=== PATIENT | female | born 1965 | race African-American/Black ===

== ENCOUNTER 2017-01-18 10:21 | Emergency (ER) | payer SELFPAY ==
[~2017-01-18] VITALS: Ht 170.2 cm; Wt 73.5 kg
[~2017-01-18 10:21] MED LIST: ALBU0.086 INH; MAGICADU2 SWISH-SWAL; PENI500T PO
[2017-01-18 10:28] VITALS: BP 150/98; PULSE 79; RESP 16; TEMP 98.8; O2SAT 97
[2017-01-18] MEDS ORDERED: CLON0.1T PO (10:39)
[2017-01-18] MEDS ORDERED: ALBU.5I NEB (10:39)
--- NOTE | 2017-01-18 11:19 | PD ---
HPI Chief Complaint: Musculoskeletal Complaint Time Seen by Provider: 11:09 Travel History International Travel<30 days: No Contact w/Intl Traveler<30days: No Traveled to known affect area: No History of Present Illness HPI 51-year-old Afro-[place] female presents the emergency Department with left- sided lower back pain with sciatica symptoms to the great toe left foot. Patient denies any specific inciting injury. Patient has had a history of this in the past with positive MRI previously. Patient states the pain is been worse over the past 2 days keeping her up at night. She denies weakness or bowel or bladder involvement. Patient is allergic to bee stings and peanuts. PFSH Past Medical History Hx Anticoagulant Therapy: No Asthma: Yes Cardiovascular Problems: Yes (htn out of meds for 2 months) Diabetes: No Diminished Hearing: No Hypertension: Yes Musculoskeletal: Yes (HERNIATED DISC) Respiratory: Yes (ASTHMA) Immunizations Current: Yes ?: Not LMP: no more menses, menapause Menopausal: Yes Tubal Ligation: Yes Past Surgical History Section: Yes Social History Alcohol Use: Yes (BEER DAILY; 4PK/DAILY) Tobacco Use: Yes (5 CIG DAILY) Substance Use: Yes (HX COCAINE (DENIES OF 05/20/16)) Allergies-Medications (Allergen,Severity, Reaction): Coded Allergies: Bee Sting (Verified Allergy, Severe, ANAPHYLAXIS, 01/18/17) Peanut (Verified Allergy, Severe, ANAPHYLAXIS, 01/18/17) Reported Meds & Prescriptions Reported Meds & Active Scripts Active Reported Clonidine (Clonidine HCl) 0.1 Mg Tab 0.1 Mg PO BID Albuterol Neb (Albuterol Sulfate) 2.5 Mg/0.5 Ml Neb 2.5 Mg NEB Q4HR NEB PRN Note: The Albuterol Sulfate Inhalation Solution is concentrated and must be diluted. Read complete instructions carefully before using. Review of Systems Except as stated in HPI: all other systems reviewed are Neg General / Constitutional: No: Fever Eyes: No: Visual changes HENT: No: Headaches Cardiovascular: No: Chest Pain or Discomfort Respiratory: No: Shortness of Breath Gastrointestinal: No: Abdominal Pain Genitourinary: No: Dysuria Musculoskeletal: No: Pain Skin: No Rash Neurologic: No: Weakness Psychiatric: No: Depression Endocrine: No: Polydipsia Hematologic/Lymphatic: No: Easy Bruising Physical Exam Narrative GENERAL: Patient appears in no acute distress. SKIN: Warm and dry. Normal color. Normal turgor. No rash. HEAD: Atraumatic. Normocephalic. EYES: Pupils equal and round. No scleral icterus. No injection or drainage. ENT: No nasal bleeding or discharge. Mucous membranes pink and moist. Pharynx is clear. Airway is patent. NECK: Trachea midline. Neck is supple nontender. CARDIOVASCULAR: Regular rate and rhythm. RESPIRATORY: No accessory muscle use. Clear to auscultation. Breath sounds equal bilaterally. MUSCULOSKELETAL: Extremities without clubbing, cyanosis, or edema. No obvious deformities. Patient has tenderness with palpation along the left lower lumbar paraspinous region into the sciatic notch. Patient is positive straight leg raise pain on the left at 45, without contralateral pain on the right. Patient is able to dorsiflex and plantar flex normally, as well as stand on both feet individually without difficulty. NEUROLOGICAL: Awake and alert. No obvious cranial nerve deficits. Motor grossly within normal limits. Five out of 5 muscle strength in the arms and legs. Normal speech. PSYCHIATRIC: Appropriate mood and affect; insight and judgment normal. Data Data Last Documented VS Vital Signs Date Time Temp Pulse Resp B/P Pulse Ox O2 Delivery O2 Flow Rate FiO2 01/18/17 10:28 98.8 79 16 150/98 97 MDM Medical Decision Making Medical Screen Exam Complete: Yes Emergency Medical Condition: Yes Medical Record Reviewed: Yes Differential Diagnosis Low back pain. Lumbar strain. Sciatica. Narrative Course Patient is medically stable at time of exam. Radiographic imaging at this time is not felt warranted based on the patient's history and physical. Patient be treated with prednisone 20 mg twice a day 7 days. Patient also given Norflex 100 mg twice a day when necessary #10. Patient also given tramadol 50 mg one every 6 hours when necessary pain #20. Patient is to use heat and ice and encourage frequent walking and exercise as instructed. Patient follow with her primary care physician or return to emergency Department with worsening symptoms as needed. Diagnosis Primary Impression: Lumbago with sciatica, left side Referrals: Primary Care Physician Patient Instructions: General Instructions, Lower Back Exercises (GEN), Sciatica (ED) Additional Instructions: Radiographic imaging at this time is not felt warranted based on the patient's history and physical. Patient be treated with prednisone 20 mg twice a day 7 days. Patient also given Norflex 100 mg twice a day when necessary #10. Patient also given tramadol 50 mg one every 6 hours when necessary pain #20. Patient is to use heat and ice and encourage frequent walking and exercise as instructed. Patient follow with her primary care physician or return to emergency Department with worsening symptoms as needed. Med/Other Pt SpecificInfo: Prescription(s) given Disposition: 01 DISCHARGE HOME Condition: Stable Panda Ferraro Jan 18, 2017 11:19
[2017-01-18] MEDS ORDERED: ORPH100T99 PO (11:20)
[2017-01-18] MEDS ORDERED: TRAM50TA PO (11:20)
[2017-01-18] MEDS ORDERED: PRED20 PO (11:20)
== END 2017-01-18 11:26 | disposition home or self-care (01) ==
LOC: PHEFT 10:21
DX: I10 Essential (primary) hypertension (principal); M54.40 Lumbago with sciatica, unspecified side
CPT/HCPCS: 99283

== ENCOUNTER 2017-05-03 13:24 | Emergency (ER) | payer SELFPAY ==
[~2017-05-03] VITALS: Ht 170.2 cm; Wt 75.4 kg
[~2017-05-03 13:24] MED LIST changes: +ALBU.5I NEB; -ALBU0.086 INH; +CLON0.1T PO; -MAGICADU2 SWISH-SWAL; +ORPH100T99 PO; -PENI500T PO; +PRED20 PO; +TRAM50TA PO
[2017-05-03 13:39] VITALS: BP 142/94; PULSE 78; RESP 18; TEMP 98.5; O2SAT 97
--- NOTE | 2017-05-03 15:08 | PD ---
HPI Chief Complaint: Laceration/Skin Injury Time Seen by Provider: 12:31 Travel History International Travel<30 days: No Contact w/Intl Traveler<30days: No Traveled to known affect area: No History of Present Illness HPI 51-year-old female presents to the emergency room for evaluation of a laceration to her left lateral leg that occurred just prior to arrival. Patient was taking out the trash when she was cut by what she believes was broken ceramic or glass. She denies significant pain. States it is tender around the area. She applied hydrogen peroxide and then came to the emergency room. Unknown last tetanus. PFSH Past Medical History Hx Anticoagulant Therapy: No Asthma: Yes Cardiovascular Problems: Yes (htn out of meds for 2 months) COPD: Yes Diabetes: No Diminished Hearing: No Hypertension: Yes Musculoskeletal: Yes (HERNIATED DISC) Respiratory: Yes (asthma, COPD) Immunizations Current: Yes Tetanus Vaccination: > 5 Years Influenza Vaccination: No ?: Unknown LMP: 28 yrs old Menopausal: No Tubal Ligation: Yes (1990) Past Surgical History Abdominal Surgery: Yes (C section in 1982) Section: Yes (1982) Oral Surgery: Yes (wisdom teeth removed at 17) Social History Alcohol Use: Yes (4 pack every other day) Tobacco Use: Yes (10/12 ppd) Substance Use: No Allergies-Medications (Allergen,Severity, Reaction): Coded Allergies: Bee Sting (Verified Allergy, Severe, ANAPHYLAXIS, 01/18/17) Peanut (Verified Allergy, Severe, ANAPHYLAXIS, 01/18/17) Reported Meds & Prescriptions Reported Meds & Active Scripts Active Reported Albuterol Neb (Albuterol Sulfate) 2.5 Mg/0.5 Ml Neb 2.5 Mg NEB Q4HR NEB PRN Note: The Albuterol Sulfate Inhalation Solution is concentrated and must be diluted. Read complete instructions carefully before using. Review of Systems Except as stated in HPI: all other systems reviewed are Neg Physical Exam Narrative GENERAL: Well-nourished, well-developed female in no acute distress. Afebrile. Ambulatory. SKIN: Focused skin assessment warm/dry. There is a 3 cm superficial laceration to the left lateral calf. Nonbleeding. Laceration does not reach fatty layer. HEAD: Normocephalic. EYES: No scleral icterus. No injection or drainage. NECK: Supple, trachea midline. No JVD or lymphadenopathy. CARDIOVASCULAR: Regular rate and rhythm without murmurs, gallops, or rubs. RESPIRATORY: Breath sounds equal bilaterally. No accessory muscle use. PSYCHIATRIC: No delusional thought processes. No hallucinations. Data Data Last Documented VS Vital Signs Date Time Temp Pulse Resp B/P Pulse Ox O2 Delivery O2 Flow Rate FiO2 05/03/17 13:39 98.5 78 18 142/94 97 MDM Medical Decision Making Medical Screen Exam Complete: Yes Emergency Medical Condition: Yes Medical Record Reviewed: Yes Differential Diagnosis Laceration, abrasion, skin tear Narrative Course 51-year-old female presents to the emergency room for evaluation of a laceration to her left lower lateral leg that occurred just prior to arrival. Patient cut herself on glass. Physical exam reveals a 3 cm very superficial laceration to the left lower lateral leg. It is nonbleeding. No significant tenderness to palpation. Tetanus was updated. Laceration is repaired with sutures, see procedure note for details. Patient discharged with wound care instructions and told to follow up with her primary care physician or return for worsening symptoms. She understands and agrees to plan. Procedures Procedure Narrative LACERATION LOCATION: Left lower lateral leg LENGTH: 3 cm NUMBER OF STITCHES/KATHY: 5 Simple interrupted REPAIR: The area of the laceration was prepped with Betadine and sterilely draped. The laceration was infiltrated with 1% lidocaine. The wound was copiously irrigated and explored without evidence of foreign body, tendon injury or neurovascular injury. The wound was closed using 4-0 Prolene. This was a single layer repair. A sterile dressing was applied. The patient was advised to keep the dressing clean and dry. Patient tolerated the procedure well. Diagnosis Primary Impression: Laceration of leg Qualified Code: S81.812A - Laceration of leg, left, initial encounter Referrals: Primary Care Physician Patient Instructions: General Instructions, Laceration (ED) Additional Instructions: Rest and drink plenty of fluids. Keep wound clean and dry. Apply triple antibiotic ointment daily. Sutures out in 10 days. Follow-up with a primary care physician. Return to the emergency room for worsening symptoms. Disposition: 01 DISCHARGE HOME Condition: Stable Nitza Salomon May 03, 2017 15:08
[2017-05-03] MEDS ORDERED: TETANUS/DIPHTHERIA TOXOID ADULT 0.5 ML VIAL IM ONE (15:15)
== END 2017-05-03 15:34 | disposition home or self-care (01) ==
LOC: PHEFT 13:24
DX: S81.812A Laceration without foreign body, left lower leg, initial encounter (principal); I10 Essential (primary) hypertension; J44.9 Chronic obstructive pulmonary disease, unspecified; F17.200 Nicotine dependence, unspecified, uncomplicated; W25.XXXA Contact with sharp glass, initial encounter; Y93.89 Activity, other specified; Z23 Encounter for immunization
CPT/HCPCS: 12002; 90471; 90714

== ENCOUNTER 2017-05-06 23:07 | Emergency (ER) | payer SELFPAY ==
[~2017-05-06] VITALS: Ht 170.2 cm; Wt 77.3 kg
[~2017-05-06 23:07] MED LIST changes: -CLON0.1T PO; -ORPH100T99 PO; -PRED20 PO; -TRAM50TA PO
[2017-05-06] MEDS ORDERED: ONDANSETRON ODT 4 MG TAB PO ONE (23:15)
[2017-05-06] MEDS ORDERED: DEXAMETHASONE SOD PHOS 20 MG/5 ML VIAL IM ONE (23:15)
[2017-05-06] MEDS ORDERED: HYDROmorphone HCL PF 1 MG/ML VIAL IM ONE (23:15)
[2017-05-06] MEDS ORDERED: MEDR4PAK PO (23:18)
[2017-05-06] MEDS ORDERED: ULTR50TA5 PO (23:18)
[2017-05-06] MEDS ORDERED: BACL20TA PO (23:18)
--- NOTE | 2017-05-06 23:18 | PD ---
HPI Chief Complaint: back pain Time Seen by Provider: 23:11 Travel History International Travel<30 days: No Contact w/Intl Traveler<30days: No Traveled to known affect area: No History of Present Illness HPI LOW BACK PAIN SHARP AND RADIATING DOWN RIGHT LEG, 07/20, OCCURRED SHE WAS AMBULATING FROM ROOM TO ROOM AT HER HOUSE, PATIENT HAS BEEN DIAGNOSED PRIOR WITH SCIATICA. CURRENTLY PATIENT DENIES ANY FECAL/URINARY INCONTINENCE PFSH Past Medical History Hx Anticoagulant Therapy: No Asthma: Yes Cardiovascular Problems: Yes (htn out of meds for 2 months) COPD: Yes Diabetes: No Diminished Hearing: No Hypertension: Yes Musculoskeletal: Yes (HERNIATED DISC) Respiratory: Yes (asthma, COPD) Immunizations Current: Yes Menopausal: No Tubal Ligation: Yes (1990) Past Surgical History Abdominal Surgery: Yes (C section in 1982) Section: Yes (1982) Oral Surgery: Yes (wisdom teeth removed at 17) Social History Alcohol Use: Yes (4 pack every other day) Tobacco Use: Yes (10/12) Substance Use: No Allergies-Medications (Allergen,Severity, Reaction): Coded Allergies: Bee Sting (Verified Allergy, Severe, ANAPHYLAXIS, 05/07/17) Peanut (Verified Allergy, Severe, ANAPHYLAXIS, 05/07/17) Reported Meds & Prescriptions Reported Meds & Active Scripts Active Baclofen 20 Mg Tab 20 Mg PO TID Ultram (Tramadol HCl) 50 Mg Tab 50 Mg PO Q4H PRN Medrol Dosepak (Methylprednisolone) 4 Mg Dspk 4 Mg PO DIRECTED Per Pharmacist direction Reported Albuterol Neb (Albuterol Sulfate) 2.5 Mg/0.5 Ml Neb 2.5 Mg NEB Q4HR NEB PRN Note: The Albuterol Sulfate Inhalation Solution is concentrated and must be diluted. Read complete instructions carefully before using. Review of Systems Except as stated in HPI: all other systems reviewed are Neg Musculoskeletal: Positive: Pain (LOW BACK PAIN RADIATING DOWN RT LEG) Physical Exam Narrative GENERAL: SKIN: Warm and dry. HEAD: Atraumatic. Normocephalic. EYES: Pupils equal and round. No scleral icterus. No injection or drainage. ENT: No nasal bleeding or discharge. Mucous membranes pink and moist. NECK: Trachea midline. No JVD. CARDIOVASCULAR: Regular rate and rhythm. RESPIRATORY: No accessory muscle use. Clear to auscultation. Breath sounds equal bilaterally. GASTROINTESTINAL: Abdomen soft, non-tender, nondistended. Hepatic and splenic margins not palpable. MUSCULOSKELETAL: Extremities without clubbing, cyanosis, or edema. No obvious deformities. POSITIVE CONTRALATERAL STRAIGHT LEG RAISE NEUROLOGICAL: Awake and alert. No obvious cranial nerve deficits. Motor grossly within normal limits. Five out of 5 muscle strength in the arms and legs. Normal speech...NO SADDLE ANESTHESIA PSYCHIATRIC: Appropriate mood and affect; insight and judgment normal. Data Data Last Documented VS Vital Signs Date Time Temp Pulse Resp B/P Pulse Ox O2 Delivery O2 Flow Rate FiO2 05/07/17 00:48 82 18 172/88 99 05/07/17 00:05 Room Air 05/06/17 23:25 98.4 Orders Ondansetron Odt (Zofran Odt) (05/06/17 23:15) Hydromorphone Pf Inj (Dilaudid Pf Inj) (05/06/17 23:15) Dexamethasone Inj (Decadron Inj) (05/06/17 23:15) Clonidine (Catapres) (05/06/17 23:30) Orphenadrine Inj (Norflex Inj) (05/07/17 00:00) MDM Medical Decision Making Medical Screen Exam Complete: Yes Emergency Medical Condition: Yes Medical Record Reviewed: Yes Differential Diagnosis SCIATICA Narrative Course NO EVIDENCE OF SADDLE ANESTHESIA NOR TRUE PARALYSIS/PARESTHESIA PRESENTLY....ONLY SHARP PAIN C/W SCIATICA WHICH PATIENT STATED WAS SIMILAR TO HER PREVIOUS ATTACKS. PATIENT TREATED WITH IM MEDICATIONS AND AFTER 30-45MIN PAIN LEVEL ALREADY DOWN TO 5/10 AND ABLE TO MOVE RLE THROUGH ROM. Diagnosis Primary Impression: Lumbago with sciatica, right side Patient Instructions: General Instructions, Sciatica (ED) Scripts Baclofen 20 Mg Tab20 Mg PO TID #21 TAB Ref 0 Prov:Zachary Fam MD 05/06/17 Tramadol (Ultram)50 Mg Tab50 Mg PO Q4H PRN (PAIN) #28 TAB Prov:Zachary Fam MD 05/06/17 Methylprednisolone Dosepak (Medrol Dosepak)4 Mg Dspk4 Mg PO DIRECTED #1 DSPK Per Pharmacist direction Prov:Zachary Fam MD 05/06/17 Disposition: 01 DISCHARGE HOME Condition: Stable Zachary Fam MD May 06, 2017 23:18
[2017-05-06 23:25] VITALS: BP 181/100; PULSE 77; RESP 18; TEMP 98.4; O2SAT 97
[2017-05-06] MEDS ORDERED: cloNIDine HCL 0.1 MG TAB PO ONE (23:30)
[2017-05-07] MEDS ORDERED: ORPHENADRINE INJ 60 MG/2 ML AMP IM ONE
[2017-05-07 00:05] VITALS: BP 171/90; PULSE 68; RESP 18; O2SAT 97
[2017-05-07 00:48] VITALS: BP 172/88
== END 2017-05-07 00:51 | disposition home or self-care (01) ==
LOC: PHED 23:07
DX: M54.41 Lumbago with sciatica, right side (principal)
CPT/HCPCS: 96372; 96374; 99284; J1100; J1170; J2360

== ENCOUNTER 2017-05-08 20:22 | Inpatient (IN) | payer SELFPAY ==
[~2017-05-08] VITALS: Ht 170.2 cm; Wt 83.0 kg
[2017-05-08 20:22] VITALS: BP 169/88; PULSE 103; RESP 20; TEMP 101.6; O2SAT 96
[~2017-05-08 20:22] MED LIST changes: +BACL20TA PO; +MEDR4PAK PO; +ULTR50TA5 PO
[2017-05-08 20:25] VITALS: BP 169/88; PULSE 103; RESP 20; TEMP 101.6; O2SAT 96
[2017-05-08] MEDS ORDERED: SODIUM CHLOR 0.9% 1000 ML INJ 1,000 ML IV SCH ×2 (20:30→23:00)
[2017-05-08] MEDS ORDERED: SODIUM CHLORIDE 0.9% FLUSH 5 ML FLUSH IV FLUSH PRN (20:30)
--- NOTE | 2017-05-08 20:51 | PD ---
HPI Chief Complaint: Altered Mental Status Time Seen by Provider: 20:35 Travel History International Travel<30 days: No Contact w/Intl Traveler<30days: No Traveled to known affect area: No History of Present Illness HPI The patient is a 51-year-old female that comes in today because of right shoulder and right abdominal pain and altered mental status. She was seen yesterday for back pain and was given Dilaudid. She does have a history of cocaine and alcohol abuse. She has fever and cannot tell me how long the fevers been present. She cannot tell me when her right shoulder pain began, this is one of her main complaints. She denies any nausea, vomiting, diarrhea, cough, chest pain or shortness of breath. Her called the ambulance because she was acting strange since yesterday and not getting out of bed or eating. PFSH Past Medical History Hx Anticoagulant Therapy: No Asthma: Yes Cardiovascular Problems: Yes (htn out of meds for 2 months) COPD: Yes Diabetes: No Diminished Hearing: No Hypertension: Yes Musculoskeletal: Yes (HERNIATED DISC) Respiratory: Yes (asthma, COPD) Immunizations Current: Yes Menopausal: No Tubal Ligation: Yes (1990) Past Surgical History Abdominal Surgery: Yes (C section in 1982) Section: Yes (1982) Oral Surgery: Yes (wisdom teeth removed at 17) Social History Alcohol Use: Yes (4 pack every other day) Tobacco Use: Yes (10/12 ppd) Substance Use: No Allergies-Medications (Allergen,Severity, Reaction): Coded Allergies: Bee Sting (Verified Allergy, Severe, ANAPHYLAXIS, 05/08/17) Peanut (Verified Allergy, Severe, ANAPHYLAXIS, 05/08/17) *MDRO Multi-Drug Resistant Organism (Verified Adverse Reaction, Unknown, ) MRSA (blood) 05/08/17, 05/10/17, (back) 05/12/17 Reported Meds & Prescriptions Reported Meds & Active Scripts Active Baclofen 20 Mg Tab 20 Mg PO TID Ultram (Tramadol HCl) 50 Mg Tab 50 Mg PO Q4H PRN Medrol Dosepak (Methylprednisolone) 4 Mg Dspk 4 Mg PO DIRECTED Per Pharmacist direction Reported Albuterol Neb (Albuterol Sulfate) 2.5 Mg/0.5 Ml Neb 2.5 Mg NEB Q4HR NEB PRN Note: The Albuterol Sulfate Inhalation Solution is concentrated and must be diluted. Read complete instructions carefully before using. Review of Systems ROS Limitations: Altered Mental Status, Uncooperative Except as stated in HPI: all other systems reviewed are Neg Physical Exam Exam Limitations: Altered Mental Status, Uncooperative Narrative GENERAL: The patient is alert but has problems answering questions. She is continually moving about and complains of right shoulder pain. Her vital signs show temperature 101.6, pulse 103, blood pressure 169/88 but otherwise normal. SKIN: Focused skin assessment warm/dry. HEAD: Atraumatic. Normocephalic. Neither raccoon eyes nor solares sign is present. EYES: Pupils equal and round. No scleral icterus. No injection or drainage. ENT: No nasal bleeding or discharge. Mucous membranes pink and moist. The throat is clear and tympanic membranes are clear. NECK: Trachea midline. No JVD. There is no meningismus. CARDIOVASCULAR: Sinus tachycardia rhythm. No murmur appreciated. RESPIRATORY: No accessory muscle use. Clear to auscultation. Breath sounds equal bilaterally. GASTROINTESTINAL: Abdomen soft, with tenderness in the right upper quadrant to direct palpation, nondistended. Hepatic and splenic margins not palpable. No guarding or rebound is present. MUSCULOSKELETAL: No obvious deformities. No clubbing. No cyanosis. No edema. NEUROLOGICAL: Awake and alert. No obvious cranial nerve deficits. Motor grossly within normal limits. Normal speech. PSYCHIATRIC: The patient appears anxious and will not answer questions except on occasion; insight and judgment fair Data Data Last Documented VS Orders Electrocardiogram (05/08/17 20:30) Ammonia (05/08/17 20:30) Complete Blood Count With Diff (05/08/17 20:30) Comprehensive Metabolic Panel (05/08/17 20:30) Creatine Kinase (Cpk) (05/08/17 20:30) Troponin I (05/08/17 20:30) Thyroid Stimulating Hormone (05/08/17 20:30) Urinalysis - C+S If Indicated (05/08/17 20:30) Blood Glucose (05/08/17 20:30) Ecg Monitoring (05/08/17 20:30) Iv Access Insert/Monitor (05/08/17 20:30) Oximetry (05/08/17 20:30) Sodium Chloride 0.9% Flush (Ns Flush) (05/08/17 20:30) Sodium Chlor 0.9% 1000 Ml Inj (Ns 1000 M (05/08/17 20:30) Drug Screen, Random Urine (05/08/17 20:30) Alcohol (Ethanol) (05/08/17 20:30) Tylenol (Acetaminophen) (05/08/17 20:30) Salicylates (Aspirin) (05/08/17 20:30) Lactic Acid Sepsis Protocol (05/08/17 20:35) Blood Culture (05/08/17 20:35) Ct Abd/Pel W Iv Contrast(Rout) (05/08/17 20:47) Ed Urine Pregnancytest Poc (05/08/17 20:47) Shoulder, Limited(2vws) (05/08/17 20:47) Urine Culture (05/08/17 21:00) Cath For Specimen (05/08/17 21:40) CKMB (05/08/17 20:40) CKMB% (05/08/17 20:40) Iohexol 350 Inj (Omnipaque 350 Inj) (05/08/17 22:06) Sodium Chlor 0.9% 1000 Ml Inj (Ns 1000 M (05/08/17 23:00) Ketorolac Inj (Toradol Inj) (05/08/17 23:00) Ceftriaxone Inj (Rocephin Inj) (05/08/17 23:00) Vancomycin Consult Pharmacy (Vancomycin (05/08/17 23:15) Cefepime Inj (Maxipime Inj) (05/09/17 09:00) Admit To Inpatient (05/08/17 ) Vital Signs (Adult) Q4H (05/08/17 23:14) Activity Oob With Assistance (05/08/17 23:14) Rescue Instructor / Telemetry .CONTINUOUS (05/08/17 23:14) Intake + Output MIMI.QSHIFT (05/08/17 23:14) Diet Heart Healthy (05/09/17 Breakfast) Sodium Chlor 0.9% 1000 Ml Inj (Ns 1000 M (05/08/17 23:14) Sodium Chloride 0.9% Flush (Ns Flush) (05/08/17 23:15) Sodium Chloride 0.9% Flush (Ns Flush) (05/09/17 09:00) Ondansetron Inj (Zofran Inj) (05/08/17 23:15) Comprehensive Metabolic Panel (05/09/17 09:00) Complete Blood Count With Diff (05/09/17 09:00) Troponin I (05/09/17 03:00) Troponin I (05/09/17 09:00) Acetaminophen (Tylenol) (05/08/17 23:15) Docusate Sodium-Senna (Janice-Colace) (05/09/17 09:00) Magnesium Hydroxide Liq (Milk Of Magnesi (05/08/17 23:15) Sennosides (Senokot) (05/08/17 23:15) Bisacodyl Supp (Dulcolax Supp) (05/08/17 23:15) Lactulose Liq (Lactulose Liq) (05/08/17 23:15) Inpatient Certification (05/08/17 ) Creatine Kinase (Cpk) (05/09/17 03:00) Creatine Kinase (Cpk) (05/09/17 09:00) Admit Order (Ed Use Only) (05/08/17 23:26) Heparin Inj (Heparin Inj) (05/09/17 09:00) CKMB (05/09/17 03:00) CKMB% (05/09/17 03:00) CKMB (05/09/17 09:12) CKMB% (05/09/17 09:12) Labs MDM Medical Decision Making Medical Screen Exam Complete: Yes Emergency Medical Condition: Yes Medical Record Reviewed: Yes Interpretation(s) The complete metabolic profile shows a creatinine of 1.1, GFR of 64, albumin 2.9 with GOT of 49 and potassium 3.4. The CK shows 1168 with an MB percentage of only 0.9. The troponin I is minimally elevated at 0.15. The TSH is normal and the alcohol level is essentially 0. The CT abdomen/pelvis with IV contrast shows no acute findings and the abdomen and pelvis. Differential Diagnosis Small bowel obstruction, cholecystitis, acute myocardial infarction, electrolyte disorder, hypo-/hyperglycemia, renal insufficiency, abdominal pain etiology undetermined Narrative Course The patient has abdominal pain etiology undetermined. She also has likely sepsis with her fever, leukocytosis and tachycardia. She has a urinary infection as well as elevation of her cardiac enzymes. She may have some rhabdomyolysis. She also may have some toxic encephalopathy. Sepsis Criteria SIRS Criteria (2 or more): Temp > 100.9 or < 96.8, Heart rate over 90 Diagnosis Primary Impression: Sepsis Additional Impressions: Urinary tract infection Cardiac enzymes elevated Encephalopathy, toxic Admitting Information Admitting Physician Requests: Admit Reed Sinha MD May 08, 2017 20:51 Metamyelocytes 1 % Differential Comment FINAL DIFF MANUAL Platelet Estimate NORMAL Platelet Morphology Comment NORMAL Red Cell Morphology Comment NORMAL Sodium Level 140 MEQ/L Potassium Level 3.4 MEQ/L Chloride Level 107 MEQ/L Carbon Dioxide Level 23.4 MEQ/L Anion Gap 10 MEQ/L Blood Urea Nitrogen 16 MG/DL Creatinine 1.10 MG/DL Estimat Glomerular Filtration 64 ML/MIN Rate Random Glucose 123 MG/DL Lactic Acid Level 1.4 mmol/L Calcium Level 9.1 MG/DL Total Bilirubin 0.7 MG/DL Aspartate Amino Transf 49 U/L (AST/SGOT) Alanine Aminotransferase 23 U/L (ALT/SGPT) Alkaline Phosphatase 111 U/L Ammonia 24 MCMOL/L Total Creatine Kinase 1168 U/L Creatine Kinase MB 10.3 NG/ML Creatine Kinase MB % 0.9 % Troponin I 0.15 NG/ML Total Protein 7.5 GM/DL Albumin 2.9 GM/DL Thyroid Stimulating Hormone 0.830 uIU/ML 3rd Gen Salicylates Level 4.7 MG/DL Acetaminophen Level LESS THAN 2.0 MCG/ML Ethyl Alcohol Level LESS THAN 3 MG/DL Urine Collection Type CATH Urine Color SADIE Urine Turbidity SLIGHT Urine pH 6.0 Urine Specific [place] 1.024 Urine Protein 100 mg/dL Urine Glucose (UA) NEG mg/dL Urine Ketones NEG mg/dL Urine Occult Blood LARGE Urine Nitrite NEG Urine Bilirubin NEG Urine Leukocyte Esterase NEG Urine RBC 10-14 /hpf Urine WBC 0-2 /hpf Urine WBC Clumps OCC Urine Squamous Epithelial 0-5 /hpf Cells Urine Amorphous Sediment LARGE Urine Hyaline Casts 0-2 /lpf Urine Coarse Granular Casts 0-2 /lpf Urine Red Blood Cell Casts 0-2 /lpf Urine Mucus MANY /lpf Microscopic Urinalysis Comment CATH-CULTURE IND Urine Opiates Screen NEG Urine Barbiturates Screen NEG Urine Amphetamines Screen NEG Urine Benzodiazepines Screen NEG Urine Cocaine Screen NEG Urine Cannabinoids Screen NEG MDM Medical Decision Making Medical Screen Exam Complete: Yes Emergency Medical Condition: Yes Medical Record Reviewed: Yes Interpretation(s) The complete metabolic profile shows a creatinine of 1.1, GFR of 64, albumin 2.9 with GOT of 49 and potassium 3.4. The CK shows 1168 with an MB percentage of only 0.9. The troponin I is minimally elevated at 0.15. The TSH is normal and the alcohol level is essentially 0. The CT abdomen/pelvis with IV contrast shows no acute findings and the abdomen and pelvis. Sepsis Criteria SIRS Criteria (2 or more): Temp > 100.9 or < 96.8, Heart rate over 90 Reed Sinha MD May 08, 2017 20:51
[2017-05-08 21:02] LABS: AUTOMATED NEUTROPHIL # 19.2 TH/MM3 (1.8-7.7); BASOPHIL # 0.5 TH/MM3 (0-0.2); BASOPHIL % 2.5 % (0.0-2.0); HEMATOCRIT 40.7 % (35.0-46.0); LYMPH % 3.3 % (9.0-44.0); LYMPHOCYTE # 0.7 TH/MM3 (1.0-4.8); MEAN CELL VOLUME 96.7 FL (80.0-100.0); MEAN CORPUSCULAR HEMOGLOBIN 31.8 PG (27.0-34.0); MEAN CORPUSCULAR HGB CONC 32.9 % (32.0-36.0); MONO % 4.1 % (0.0-8.0); NEUT % 90.1 % (16.0-70.0); PLATELET COUNT 173 TH/MM3 (150-450); RED BLOOD COUNT 4.21 MIL/MM3 (4.00-5.30); RED CELL DISTRIBUTION WIDTH 13.7 % (11.6-17.2); WHITE BLOOD COUNT 21.3 TH/MM3 (4.0-11.0)
[2017-05-08 21:07] LABS: HEMO FLAGS AUTO DIFF
[2017-05-08 21:12] LABS: CHLORIDE 107 MEQ/L (98-107); POTASSIUM 3.4 MEQ/L (3.5-5.1); SODIUM (NA) 140 MEQ/L (136-145)
[2017-05-08 21:16] LABS: ANION GAP 10 MEQ/L (5-15); BICARBONATE 23.4 MEQ/L (21.0-32.0); BLOOD UREA NITROGEN 16 MG/DL (7-18)
[2017-05-08 21:18] LABS: BLOOD, URINE LARGE (NEG); GLUCOSE,URINE NEG (NEG); KETONE, URINE NEG (NEG); NITRITE,URINE NEG (NEG)
[2017-05-08 21:19] LABS: ALT (GPT) 23 U/L (10-53); AST (GOT) 49 U/L (15-37); GLOMERULAR FILTRATION RATE 64 ML/MIN (>89)
[2017-05-08 21:21] LABS: TOTAL BILIRUBIN ADULT 0.7 MG/DL (0.2-1.0)
[2017-05-08 21:22] LABS: ALKALINE PHOSPHATASE 111 U/L (45-117)
[2017-05-08 21:25] LABS: METHOD OF COLLECTION CATH; URINE COLOR AMBER (YELLW/STRAW)
[2017-05-08 21:26] LABS: MUCUS URINE MANY /lpf (OCC); SQUAMOUS EPITHELIAL CELL URINE 0-5 /hpf (0-5)
[2017-05-08 21:27] LABS: WBC, URINE 0-2 /hpf (0-5)
[2017-05-08 21:28] LABS: HYALINE CAST, URINE 0-2 /lpf (RARE); RED BLOOD CELL CAST, URINE 0-2 /lpf
[2017-05-08 21:29] LABS: COMMENT (UR) CATH-CULTURE IND; CULTURE IF INDICATED CATH CULTURE IND
[2017-05-08 21:34] LABS: AMPHETAMINE, URINE NEG (NEG)
[2017-05-08 21:34] LABS: CREATINE KINASE 1168 U/L (26-192)
[2017-05-08 21:36] LABS: BARBITURATES, URINE NEG (NEG)
--- NOTE | 2017-05-08 21:36 | RADRPT ---
EXAM DATE/TIME: 05/08/2017 21:05 [facility] COMPARISON: No previous studies available for comparison. INDICATIONS : Shoulder pain. MEDICAL HISTORY : Chronic obstructive pulmonary disease. Hypertension SURGICAL HISTORY : section. ENCOUNTER: Initial ACUITY: 1 day PAIN SCORE: LOCATION: Right Shoulder FINDINGS: Two view examination of the right shoulder demonstrates no evidence of fracture or dislocation. The glenohumeral and acromioclavicular joints are maintained. The visualized right upper ribs are intact . Bony mineralization is normal. CONCLUSION: Negative two-view examination of the shoulder. Trevin Deleon MD on May 08, 2017 at 21:32 Board Certified Radiologist. This report was verified electronically.
[2017-05-08 21:38] LABS: COCAINE, URINE NEG (NEG)
[2017-05-08 21:49] VITALS: BP 130/74; PULSE 99; RESP 18; O2SAT 96
[2017-05-08 21:51] LABS: BANDS 15 % (0-6); METAMYELOCYTES 1 % (0-1); NEUTROPHIL # MANUAL DIFF 19.4 TH/MM3 (1.8-7.7); PLATELET ESTIMATE SMEAR NORMAL (NORMAL); PLATELET MORPHOLOGY NORMAL (NORMAL); POLYS (SEG NEUTROPHILS) 75 % (16-70); SCAN/DIFF FINAL DIFF MANUAL; WBC DIFF SAMPLE 100
[2017-05-08 21:54] LABS: CKMB 10.3 NG/ML (0.5-3.6)
[2017-05-08] MEDS ORDERED: IOHEXOL 350 MG/ML 10 ML VIAL (for RAD DIAG) IV ONE (22:06)
[2017-05-08 22:57] VITALS: BP 173/89; PULSE 90; RESP 18; TEMP 102.1; O2SAT 94
--- NOTE | 2017-05-08 22:57 | RADRPT ---
EXAM DATE/TIME: 05/08/2017 22:08 [facility] COMPARISON: No previous studies available for comparison. INDICATIONS : Right flank pain. Altered mental status IV CONTRAST: 96 cc Omnipaque 350 (iohexol) IV ORAL CONTRAST: No oral contrast ingested. RADIATION DOSE: 16.90 CTDIvol (mGy) ; Patient motion MEDICAL HISTORY : Chronic obstructive pulmonary disease. SURGICAL HISTORY : section. ENCOUNTER: Initial ACUITY: 1 day PAIN SCALE: Non-responsive LOCATION: abdomen TECHNIQUE: Volumetric scanning of the abdomen and pelvis was performed. Using automated exposure control and ad justment of the mA and/or kV according to patient size, radiation dose was kept as low as reasonably achievable to obtain optimal diagnostic quality images. DICOM format image data is available electro nically for review and comparison. FINDINGS: LOWER LUNGS: The visualized lower lungs are clear. LIVER: Homogeneous density without lesion. There is no dilation of the biliary tree. No calcified gallston es. SPLEEN: Normal size without lesion. PANCREAS: Within normal limits. KIDNEYS: Normal in size and shape. There is no mass, stone or hydronephrosis. ADRENAL GLANDS: Within normal limits. VASCULAR: There is no aortic aneurysm. Atherosclerotic calcification. BOWEL/MESENTERY: No dilated loops of small or large bowel. The appendix is identified in the right lower quadrant, is normal size and the lumen contains gas.. ABDOMINAL WALL: Within normal limits. RETROPERITONEUM: There is no lymphadenopathy. BLADDER: No wall thickening or mass. REPRODUCTIVE: Within normal limits. INGUINAL: There is no lymphadenopathy or hernia. MUSCULOSKELETAL: Within normal limits for patient age. CONCLUSION: No acute findings in the abdomen and pelvis. Trevin Deleon MD on May 08, 2017 at 22:51 Board Certified Radiologist. This report was verified electronically.
[2017-05-08] MEDS ORDERED: cefTRIAXone INJ 2,000 MG in SODIUM CHLORIDE 0.9% INJ 100 ML IV ONE (23:00)
[2017-05-08] MEDS ORDERED: KETOROLAC TROMETHAMINE 60 MG/2 ML (IM) VIAL IVP ONE (23:00)
[2017-05-08 23:02] LABS: ACETAMINOPHEN LESS THAN 2.0 MCG/ML (10.0-30.0)
[2017-05-08] MEDS ORDERED: SODIUM CHLORIDE 0.9% FLUSH 10 ML FLUSH IV FLUSH PRN (23:15)
[2017-05-08] MEDS ORDERED: ONDANSETRON HCL 4 MG/2 ML VIAL IVP PRN (23:15)
[2017-05-08] MEDS ORDERED: LACTULOSE SYRUP 20 GM/30 ML CUP PO PRN (23:15)
[2017-05-08] MEDS ORDERED: MAGNESIUM HYDROXIDE SUSP 30 ML CUP PO PRN (23:15)
[2017-05-08] MEDS ORDERED: SENNOSIDES 8.6 MG TAB PO PRN (23:15)
[2017-05-08] MEDS ORDERED: Vancomycin Consult Pharmacy 1 EA OTHER SCH (23:15)
[2017-05-08] MEDS ORDERED: BISACODYL 10 MG SUPP RECTAL PRN (23:15)
[2017-05-09] VITALS (13 sets, daily range): BP systolic 125–188; BP diastolic 73–106; PULSE 68–92; RESP 18–24; TEMP 99.2–102.3; O2SAT 92–100
[2017-05-09] MEDS ORDERED: VANCOMYCIN 1,000 MG/NS 250 ML IV ONE ×2
--- NOTE | 2017-05-09 00:02 | RADRPT ---
EXAM DATE/TIME: 05/08/2017 23:29 [facility] COMPARISON: No previous studies available for comparison. INDICATIONS : Sepsi, elevated troponin. Pneumonia RADIATION DOSE: 13.90 CTDIvol (mGy) MEDICAL HISTORY : Non-responsive. Chronic obstructive pulmonary disease. asthma SURGICAL HISTORY : Non-responsive. ENCOUNTER: Initial ACUITY: 1 day PAIN SCALE: Non-responsive LOCATION: chest TECHNIQUE: Volumetric scanning of the chest was performed. Using automated exposure control and adjustment of t he mA and/or kV according to patient size, radiation dose was kept as low as reasonably achievable to obtain optimal diagnostic quality images. DICOM format image data is available electronically for r eview and comparison. Follow-up recommendations for incidentally detected pulmonary nodules are based at a minimum on nodul e size and patient risk factors according to Fleischner Society Guidelines. FINDINGS: LUNGS: There is no consolidation or pneumothorax. No concerning pulmonary nodule is visualized. PLEURAE: There is no pleural thickening or pleural effusion. MEDIASTINUM: The heart and great vessels demonstrate no acute abnormality. There is no mediastinal or hilar lymph adenopathy. AXILLAE: Within normal limits. No lymphadenopathy. MUSCULOSKELETAL: Within normal limits for patient age. MISCELLANEOUS: The visualized upper abdominal organs demonstrate no acute abnormality. CONCLUSION: Normal examination. Edis Fox MD on May 09, 2017 at 0:01 Board Certified Radiologist. This report was verified electronically.
[2017-05-09] MEDS: SODIUM CHLOR 0.9% 1000 ML INJ 1,000 ML IV SCH ×3 (01:25→20:54)
[2017-05-09 03:46] LABS: CKMB 3.9 NG/ML (0.5-3.6)
[2017-05-09] MEDS: ACETAMINOPHEN 325 MG TAB PO PRN ×3 (03:54→23:55)
[2017-05-09] MEDS: SODIUM CHLORIDE 0.9% FLUSH 10 ML FLUSH IV FLUSH SCH ×2 (08:53→20:53)
[2017-05-09] MEDS: CEFEPIME INJ 1,000 MG in SODIUM CHLORIDE 0.9% INJ 100 ML IV SCH ×2 (09:04→20:55)
[2017-05-09 09:30] LABS: AUTOMATED NEUTROPHIL # 17.3 TH/MM3 (1.8-7.7); BASOPHIL # 0.1 TH/MM3 (0-0.2); BASOPHIL % 0.4 % (0.0-2.0); EOSINOPHIL % 0.1 % (0.0-4.0); HEMATOCRIT 36.4 % (35.0-46.0); LYMPH % 3.8 % (9.0-44.0); LYMPHOCYTE # 0.7 TH/MM3 (1.0-4.8); MEAN CELL VOLUME 96.2 FL (80.0-100.0); MEAN CORPUSCULAR HEMOGLOBIN 32.3 PG (27.0-34.0); MEAN CORPUSCULAR HGB CONC 33.6 % (32.0-36.0); MONO % 1.8 % (0.0-8.0); NEUT % 93.9 % (16.0-70.0); PLATELET COUNT 150 TH/MM3 (150-450); RED BLOOD COUNT 3.78 MIL/MM3 (4.00-5.30); RED CELL DISTRIBUTION WIDTH 13.5 % (11.6-17.2); WHITE BLOOD COUNT 18.4 TH/MM3 (4.0-11.0)
[2017-05-09 09:31] LABS: HEMO FLAGS AUTO DIFF
[2017-05-09] MEDS: DOCUSATE SODIUM 50 MG/SENNA 8.6 MG TAB PO SCH ×2 (09:43→20:54)
[2017-05-09] MEDS: HEPARIN SODIUM - SQ 10,000 UNITS/ML VIAL SQ SCH ×2 (09:44→20:55)
--- NOTE | 2017-05-09 09:51 | HHI.HP ---
[facility] Unknown Admission Diagnosis sepsis, elevated troponin I, altered mental status Diagnoses: Chief Complaint: Altered mental status Travel History International Travel<30 Days: No Contact w/Intl Traveler <30 Da: No Traveled to Known Affected Are: No Sepsis Criteria SIRS Criteria (2 or more): Temp > 100.9 or < 96.8, RR > 20 or PaCO2 < 32, WBC > 78586, < 4000 or > 10% bands Sepsis Criteria (SIRS+source): Infect source susp/known History of Present Illness Patient is a 51-year-old female with a history of uncontrolled hypertension due to nonadherence. Patient comes in over the last 4 days to the emergency room several times weekly multiple things. Initially there is a leg laceration and there was some pain which was called sciatica and at that ER evaluation she was given baclofen and Ultram and Medrol Dosepak. Patient subsequently came in within 24 hours with an altered mental status per her fianc. She was confused and unable to provide a good history. She also presented with a fever of 102.1 with elevated cardiac isoenzymes CPK troponin were elevated and the patient was complaining of leg and shoulder cramping. Patient had a white cell count was elevated and evidence of acute renal failure. She has evidence of urinary tract infections been treated for sepsis and admitted to the hospital. Patient is also complaining of right shoulder pain which is 10 out of 10 and worse with movement of the shoulder and improved with keeping it still. Patient has never had this before and was very concerned. She never had sciatica before either and has had difficulty walking due to the pain. She was recommended for further imaging but has refused due to increased pain. She did have x-ray of the shoulder which was unremarkable for any fracture or bony injury. She does admit to cocaine and marijuana as well as excessive tobacco and alcohol use. She is tearful and requested to go home however she realizes she cannot move due to pain. Review of Systems Constitutional: DENIES: Diaphoretic episodes, Fatigue, Fever, Weight gain, Weight loss, Chills, Dizziness, Change in appetite, Night Sweats Endocrine: DENIES: Abnorml menstrual pattern, Heat/cold intolerance, Polydipsia , Polyuria, Polyphagia Eyes: DENIES: Blurred vision, Diplopia, Eye inflammation, Eye pain, Vision loss , Photosensitivity, Double Vision Ears, nose, mouth, throat: DENIES: Tinnitus, Hearing loss, Vertigo, Nasal discharge, Oral lesions, Throat pain, Hoarseness, Ear Pain, Running Nose, Epistaxis, Sinus Pain, Toothache, Odynophagia Respiratory: DENIES: Apneas, Cough, Snoring, Wheezing, Hemoptysis, Sputum production, Shortness of breath Cardiovascular: DENIES: Chest pain, Palpitations, Syncope, Dyspnea on Exertion , PND, Lower Extremity Edema, Orthopnea, Claudication Gastrointestinal: DENIES: Abdominal pain, Black stools, Bloody stools, Constipation, Diarrhea, Nausea, Vomiting, Difficulty Swallowing, Anorexia Genitourinary: DENIES: Abnormal vaginal bleeding, Dysmenorrhea, Dyspareunia, Sexual dysfunction, Urinary frequency, Urinary incontinence, Urgency, Hematuria , Dysuria, Nocturia, Vaginal discharge Musculoskeletal: COMPLAINS OF: Joint pain ( h right shoulder an), Muscle aches , Stiffness, DENIES: Joint Swelling, Back pain, Neck pain Integumentary: DENIES: Abnormal pigmentation, Pruritus, Rash, Nail changes, Breast masses, Breast skin changes, Nipple discharge Hematologic/lymphatic: DENIES: Bruising, Lymphadenopathy Immunologic/allergic: DENIES: Eczema, Urticaria Neurologic: DENIES: Abnormal gait, Headache, Localized weakness, Paresthesias, Seizures, Speech Problems, Tremor, Poor Balance Psychiatric: COMPLAINS OF: Anxiety, DENIES: Confusion, Mood changes, Depression, Hallucinations, Agitation, Suicidal Ideation, Homicidal Ideation, Delusions Past Family Social History Past Medical History Hypertension COPD/asthma Past Surgical History , dental extraction Reported Medications Reviewed in the EMR Allergies: Coded Allergies: Bee Sting (Verified Allergy, Severe, ANAPHYLAXIS, 05/08/17) Peanut (Verified Allergy, Severe, ANAPHYLAXIS, 05/08/17) Active Ordered Medications Reviewed in the EMR Family History Patient does not know her family history Social History Smokes a pack a day, lives with her fianc drinks 4 beers Physical Exam Vital Signs Vital Signs Date Time Temp Pulse Resp B/P Pulse Ox O2 Delivery O2 Flow Rate FiO2 05/09/17 09:09 90 18 188/99 97 Room Air 05/09/17 07:02 99 Room Air 05/09/17 07:02 99 Room Air 05/09/17 06:06 99.2 72 18 96 Room Air 05/09/17 03:50 100.6 88 20 149/86 94 Room Air 05/09/17 01:21 99.2 83 18 125/73 96 Room Air 05/09/17 00:32 81 24 92 Room Air 05/08/17 22:57 102.1 90 18 173/89 94 Room Air 05/08/17 21:49 99 18 130/74 96 Room Air 05/08/17 20:25 101.6 103 20 169/88 96 Room Air 05/08/17 20:25 103 Room Air 05/08/17 20:22 101.6 103 20 169/88 96 Physical Exam GENERAL: This is a well-nourished, well-developed patient, complaining of eye pain and tearful SKIN: No rashes, ecchymoses or lesions. Cool and dry. HEAD: Atraumatic. Normocephalic. No temporal or scalp tenderness. EYES: Pupils equal round and reactive. Extraocular motions intact. No scleral icterus. No injection. There is bilateral drainage ENT: Nose without bleeding, purulent drainage or septal hematoma. Throat without erythema, tonsillar hypertrophy or exudate. Uvula midline. Airway patent. NECK: Trachea midline. No JVD or lymphadenopathy. Supple, nontender, no meningeal signs. CARDIOVASCULAR: Regular rate and rhythm without murmurs, gallops, or rubs. RESPIRATORY: Clear to auscultation. Breath sounds equal bilaterally. No wheezes , rales, or rhonchi. GASTROINTESTINAL: Abdomen soft, non-tender, nondistended. No hepato-splenomegaly , or palpable masses. No guarding. MUSCULOSKELETAL: Extremities without clubbing, cyanosis, or edema. No joint tenderness, effusion, or edema noted. No calf tenderness. Negative Homans sign bilaterally. NEUROLOGICAL: Awake and alert. Cranial nerves II through XII intact. Motor and sensory grossly within normal limits. Five out of 5 muscle strength in all muscle groups. Normal speech. Laboratory Laboratory Tests Test 05/08/17 05/08/17 05/09/17 05/09/17 20:40 21:00 03:00 09:26 White Blood Count 21.3 18.4 Red Blood Count 4.21 3.78 Hemoglobin 13.4 12.2 Hematocrit 40.7 36.4 Mean Corpuscular Volume 96.7 96.2 Mean Corpuscular Hemoglobin 31.8 32.3 Mean Corpuscular Hemoglobin 32.9 33.6 Concent Red Cell Distribution Width 13.7 13.5 Platelet Count 173 150 Mean Platelet Volume 8.9 8.1 Neutrophils (%) (Auto) 90.1 93.9 Lymphocytes (%) (Auto) 3.3 3.8 Monocytes (%) (Auto) 4.1 1.8 Eosinophils (%) (Auto) 0.0 0.1 Basophils (%) (Auto) 2.5 0.4 Neutrophils # (Auto) 19.2 17.3 Lymphocytes # (Auto) 0.7 0.7 Monocytes # (Auto) 0.9 0.3 Eosinophils # (Auto) 0.0 0.0 Basophils # (Auto) 0.5 0.1 CBC Comment AUTO DIFF AUTO DIFF Differential Total Cells 100 Counted Neutrophils % (Manual) 75 Band Neutrophils % 15 Lymphocytes % 3 Monocytes % 6 Neutrophils # (Manual) 19.4 Metamyelocytes 1 Differential Comment FINAL DIFF MANUAL Platelet Estimate NORMAL Platelet Morphology Comment NORMAL Red Cell Morphology Comment NORMAL Sodium Level 140 Potassium Level 3.4 Chloride Level 107 Carbon Dioxide Level 23.4 Anion Gap 10 Blood Urea Nitrogen 16 Creatinine 1.10 Estimat Glomerular Filtration 64 Rate Random Glucose 123 Lactic Acid Level 1.4 Calcium Level 9.1 Total Bilirubin 0.7 Aspartate Amino Transf 49 (AST/SGOT) Alanine Aminotransferase 23 (ALT/SGPT) Alkaline Phosphatase 111 Ammonia 24 Total Creatine Kinase 1168 743 Creatine Kinase MB 10.3 3.9 Creatine Kinase MB % 0.9 0.5 Troponin I 0.15 0.11 Total Protein 7.5 Albumin 2.9 Thyroid Stimulating Hormone 0.830 3rd Gen Salicylates Level 4.7 Acetaminophen Level LESS THAN 2.0 Ethyl Alcohol Level LESS THAN 3 Urine Collection Type CATH Urine Color SADIE Urine Turbidity SLIGHT Urine pH 6.0 Urine Specific [place] 1.024 Urine Protein 100 Urine Glucose (UA) NEG Urine Ketones NEG Urine Occult Blood LARGE Urine Nitrite NEG Urine Bilirubin NEG Urine Leukocyte Esterase NEG Urine RBC 10-14 Urine WBC 0-2 Urine WBC Clumps OCC Urine Squamous Epithelial 0-5 Cells Urine Amorphous Sediment LARGE Urine Hyaline Casts 0-2 Urine Coarse Granular Casts 0-2 Urine Red Blood Cell Casts 0-2 Urine Mucus MANY Microscopic Urinalysis Comment CATH-CULTURE IND Urine Opiates Screen NEG Urine Barbiturates Screen NEG Urine Amphetamines Screen NEG Urine Benzodiazepines Screen NEG Urine Cocaine Screen NEG Urine Cannabinoids Screen NEG Date/Time Procedure Status Source Growth 05/08/17 21:00 Urine Culture Received Urine Catheterized Urine Pending 05/08/17 20:45 Aerobic Blood Culture Received Blood Peripheral Pending 05/08/17 20:45 Anaerobic Blood Culture Received Blood Peripheral Pending Result Diagram: 05/09/17 0926 05/08/[id number] Imaging Last Impressions Chest CT 05/08/172330 Signed Impressions: Service Date/Time: Monday, May 08, 2017 23:29 - CONCLUSION: Normal examination. Edis Fox MD Shoulder X-Ray 05/08/172046 Signed Impressions: Service Date/Time: Monday, May 08, 2017 21:05 - CONCLUSION: Negative two-view examination of the shoulder. Trevin Deleon MD Abdomen/Pelvis CT 05/08/172046 Signed Impressions: Service Date/Time: Monday, May 08, 2017 22:08 - CONCLUSION: No acute findings in the abdomen and pelvis. Trevin Deleon MD Septic Shock Reassessment Heart: Other (sinus tachycardia) Lungs: Clear Skin: Warm Peripheral Pulses: Bounding Right Radial Bounding Left Radial Bounding Right Popliteal Bounding Left Popliteal Bounding Right Dorsalis Pedis Bounding Left Dorsalis Pedis Bounding Right Posterior Tibial Bounding Left Posterior Tibial Capillary Refill: Brisk Assessment and Plan Problem List: (1) Sepsis ICD Code: A41.9 Status: Acute Plan: Likely from UTI Patient with leukocytosis, tachycardia and fever and tachypnea. Continue with vancomycin and cefepime IV Follow-up blood cultures and urine cultures Patient admitted (2) UTI (urinary tract infection) ICD Code: N39.0 Status: Acute Plan: Continue empiric cefepime and follow up cultures patient sepsis (3) Rhabdomyolysis ICD Code: M62.82 Status: Acute Plan: Etiology unclear Patient with acute kidney injury and elevated CPKwhich appear to be treated. Continue IV hydration aggressively and follow renal function (4) Shoulder pain, right ICD Code: M25.511 Status: Acute Plan: Etiology unclear at this time X-ray unremarkable Patient with difficulty abducting and abducting the shoulder joint. It is warm. MRI with patient agreeable rule out septic joint/abscess (5) Encephalopathy, toxic ICD Code: G92 Status: Acute Plan: May be due to recent prescriptions. Patient says this occurred after her baclofen and ultram, baclofen (6) HTN (hypertension) ICD Code: I10 Status: Acute Plan: add coreg Assessment and Plan Plan of care to determine by Hospital course Code Status full code Discussed Condition With Patient, emergency room nurse Physician Certification 2 Midnight Certification Type: Admission for Inpatient Services Order for Inpatient Services The services are ordered in accordance with Medicare regulations or non- Medicare payer requirements, as applicable. In the case of services not specified as inpatient-only, they are appropriately provided as inpatient services in accordance with the 2-midnight benchmark. Estimated LOS (days): 3 3 days is the estimated time the patient will need to remain in the hospital, assuming treatment plan goals are met and no additional complications. Post-Hospital Plan: Home Humera Rogers MD May 09, 2017 09:51
[2017-05-09 10:11] LABS: BANDS 11 % (0-6); NEUTROPHIL # MANUAL DIFF 16.9 TH/MM3 (1.8-7.7); PLATELET ESTIMATE SMEAR NORMAL (NORMAL); PLATELET MORPHOLOGY NORMAL (NORMAL); POLYS (SEG NEUTROPHILS) 81 % (16-70); SCAN/DIFF FINAL DIFF MANUAL; WBC DIFF SAMPLE 100
[2017-05-09 10:35] LABS: ALKALINE PHOSPHATASE 110 U/L (45-117); ALT (GPT) 17 U/L (10-53); ANION GAP 8 MEQ/L (5-15); AST (GOT) 36 U/L (15-37); BICARBONATE 23.1 MEQ/L (21.0-32.0); BLOOD UREA NITROGEN 15 MG/DL (7-18); CHLORIDE 111 MEQ/L (98-107); CREATINE KINASE 617 U/L (26-192); GLOMERULAR FILTRATION RATE 88 ML/MIN (>89); POTASSIUM 3.4 MEQ/L (3.5-5.1); SODIUM (NA) 142 MEQ/L (136-145); TOTAL BILIRUBIN ADULT 0.5 MG/DL (0.2-1.0)
[2017-05-09] MEDS: CARVEDILOL 12.5 MG TAB PO SCH ×2 (10:55→20:54)
[2017-05-09 11:01] LABS: CKMB 2.5 NG/ML (0.5-3.6)
[2017-05-09] MEDS: VANCOMYCIN 1,000 MG/NS 250 ML IV SCH ×2 (12:20)
--- NOTE | 2017-05-09 15:53 | EKG ---
Date Performed: 05/08/2017 Time Performed: 22:38:43 PTAGE: 51 years EKG: WITHIN NORMAL LIMITS Since previous tracing, no significant change noted ABNORMAL ECG PREVIOUS TRACING : 06/09/2012 21.51 DOCTOR: Brooks Maldonado Interpretating Date/Time 05/09/2017 15:52:33
[2017-05-09] MEDS ORDERED: POTASSIUM CHLORIDE 20 MEQ PWD PACKET PO ONE (16:15)
[2017-05-09] MEDS: KETOROLAC TROMETHAMINE 30 MG/ML (IVP) VIAL IV PUSH PRN (17:29)
[2017-05-09] MEDS: traMADol HCL 50 MG TAB PO PRN (21:07)
[2017-05-10] MEDS: VANCOMYCIN 1,000 MG/NS 250 ML IV SCH ×4 (01:06→15:10)
[2017-05-10] MEDS: KETOROLAC TROMETHAMINE 30 MG/ML (IVP) VIAL IV PUSH PRN ×2 (01:06→12:14)
[2017-05-10 04:00] VITALS: BP 129/79; PULSE 60; RESP 20; TEMP 97.9; O2SAT 97
[2017-05-10] MEDS: SODIUM CHLOR 0.9% 1000 ML INJ 1,000 ML IV SCH ×2 (06:31→15:11)
[2017-05-10 08:00] VITALS: BP 173/90; PULSE 68; RESP 19; TEMP 98.8; O2SAT 96
[2017-05-10] MEDS: HEPARIN SODIUM - SQ 10,000 UNITS/ML VIAL SQ SCH ×2 (08:23→21:00)
[2017-05-10] MEDS: DOCUSATE SODIUM 50 MG/SENNA 8.6 MG TAB PO SCH ×2 (08:23→21:11)
[2017-05-10] MEDS: SODIUM CHLORIDE 0.9% FLUSH 10 ML FLUSH IV FLUSH SCH ×2 (08:23→21:00)
[2017-05-10] MEDS: CARVEDILOL 12.5 MG TAB PO SCH ×2 (08:23→21:00)
[2017-05-10] MEDS: CEFEPIME INJ 1,000 MG in SODIUM CHLORIDE 0.9% INJ 100 ML IV SCH ×2 (09:00→21:00)
--- NOTE | 2017-05-10 10:27 | HHI.PR ---
Subjective Remarks Patient is a 51-year-old female seen and evaluated today in follow-up for encephalopathy which appears to be metabolic and toxic. Bacterial cultures are positive for bottles gram-positive cocci. Patient is tolerating vancomycin and cefepime, heart rate and respiratory rate are improved. Patient has a temperature 100.6. Mental status is greatly improved and shoulder discomfort is greatly improved. Patient agreeable for MRI. Patient updated on current plan of treatment Objective Vitals Vital Signs Date Time Temp Pulse Resp B/P Pulse Ox O2 Delivery O2 Flow Rate FiO2 05/10/17 08:00 98.8 68 19 173/90 96 05/10/17 04:00 97.9 60 20 129/79 97 05/09/17 23:08 100.6 72 20 162/96 100 05/09/17 20:00 99.6 79 18 157/89 98 05/09/17 20:00 68 05/09/17 16:00 100.1 76 20 160/95 97 05/09/17 13:01 76 05/09/17 12:10 102.3 90 20 160/105 94 05/09/17 11:11 99.9 91 18 174/92 99 05/09/17 10:57 92 18 185/106 98 Room Air I/O 05/09/17 05/09/17 05/09/17 05/10/17 05/10/17 05/10/17 07:00 15:00 23:00 07:00 15:00 23:00 Intake Total 1350 ml 240 ml 650 ml 1045 ml Output Total 300 ml 1000 ml 400 ml Balance 1050 ml -760 ml 250 ml 1045 ml Intake Oral 240 ml IV Total 1350 ml 650 ml 1045 ml Output Urine Total 300 ml 1000 ml 400 ml # Voids 1 1 0 # Bowel Movements 0 0 Result Diagram: 05/09/17 0926 05/09/17 0912 Objective Remarks Left leg which is well approximated, shoulder is improved and range of motion GENERAL: This is a well-nourished, well-developed patient, in no apparent distress. CARDIOVASCULAR: Regular rate and rhythm without murmurs, gallops, or rubs. RESPIRATORY: Clear to auscultation. Breath sounds equal bilaterally. No wheezes , rales, or rhonchi. GASTROINTESTINAL: Abdomen soft, non-tender, nondistended. Normal active bowel sounds MUSCULOSKELETAL: Extremities without clubbing, cyanosis, or edema. NEURO: Alert & Oriented x4 to person, place, time, situation. Moves all ext x4 A/P Problem List: (1) Sepsis ICD Code: A41.9 Status: Acute Plan: Likely from bacteremia (source unclear as patient denies any IV drug use although she admits smoking cocaine and marijuana, there are no overt track gar, she had a recent laceration of her left leg which appears well approximated with stitches and without erythema, no recent dental procedures or procedures otherwise) Echocardiogram pending Patient with leukocytosis, tachycardia and fever and tachypnea. Continue with vancomycin and cefepime IV Blood cultures positive for gram-positive cocci, urine negative ID consult pending (2) Rhabdomyolysis ICD Code: M62.82 Plan: To be due to cocaine use versus musculoskeletal injury Continue IV hydration and follow CPK No evidence of acute cardiac infarct is all of the isoenzymes are elevated and trending also the patient denies any cardiac complaints (3) Shoulder pain, right ICD Code: M25.511 Status: Acute Plan: Etiology unclear at this time Rule out septic joint, MRI pending (4) Encephalopathy, toxic ICD Code: G92 Status: Acute Plan: Resolved, may toxic and metabolic due to sepsis May be toxic due to recent prescriptions. Patient says this occurred after her baclofen and ultram, prescriptions (5) HTN (hypertension) ICD Code: I10 Status: Acute Plan: Continue Coreg and clonidine as needed Improved Patient with a known history of hypertension with poor adherence Humera Rogers MD May 10, 2017 10:26
[2017-05-10 12:00] VITALS: BP 142/85; PULSE 72; RESP 18; TEMP 97.6; O2SAT 95
[2017-05-10] MEDS: HYDROmorphone HCL PF 2 MG/ML VIAL IV PUSH PRN ×2 (12:20→20:59)
[2017-05-10] MEDS ORDERED: PHARMACY ORDERED LAB ONE (12:45)
[2017-05-10] MEDS ORDERED: LORazepam 2 MG/ML VIAL IV PUSH ONE (13:00)
--- NOTE | 2017-05-10 14:19 | ECHRPT ---
Indication: endocarditis CONCLUSIONS Technically difficult echo The left ventricular systolic function is grossly normal on limited imaging, estimated at 55-60%. There was limited left ventricular wall motion assessment due to poor endocardial visualization. Mild mitral valve regurgitation. Mild aortic valve regurgitation. BP: / HR: Rhythm: MEASUREMENTS (Male / Female) Normal Values Technical Quality:Technically difficult study 2D ECHO LV Diastolic Diameter PLAX 4.6 cm 4.2 - 5.9 / 3.9 - 5.3 cm LV Systolic Diameter PLAX 3.3 cm IVS Diastolic Thickness 1.7 cm 0.6 - 1.0 / 0.6 - 0.9 cm LVPW Diastolic Thickness 1.1 cm 0.6 - 1.0 / 0.6 - 0.9 cm LV Relative Wall Thickness 0.6 RV Internal Dim ED PLAX 2.8 cm LVOT Diameter 2.1 cm M-MODE Aortic Root Diameter MM 3.0 cm LA Systolic Diameter MM 3.0 cm LA Ao Ratio MM 1.0 AV Cusp Separation MM 2.0 cm DOPPLER AV Peak Velocity 197.0 cm/s AV Peak Gradient 15.5 mmHg AV Mean Gradient 7.0 mmHg AV Velocity Time Integral 36.5 cm AI Peak Velocity 370.0 cm/s AI Peak Gradient 54.8 mmHg AI Pressure Half Time 646.0 ms LVOT Peak Velocity 97.0 cm/s LVOT Peak Gradient 3.8 mmHg LVOT Velocity Time Integral 20.7 cm AV Area Cont Eq vti 2.0 cm AV Area Cont Eq pk 1.7 cm Mitral E Point Velocity 72.1 cm/s Mitral A Point Velocity 73.5 cm/s Mitral E to A Ratio 1.0 LV E' Lateral Velocity 8.5 cm/s Mitral E to LV E' Lateral Ratio 8.5 LV E' Septal Velocity 7.2 cm/s Mitral E to LV E' Septal Ratio 10.0 FINDINGS LEFT VENTRICLE Normal left ventricular size. There is assymetric septal hypertrophy. The left ventricular systolic function is grossly normal on limited imaging, estimated at 55-60%. There was limited left ventricular wall motion assessment due to poor endocardial visualization. RIGHT VENTRICLE The right ventricle was not well visualized. LEFT ATRIUM The left atrial size is normal. RIGHT ATRIUM The right atrial size is normal. ATRIAL SEPTUM The interatrial septum not well visualized. AORTA The aortic root and proximal ascending aorta are normal in size on limited imaging. MITRAL VALVE Grossly normal mitral valve. Mild mitral valve regurgitation. No mitral valve stenosis. AORTIC VALVE Probably trileaflet aortic valve Mild aortic valve regurgitation. TRICUSPID VALVE Structurally normal tricuspid valve. No tricuspid valve stenosis or regurgitation. PULMONARY VALVE The pulmonary valve is not well visualized. VESSELS The inferior vena cava is normal in size. PERICARDIUM No pericardial effusion. Andrea Méndez DO (Electronically Signed) Final Date:10 May 2017 14:18
[2017-05-10] MEDS ORDERED: GADODIAMIDE PF 287 MG/ML 5 ML VIAL (for RAD MRI) IV ONE (14:29)
--- NOTE | 2017-05-10 14:50 | PD.ID.CON ---
History of Present Illness Service ID Consult Requested By Reason for Consult Evaluation and M'ment of Sepsis, Bacteremia possible endocarditis. Primary Care Physician Unknown Diagnoses: History of Present Illness Patient is not a reliable historian. Patient additionally is under the influence of ativan given to her for MRI. Most of the history was obtained by review of medical records. is a 51 y/o CF with PMHx of uncontrolled hypertension due to nonadherence, h/o drug abuse denies IVDA, chronic smoking. Patient comes in over the last 4 days to the emergency room several times weekly multiple things. Initially there is a leg laceration and there was some pain which was called sciatica and at that ER evaluation she was given baclofen and Ultram and Medrol Dosepak. Patient subsequently came in within 24 hours with an altered mental status per her fianc. She was confused and unable to provide a good history. She also presented with a fever of 102.1 with elevated cardiac isoenzymes CPK troponin were elevated and the patient was complaining of leg and shoulder cramping. Patient had a white cell count was elevated and evidence of acute renal failure. She has evidence of urinary tract infections been treated for sepsis and admitted to the hospital. Patient is also complaining of right shoulder pain which is 10 out of 10 and worse with movement of the shoulder and improved with keeping it still. Patient has never had this before and was very concerned. She never had sciatica before either and has had difficulty walking due to the pain. She was recommended for further imaging but has refused due to increased pain. She did have x-ray of the shoulder which was unremarkable for any fracture or bony injury. She does admit to cocaine and marijuana as well as excessive tobacco and alcohol use. She is tearful and requested to go home however she realizes she cannot move due to pain. Patient is admitted for sepsis workup. Blood cultures drawn on admission are positive for MRSA susceptibility pending. Patient additionally has had an MRI spine as well as MRI shoulder. MRI shoulder with some edema concerning for Infectious myositis. Review of Systems ROS Limitations: Poor Historian Past Family Social History Allergies: Coded Allergies: Bee Sting (Verified Allergy, Severe, ANAPHYLAXIS, 05/08/17) Peanut (Verified Allergy, Severe, ANAPHYLAXIS, 05/08/17) Past Medical History Hypertension COPD/asthma Past Surgical History , dental extraction Reported Medications Reported Meds & Active Scripts Active Baclofen 20 Mg Tab 20 Mg PO TID Ultram (Tramadol HCl) 50 Mg Tab 50 Mg PO Q4H PRN Medrol Dosepak (Methylprednisolone) 4 Mg Dspk 4 Mg PO DIRECTED Per Pharmacist direction Reported Albuterol Neb (Albuterol Sulfate) 2.5 Mg/0.5 Ml Neb 2.5 Mg NEB Q4HR NEB PRN Note: The Albuterol Sulfate Inhalation Solution is concentrated and must be diluted. Read complete instructions carefully before using. Active Ordered Medications Current Medications Medications (Trade) Dose Ordered Sig/Lisbet Route Start Time Stop Time Status Last Admin Pharmacy Profile Note 0 ml @ 0 mls/hr UNSCH OTHER 05/08/17 23:15 Cefepime HCl 1000 mg/Sodium Chloride 100 ml @ 200 mls/hr Q12H IV 05/09/17 09:00 05/10/17 09:00 (NS 1000 ml Inj) 1,000 ml @ 100 mls/hr Q10H IV 05/08/17 23:14 05/10/17 06:31 (NS Flush) 2 ml UNSCH PRN IV FLUSH 05/08/17 23:15 05/10/17 01:07 (NS Flush) 2 ml BID IV FLUSH 05/09/17 09:00 05/10/17 08:23 (Zofran Inj) 4 mg Q6H PRN IVP 05/08/17 23:15 (Heparin Inj) 5,000 units Q12HR SQ 05/09/17 09:00 05/10/17 08:23 (Tylenol) 650 mg Q6H PRN PO 05/08/17 23:15 05/09/17 23:55 (Janice-Colace) 1 tab BID PO 05/09/17 09:00 05/10/17 08:23 Sennosides 17.2 mg 17.2 mg Q12H PRN PO 05/08/17 23:15 (Vancomycin Inj/ NS 250 ml Inj) 250 ml @ 250 mls/hr Q12H IV 05/09/17 13:00 05/10/17 01:06 (Coreg) 12.5 mg Q12HR PO 05/09/17 10:00 05/10/17 08:23 (Ultram) 50 mg Q4H PRN PO 05/09/17 09:45 05/09/17 21:07 (Dilaudid Pf Inj) 2 mg Q4H PRN IV PUSH 05/09/17 14:45 05/10/17 12:20 (Catapres) 0.1 mg Q6H PRN PO 05/09/17 16:00 Family History Patient does not know her family history Social History Smokes a pack a day, lives with her fianc drinks 4 beers Physical Exam Vital Signs Vital Signs Date Time Temp Pulse Resp B/P Pulse Ox O2 Delivery O2 Flow Rate FiO2 05/10/17 12:54 20 05/10/17 12:54 20 05/10/17 12:00 97.6 72 18 142/85 95 05/10/17 08:00 98.8 68 19 173/90 96 05/10/17 04:00 97.9 60 20 129/79 97 05/09/17 23:08 100.6 72 20 162/96 100 05/09/17 20:00 99.6 79 18 157/89 98 05/09/17 20:00 68 05/09/17 16:00 100.1 76 20 160/95 97 Physical Exam GENERAL: This is a well-nourished, well-developed patient, in no apparent distress. SKIN: No rashes, ecchymoses or lesions. Cool and dry. HEAD: Atraumatic. Normocephalic. No temporal or scalp tenderness. EYES: Pupils equal round and reactive. Extraocular motions intact. No scleral icterus. No injection or drainage. ENT: Nose without bleeding, purulent drainage or septal hematoma. Throat without erythema, tonsillar hypertrophy or exudate. Uvula midline. Airway patent. NECK: Trachea midline. Supple, nontender, no meningeal signs. CARDIOVASCULAR: Regular rate and rhythm without murmurs, gallops, or rubs. RESPIRATORY: Clear to auscultation. Breath sounds equal bilaterally. No wheezes , rales, or rhonchi. GASTROINTESTINAL: Abdomen soft, non-tender, nondistended. MUSCULOSKELETAL: Extremities without clubbing, cyanosis, or edema. Right shoulder some restriction in ROM due to pain but able to raise hand above head. No warmth. NEUROLOGICAL: Awake and alert. moves extremities. Full neuro exam could not be performed. Psych: cooperative IV line sites with no e/o infection. Laboratory Date/Time Procedure Status Source Growth 05/10/17 14:30 Aerobic Blood Culture Received Blood Peripheral Pending 05/10/17 14:30 Anaerobic Blood Culture Received Blood Peripheral Pending 05/08/17 21:00 Urine Culture - Final Complete Urine Catheterized Urine NO GROWTH IN 48 HOURS. 05/08/17 20:45 Aerobic Blood Culture - Preliminary Resulted Blood Peripheral S. Aureus Mrsa 05/08/17 20:45 Anaerobic Blood Culture - Preliminary Resulted S. Aureus Mrsa Result Diagram: 05/09/17 0926 05/09/17 0912 Imaging Last Impressions Chest CT 05/08/17 2331 Signed Impressions: Service Date/Time: Monday, May 08, 2017 23:29 - CONCLUSION: Normal examination. Edis Fox MD Shoulder X-Ray 05/08/172046 Signed Impressions: Service Date/Time: Monday, May 08, 2017 21:05 - CONCLUSION: Negative two-view examination of the shoulder. Trevin Deleon MD Abdomen/Pelvis CT 05/08/172046 Signed Impressions: Service Date/Time: Monday, May 08, 2017 22:08 - CONCLUSION: No acute findings in the abdomen and pelvis. Trevin Deleon MD Assessment and Plan Assessment and Plan Sepsis present on admission MRSA bacteremia Infective Myositis Possible spinal epidural abscess MRI spine pending. Recs Continue Cefepime IV (may be deescalated in next day or so) Continue Vanco IV target trough 15-20/ Follow 2D ECHO HIV antigen Hepatitis profile. Follow repeat bcx ordered today. Follow clinically to assess Right shoulder to see if Ortho consult needed ( could turn into abscess in next few days) Follow MRI spine. Gwen King MD May 10, 2017 14:50 Gwen King MD May 10, 2017 14:50
--- NOTE | 2017-05-10 14:57 | RADRPT ---
EXAM DATE/TIME: 05/10/2017 12:48 [facility] COMPARISON: CT THORAX W/O CONTRAST, May 08, 2017, 23:29. SHOULDER RIGHT LTD (2VWS), May 08, 2017, 21:05. INDICATIONS : Abscess. Right shoulder pain. CONTRAST: 16 cc Omniscan (gadodiamide) IV MEDICAL HISTORY : Hypertension. Chronic obstructive pulmonary disease. SURGICAL HISTORY : section. ENCOUNTER: Initial ACUITY: 3 day PAIN SCORE: 7/10 LOCATION: Right shoulder TECHNIQUE: Multiplanar, multisequence MRI examination was performed with and without contrast. FINDINGS: Moderate hypertrophic changes are seen in the AC joint indenting the subacromial fat plane to a slight degree and there is subcutaous edema adjacent to the A/C joint most likely chronic, however in flammatory process is difficult to exclude. small joint effusion is present. The rotator cuff appears intact. The glenoid labrum is grossly intact and longer the bicipital tendon appears intact. Marrow signal appears intact. CONCLUSION: Moderate hypertrophic changes are seen in the AC joint indenting the subacromial fat plane to a sligh t degree with adjacent subcutaneous edema possibly inflammatory without evidence for abscess sonia Valentin MD on May 10, 2017 at 14:50 Board Certified Radiologist. This report was verified electronically.
[2017-05-10 16:00] VITALS: BP 142/90; PULSE 65; RESP 17; TEMP 97; O2SAT 94
--- NOTE | 2017-05-10 16:19 | RADRPT ---
EXAM DATE/TIME: 05/10/2017 12:48 [facility] COMPARISON: MRI SHOULDER RIGHT W & W/O CONTRAST, May 10, 2017, 12:48. CT THORAX W/O CONTRAST, May 08, 2017, 23 :29. CT ABDOMEN & PELVIS W CONTRAST, May 08, 2017, 22:08. MRI LUMBAR SPINE W/O CONTRAST, April 29, 2016, 15:08. INDICATIONS : Abscess. Low back pain. CONTRAST: 16 cc Omniscan (gadodiamide) IV MEDICAL HISTORY : Hypertension. Chronic obstructive pulmonary disease. Asthma. SURGICAL HISTORY : section. ENCOUNTER: Initial ACUITY: 3 day PAIN SCORE: 9/10 LOCATION: Bilateral lower back region. TECHNIQUE: Multiplanar multisequence MRI of the lumbar spine was performed with and without contrast. FINDINGS: The most caudal appearing lumbar vertebra is numbered as L5. T12-L1: There is no evidence for any significant compromise to the thecal sac, or the exiting nerve roots. N o appreciable thecal sac stenosis is seen. The neural foramina and lateral recess appear patent bila terally. L1-L2: There is no evidence for any significant compromise to the thecal sac, or the exiting nerve roots. N o appreciable thecal sac stenosis is seen. The neural foramina and lateral recess appear patent bila terally. L2-L3: There is no evidence for any significant compromise to the thecal sac, or the exiting nerve roots. N o appreciable thecal sac stenosis is seen. The neural foramina and lateral recess appear patent bila terally. L3-L4: Slight bulging disc is present with minimal extension into bilateral neural foramina. There is epidur al fluid collection dorsally not present on the prior study from 04/29/[address] down to mid body of L5 and measures 8 mm in AP diameter causing moderate thecal sac stenosis. There are a reas of bright signal on T1 sequence within this fluid collection probably displaced epidural fat int ermixed with the pathological fluid probably abscess There is rim like enhancement highly suggestive of epidural abscess. The marrow appears intact without signs of osteomyelitis. L4-L5: There is asymmetrical bulging disc towards the left with extension into the left neural foramen impin ging the exiting nerve root to a slight degree. The above-mentioned epidural abscess extends to this level causing moderate thecal sac stenosis as well. L5-S1: There is no evidence for any significant compromise to the thecal sac, or the exiting nerve roots. N o appreciable thecal sac stenosis is seen. The neural foramina and lateral recess appear patent bila terally. CONCLUSION: Interval development of epidural abscess dorsally extending from L3-[address] to mid body of L5 causing moderate thecal sac stenosis at L3-4 and L4-5 levels. Findings were discussed with Dr. Gonzalez on 05/10/2017 at the time of this dictation at 4:15 hours. Clement Valentin MD on May 10, 2017 at 16:05 Board Certified Radiologist. This report was verified electronically.
[2017-05-10 20:00] VITALS: BP 209/117; PULSE 80; RESP 22; TEMP 101.1; O2SAT 95
[2017-05-11] VITALS (8 sets, daily range): BP systolic 123–186; BP diastolic 70–98; PULSE 68–93; RESP 16–20; TEMP 98.9–103; O2SAT 91–96
[2017-05-11] MEDS ORDERED: VANCOMYCIN INJ 1,200 MG in SODIUM CHLOR 0.9% 250 ML INJ 250 ML IV SCH (01:00)
[2017-05-11] MEDS: SODIUM CHLOR 0.9% 1000 ML INJ 1,000 ML IV SCH ×3 (01:20→21:14)
[2017-05-11] MEDS: HYDROmorphone HCL PF 2 MG/ML VIAL IV PUSH PRN ×2 (01:21→05:25)
[2017-05-11] MEDS: ACETAMINOPHEN 325 MG TAB PO PRN (02:16)
[2017-05-11] MEDS: DOCUSATE SODIUM 50 MG/SENNA 8.6 MG TAB PO SCH ×2 (09:00→22:12)
[2017-05-11] MEDS: CEFEPIME INJ 1,000 MG in SODIUM CHLORIDE 0.9% INJ 100 ML IV SCH ×2 (09:19→22:10)
[2017-05-11] MEDS: HEPARIN SODIUM - SQ 10,000 UNITS/ML VIAL SQ SCH ×2 (09:24→22:12)
[2017-05-11] MEDS: SODIUM CHLORIDE 0.9% FLUSH 10 ML FLUSH IV FLUSH SCH ×2 (09:24→22:11)
[2017-05-11] MEDS: CARVEDILOL 12.5 MG TAB PO SCH ×2 (09:25→22:12)
[2017-05-11] MEDS: traMADol HCL 50 MG TAB PO PRN ×2 (10:23→22:12)
[2017-05-11 10:51] LABS: BICARBONATE 19.6 MEQ/L (21.0-32.0); POTASSIUM 3.1 MEQ/L (3.5-5.1)
--- NOTE | 2017-05-11 11:54 | HHI.PR ---
Subjective Remarks in no acute distress. complaining of back spasm. T max 101.1. d/w the RN. Objective Vitals Vital Signs Date Time Temp Pulse Resp B/P Pulse Ox O2 Delivery O2 Flow Rate FiO2 05/11/17 08:07 99.9 68 16 129/79 95 05/11/17 06:18 19 05/11/17 04:00 99.5 69 18 133/72 93 05/11/17 03:51 98.9 75 19 92 05/11/17 03:51 19 05/11/17 02:12 100.7 73 19 126/70 91 05/11/17 00:00 99.3 80 18 173/98 93 05/10/17 20:00 101.1 80 22 209/117 95 05/10/17 16:00 97.0 65 17 142/90 94 05/10/17 12:54 20 05/10/17 12:00 97.6 72 18 142/85 95 I/O 05/10/17 05/10/17 05/10/17 05/11/17 05/11/17 05/11/17 07:00 15:00 23:00 07:00 15:00 23:00 Intake Total 1045 ml 450 ml Output Total 2 ml Balance 1045 ml 448 ml IV Total 1045 ml 450 ml Output Urine Total 2 ml # Voids 0 3 1 Result Diagram: 05/09/17 0926 05/11/17 0902 Imaging Last Impressions Shoulder MRI 05/10/17 0000 Signed Impressions: Service Date/Time: Wednesday, May 10, 2017 12:48 - CONCLUSION: Moderate hypertrophic changes are seen in the AC joint indenting the subacromial fat plane to a slight degree with adjacent subcutaneous edema possibly inflammatory without evidence for abscess formation. Clement Valentin MD Lumbar Spine MRI 05/10/17 0000 Signed Impressions: Service Date/Time: Wednesday, May 10, 2017 12:48 - CONCLUSION: Interval development of epidural abscess dorsally extending from L3-[address] to mid body of L5 causing moderate thecal sac stenosis at L3-4 and L4-5 levels. Findings were discussed with Dr. Rogers on 05/10/2017 at the time of this dictation at 4:15 hours. Clement Valentin MD Chest CT 05/08/17 3391 Signed Impressions: Service Date/Time: Monday, May 08, 2017 23:29 - CONCLUSION: Normal examination. Edis Fox MD Shoulder X-Ray 05/08/172046 Signed Impressions: Service Date/Time: Monday, May 08, 2017 21:05 - CONCLUSION: Negative two-view examination of the shoulder. Trevin Deleon MD Abdomen/Pelvis CT 05/08/172046 Signed Impressions: Service Date/Time: Monday, May 08, 2017 22:08 - CONCLUSION: No acute findings in the abdomen and pelvis. Trevin Deleon MD Objective Remarks GENERAL: This is a well-nourished, well-developed patient, in no apparent distress. CARDIOVASCULAR: Regular rate and regular rhythm without murmurs, gallops, or rubs. RESPIRATORY: Clear to auscultation. Breath sounds equal bilaterally. No wheezes , rales, or rhonchi. GASTROINTESTINAL: Abdomen soft, non-tender, nondistended. Normal, active bowel sounds MUSCULOSKELETAL: Extremities without clubbing, cyanosis, or edema. NEURO: Alert & Oriented x4 to person, place, time, situation. Moves all ext x4 Medications and IVs Current Medications IV Flush 2 ml 2 ml UNSCH PRN IV FLUSH FLUSH AFTER USING IV ACCESS; Start at 20:30; Stop 05/08/17 at 23:34; Status DC Sodium Chloride (NS 1000 ml Inj) 1,000 ml @ 1,000 mls/hr Q1H IV Last administered on 05/08/17 21:10; Start 05/08/17 at 20:30; Stop 05/08/17 at 21:29 ; Status DC Iohexol 96 ml 96 ml STK-MED ONCE IV Last administered on 05/08/17 22:06; Start 05/08/17 at 22:06; Stop 05/08/17 at 22:07; Status DC Sodium Chloride (NS 1000 ml Inj) 1,000 ml @ 2,000 mls/hr Q30M IV Last administered on 05/08/17 23:12; Start 05/08/17 at 23:00; Stop 05/08/17 at 23:29 ; Status DC Ketorolac Tromethamine 30 mg 30 mg ONCE ONCE IVP Last administered on 23:13; Start 05/08/17 at 23:00; Stop 05/08/17 at 23:01; Status DC Ceftriaxone Sodium 2000 mg/ Sodium Chloride 100 ml @ 200 mls/hr ONCE ONCE IV Last administered on 05/08/17 23:16; Start 05/08/17 at 23:00; Stop 05/08/17 at 23:29; Status DC Pharmacy Profile Note 0 ml @ 0 mls/hr UNSCH OTHER ; Start 05/08/17 at 23:15 Cefepime HCl 1000 mg/Sodium Chloride 100 ml @ 200 mls/hr Q12H IV Last administered on 05/11/17 09:19; Start 05/09/17 at 09:00 Sodium Chloride (NS 1000 ml Inj) 1,000 ml @ 100 mls/hr Q10H IV Last administered on 05/11/17 01:20; Start 05/08/17 at 23:14 Sodium Chloride (NS Flush) 2 ml UNSCH PRN IV FLUSH FLUSH AFTER USING IV ACCESS Last administered on 05/10/17 01:07; Start 05/08/17 at 23:15 Sodium Chloride (NS Flush) 2 ml BID IV FLUSH Last administered on 05/11/17 09: 24; Start 05/09/17 at 09:00 Ondansetron HCl (Zofran Inj) 4 mg Q6H PRN IVP NAUSEA OR VOMITING; Start at 23:15 Heparin Sodium (Porcine) (Heparin Inj) 5,000 units Q12HR SQ Last administered on 05/11/17 09:24; Start 05/09/17 at 09:00 Acetaminophen (Tylenol) 650 mg Q6H PRN PO FEVER Last administered on 05/11/17 02:16; Start 05/08/17 at 23:15 Senna/Docusate Sodium (Janice-Colace) 1 tab BID PO Last administered on 21:11; Start 05/09/17 at 09:00 Magnesium Hydroxide (Milk Of Magnesia Liq) 30 ml Q12H PRN PO MILD - MODERATE CONSTIPATION; Start 05/08/17 at 23:15; Stop 05/09/17 at 09:42; Status DC Sennosides (Senokot) 17.2 mg Q12H PRN PO MODERATE - SEVERE CONSTIPATION; Start 05/08/17 at 23:15 Bisacodyl (Dulcolax Supp) 10 mg DAILY PRN RECTAL SEVERE CONSITIPATION; Start at 23:15; Stop 05/09/17 at 09:42; Status DC Lactulose 30 ml 30 ml DAILY PRN PO SEVERE CONSITIPATION; Start 05/08/17 at 23: 15; Stop 05/09/17 at 09:42; Status DC Vancomycin HCl 1000 mg/Sodium Chloride 250 ml @ 250 mls/hr ONCE ONCE IV Last administered on 05/09/17 00:30; Start 05/09/17 at 00:00; Stop 05/09/17 at 00:59 ; Status DC Vancomycin HCl/ Sodium Chloride (Vancomycin Inj/ NS 250 ml Inj) 250 ml @ 250 mls/hr Q12H IV Last administered on 05/10/17 15:10; Start 05/09/17 at 13:00; Stop 05/10/17 at 19:31; Status DC Miscellaneous Information SPECIFIC LAB TO BE DRAWN:VANCO TROUGH DATE TO... ONCE ONCE .XX Last administered on 05/10/17 12:54; Start 05/10/17 at 12:45; Stop 05/10/17 at 12:46; Status DC Carvedilol (Coreg) 12.5 mg Q12HR PO Last administered on 05/11/17 09:25; Start 05/09/17 at 10:00 Albuterol Sulfate (Albuterol Neb) 2.5 mg Q4HR NEB PRN INH SHORTNESS OF BREATH; Start 05/09/17 at 14:45 Tramadol HCl (Ultram) 50 mg Q4H PRN PO PAIN 1-3 Last administered on 05/11/17 10:23; Start 05/09/17 at 09:45 Ketorolac Tromethamine (Toradol Inj) 30 mg Q6HR PRN IV PUSH PAIN SCALE 4 TO 10 Last administered on 05/10/17 12:14; Start 05/09/17 at 14:45; Stop 05/10/17 at 14:44; Status DC Hydromorphone HCl (Dilaudid Pf Inj) 2 mg Q4H PRN IV PUSH pain not better with toradol Last administered on 05/11/17 05:25; Start 05/09/17 at 14:45 Clonidine (Catapres) 0.1 mg Q6H PRN PO SBP>160, DBP>90; Start 05/09/17 at 16:00 Potassium Chloride (KCl Powder) 20 meq ONCE ONCE PO Last administered on 17:15; Start 05/09/17 at 16:15; Stop 05/09/17 at 16:19; Status DC Lorazepam (Ativan Inj) 2 mg ONCE ONCE IV PUSH Last administered on 05/10/17 13:00; Start 05/10/17 at 13:00; Stop 05/10/17 at 13:01; Status DC Gadodiamide 16 ml 16 ml STK-MED ONCE IV Last administered on 05/10/17 14:29; Start 05/10/17 at 14:29; Stop 05/10/17 at 14:30; Status DC Vancomycin HCl/ Sodium Chloride (Vancomycin Inj/ NS 250 ml Inj) 262 ml @ 250 mls/hr Q12H IV Last administered on 05/11/17 01:20; Start 05/11/17 at 01:00; Stop 05/11/17 at 11:26; Status DC Miscellaneous Information SPECIFIC LAB TO BE DRAWN:VANCOMY... ONCE ONCE .XX ; Start 05/12/17 at 12:45; Stop 05/12/17 at 12:46 Vancomycin HCl/ Sodium Chloride (Vancomycin Inj/ NS 500 ml Inj) 515 ml @ 250 mls/hr Q12H IV ; Start 05/11/17 at 13:00 A/P Assessment and Plan A/P (1) Sepsis due to epidural abscess continue Vanco and Cefepime- neurosurgery and ID consulted. (2) MRSA Bacteremia continue Vancomycin echo with no vegetation repeated blood cultures negative ID following. (3) Rhabdomyolysis due to cocaine use versus musculoskeletal injury Continue IV hydration and follow CPK (4) Shoulder pain, right- improving. MRI with Moderate hypertrophic changes are seen in the AC joint indenting the subacromial fat plane to a slight degree with adjacent subcutaneous edema possibly inflammatory without evidence for abscess formation. continue with pain control- (5) Encephalopathy, toxic-resolved. (6) HTN (hypertension) Continue Coreg and clonidine as needed (7)- hypokalemia; will replace. Toño Waterman MD May 11, 2017 11:54
[2017-05-11] MEDS ORDERED: POTASSIUM CHLORIDE 10 MEQ CONTROLLED RELEASE TAB PO ONE ×2 (12:00→16:00)
[2017-05-11] MEDS: BACLOFEN 10 MG TAB PO PRN ×2 (13:36→18:39)
--- NOTE | 2017-05-11 13:46 | HHI.IDPN ---
Subjective Subjective Remarks is a 51 y/o CF with PMHx of uncontrolled hypertension due to nonadherence, h/o drug abuse denies IVDA, chronic smoking. Patient comes in over the last 4 days to the emergency room several times weekly multiple things. Initially there is a leg laceration and there was some pain which was called sciatica and at that ER evaluation she was given baclofen and Ultram and Medrol Dosepak. Patient subsequently came in within 24 hours with an altered mental status per her fianc. She was confused and unable to provide a good history. She also presented with a fever of 102.1 with elevated cardiac isoenzymes CPK troponin were elevated and the patient was complaining of leg and shoulder cramping. Patient had a white cell count was elevated and evidence of acute renal failure. She has evidence of urinary tract infections been treated for sepsis and admitted to the hospital. Patient is also complaining of right shoulder pain which is 10 out of 10 and worse with movement of the shoulder and improved with keeping it still. Patient has never had this before and was very concerned. She never had sciatica before either and has had difficulty walking due to the pain. She was recommended for further imaging but has refused due to increased pain. She did have x-ray of the shoulder which was unremarkable for any fracture or bony injury. She does admit to cocaine and marijuana as well as excessive tobacco and alcohol use. She is tearful and requested to go home however she realizes she cannot move due to pain. Patient is admitted for sepsis workup. Blood cultures drawn on admission are positive for MRSA susceptibility pending. Patient additionally has had an MRI spine as well as MRI shoulder. MRI shoulder with some edema concerning for Infectious myositis. Overnight events reviewed No fever No rash No diarrhea Complains of back pain. Spasms reduced since meds adjusted. Adamantly denies IVDA. Antibiotics Cefepime IV Vanco IV Lines Line sites with no e.o infection Past Medical History Hypertension COPD/asthma , dental extraction Allergies: Coded Allergies: Bee Sting (Verified Allergy, Severe, ANAPHYLAXIS, 05/08/17) Peanut (Verified Allergy, Severe, ANAPHYLAXIS, 05/08/17) *MDRO Multi-Drug Resistant Organism (Verified Adverse Reaction, Unknown, ) MRSA (blood) 05/08/17 Objective . Vital Signs Date Time Temp Pulse Resp B/P Pulse Ox O2 Delivery O2 Flow Rate FiO2 8/1/17 12:42 100.1 71 18 123/75 95 05/11/17 08:07 99.9 68 16 129/79 95 05/11/17 06:18 19 05/11/17 04:00 99.5 69 18 133/72 93 05/11/17 03:51 98.9 75 19 92 05/11/17 03:51 19 05/11/17 02:12 100.7 73 19 126/70 91 05/11/17 00:00 99.3 80 18 173/98 93 05/10/17 20:00 101.1 80 22 209/117 95 05/10/17 16:00 97.0 65 17 142/90 94 05/10/17 05/10/17 05/11/17 14:59 22:59 06:59 Intake Total 450 ml Output Total 2 ml Balance 448 ml IV Total 450 ml Output Urine Total 2 ml # Voids 3 1 . Laboratory Tests Test 05/11/17 09:02 Sodium Level 136 MEQ/L Potassium Level 3.1 MEQ/L Chloride Level 104 MEQ/L Carbon Dioxide Level 19.6 MEQ/L Anion Gap 12 MEQ/L Blood Urea Nitrogen 15 MG/DL Creatinine 0.72 MG/DL Estimat Glomerular Filtration 104 ML/MIN Rate Random Glucose 89 MG/DL Calcium Level 8.3 MG/DL Total Creatine Kinase 153 U/L Microbiology Date/Time Procedure Status Source Growth 05/08/17 20:40 Aerobic Blood Culture - Final Complete Blood Peripheral S. Aureus Mrsa 05/08/17 20:40 Anaerobic Blood Culture - Final Complete S. Aureus Mrsa 05/08/17 20:45 Aerobic Blood Culture - Final Complete Blood Peripheral S. Aureus Mrsa 05/08/17 20:45 Anaerobic Blood Culture - Final Complete S. Aureus Mrsa 05/08/17 21:00 Urine Culture - Final Complete Urine Catheterized Urine NO GROWTH IN 48 HOURS. 05/10/17 14:20 Aerobic Blood Culture - Preliminary Resulted Blood Peripheral NO GROWTH IN 1 DAY 05/10/17 14:20 Anaerobic Blood Culture - Preliminary Resulted Blood Peripheral NO GROWTH IN 1 DAY 05/10/17 14:30 Aerobic Blood Culture - Preliminary Resulted Blood Peripheral NO GROWTH IN 1 DAY 05/10/17 14:30 Anaerobic Blood Culture - Preliminary Resulted Blood Peripheral NO GROWTH IN 1 DAY Imaging Last Impressions Shoulder MRI 05/10/17 0000 Signed Impressions: Service Date/Time: Wednesday, May 10, 2017 12:48 - CONCLUSION: Moderate hypertrophic changes are seen in the AC joint indenting the subacromial fat plane to a slight degree with adjacent subcutaneous edema possibly inflammatory without evidence for abscess formation. Clement Valentin MD Lumbar Spine MRI 05/10/17 0000 Signed Impressions: Service Date/Time: Wednesday, May 10, 2017 12:48 - CONCLUSION: Interval development of epidural abscess dorsally extending from L3-[address] to mid body of L5 causing moderate thecal sac stenosis at L3-4 and L4-5 levels. Findings were discussed with Dr. Rogers on 05/10/2017 at the time of this dictation at 4:15 hours. Clement Valentin MD Chest CT 05/08/17 233 Signed Impressions: Service Date/Time: Monday, May 08, 2017 23:29 - CONCLUSION: Normal examination. Edis Fox MD Shoulder X-Ray 05/08/172046 Signed Impressions: Service Date/Time: Monday, May 08, 2017 21:05 - CONCLUSION: Negative two-view examination of the shoulder. Trevin Deleon MD Abdomen/Pelvis CT 05/08/172046 Signed Impressions: Service Date/Time: Monday, May 08, 2017 22:08 - CONCLUSION: No acute findings in the abdomen and pelvis. Trevin Deleon MD Physical Exam GENERAL: This is a well-nourished, well-developed patient, in no apparent distress. SKIN: No rashes, ecchymoses or lesions. Cool and dry. HEAD: Atraumatic. Normocephalic. No temporal or scalp tenderness. EYES: Pupils equal round and reactive. Extraocular motions intact. No scleral icterus. No injection or drainage. ENT: Nose without bleeding, purulent drainage or septal hematoma. Throat without erythema, tonsillar hypertrophy or exudate. Uvula midline. Airway patent. NECK: Trachea midline. Supple, nontender, no meningeal signs. CARDIOVASCULAR: Regular rate and rhythm without murmurs, gallops, or rubs. RESPIRATORY: Clear to auscultation. Breath sounds equal bilaterally. No wheezes , rales, or rhonchi. GASTROINTESTINAL: Abdomen soft, non-tender, nondistended. MUSCULOSKELETAL: Extremities without clubbing, cyanosis, or edema. Right shoulder some restriction in ROM due to pain but able to raise hand above head. No warmth. NEUROLOGICAL: Awake and alert. moves extremities. Full neuro exam could not be performed. Psych: cooperative IV line sites with no e/o infection. Assessment & Plan Remarks Sepsis present on admission MRSA bacteremia Infective Myositis Possible spinal epidural abscess MRI spine pending. Recs Continue Cefepime IV (may be deescalated in next day or so) Continue Vanco IV target trough 15-20 Follow 2D ECHO HIV antigen Hepatitis profile. Follow repeat bcx ordered today. Follow clinically to assess Right shoulder to see if Ortho consult needed ( could turn into abscess in next few days) Left message with Dr.Vinas CAMPOS to get back about plan for OR vs IR drainage based on MRI. 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 Gwen King MD May 11, 2017 13:45
[2017-05-11] MEDS: VANCOMYCIN INJ 1,500 MG in SODIUM CHLORID 0.9% 500 ML INJ 500 ML IV SCH (14:16)
[2017-05-11] MEDS ORDERED: FLUMAZENIL 0.5 MG/5 ML VIAL IV PUSH PRN (16:00)
[2017-05-11] MEDS ORDERED: HALOPERIDOL LACTATE 5 MG/ML AMP IM PRN (16:00)
[2017-05-11] MEDS ORDERED: LORazepam 2 MG TAB PO PRN (16:00)
[2017-05-11] MEDS ORDERED: LORazepam 1 MG TAB PO PRN (16:00)
[2017-05-11] MEDS ORDERED: LORazepam 2 MG/ML VIAL IV PUSH PRN ×4 (16:00)
--- NOTE | 2017-05-11 19:30 | PD.CONS ---
(Faizan Coppola MD) HPI Consult Requested By Primary Care Physician Unknown (Faizan Coppola MD) Service NRS Consult Requested By Hospitalist Reason for Consult epidural abscess History of Present Illness Ms. Fang is a 51 y/o female was previously seen in the ED for lower extremity sciatic pain and was treated with muscle relaxants, Tramadol and a Medrol Dosepak and sent home. She returned with AMS and a fever of 102. She was found with a urinary tract infections and was admitted and treated for sepsis. She continues however to complain of lumbar and lower extremity sciatic pain. She also reports progressive weakness in her lower extremities. An MRI of the lumbar spine was obtained which showed epidural abscess from L3-5. A neurosurgical evaluation was requested. (Rea Brunson) Review of Systems Eyes: DENIES: Diplopia Ears, nose, mouth, throat: DENIES: Vertigo Respiratory: DENIES: Cough, Hemoptysis, Shortness of breath Genitourinary: DENIES: Urinary incontinence Musculoskeletal: COMPLAINS OF: Stiffness, Back pain Neurologic: COMPLAINS OF: Localized weakness, Paresthesias, DENIES: Speech Problems (Rea Brunson) Past Family Social History Allergies: Coded Allergies: Bee Sting (Verified Allergy, Severe, ANAPHYLAXIS, 05/08/17) Peanut (Verified Allergy, Severe, ANAPHYLAXIS, 05/08/17) *MDRO Multi-Drug Resistant Organism (Verified Adverse Reaction, Unknown, ) MRSA (blood) 05/08/17 Family History Family History: She does not know her history (Faizan Coppola MD) Past Medical History Hypertension COPD Asthma Past Surgical History Dental surgeries Reported Medications reviewed in EMR Family History Unknown per patient Social History Reports tobacco use 1 ppd, Etoh: 4 beers daily on average (Rea Brunson) Physical Exam Vital Signs Vital Signs Date Time Temp Pulse Resp B/P Pulse Ox O2 Delivery O2 Flow Rate FiO2 05/11/17 16:25 99.6 77 18 176/89 95 05/11/17 12:42 100.1 71 18 123/75 95 05/11/17 08:07 99.9 68 16 129/79 95 05/11/17 06:18 19 05/11/17 04:00 99.5 69 18 133/72 93 05/11/17 03:51 98.9 75 19 92 05/11/17 03:51 19 05/11/17 02:12 100.7 73 19 126/70 91 05/11/17 00:00 99.3 80 18 173/98 93 05/10/17 20:00 101.1 80 22 209/117 95 Physical Exam The patient is alert, awake and oriented to time, place and person. Speech is fluent. Cranial nerve examination: pupils to be equal, round and reactive to light. Extra-ocular movements are intact. Facial motor and sensory function are normal and symmetrical. Gross hearing appears intact. Sternocleidomastoid and trapezius muscles are symmetrical. Other cranial nerves are intact. Neck is soft and supple with a good range of motion without pain. Muscle strength is normal in all muscle groups of both upper and lower extremities. Sensory examination is intact to light touch and pin prick in both the upper and lower extremities. There is give away secondary to pain in both lower extremities Deep tendon reflexes are symmetrical in both upper and lower extremities. There is a bilateral plantar flexion response. Cerebellar examination is unremarkable, without deficits. Laboratory Laboratory Tests Test 05/11/17 09:02 Sodium Level 136 Potassium Level 3.1 Chloride Level 104 Carbon Dioxide Level 19.6 Anion Gap 12 Blood Urea Nitrogen 15 Creatinine 0.72 Estimat Glomerular Filtration 104 Rate Random Glucose 89 Calcium Level 8.3 Total Creatine Kinase 153 Date/Time Procedure Status Source Growth 05/10/17 14:30 Aerobic Blood Culture - Preliminary Resulted Blood Peripheral Gram Positive Cocci 05/10/17 14:30 Anaerobic Blood Culture - Preliminary Resulted Blood Peripheral NO GROWTH IN 1 DAY 05/08/17 21:00 Urine Culture - Final Complete Urine Catheterized Urine NO GROWTH IN 48 HOURS. 05/08/17 20:45 Aerobic Blood Culture - Final Complete Blood Peripheral S. Aureus Mrsa 05/08/17 20:45 Anaerobic Blood Culture - Final Complete S. Aureus Mrsa (Faizan Coppola MD) Result Diagram: 05/09/17 0926 05/11/17 0902 Imaging Last Impressions Shoulder MRI 05/10/17 0000 Signed Impressions: Service Date/Time: Wednesday, May 10, 2017 12:48 - CONCLUSION: Moderate hypertrophic changes are seen in the AC joint indenting the subacromial fat plane to a slight degree with adjacent subcutaneous edema possibly inflammatory without evidence for abscess formation. Clement Valentin MD Lumbar Spine MRI 05/10/17 Signed Impressions: Service Date/Time: Wednesday, May 10, 2017 12:48 - CONCLUSION: Interval development of epidural abscess dorsally extending from L3-[address] to mid body of L5 causing moderate thecal sac stenosis at L3-4 and L4-5 levels. Findings were discussed with Dr. Rogers on 05/10/2017 at the time of this dictation at 4:15 hours. Clement Valentin MD Chest CT 05/08/172330 Signed Impressions: Service Date/Time: Monday, May 08, 2017 23:29 - CONCLUSION: Normal examination. Edis Fox MD Shoulder X-Ray 05/08/172046 Signed Impressions: Service Date/Time: Monday, May 08, 2017 21:05 - CONCLUSION: Negative two-view examination of the shoulder. Trevin Deleon MD Abdomen/Pelvis CT 05/08/172046 Signed Impressions: Service Date/Time: Monday, May 08, 2017 22:08 - CONCLUSION: No acute findings in the abdomen and pelvis. Trevin Deleon MD (Faizan Coppola MD) Imaging Last Impressions Shoulder MRI 05/10/17 Signed Impressions: Service Date/Time: Wednesday, May 10, 2017 12:48 - CONCLUSION: Moderate hypertrophic changes are seen in the AC joint indenting the subacromial fat plane to a slight degree with adjacent subcutaneous edema possibly inflammatory without evidence for abscess formation. Clement Valentin MD Lumbar Spine MRI 05/10/17 0000 Signed Impressions: Service Date/Time: Wednesday, May 10, 2017 12:48 - CONCLUSION: Interval development of epidural abscess dorsally extending from L3-[address] to mid body of L5 causing moderate thecal sac stenosis at L3-4 and L4-5 levels. Findings were discussed with Dr. Rogers on 05/10/2017 at the time of this dictation at 4:15 hours. Clement Valentin MD Chest CT 7/29/17 2331 Signed Impressions: Service Date/Time: Monday, May 08, 2017 23:29 - CONCLUSION: Normal examination. Edis Fox MD Shoulder X-Ray 05/08/172046 Signed Impressions: Service Date/Time: Monday, May 08, 2017 21:05 - CONCLUSION: Negative two-view examination of the shoulder. Trevin Deleon MD Abdomen/Pelvis CT 05/08/172046 Signed Impressions: Service Date/Time: Monday, May 08, 2017 22:08 - CONCLUSION: No acute findings in the abdomen and pelvis. Trevin Deleon MD (Rea Brunson) Attending Statement Neuro. neuro checks in a serial fashion. Discussed with her the alternatives of treatment. I recommend a a surgical decompression. I have discussed the details including the [id number] details of the surgical procedure, its indications, alternatives, risks, and potential complications. Risks and potential complications include, but are not limited to, infection, blood loss, CSF leak, partial or complete loss of sight in one or both eyes, paresis, paralysis, permanent pain or difficulty swallowing, loss of bowel or bladder function, complications from anesthesia, blood clot, stroke, myocardial infarction, or even . Unfortunately she is eating lunch and not NPO. Will plan to decompress her spine. Unless an absolute emergency, it is recommended to be NPO sotero at least 8 hrs before an elective procedure in prone position under general anesthesia. Will schedule the surgery in AM Continue IV antibiotics Pulmonary. aggressive pulmonary toilette, nasotracheal suction, and breathing treatments with nebulizers. PT and OT evaluation Nutrition. Oral diet Renal. monitor closely urine output, BUN and creatinine Endocrine. Monitor serial Acu checks and SSI as needed ID monitor for signs of infection Protonix for stress ulcer prophylaxis Jordan hose and SCD's for DVT prophylaxis (Faizan Coppola MD) Faizan Coppola MD May 11, 2017 19:30 Rea Brunson May 12, 2017 09:45
[2017-05-11] MEDS: cloNIDine HCL 0.1 MG TAB PO PRN (22:11)
[2017-05-12 02:00] VITALS: PULSE 92
[2017-05-12] MEDS: VANCOMYCIN INJ 1,500 MG in SODIUM CHLORID 0.9% 500 ML INJ 500 ML IV SCH ×2 (03:19→14:45)
[2017-05-12] MEDS: traMADol HCL 50 MG TAB PO PRN ×2 (03:25→09:08)
[2017-05-12 04:00] VITALS: BP 164/83; PULSE 86; RESP 18; TEMP 100.7; O2SAT 96
[2017-05-12] MEDS: cloNIDine HCL 0.1 MG TAB PO PRN (05:53)
[2017-05-12] MEDS: ACETAMINOPHEN 325 MG TAB PO PRN (05:54)
[2017-05-12] MEDS ORDERED: THROMBIN (TOPICAL) 5,000 UNIT VIAL ONE (07:22)
[2017-05-12] MEDS ORDERED: GENTAMICIN SULFATE 80 MG/2 ML VIAL ONE (07:22)
[2017-05-12] MEDS ORDERED: GELFOAM SIZE 100 ONE (07:22)
[2017-05-12] MEDS ORDERED: ceFAZolin 2 GM PREMIX 50 ML ONE (07:22)
[2017-05-12 08:08] VITALS: BP 163/81; PULSE 77; RESP 21; TEMP 98.6; O2SAT 94
[2017-05-12] MEDS: SODIUM CHLORIDE 0.9% FLUSH 10 ML FLUSH IV FLUSH SCH (09:00)
[2017-05-12] MEDS: HEPARIN SODIUM - SQ 10,000 UNITS/ML VIAL SQ SCH ×2 (09:00→21:00)
[2017-05-12] MEDS: CARVEDILOL 12.5 MG TAB PO SCH ×2 (09:07→22:48)
[2017-05-12] MEDS: DOCUSATE SODIUM 50 MG/SENNA 8.6 MG TAB PO SCH (09:08)
[2017-05-12] MEDS: BACLOFEN 10 MG TAB PO PRN (09:08)
[2017-05-12] MEDS: CEFEPIME INJ 1,000 MG in SODIUM CHLORIDE 0.9% INJ 100 ML IV SCH ×2 (09:13→22:47)
--- NOTE | 2017-05-12 10:33 | HHI.PR ---
Subjective Remarks f/u; epidural abscess has some back pain and muscle spasm but it's better to some extent. Tmax 103. Objective Vitals Vital Signs Date Time Temp Pulse Resp B/P Pulse Ox O2 Delivery O2 Flow Rate FiO2 05/12/17 08:08 98.6 77 21 163/81 94 05/12/17 04:25 18 05/12/17 04:00 100.7 86 18 164/83 96 05/12/17 02:00 92 05/11/17 19:30 103.0 93 20 186/98 96 05/11/17 16:25 99.6 77 18 176/89 95 05/11/17 12:42 100.1 71 18 123/75 95 I/O 05/11/17 05/11/17 05/11/17 05/12/17 05/12/17 05/12/17 07:00 15:00 23:00 07:00 15:00 23:00 Intake Total 450 ml 240 ml 840 ml Output Total 2 ml Balance 448 ml 240 ml 840 ml Intake Oral 240 ml 240 ml IV Total 450 ml 600 ml Output Urine Total 2 ml # Voids 3 2 2 Result Diagram: 05/09/17 0926 05/11/17 0902 Imaging Last Impressions Shoulder MRI 05/10/17 0000 Signed Impressions: Service Date/Time: Wednesday, May 10, 2017 12:48 - CONCLUSION: Moderate hypertrophic changes are seen in the AC joint indenting the subacromial fat plane to a slight degree with adjacent subcutaneous edema possibly inflammatory without evidence for abscess formation. Clement Valentin MD Lumbar Spine MRI 05/10/17 0000 Signed Impressions: Service Date/Time: Wednesday, May 10, 2017 12:48 - CONCLUSION: Interval development of epidural abscess dorsally extending from L3-[address] to mid body of L5 causing moderate thecal sac stenosis at L3-4 and L4-5 levels. Findings were discussed with Dr. Rogers on 05/10/2017 at the time of this dictation at 4:15 hours. Clement Valentin MD Chest CT 05/08/17 [id number] Signed Impressions: Service Date/Time: Monday, May 08, 2017 23:29 - CONCLUSION: Normal examination. Edis Fox MD Shoulder X-Ray [id number] Signed Impressions: Service Date/Time: Monday, May 08, 2017 21:05 - CONCLUSION: Negative two-view examination of the shoulder. Trevin Deleon MD Abdomen/Pelvis CT [id number] Signed Impressions: Service Date/Time: Monday, May 08, 2017 22:08 - CONCLUSION: No acute findings in the abdomen and pelvis. Trevin Deleon MD Objective Remarks GENERAL: This is a well-nourished, well-developed patient, in no apparent distress. CARDIOVASCULAR: Regular rate and regular rhythm without murmurs, gallops, or rubs. RESPIRATORY: Clear to auscultation. Breath sounds equal bilaterally. No wheezes , rales, or rhonchi. GASTROINTESTINAL: Abdomen soft, non-tender, nondistended. Normal, active bowel sounds MUSCULOSKELETAL: Extremities without clubbing, cyanosis, or edema. NEURO: Alert & Oriented x4 to person, place, time, situation. Moves all ext x4 Medications and IVs Current Medications IV Flush 2 ml 2 ml UNSCH PRN IV FLUSH FLUSH AFTER USING IV ACCESS; Start at 20:30; Stop 05/08/17 at 23:34; Status DC Sodium Chloride (NS 1000 ml Inj) 1,000 ml @ 1,000 mls/hr Q1H IV Last administered on 05/08/17 21:10; Start 05/08/17 at 20:30; Stop 05/08/17 at 21:29 ; Status DC Iohexol 96 ml 96 ml STK-MED ONCE IV Last administered on 05/08/17 22:06; Start 05/08/17 at 22:06; Stop 05/08/17 at 22:07; Status DC Sodium Chloride (NS 1000 ml Inj) 1,000 ml @ 2,000 mls/hr Q30M IV Last administered on 05/08/17 23:12; Start 05/08/17 at 23:00; Stop 05/08/17 at 23:29 ; Status DC Ketorolac Tromethamine 30 mg 30 mg ONCE ONCE IVP Last administered on 23:13; Start 05/08/17 at 23:00; Stop 05/08/17 at 23:01; Status DC Ceftriaxone Sodium 2000 mg/ Sodium Chloride 100 ml @ 200 mls/hr ONCE ONCE IV Last administered on 05/08/17 23:16; Start 05/08/17 at 23:00; Stop 05/08/17 at 23:29; Status DC Pharmacy Profile Note 0 ml @ 0 mls/hr UNSCH OTHER ; Start 05/08/17 at 23:15 Cefepime HCl 1000 mg/Sodium Chloride 100 ml @ 200 mls/hr Q12H IV Last administered on 05/12/17 09:13; Start 05/09/17 at 09:00 Sodium Chloride (NS 1000 ml Inj) 1,000 ml @ 100 mls/hr Q10H IV Last administered on 05/11/17 13:37; Start 05/08/17 at 23:14 Sodium Chloride (NS Flush) 2 ml UNSCH PRN IV FLUSH FLUSH AFTER USING IV ACCESS Last administered on 05/10/17 01:07; Start 05/08/17 at 23:15 Sodium Chloride (NS Flush) 2 ml BID IV FLUSH Last administered on 05/11/17 22: 11; Start 05/09/17 at 09:00 Ondansetron HCl (Zofran Inj) 4 mg Q6H PRN IVP NAUSEA OR VOMITING; Start at 23:15 Heparin Sodium (Porcine) (Heparin Inj) 5,000 units Q12HR SQ Last administered on 05/11/17 22:12; Start 05/09/17 at 09:00 Acetaminophen (Tylenol) 650 mg Q6H PRN PO FEVER Last administered on 05/12/17 05:54; Start 05/08/17 at 23:15 Senna/Docusate Sodium (Janice-Colace) 1 tab BID PO Last administered on 05/12/17 09:08; Start 05/09/17 at 09:00 Magnesium Hydroxide (Milk Of Magnesia Liq) 30 ml Q12H PRN PO MILD - MODERATE CONSTIPATION; Start 05/08/17 at 23:15; Stop 05/09/17 at 09:42; Status DC Sennosides (Senokot) 17.2 mg Q12H PRN PO MODERATE - SEVERE CONSTIPATION; Start 05/08/17 at 23:15 Bisacodyl (Dulcolax Supp) 10 mg DAILY PRN RECTAL SEVERE CONSITIPATION; Start at 23:15; Stop 05/09/17 at 09:42; Status DC Lactulose 30 ml 30 ml DAILY PRN PO SEVERE CONSITIPATION; Start 05/08/17 at 23: 15; Stop 05/09/17 at 09:42; Status DC Vancomycin HCl 1000 mg/Sodium Chloride 250 ml @ 250 mls/hr ONCE ONCE IV Last administered on 05/09/17 00:30; Start 05/09/17 at 00:00; Stop 05/09/17 at 00:59 ; Status DC Vancomycin HCl/ Sodium Chloride (Vancomycin Inj/ NS 250 ml Inj) 250 ml @ 250 mls/hr Q12H IV Last administered on 05/10/17 15:10; Start 05/09/17 at 13:00; Stop 05/10/17 at 19:31; Status DC Miscellaneous Information SPECIFIC LAB TO BE DRAWN:VANCO TROUGH DATE TO... ONCE ONCE .XX Last administered on 05/10/17 12:54; Start 05/10/17 at 12:45; Stop 05/10/17 at 12:46; Status DC Carvedilol (Coreg) 12.5 mg Q12HR PO Last administered on 05/12/17 09:07; Start 05/09/17 at 10:00 Albuterol Sulfate (Albuterol Neb) 2.5 mg Q4HR NEB PRN INH SHORTNESS OF BREATH; Start 05/09/17 at 14:45 Tramadol HCl (Ultram) 50 mg Q4H PRN PO PAIN 1-3 Last administered on 05/12/17 09:08; Start 05/09/17 at 09:45 Ketorolac Tromethamine (Toradol Inj) 30 mg Q6HR PRN IV PUSH PAIN SCALE 4 TO 10 Last administered on 05/10/17 12:14; Start 05/09/17 at 14:45; Stop 05/10/17 at 14:44; Status DC Hydromorphone HCl (Dilaudid Pf Inj) 2 mg Q4H PRN IV PUSH pain not better with toradol Last administered on 05/11/17 05:25; Start 05/09/17 at 14:45 Clonidine (Catapres) 0.1 mg Q6H PRN PO SBP>160, DBP>90 Last administered on 05/12 05:53; Start 05/09/17 at 16:00 Potassium Chloride (KCl Powder) 20 meq ONCE ONCE PO Last administered on 17:15; Start 05/09/17 at 16:15; Stop 05/09/17 at 16:19; Status DC Lorazepam (Ativan Inj) 2 mg ONCE ONCE IV PUSH Last administered on 05/10/17 13:00; Start 05/10/17 at 13:00; Stop 05/10/17 at 13:01; Status DC Gadodiamide 16 ml 16 ml STK-MED ONCE IV Last administered on 05/10/17 14:29; Start 05/10/17 at 14:29; Stop 05/10/17 at 14:30; Status DC Vancomycin HCl/ Sodium Chloride (Vancomycin Inj/ NS 250 ml Inj) 262 ml @ 250 mls/hr Q12H IV Last administered on 05/11/17 01:20; Start 05/11/17 at 01:00; Stop 05/11/17 at 11:26; Status DC Miscellaneous Information SPECIFIC LAB TO BE DRAWN:VANCOMY... ONCE ONCE .XX ; Start 05/12/17 at 12:45; Stop 05/12/17 at 12:46 Vancomycin HCl/ Sodium Chloride (Vancomycin Inj/ NS 500 ml Inj) 515 ml @ 250 mls/hr Q12H IV Last administered on 05/12/17 03:19; Start 05/11/17 at 13:00 Baclofen (Lioresal) 10 mg Q8HR PRN PO MUSCLE SPASM Last administered on 09:08; Start 05/11/17 at 12:00 Potassium Chloride (KCl) 30 meq ONCE ONCE PO Last administered on 05/11/17 13: 36; Start 05/11/17 at 12:00; Stop 05/11/17 at 13:16; Status DC Potassium Chloride (KCl) 30 meq ONCE ONCE PO Last administered on 05/11/17 18: 02; Start 05/11/17 at 16:00; Stop 05/11/17 at 16:01; Status DC Lorazepam (Ativan) 1 mg Q4H PRN PO CIWA 8-10 Last administered on 05/11/17 22: 12; Start 05/11/17 at 16:00 Lorazepam (Ativan Inj) 1 mg Q4H PRN IV PUSH CIWA 8-10; Start 05/11/17 at 16:00 Lorazepam (Ativan) 2 mg Q2H PRN PO CIWA 11-14; Start 05/11/17 at 16:00 Lorazepam (Ativan Inj) 2 mg Q2H PRN IV PUSH CIWA 11-14 Last administered on 05/11t 17:54; Start 05/11/17 at 16:00 Lorazepam (Ativan Inj) 2 mg Q1H PRN IV PUSH CIWA 15-20; Start 05/11/17 at 16:00 Lorazepam (Ativan Inj) 2 mg Q15M PRN IV PUSH CIWA > 20; Start 05/11/17 at 16:00 Haloperidol Lactate (Haldol Inj) 2 mg Q15M PRN IM SEE LABEL COMMENTS; Start 05/11/17 at 16:00 Flumazenil (Romazicon Inj) 0.2 mg Q1M PRN IV PUSH SEE LABEL COMMENTS; Start 05/11/17 at 16:00 Thrombin 34320 units 10,000 units STK-MED ONCE .ROUTE ; Start 05/12/17 at 07:22; Stop 05/12/17 at 07:23; Status DC Cefazolin Sodium/ Dextrose (Ancef 2 Gm Premix) 50 ml @ As Directed STK-MED ONCE .ROUTE ; Start 05/12/17 at 07:22; Stop 05/12/17 at 07:23; Status DC Gelatin (Gelfoam 100 Top) 1 foam STK-MED ONCE .ROUTE ; Start 05/12/17 at 07:22; Stop 05/12/17 at 07:23; Status DC Gentamicin Sulfate (Gentamicin Inj) 240 mg STK-MED ONCE .ROUTE ; Start 05/12/17 at 07:22; Stop 05/12/17 at 07:23; Status DC A/P Assessment and Plan A/P (1) Sepsis due to epidural abscess continue Vanco and Cefepime- HIV/hepatitis panel negative. neurosurgery and ID following. (2) MRSA Bacteremia continue Vancomycin echo with no vegetation repeated blood cultures with MRSA ID following. (3) Rhabdomyolysis-resolved. due to cocaine use versus musculoskeletal injury Continue IV hydration (4) Shoulder pain, right- improving. MRI with Moderate hypertrophic changes are seen in the AC joint indenting the subacromial fat plane to a slight degree with adjacent subcutaneous edema possibly inflammatory without evidence for abscess formation. continue with pain control- (5) Encephalopathy, toxic-resolved. (6) HTN (hypertension) Continue Coreg and clonidine as needed (7)- hypokalemia; replaced. Toño Waterman MD May 12, 2017 10:33
[2017-05-12] MEDS ORDERED: PROPOFOL 200 MG/20 ML AMP IV ONE (12:00)
[2017-05-12] MEDS ORDERED: LACTATED RINGER'S 1000 ML INJ 2,000 ML IV ONE (12:00)
[2017-05-12] MEDS ORDERED: ONDANSETRON HCL 4 MG/2 ML VIAL IV PUSH ONE (12:00)
[2017-05-12] MEDS ORDERED: NEOSTIGMINE 3 MG/3 ML SYR IV ONE (12:00)
[2017-05-12] MEDS ORDERED: ePHEDrine/NS 25 MG/5 ML SYR IV ONE (12:00)
[2017-05-12] MEDS ORDERED: VANCOMYCIN TROUGH ONE (12:45)
[2017-05-12] MEDS ORDERED: ACETAMINOPHEN 1000 MG/100 ML VIAL IV ONE (13:21)
[2017-05-12] MEDS ORDERED: HYDROmorphone HCL PF 2 MG/ML VIAL ONE (13:21)
[2017-05-12] MEDS ORDERED: VANCOMYCIN HCL 1000 MG VIAL ONE (15:07)
[2017-05-12] MEDS: NS + KCL 20 MEQ INJ 1,000 ML IV SCH (15:59)
[2017-05-12] MEDS ORDERED: MORPHINE SULFATE 4 MG/ML INJ IV PUSH PRN (16:00)
[2017-05-12] MEDS ORDERED: SODIUM CHLORIDE 0.9% FLUSH 5 ML FLUSH IVF PRN (16:00)
[2017-05-12] MEDS ORDERED: DO NOT ADM ANY ANTICOAGULANT DRUGS PRN (16:12)
--- NOTE | 2017-05-12 16:19 | PD.OP ---
Operative Report Date of Surgery: May 12, 2017 Preoperative Diagnosis: Lumbar spinal epidural abscess Postoperative Diagnosis: Lumbar spinal epidural abscess Procedure: L3-L5 laminectomy with evacuation of spinal epidural abscess Anesthesia: general Surgeon: Faizan Coppola Fourth Officer(s): Lyly Wakefield Operation and Findings: INDICATIONS FOR THE PROCEDURE The patient is a 51year-old female who presented with intractable neck pain and clinical evidence of lower extremity radiculopathy and urinary retention. MRI of the lumbar spine showed a significant epidural abscess with compression of the neural structures. A surgical decompression was indicated. The [id number] details of the procedure, indications, alternatives, risks and potential complications were fully discussed with the patient. The patient fully understood. All her questions were answered. No guarantees were given. She voiced requesting the procedure and provided informed consents. The patient was offered the alternative of delaying the procedure and continuing with nonsurgical management. DETAILS OF THE PROCEDURE After the induction of general anesthesia, endotracheal intubation was performed. A Agudelo catheter, bilateral ISACC hose and sequential compression devices were placed and kept throughout the procedure. The patient was positioned prone on a Umesh table over a James frame. All pressure points were carefully padded with eggcrate mattress. The eyes were tapped shut after ointment was applied by the anesthesiologist to prevent corneal abrasion. A Lina hugger was placed over the exposed lower body to maintain control of the core body temperature. The lower lumbar region was prepped and draped in the usual sterile fashion. A spinal needle was placed for localization and an x- ray performed with a C-arm. A skin incision was made in the midline over the spinous processes L3-L5 with a #10 blade. Small subcutaneous bleeders were controlled with a bipolar and the dissection was carried out through the lumbar fascia exposing the spinous processes. A subperiosteal dissection was performed with a Lee elevator and a Bovie over the L3-L5 spinous process lamina and facets. A microdiscectomy self- retaining retractor was placed on the incision and an x-ray was obtained with an instrument placed underneath the lamina of L4. There was cloudy fluid and a set of cultures were sent to the lab for aerobic and anaerobic gram stain and cultures. At this point in the procedure, the operating microscope was draped in the usual sterile fashion and brought to the field. The rest of the surgical procedure was performed using microdissection technique with the exception of the closure. Once the level was confirmed, a decompressive laminectomy was performed at L3- L5 using the TPS drill with an AM-8 drill bit. A medial facetectomy was performed and the superior free border of the ligamentum flavum was dissected with a ligament dissector and removed with a thin footplate 2 mm Kerrison. Upon elevation of the ligamentum Flavum, a purulent collection was evacuated. Further cultures were sent to the lab for aerobic and anaerobic cultures, Gram staion AFB, and fungus cultures. A medial facetectomy was done and the L5 right nerve root was identified and followed towards its exit in the foramen. The right facet was very unstable, eroded and surrounded by pus Under the operative microscopic, the dural sac was carefully retracted. These were carefully dissected with microsurgical instruments and microsurgical dissection technique. A pocket of purulent material, consistent with a flegmon, was found and further specimens were sent to the lab for tissue culture and histopathology. The dural sac was carefully retracted and further debridement was carried out. At this point, after all cultures were obtained. the patient received IV antibiotics and the incision was thoroughly and copiously irrigated with double basic ortho antibiotic solution. A 7mm Umesh Almanzar drain was left in the epidural space, tunneled and and externalized through a separate stab incision. The incision was then closed with layers. 0-Vicryl interrupted sutures were used to close the thoracolumbar fascia and superficial fascia. Activated Collagen was placed over the fascia with vancomycin. The subcutaneous tissue was approximated with ) Vicryl sutures. The skin was closed with [place] At the end of the procedure, the sponge, needle and instrument counts were all correct. The estimated blood loss was less than 100 cc. No intraoperative complications occurred. The patient received prophylactic antibiotics. The patient was then extubated and transferred to the recovery room in stable condition. ESTIMATED BLOOD LOSS: Less than 100 cc. No complications. Faizan Coppola MD May 12, 2017 16:19
[2017-05-12] MEDS ORDERED: *morphine SULFATE 8 MG/ML PERIprocedure ONLY ONE ×2 (16:20→16:31)
[2017-05-12] MEDS ORDERED: fentaNYL CITRATE 250 MCG/5 ML AMP ONE (16:20)
[2017-05-12] MEDS ORDERED: MIDAZOLAM HCL 2 MG/2 ML VIAL ONE (16:20)
--- NOTE | 2017-05-12 16:55 | RADRPT ---
EXAM DATE/TIME: 05/12/2017 14:28 [facility] COMPARISON: No previous studies available for comparison. INDICATIONS : Level localization L3-L4, L4-L5 laminectomy. MEDICAL HISTORY : None. SURGICAL HISTORY : None. ENCOUNTER: Initial ACUITY: 1 day PAIN SCORE: Non-responsive. LOCATION: Lumbar spine FINDINGS: A single magnified C-arm spot view is a lateral projection of the lumbar spine. Dorsal skin retractor s are observed. Metallic probes extend towards the facet joints at L3-L4 and L4-L5. CONCLUSION: Limited image as detailed above. Trevin Fuentes Jr., MD on May 12, 2017 at 16:52 Board Certified Radiologist. This report was verified electronically.
[2017-05-12 20:00] VITALS: BP 167/88; PULSE 71; RESP 18; TEMP 99.5; O2SAT 96
[2017-05-12] MEDS: DOCUSATE SODIUM 100 MG CAP PO SCH (21:00)
[2017-05-12] MEDS: ACETAMINOPHEN/HYDROcodone 325 MG/10 MG TAB PO PRN (22:48)
[2017-05-12] MEDS: SODIUM CHLORIDE 0.9% FLUSH 5 ML FLUSH IVF SCH (22:49)
[2017-05-13] VITALS (7 sets, daily range): BP systolic 119–170; BP diastolic 63–81; PULSE 66–82; RESP 16–18; TEMP 98.7–100.8; O2SAT 94–97
[2017-05-13] MEDS ORDERED: PHARMACY ORDERED LAB ONE (00:45)
[2017-05-13] MEDS: NS + KCL 20 MEQ INJ 1,000 ML IV SCH ×3 (00:53→21:59)
[2017-05-13] MEDS: VANCOMYCIN INJ 1,500 MG in SODIUM CHLORID 0.9% 500 ML INJ 500 ML IV SCH ×2 (00:55→12:31)
[2017-05-13] MEDS: ACETAMINOPHEN/HYDROcodone 325 MG/10 MG TAB PO PRN ×2 (05:58→10:10)
--- NOTE | 2017-05-13 07:50 | HHI.PR ---
Subjective Remarks overall looks and feels better. back pain has improved. no fever today. d/w the RN and no acute issues over night. Objective Vitals Vital Signs Date Time Temp Pulse Resp B/P Pulse Ox O2 Delivery O2 Flow Rate FiO2 05/13/17 04:00 99.4 66 18 136/74 95 05/13/17 01:20 21 05/13/17 00:00 98.7 82 18 141/73 97 05/12/17 20:00 99.5 71 18 167/88 96 05/12/17 16:36 15 05/12/17 16:30 67 17 125/71 98 Room Air 05/12/17 16:25 17 05/12/17 16:15 73 17 120/69 98 Nasal Cannula 2 05/12/17 16:10 98.5 76 26 117/62 96 Nasal Cannula 2 05/12/17 08:08 98.6 77 21 163/81 94 I/O 05/12/17 05/12/17 05/12/17 05/13/17 05/13/17 05/13/17 06:59 14:59 22:59 06:59 14:59 22:59 Intake Total 2100 ml Output Total 195 ml 700 ml Balance 1905 ml -700 ml Other 2100 ml Output Urine Total 100 ml 700 ml Drainage Total 20 ml Estimated Blood Loss 75 ml # Voids 2 2 # Bowel Movements 0 Result Diagram: 05/09/17 0926 05/11/17 0902 Imaging Last Impressions Lumbar Spine X-Ray 05/12/17 0000 Signed Impressions: Service Date/Time: Friday, May 12, 2017 14:28 - CONCLUSION: Limited image as detailed above. Trevin Fuentes Jr., MD Shoulder MRI 05/10/17 0000 Signed Impressions: Service Date/Time: Wednesday, May 10, 2017 12:48 - CONCLUSION: Moderate hypertrophic changes are seen in the AC joint indenting the subacromial fat plane to a slight degree with adjacent subcutaneous edema possibly inflammatory without evidence for abscess formation. Clement Valentin MD Lumbar Spine MRI 05/10/17 0000 Signed Impressions: Service Date/Time: Wednesday, May 10, 2017 12:48 - CONCLUSION: Interval development of epidural abscess dorsally extending from L3-[address] to mid body of L5 causing moderate thecal sac stenosis at L3-4 and L4-5 levels. Findings were discussed with Dr. Rogers on 05/10/2017 at the time of this dictation at 4:15 hours. Clement Valentin MD Chest CT 05/08/17 2331 Signed Impressions: Service Date/Time: Monday, May 08, 2017 23:29 - CONCLUSION: Normal examination. Edis Fox MD Shoulder X-Ray [id number] Signed Impressions: Service Date/Time: Monday, May 08, 2017 21:05 - CONCLUSION: Negative two-view examination of the shoulder. Trevin Deleon MD Abdomen/Pelvis CT [id number]/08/[id number] Signed Impressions: Service Date/Time: Monday, May 08, 2017 22:08 - CONCLUSION: No acute findings in the abdomen and pelvis. Trevin Deleon MD Objective Remarks GENERAL: This is a well-nourished, well-developed patient, in no apparent distress. CARDIOVASCULAR: Regular rate and regular rhythm without murmurs, gallops, or rubs. RESPIRATORY: Clear to auscultation. Breath sounds equal bilaterally. No wheezes , rales, or rhonchi. GASTROINTESTINAL: Abdomen soft, non-tender, nondistended. Normal, active bowel sounds MUSCULOSKELETAL: Extremities without clubbing, cyanosis, or edema. NEURO: Alert & Oriented x4 to person, place, time, situation. Moves all ext x4 Procedures L3-L5 laminectomy with evacuation of spinal epidural abscess Medications and IVs Current Medications IV Flush 2 ml 2 ml UNSCH PRN IV FLUSH FLUSH AFTER USING IV ACCESS; Start at 20:30; Stop 05/08/17 at 23:34; Status DC Sodium Chloride (NS 1000 ml Inj) 1,000 ml @ 1,000 mls/hr Q1H IV Last administered on 05/08/17 21:10; Start 05/08/17 at 20:30; Stop 05/08/17 at 21:29 ; Status DC Iohexol 96 ml 96 ml STK-MED ONCE IV Last administered on 05/08/17 22:06; Start 05/08/17 at 22:06; Stop 05/08/17 at 22:07; Status DC Sodium Chloride (NS 1000 ml Inj) 1,000 ml @ 2,000 mls/hr Q30M IV Last administered on 05/08/17 23:12; Start 05/08/17 at 23:00; Stop 05/08/17 at 23:29 ; Status DC Ketorolac Tromethamine 30 mg 30 mg ONCE ONCE IVP Last administered on 23:13; Start 05/08/17 at 23:00; Stop 05/08/17 at 23:01; Status DC Ceftriaxone Sodium 2000 mg/ Sodium Chloride 100 ml @ 200 mls/hr ONCE ONCE IV Last administered on 05/08/17 23:16; Start 05/08/17 at 23:00; Stop 05/08/17 at 23:29; Status DC Pharmacy Profile Note 0 ml @ 0 mls/hr UNSCH OTHER ; Start 05/08/17 at 23:15 Cefepime HCl 1000 mg/Sodium Chloride 100 ml @ 200 mls/hr Q12H IV Last administered on 05/12/17 22:47; Start 05/09/17 at 09:00 Sodium Chloride (NS 1000 ml Inj) 1,000 ml @ 100 mls/hr Q10H IV Last administered on 05/11/17 13:37; Start 05/08/17 at 23:14; Stop 05/12/17 at 16:10; Status DC Sodium Chloride (NS Flush) 2 ml UNSCH PRN IV FLUSH FLUSH AFTER USING IV ACCESS Last administered on 05/10/17 01:07; Start 05/08/17 at 23:15; Stop 05/12/17 at 16:11; Status DC Sodium Chloride (NS Flush) 2 ml BID IV FLUSH Last administered on 05/11/17 22: 11; Start 05/09/17 at 09:00; Stop 05/12/17 at 16:11; Status DC Ondansetron HCl (Zofran Inj) 4 mg Q6H PRN IVP NAUSEA OR VOMITING; Start at 23:15 Heparin Sodium (Porcine) (Heparin Inj) 5,000 units Q12HR SQ Last administered on 05/11/17 22:12; Start 05/09/17 at 09:00 Acetaminophen (Tylenol) 650 mg Q6H PRN PO FEVER Last administered on 05/12/17 05:54; Start 05/08/17 at 23:15; Stop 05/12/17 at 16:10; Status DC Senna/Docusate Sodium (Janice-Colace) 1 tab BID PO Last administered on 05/12/17 09:08; Start 05/09/17 at 09:00; Stop 05/12/17 at 16:11; Status DC Magnesium Hydroxide (Milk Of Magnmaxine Liq) 30 ml Q12H PRN PO MILD - MODERATE CONSTIPATION; Start 05/08/17 at 23:15; Stop 05/09/17 at 09:42; Status DC Sennosides (Senokot) 17.2 mg Q12H PRN PO MODERATE - SEVERE CONSTIPATION; Start 05/08/17 at 23:15 Bisacodyl (Dulcolax Supp) 10 mg DAILY PRN RECTAL SEVERE CONSITIPATION; Start at 23:15; Stop 05/09/17 at 09:42; Status DC Lactulose 30 ml 30 ml DAILY PRN PO SEVERE CONSITIPATION; Start 05/08/17 at 23: 15; Stop 05/09/17 at 09:42; Status DC Vancomycin HCl 1000 mg/Sodium Chloride 250 ml @ 250 mls/hr ONCE ONCE IV Last administered on 05/09/17 00:30; Start 05/09/17 at 00:00; Stop 05/09/17 at 00:59 ; Status DC Vancomycin HCl/ Sodium Chloride (Vancomycin Inj/ NS 250 ml Inj) 250 ml @ 250 mls/hr Q12H IV Last administered on 05/10/17 15:10; Start 05/09/17 at 13:00; Stop 05/10/17 at 19:31; Status DC Miscellaneous Information SPECIFIC LAB TO BE DRAWN:VANCO TROUGH DATE TO... ONCE ONCE .XX Last administered on 05/10/17 12:54; Start 05/10/17 at 12:45; Stop 05/10/17 at 12:46; Status DC Carvedilol (Coreg) 12.5 mg Q12HR PO Last administered on 05/12/17 22:48; Start 05/09/17 at 10:00 Albuterol Sulfate (Albuterol Neb) 2.5 mg Q4HR NEB PRN INH SHORTNESS OF BREATH; Start 05/09/17 at 14:45 Tramadol HCl (Ultram) 50 mg Q4H PRN PO PAIN 1-3 Last administered on 05/12/17 09:08; Start 05/09/17 at 09:45 Ketorolac Tromethamine (Toradol Inj) 30 mg Q6HR PRN IV PUSH PAIN SCALE 4 TO 10 Last administered on 05/10/17 12:14; Start 05/09/17 at 14:45; Stop 05/10/17 at 14:44; Status DC Hydromorphone HCl (Dilaudid Pf Inj) 2 mg Q4H PRN IV PUSH pain not better with toradol Last administered on 05/11/17 05:25; Start 05/09/17 at 14:45 Clonidine (Catapres) 0.1 mg Q6H PRN PO SBP>160, DBP>90 Last administered on 05/12 05:53; Start 05/09/17 at 16:00 Potassium Chloride (KCl Powder) 20 meq ONCE ONCE PO Last administered on 17:15; Start 05/09/17 at 16:15; Stop 05/09/17 at 16:19; Status DC Lorazepam (Ativan Inj) 2 mg ONCE ONCE IV PUSH Last administered on 05/10/17 13:00; Start 05/10/17 at 13:00; Stop 05/10/17 at 13:01; Status DC Gadodiamide 16 ml 16 ml STK-MED ONCE IV Last administered on 05/10/17 14:29; Start 05/10/17 at 14:29; Stop 05/10/17 at 14:30; Status DC Vancomycin HCl/ Sodium Chloride (Vancomycin Inj/ NS 250 ml Inj) 262 ml @ 250 mls/hr Q12H IV Last administered on 05/11/17 01:20; Start 05/11/17 at 01:00; Stop 05/11/17 at 11:26; Status DC Miscellaneous Information SPECIFIC LAB TO BE DRAWN:VANCOMY... ONCE ONCE .XX ; Start 05/12/17 at 12:45; Stop 05/12/17 at 12:46; Status DC Vancomycin HCl/ Sodium Chloride (Vancomycin Inj/ NS 500 ml Inj) 515 ml @ 250 mls/hr Q12H IV Last administered on 05/13/17 00:55; Start 05/11/17 at 13:00 Baclofen (Lioresal) 10 mg Q8HR PRN PO MUSCLE SPASM Last administered on 09:08; Start 05/11/17 at 12:00 Potassium Chloride (KCl) 30 meq ONCE ONCE PO Last administered on 05/11/17 13: 36; Start 05/11/17 at 12:00; Stop 05/11/17 at 13:16; Status DC Potassium Chloride (KCl) 30 meq ONCE ONCE PO Last administered on 05/11/17 18: 02; Start 05/11/17 at 16:00; Stop 05/11/17 at 16:01; Status DC Lorazepam (Ativan) 1 mg Q4H PRN PO CIWA 8-10 Last administered on 05/11/17 22: 12; Start 05/11/17 at 16:00 Lorazepam (Ativan Inj) 1 mg Q4H PRN IV PUSH CIWA 8-10; Start 05/11/17 at 16:00 Lorazepam (Ativan) 2 mg Q2H PRN PO CIWA 11-14; Start 05/11/17 at 16:00 Lorazepam (Ativan Inj) 2 mg Q2H PRN IV PUSH CIWA 11-14 Last administered on 05/11 17:54; Start 05/11/17 at 16:00 Lorazepam (Ativan Inj) 2 mg Q1H PRN IV PUSH CIWA 15-20; Start 05/11/17 at 16:00 Lorazepam (Ativan Inj) 2 mg Q15M PRN IV PUSH CIWA > 20; Start 05/11/17 at 16:00 Haloperidol Lactate (Haldol Inj) 2 mg Q15M PRN IM SEE LABEL COMMENTS; Start 05/11/17 at 16:00 Flumazenil (Romazicon Inj) 0.2 mg Q1M PRN IV PUSH SEE LABEL COMMENTS; Start 05/11/17 at 16:00 Thrombin 01350 units 10,000 units STK-MED ONCE .ROUTE Last administered on 14:56; Start 05/12/17 at 07:22; Stop 05/12/17 at 07:23; Status DC Cefazolin Sodium/ Dextrose (Ancef 2 Gm Premix) 50 ml @ As Directed STK-MED ONCE .ROUTE ; Start 05/12/17 at 07:22; Stop 05/12/17 at 07:23; Status DC Gelatin (Gelfoam 100 Top) 1 foam STK-MED ONCE .ROUTE Last administered on 14:56; Start 05/12/17 at 07:22; Stop 05/12/17 at 07:23; Status DC Gentamicin Sulfate (Gentamicin Inj) 240 mg STK-MED ONCE .ROUTE Last administered on 05/12/17 14:56; Start 05/12/17 at 07:22; Stop 05/12/17 at 07:23; Status DC Hydromorphone HCl (Dilaudid Pf Inj) 2 mg STK-MED ONCE .ROUTE ; Start 05/12/17 at 13:21; Stop 05/12/17 at 13:22; Status DC Acetaminophen (Ofirmev Inj) 1,000 mg STK-MED ONCE IV ; Start 05/12/17 at 13:21; Stop 05/12/17 at 13:22; Status DC Vancomycin HCl 1000 mg 1,000 mg STK-MED ONCE .ROUTE Last administered on 15:08; Start 05/12/17 at 15:07; Stop 05/12/17 at 15:08; Status DC Potassium Chloride/Sodium Chloride (NS + KCl 20 Meq Inj) 1,000 ml @ 100 mls/hr Q10H IV Last administered on 05/13/17 00:53; Start 05/12/17 at 15:59 IV Flush (NS Flush) 2 ml UNSCH PRN IVF FLUSH AFTER USING IV ACCESS; Start at 16:00 IV Flush (NS Flush) 2 ml BID IVF Last administered on 05/12/17 22:49; Start 05/12/17 at 21:00 Docusate Sodium (Colace) 100 mg BID PO ; Start 05/12/17 at 21:00 Pantoprazole Sodium (Protonix) 40 mg DAILY PO ; Start 05/13/17 at 09:00 Acetaminophen/ Hydrocodone Bitart (Milam 10-325 Mg) 1 tab Q4H PRN PO PAIN 1-5 WHEN TOLERATING PO; Start 05/12/17 at 16:00 Acetaminophen/ Hydrocodone Bitart (Milam 10-325 Mg) 2 tab Q4H PRN PO PAIN 6-10 WHEN TOLERATING PO Last administered on 05/13/17 05:58; Start 05/12/17 at 16:00 Morphine Sulfate (Morphine Inj) 2 mg Q2H PRN IV PUSH PAIN 1-6 IF NOT TOLERATING PO; Start 05/12/17 at 16:00 Morphine Sulfate (Morphine Inj) 4 mg Q2H PRN IV PUSH PAIN 7-10 IF NOT TOLERATING PO; Start 05/12/17 at 16:00 Acetaminophen (Tylenol) 650 mg Q4H PRN PO TEMPERATURE > 101.5 F; Start 05/12/17 at 16:00 Miscellaneous Information SPECIFIC LAB TO BE DRAWN:VANCOMYCIN TROUGH DATE TO... ONCE ONCE .XX Last administered on 05/13/17 00:45; Start 05/13/17 at 00:45; Stop 05/13/17 at 00:46; Status DC Midazolam HCl (Versed Inj) 2 mg STK-MED ONCE .ROUTE ; Start 05/12/17 at 16:20; Stop 05/12/17 at 16:21; Status DC Fentanyl Citrate (fentaNYL INJ) 500 mcg STK-MED ONCE .ROUTE ; Start 05/12/17 at 16:20; Stop 05/12/17 at 16:21; Status DC Morphine Sulfate (*morphine INJ PERIprocedure ONLY) 8 mg STK-MED ONCE .ROUTE Last administered on 05/12/17 16:20; Start 05/12/17 at 16:20; Stop 05/12/17 at 16: 21; Status DC Miscellaneous Information ALL NURSING DEPARTME... UNSCH PRN .XX SEE LABEL COMMENTS; Start 05/12/17 at 16:12; Stop 05/13/17 at 16:11 Morphine Sulfate (*morphine INJ PERIprocedure ONLY) 8 mg STK-MED ONCE .ROUTE Last administered on 05/12/17 16:31; Start 05/12/17 at 16:31; Stop 05/12/17 at 16: 32; Status DC A/P Assessment and Plan A/P (1) Sepsis due to epidural abscess s/p L3-L5 laminectomy with evacuation of spinal epidural abscess continue Vanco and Cefepime- HIV/hepatitis panel negative. neurosurgery and ID following. continue with pain control. (2) MRSA Bacteremia continue Vancomycin echo with no vegetation repeated blood cultures with MRSA ID following. (3) Rhabdomyolysis-resolved. due to cocaine use versus musculoskeletal injury Continue IV hydration (4) Shoulder pain, right- improving. MRI with Moderate hypertrophic changes are seen in the AC joint indenting the subacromial fat plane to a slight degree with adjacent subcutaneous edema possibly inflammatory without evidence for abscess formation. continue with pain control- (5) Encephalopathy, toxic-resolved. (6) HTN (hypertension) Continue Coreg and clonidine as needed (7)- hypokalemia; replaced. DVT prophylaxis with SCD's. Toño Waterman MD May 13, 2017 07:50
[2017-05-13 08:55] LABS: BASOPHIL % 0.3 % (0.0-2.0); EOSINOPHIL % 0.3 % (0.0-4.0); HEMATOCRIT 28.6 % (35.0-46.0); LYMPH % 10.4 % (9.0-44.0); LYMPHOCYTE # 1.5 TH/MM3 (1.0-4.8); MEAN CORPUSCULAR HEMOGLOBIN 32.3 PG (27.0-34.0); MEAN CORPUSCULAR HGB CONC 33.6 % (32.0-36.0); MONO % 11.1 % (0.0-8.0); NEUT % 77.9 % (16.0-70.0); PLATELET COUNT 187 TH/MM3 (150-450); RED BLOOD COUNT 2.98 MIL/MM3 (4.00-5.30); RED CELL DISTRIBUTION WIDTH 13.8 % (11.6-17.2); WHITE BLOOD COUNT 14.1 TH/MM3 (4.0-11.0)
[2017-05-13 08:57] LABS: HEMO FLAGS AUTO DIFF
[2017-05-13] MEDS: SODIUM CHLORIDE 0.9% FLUSH 5 ML FLUSH IVF SCH ×2 (09:00→20:34)
[2017-05-13] MEDS: DOCUSATE SODIUM 100 MG CAP PO SCH ×2 (09:00→20:34)
[2017-05-13] MEDS: HEPARIN SODIUM - SQ 10,000 UNITS/ML VIAL SQ SCH ×2 (09:34→20:35)
[2017-05-13] MEDS: PANTOPRAZOLE SOD 40 MG DELAYED RELEASE TAB PO SCH (09:34)
[2017-05-13] MEDS: CEFEPIME INJ 1,000 MG in SODIUM CHLORIDE 0.9% INJ 100 ML IV SCH ×2 (09:34→20:34)
[2017-05-13 09:36] LABS: BICARBONATE 24.1 MEQ/L (21.0-32.0); POTASSIUM 3.5 MEQ/L (3.5-5.1)
[2017-05-13] MEDS: CARVEDILOL 12.5 MG TAB PO SCH ×2 (09:37→20:34)
[2017-05-13 11:43] LABS: BANDS 21 % (0-6); CORRECTED NUCLEATED RBC 1 /100 WBC (0-0); NEUTROPHIL # MANUAL DIFF 11.7 TH/MM3 (1.8-7.7); PLASMA CELLS 1 % (0-0); POLYS (SEG NEUTROPHILS) 62 % (16-70); WBC DIFF SAMPLE 100
[2017-05-13 11:44] LABS: PLATELET ESTIMATE SMEAR NORMAL (NORMAL); PLATELET MORPHOLOGY NORMAL (NORMAL); SCAN/DIFF FINAL DIFF MANUAL
--- NOTE | 2017-05-13 12:06 | HHI.NSPN ---
(Rea Brunson) Note Status Status: Progress Note (Rea Brunson) Interval History Interval History Ms. Fang is a 51 y/o female was previously seen in the ED for lower extremity sciatic pain and was treated with muscle relaxants, Tramadol and a Medrol Dosepak and sent home. She returned with AMS and a fever of 102. She was found with a urinary tract infections and was admitted and treated for sepsis. She continues however to complain of lumbar and lower extremity sciatic pain. She also reports progressive weakness in her lower extremities. An MRI of the lumbar spine was obtained which showed epidural abscess from L3- 5. A neurosurgical evaluation was requested. 05/13: POD 1 s/p L3-5 laminectomy with evacuation of epidural abscess, she reports significant of her sciatic pain following surgery, she has mild to moderate lumbar pain. she denies any new complaint (Rea Brunson) Labs, Micro, & Vital Signs Results Date Time Temp Pulse Resp B/P Pulse Ox O2 Delivery O2 Flow Rate FiO2 05/13/17 09:30 21 05/13/17 08:00 98.8 68 16 124/77 96 05/13/17 04:00 99.4 66 18 136/74 95 05/13/17 01:20 21 05/13/17 00:00 98.7 82 18 141/73 97 05/12/17 20:00 99.5 71 18 167/88 96 05/12/17 16:36 15 05/12/17 16:30 67 17 125/71 98 Room Air 05/12/17 16:25 17 05/12/17 16:15 73 17 120/69 98 Nasal Cannula 2 05/12/17 16:10 98.5 76 26 117/62 96 Nasal Cannula 2 05/13/17 07:00 Intake Total 2100 ml Output Total 895 ml Balance 1205 ml Constitutional Vital Signs Date Time Temp Pulse Resp B/P Pulse Ox O2 Delivery O2 Flow Rate FiO2 05/13/17 09:30 21 05/13/17 08:00 98.8 68 16 124/77 96 05/13/17 04:00 99.4 66 18 136/74 95 05/13/17 01:20 21 05/13/17 00:00 98.7 82 18 141/73 97 05/12/17 20:00 99.5 71 18 167/88 96 05/12/17 16:36 15 05/12/17 16:30 67 17 125/71 98 Room Air 05/12/17 16:25 17 05/12/17 16:15 73 17 120/69 98 Nasal Cannula 2 05/12/17 16:10 98.5 76 26 117/62 96 Nasal Cannula 2 05/13/17 07:00 Intake Total 2100 ml Output Total 895 ml Balance 1205 ml (Rea Brunson) Review of Systems/Exam Exam Ms. Fang is alert, awake. Laying in bed comfortably without acute distress. Wound per report is clean and dry. Motor: moving all four extremities (Rea Brunson) Medications Current Medications Current Medications Medications (Trade) Dose Ordered Sig/Lisbet Route PRN Reason Start Time Stop Time Status Last Admin Dose Admin Pharmacy Profile Note 0 ml @ 0 mls/hr UNSCH OTHER 05/08/17 23:15 Cefepime HCl/ Sodium Chloride (Maxipime Inj/NS Inj) 100 ml @ 200 mls/hr Q12H IV 05/09/17 09:00 05/13/17 09:34 Ondansetron HCl (Zofran Inj) 4 mg Q6H PRN IVP NAUSEA OR VOMITING 05/08/17 23:15 Heparin Sodium (Porcine) (Heparin Inj) 5,000 units Q12HR SQ 05/09/17 09:00 05/13/17 09:34 Sennosides (Senokot) 17.2 mg Q12H PRN PO MODERATE - SEVERE CONSTIPATION 05/08/17 23:15 Carvedilol (Coreg) 12.5 mg Q12HR PO 05/09/17 10:00 05/13/17 09:37 Tramadol HCl (Ultram) 50 mg Q4H PRN PO PAIN 1-3 05/09/17 09:45 05/12/17 09:08 Hydromorphone HCl (Dilaudid Pf Inj) 2 mg Q4H PRN IV PUSH pain not better with toradol 05/09/17 14:45 05/11/17 05:25 Clonidine 0.1 mg 0.1 mg Q6H PRN PO SBP>160, DBP>90 05/09/17 16:00 05/12/17 05:53 Vancomycin HCl/ Sodium Chloride (Vancomycin Inj/ NS 500 ml Inj) 515 ml @ 250 mls/hr Q12H IV 05/11/17 13:00 05/13/17 00:55 Baclofen (Lioresal) 10 mg Q8HR PRN PO MUSCLE SPASM 05/11/17 12:00 05/12/17 09:08 Lorazepam (Ativan) 1 mg Q4H PRN PO CIWA 8-10 05/11/17 16:00 05/11/17 22:12 Lorazepam (Ativan Inj) 1 mg Q4H PRN IV PUSH CIWA 8-10 05/11/17 16:00 Lorazepam (Ativan) 2 mg Q2H PRN PO CIWA 11-14 05/11/17 16:00 Lorazepam (Ativan Inj) 2 mg Q2H PRN IV PUSH CIWA 11-14 05/11/17 16:00 05/11/17 17:54 Lorazepam (Ativan Inj) 2 mg Q1H PRN IV PUSH CIWA 15-20 05/11/17 16:00 Lorazepam (Ativan Inj) 2 mg Q15M PRN IV PUSH CIWA > 20 05/11/17 16:00 Haloperidol Lactate (Haldol Inj) 2 mg Q15M PRN IM SEE LABEL COMMENTS 05/11/17 16:00 Flumazenil 0.2 mg 0.2 mg Q1M PRN IV PUSH SEE LABEL COMMENTS 05/11/17 16:00 Potassium Chloride/Sodium Chloride (NS + KCl 20 Meq Inj) 1,000 ml @ 100 mls/hr Q10H IV 05/12/17 15:59 05/13/17 10:11 IV Flush (NS Flush) 2 ml UNSCH PRN IVF FLUSH AFTER USING IV ACCESS 05/12/17 16:00 IV Flush (NS Flush) 2 ml BID IVF 05/12/17 21:00 05/12/17 22:49 Docusate Sodium (Colace) 100 mg BID PO 05/12/17 21:00 Pantoprazole Sodium (Protonix) 40 mg DAILY PO 05/13/17 09:00 05/13/17 09:34 Acetaminophen/ Hydrocodone Bitart (Marana 10-325 Mg) 1 tab Q4H PRN PO PAIN 1-5 WHEN TOLERATING PO 05/12/17 16:00 Acetaminophen/ Hydrocodone Bitart (Marana 10-325 Mg) 2 tab Q4H PRN PO PAIN 6-10 WHEN TOLERATING PO 05/12/17 16:00 05/13/17 10:10 Morphine Sulfate (Morphine Inj) 2 mg Q2H PRN IV PUSH PAIN 1-6 IF NOT TOLERATING PO 05/12/17 16:00 Morphine Sulfate (Morphine Inj) 4 mg Q2H PRN IV PUSH PAIN 7-10 IF NOT TOLERATING PO 05/12/17 16:00 Acetaminophen (Tylenol) 650 mg Q4H PRN PO TEMPERATURE > 101.5 F 05/12/17 16:00 Miscellaneous Information ALL NURSING DEPARTME... UNSCH PRN .XX SEE LABEL COMMENTS 05/12/17 16:12 05/13/17 16:11 (Rea Brunson) Medical Decision Making MDM Remarks 51 y/o female s/p L3-5 laminectomy with evacuation of epidural abscess 05/12/17, POD 1 with improved radicular pain, (Rea Brunson) Plan Plan Remarks cont IV antibiotics, mgt per ID following f/u intraoperative cultures of epidural abscess cont therapy clear to start mobilizing OOB with corset brace continue supportive care (Rea Brunson) Attending Statement The exam, history, and the medical decision-making described in the above note were completed with the assistance of the mid-level provider. I reviewed and agree with the findings presented. I attest that I had a [id number] encounter with the patient on the same day, and personally performed and documented my assessment and findings in the medical record. (Faizan Coppola MD) Rea Brunson May 13, 2017 12:06 Faizan Coppola MD May 16, 2017 21:52
[2017-05-13] MEDS: HYDROmorphone HCL PF 2 MG/ML VIAL IV PUSH PRN (12:29)
[2017-05-13] MEDS: MORPHINE SULFATE 4 MG/ML INJ IV PUSH PRN ×2 (16:40→20:35)
[2017-05-13] MEDS: cloNIDine HCL 0.1 MG TAB PO PRN (20:35)
[2017-05-13] MEDS: BACLOFEN 10 MG TAB PO PRN (20:35)
[2017-05-14] VITALS (8 sets, daily range): BP systolic 136–165; BP diastolic 65–91; PULSE 69–79; RESP 18–20; TEMP 97.3–102.4; O2SAT 95–97
[2017-05-14] MEDS: VANCOMYCIN INJ 1,500 MG in SODIUM CHLORID 0.9% 500 ML INJ 500 ML IV SCH ×2 (00:48→13:48)
[2017-05-14] MEDS: ACETAMINOPHEN/HYDROcodone 325 MG/10 MG TAB PO PRN ×5 (00:48→22:20)
[2017-05-14] MEDS: NS + KCL 20 MEQ INJ 1,000 ML IV SCH ×2 (06:02→17:17)
[2017-05-14] MEDS: SODIUM CHLORIDE 0.9% FLUSH 5 ML FLUSH IVF SCH ×2 (09:00→21:00)
[2017-05-14] MEDS: DOCUSATE SODIUM 100 MG CAP PO SCH ×2 (09:22→22:20)
[2017-05-14] MEDS: CARVEDILOL 12.5 MG TAB PO SCH ×2 (09:22→22:21)
[2017-05-14] MEDS: HEPARIN SODIUM - SQ 10,000 UNITS/ML VIAL SQ SCH ×2 (09:22→22:21)
[2017-05-14] MEDS: CEFEPIME INJ 1,000 MG in SODIUM CHLORIDE 0.9% INJ 100 ML IV SCH ×2 (09:22→22:21)
[2017-05-14] MEDS: PANTOPRAZOLE SOD 40 MG DELAYED RELEASE TAB PO SCH (09:22)
--- NOTE | 2017-05-14 10:27 | HHI.NSPN ---
(Rea Brunson) Note Status Status: Progress Note (Rea Brunson) Interval History Interval History Ms. Fang is a 51 y/o female was previously seen in the ED for lower extremity sciatic pain and was treated with muscle relaxants, Tramadol and a Medrol Dosepak and sent home. She returned with AMS and a fever of 102. She was found with a urinary tract infections and was admitted and treated for sepsis. She continues however to complain of lumbar and lower extremity sciatic pain. She also reports progressive weakness in her lower extremities. An MRI of the lumbar spine was obtained which showed epidural abscess from L3- 5. A neurosurgical evaluation was requested. 05/13: POD 1 s/p L3-5 laminectomy with evacuation of epidural abscess, she reports significant of her sciatic pain following surgery, she has mild to moderate lumbar pain. she denies any new complaint 05/14: POD 2, surgical pain controlled with pain medications. previous radicular pain improved. final cultures reports MRSA (Rea Brunson) Labs, Micro, & Vital Signs Results Date Time Temp Pulse Resp B/P Pulse Ox O2 Delivery O2 Flow Rate FiO2 05/14/17 08:00 99.3 69 20 149/78 95 05/14/17 04:00 100.2 72 18 146/86 96 05/14/17 00:00 102.4 79 18 141/65 95 05/13/17 22:04 21 05/13/17 20:00 100.8 80 18 170/81 94 05/13/17 19:00 71 05/13/17 16:00 99.7 72 16 148/79 96 05/13/17 12:00 98.8 67 16 119/63 96 05/14/17 07:00 Intake Total 540 ml Output Total 1445 ml Balance -905 ml Constitutional Vital Signs Date Time Temp Pulse Resp B/P Pulse Ox O2 Delivery O2 Flow Rate FiO2 05/14/17 08:00 99.3 69 20 149/78 95 05/14/17 04:00 100.2 72 18 146/86 96 05/14/17 00:00 102.4 79 18 141/65 95 05/13/17 22:04 21 05/13/17 20:00 100.8 80 18 170/81 94 05/13/17 19:00 71 05/13/17 16:00 99.7 72 16 148/79 96 05/13/17 12:00 98.8 67 16 119/63 96 05/14/17 07:00 Intake Total 540 ml Output Total 1445 ml Balance -905 ml (Rea Brunson) Review of Systems/Exam Exam Ms. Fang is alert, awake. Laying in bed comfortably without acute distress. Neck: soft, supple Wound is approximated, closed. There is bloody drainage on the dressing. CHRISTEN drain secured in place with 20 cc output overnight. Motor: moving all four extremities well with good strength (Rea Brunson) Medications Current Medications Current Medications Medications (Trade) Dose Ordered Sig/Lisbet Route PRN Reason Start Time Stop Time Status Last Admin Dose Admin Pharmacy Profile Note 0 ml @ 0 mls/hr UNSCH OTHER 05/08/17 23:15 Cefepime HCl/ Sodium Chloride (Maxipime Inj/NS Inj) 100 ml @ 200 mls/hr Q12H IV 05/09/17 09:00 05/14/17 09:22 Ondansetron HCl (Zofran Inj) 4 mg Q6H PRN IVP NAUSEA OR VOMITING 05/08/17 23:15 Heparin Sodium (Porcine) (Heparin Inj) 5,000 units Q12HR SQ 05/09/17 09:00 05/14/17 09:22 Sennosides (Senokot) 17.2 mg Q12H PRN PO MODERATE - SEVERE CONSTIPATION 05/08/17 23:15 Carvedilol (Coreg) 12.5 mg Q12HR PO 05/09/17 10:00 05/14/17 09:22 Tramadol HCl (Ultram) 50 mg Q4H PRN PO PAIN 1-3 05/09/17 09:45 05/12/17 09:08 Hydromorphone HCl (Dilaudid Pf Inj) 2 mg Q4H PRN IV PUSH pain not better with toradol 05/09/17 14:45 05/13/17 12:29 Clonidine 0.1 mg 0.1 mg Q6H PRN PO SBP>160, DBP>90 05/09/17 16:00 05/13/17 20:35 Vancomycin HCl/ Sodium Chloride (Vancomycin Inj/ NS 500 ml Inj) 515 ml @ 250 mls/hr Q12H IV 05/11/17 13:00 05/14/17 00:48 Baclofen (Lioresal) 10 mg Q8HR PRN PO MUSCLE SPASM 05/11/17 12:00 05/13/17 20:35 Lorazepam (Ativan) 1 mg Q4H PRN PO CIWA 8-10 05/11/17 16:00 05/11/17 22:12 Lorazepam (Ativan Inj) 1 mg Q4H PRN IV PUSH CIWA 8-10 05/11/17 16:00 Lorazepam (Ativan) 2 mg Q2H PRN PO CIWA 11-14 05/11/17 16:00 Lorazepam (Ativan Inj) 2 mg Q2H PRN IV PUSH CIWA 11-14 05/11/17 16:00 05/11/17 17:54 Lorazepam (Ativan Inj) 2 mg Q1H PRN IV PUSH CIWA 15-20 05/11/17 16:00 Lorazepam (Ativan Inj) 2 mg Q15M PRN IV PUSH CIWA > 20 05/11/17 16:00 Haloperidol Lactate (Haldol Inj) 2 mg Q15M PRN IM SEE LABEL COMMENTS 05/11/17 16:00 Flumazenil 0.2 mg 0.2 mg Q1M PRN IV PUSH SEE LABEL COMMENTS 05/11/17 16:00 Potassium Chloride/Sodium Chloride (NS + KCl 20 Meq Inj) 1,000 ml @ 100 mls/hr Q10H IV 05/12/17 15:59 05/14/17 06:02 IV Flush (NS Flush) 2 ml UNSCH PRN IVF FLUSH AFTER USING IV ACCESS 05/12/17 16:00 IV Flush (NS Flush) 2 ml BID IVF 05/12/17 21:00 05/13/17 20:34 Docusate Sodium (Colace) 100 mg BID PO 05/12/17 21:00 05/14/17 09:22 Pantoprazole Sodium (Protonix) 40 mg DAILY PO 05/13/17 09:00 05/14/17 09:22 Acetaminophen/ Hydrocodone Bitart ([place] 10-325 Mg) 1 tab Q4H PRN PO PAIN 1-5 WHEN TOLERATING PO 05/12/17 16:00 Acetaminophen/ Hydrocodone Bitart ([place] 10-325 Mg) 2 tab Q4H PRN PO PAIN 6-10 WHEN TOLERATING PO 05/12/17 16:00 05/14/17 09:34 Morphine Sulfate (Morphine Inj) 2 mg Q2H PRN IV PUSH PAIN 1-6 IF NOT TOLERATING PO 05/12/17 16:00 Morphine Sulfate (Morphine Inj) 4 mg Q2H PRN IV PUSH PAIN 7-10 IF NOT TOLERATING PO 05/12/17 16:00 05/13/17 20:35 Acetaminophen (Tylenol) 650 mg Q4H PRN PO TEMPERATURE > 101.5 F 05/12/17 16:00 (Rea Brunson) Medical Decision Making MDM Remarks 51 y/o female s/p L3-5 laminectomy with evacuation of epidural abscess 05/12/17, POD 2 with improved radicular pain epidural abscess cultures reports MRSA (Rea Brunson) Plan Plan Remarks cont IV antibiotics, defer mgt per ID therapy, encourage mobilization OOB with corset brace change surgical dressings daily cont maintain CHRISTEN today to suction (Rea Brunson) Attending Statement The exam, history, and the medical decision-making described in the above note were completed with the assistance of the mid-level provider. I reviewed and agree with the findings presented. I attest that I had a [id number] encounter with the patient on the same day, and personally performed and documented my assessment and findings in the medical record. (Faizan Coppola MD) Rea Brunson May 14, 2017 10:27 Faizan Coppola MD May 16, 2017 21:58
--- NOTE | 2017-05-14 14:05 | HHI.PR ---
Subjective Remarks resting comfortably with no distress. back pain is fairly controlled. T max 102.4. no new complaints. Objective Vitals Vital Signs Date Time Temp Pulse Resp B/P Pulse Ox O2 Delivery O2 Flow Rate FiO2 05/14/17 12:15 95 05/14/17 12:00 98.7 70 18 154/81 96 05/14/17 08:00 99.3 69 20 149/78 95 05/14/17 04:00 100.2 72 18 146/86 96 05/14/17 00:00 102.4 79 18 141/65 95 05/13/17 22:04 21 05/13/17 20:00 100.8 80 18 170/81 94 05/13/17 19:00 71 05/13/17 16:00 99.7 72 16 148/79 96 I/O 05/13/17 05/13/17 05/13/17 05/14/17 05/14/17 05/14/17 07:00 15:00 23:00 07:00 15:00 23:00 Intake Total 300 ml 240 ml Output Total 700 ml 645 ml 800 ml Balance -700 ml 300 ml -405 ml -800 ml Intake Oral 240 ml IV Total 300 ml Output Urine Total 700 ml 625 ml 800 ml Drainage Total 20 ml # Bowel Movements 0 Result Diagram: 05/13/17 0750 05/13/17 0750 Imaging Last Impressions Lumbar Spine X-Ray 05/12/17 0000 Signed Impressions: Service Date/Time: Friday, May 12, 2017 14:28 - CONCLUSION: Limited image as detailed above. Trevin Funetes Jr., MD Shoulder MRI 05/10/17 0000 Signed Impressions: Service Date/Time: Wednesday, May 10, 2017 12:48 - CONCLUSION: Moderate hypertrophic changes are seen in the AC joint indenting the subacromial fat plane to a slight degree with adjacent subcutaneous edema possibly inflammatory without evidence for abscess formation. Clement Valentin MD Lumbar Spine MRI 05/10/17 0000 Signed Impressions: Service Date/Time: Wednesday, May 10, 2017 12:48 - CONCLUSION: Interval development of epidural abscess dorsally extending from L3-[address] to mid body of L5 causing moderate thecal sac stenosis at L3-4 and L4-5 levels. Findings were discussed with Dr. Rogers on 05/10/2017 at the time of this dictation at 4:15 hours. Clement Valentin MD Chest CT 05/08/17 2331 Signed Impressions: Service Date/Time: Monday, May 08, 2017 23:29 - CONCLUSION: Normal examination. Edis Fox MD Shoulder X-Ray [id number] Signed Impressions: Service Date/Time: Monday, May 08, 2017 21:05 - CONCLUSION: Negative two-view examination of the shoulder. Trevin Deleon MD Abdomen/Pelvis CT [id number]/08/[id number] Signed Impressions: Service Date/Time: Monday, May 08, 2017 22:08 - CONCLUSION: No acute findings in the abdomen and pelvis. Trevin Deleon MD Objective Remarks GENERAL: This is a well-nourished, well-developed patient, in no apparent distress. CARDIOVASCULAR: Regular rate and regular rhythm without murmurs, gallops, or rubs. RESPIRATORY: Clear to auscultation. Breath sounds equal bilaterally. No wheezes , rales, or rhonchi. GASTROINTESTINAL: Abdomen soft, non-tender, nondistended. Normal, active bowel sounds MUSCULOSKELETAL: Extremities without clubbing, cyanosis, or edema. NEURO: Alert & Oriented x4 to person, place, time, situation. Moves all ext x4 Procedures L3-L5 laminectomy with evacuation of spinal epidural abscess Medications and IVs Current Medications IV Flush 2 ml 2 ml UNSCH PRN IV FLUSH FLUSH AFTER USING IV ACCESS; Start at 20:30; Stop 05/08/17 at 23:34; Status DC Sodium Chloride (NS 1000 ml Inj) 1,000 ml @ 1,000 mls/hr Q1H IV Last administered on 05/08/17 21:10; Start 05/08/17 at 20:30; Stop 05/08/17 at 21:29 ; Status DC Iohexol 96 ml 96 ml STK-MED ONCE IV Last administered on 05/08/17 22:06; Start 05/08/17 at 22:06; Stop 05/08/17 at 22:07; Status DC Sodium Chloride (NS 1000 ml Inj) 1,000 ml @ 2,000 mls/hr Q30M IV Last administered on 05/08/17 23:12; Start 05/08/17 at 23:00; Stop 05/08/17 at 23:29 ; Status DC Ketorolac Tromethamine 30 mg 30 mg ONCE ONCE IVP Last administered on 23:13; Start 05/08/17 at 23:00; Stop 05/08/17 at 23:01; Status DC Ceftriaxone Sodium 2000 mg/ Sodium Chloride 100 ml @ 200 mls/hr ONCE ONCE IV Last administered on 05/08/17 23:16; Start 05/08/17 at 23:00; Stop 05/08/17 at 23:29; Status DC Pharmacy Profile Note 0 ml @ 0 mls/hr UNSCH OTHER ; Start 05/08/17 at 23:15 Cefepime HCl 1000 mg/Sodium Chloride 100 ml @ 200 mls/hr Q12H IV Last administered on 05/14/17 09:22; Start 05/09/17 at 09:00 Sodium Chloride (NS 1000 ml Inj) 1,000 ml @ 100 mls/hr Q10H IV Last administered on 05/11/17 13:37; Start 05/08/17 at 23:14; Stop 05/12/17 at 16:10; Status DC Sodium Chloride (NS Flush) 2 ml UNSCH PRN IV FLUSH FLUSH AFTER USING IV ACCESS Last administered on 05/10/17 01:07; Start 05/08/17 at 23:15; Stop 05/12/17 at 16:11; Status DC Sodium Chloride (NS Flush) 2 ml BID IV FLUSH Last administered on 05/11/17 22: 11; Start 05/09/17 at 09:00; Stop 05/12/17 at 16:11; Status DC Ondansetron HCl (Zofran Inj) 4 mg Q6H PRN IVP NAUSEA OR VOMITING; Start at 23:15 Heparin Sodium (Porcine) (Heparin Inj) 5,000 units Q12HR SQ Last administered on 05/14/17 09:22; Start 05/09/17 at 09:00 Acetaminophen (Tylenol) 650 mg Q6H PRN PO FEVER Last administered on 05/12/17 05:54; Start 05/08/17 at 23:15; Stop 05/12/17 at 16:10; Status DC Senna/Docusate Sodium (Janice-Colace) 1 tab BID PO Last administered on 05/12/17 09:08; Start 05/09/17 at 09:00; Stop 05/12/17 at 16:11; Status DC Magnesium Hydroxide (Milk Of Magnmaxine Liq) 30 ml Q12H PRN PO MILD - MODERATE CONSTIPATION; Start 05/08/17 at 23:15; Stop 05/09/17 at 09:42; Status DC Sennosides (Senokot) 17.2 mg Q12H PRN PO MODERATE - SEVERE CONSTIPATION; Start 05/08/17 at 23:15 Bisacodyl (Dulcolax Supp) 10 mg DAILY PRN RECTAL SEVERE CONSITIPATION; Start at 23:15; Stop 05/09/17 at 09:42; Status DC Lactulose 30 ml 30 ml DAILY PRN PO SEVERE CONSITIPATION; Start 05/08/17 at 23: 15; Stop 05/09/17 at 09:42; Status DC Vancomycin HCl 1000 mg/Sodium Chloride 250 ml @ 250 mls/hr ONCE ONCE IV Last administered on 05/09/17 00:30; Start 05/09/17 at 00:00; Stop 05/09/17 at 00:59 ; Status DC Vancomycin HCl/ Sodium Chloride (Vancomycin Inj/ NS 250 ml Inj) 250 ml @ 250 mls/hr Q12H IV Last administered on 05/10/17 15:10; Start 05/09/17 at 13:00; Stop 05/10/17 at 19:31; Status DC Miscellaneous Information SPECIFIC LAB TO BE DRAWN:VANCO TROUGH DATE TO... ONCE ONCE .XX Last administered on 05/10/17 12:54; Start 05/10/17 at 12:45; Stop 05/10/17 at 12:46; Status DC Carvedilol (Coreg) 12.5 mg Q12HR PO Last administered on 05/14/17 09:22; Start 05/09/17 at 10:00 Albuterol Sulfate (Albuterol Neb) 2.5 mg Q4HR NEB PRN INH SHORTNESS OF BREATH; Start 05/09/17 at 14:45 Tramadol HCl (Ultram) 50 mg Q4H PRN PO PAIN 1-3 Last administered on 05/12/17 09:08; Start 05/09/17 at 09:45 Ketorolac Tromethamine (Toradol Inj) 30 mg Q6HR PRN IV PUSH PAIN SCALE 4 TO 10 Last administered on 05/10/17 12:14; Start 05/09/17 at 14:45; Stop 05/10/17 at 14:44; Status DC Hydromorphone HCl (Dilaudid Pf Inj) 2 mg Q4H PRN IV PUSH pain not better with toradol Last administered on 05/13/17 12:29; Start 05/09/17 at 14:45 Clonidine (Catapres) 0.1 mg Q6H PRN PO SBP>160, DBP>90 Last administered on 05/13 20:35; Start 05/09/17 at 16:00 Potassium Chloride (KCl Powder) 20 meq ONCE ONCE PO Last administered on 17:15; Start 05/09/17 at 16:15; Stop 05/09/17 at 16:19; Status DC Lorazepam (Ativan Inj) 2 mg ONCE ONCE IV PUSH Last administered on 05/10/17 13:00; Start 05/10/17 at 13:00; Stop 05/10/17 at 13:01; Status DC Gadodiamide 16 ml 16 ml STK-MED ONCE IV Last administered on 05/10/17 14:29; Start 05/10/17 at 14:29; Stop 05/10/17 at 14:30; Status DC Vancomycin HCl/ Sodium Chloride (Vancomycin Inj/ NS 250 ml Inj) 262 ml @ 250 mls/hr Q12H IV Last administered on 05/11/17 01:20; Start 05/11/17 at 01:00; Stop 05/11/17 at 11:26; Status DC Miscellaneous Information SPECIFIC LAB TO BE DRAWN:VANCOMY... ONCE ONCE .XX ; Start 05/12/17 at 12:45; Stop 05/12/17 at 12:46; Status DC Vancomycin HCl/ Sodium Chloride (Vancomycin Inj/ NS 500 ml Inj) 515 ml @ 250 mls/hr Q12H IV Last administered on 05/14/17 13:48; Start 05/11/17 at 13:00 Baclofen (Lioresal) 10 mg Q8HR PRN PO MUSCLE SPASM Last administered on 20:35; Start 05/11/17 at 12:00 Potassium Chloride (KCl) 30 meq ONCE ONCE PO Last administered on 05/11/17 13: 36; Start 05/11/17 at 12:00; Stop 05/11/17 at 13:16; Status DC Potassium Chloride (KCl) 30 meq ONCE ONCE PO Last administered on 05/11/17 18: 02; Start 05/11/17 at 16:00; Stop 05/11/17 at 16:01; Status DC Lorazepam (Ativan) 1 mg Q4H PRN PO CIWA 8-10 Last administered on 05/11/17 22: 12; Start 05/11/17 at 16:00 Lorazepam (Ativan Inj) 1 mg Q4H PRN IV PUSH CIWA 8-10; Start 05/11/17 at 16:00 Lorazepam (Ativan) 2 mg Q2H PRN PO CIWA 11-14; Start 05/11/17 at 16:00 Lorazepam (Ativan Inj) 2 mg Q2H PRN IV PUSH CIWA 11-14 Last administered on 05/11 17:54; Start 05/11/17 at 16:00 Lorazepam (Ativan Inj) 2 mg Q1H PRN IV PUSH CIWA 15-20; Start 05/11/17 at 16:00 Lorazepam (Ativan Inj) 2 mg Q15M PRN IV PUSH CIWA > 20; Start 05/11/17 at 16:00 Haloperidol Lactate (Haldol Inj) 2 mg Q15M PRN IM SEE LABEL COMMENTS; Start 05/11/17 at 16:00 Flumazenil (Romazicon Inj) 0.2 mg Q1M PRN IV PUSH SEE LABEL COMMENTS; Start 05/11/17 at 16:00 Thrombin 47358 units 10,000 units STK-MED ONCE .ROUTE Last administered on 14:56; Start 05/12/17 at 07:22; Stop 05/12/17 at 07:23; Status DC Cefazolin Sodium/ Dextrose (Ancef 2 Gm Premix) 50 ml @ As Directed STK-MED ONCE .ROUTE ; Start 05/12/17 at 07:22; Stop 05/12/17 at 07:23; Status DC Gelatin (Gelfoam 100 Top) 1 foam STK-MED ONCE .ROUTE Last administered on 14:56; Start 05/12/17 at 07:22; Stop 05/12/17 at 07:23; Status DC Gentamicin Sulfate (Gentamicin Inj) 240 mg STK-MED ONCE .ROUTE Last administered on 05/12/17 14:56; Start 05/12/17 at 07:22; Stop 05/12/17 at 07:23; Status DC Hydromorphone HCl (Dilaudid Pf Inj) 2 mg STK-MED ONCE .ROUTE ; Start 05/12/17 at 13:21; Stop 05/12/17 at 13:22; Status DC Acetaminophen (Ofirmev Inj) 1,000 mg STK-MED ONCE IV ; Start 05/12/17 at 13:21; Stop 05/12/17 at 13:22; Status DC Vancomycin HCl 1000 mg 1,000 mg STK-MED ONCE .ROUTE Last administered on 15:08; Start 05/12/17 at 15:07; Stop 05/12/17 at 15:08; Status DC Potassium Chloride/Sodium Chloride (NS + KCl 20 Meq Inj) 1,000 ml @ 100 mls/hr Q10H IV Last administered on 05/14/17 06:02; Start 05/12/17 at 15:59 IV Flush (NS Flush) 2 ml UNSCH PRN IVF FLUSH AFTER USING IV ACCESS; Start at 16:00 IV Flush (NS Flush) 2 ml BID IVF Last administered on 05/13/17 20:34; Start 05/12/17 at 21:00 Docusate Sodium (Colace) 100 mg BID PO Last administered on 05/14/17 09:22; Start 05/12/17 at 21:00 Pantoprazole Sodium (Protonix) 40 mg DAILY PO Last administered on 05/14/17 09: 22; Start 05/13/17 at 09:00 Acetaminophen/ Hydrocodone Bitart ([place] 10-325 Mg) 1 tab Q4H PRN PO PAIN 1-5 WHEN TOLERATING PO; Start 05/12/17 at 16:00 Acetaminophen/ Hydrocodone Bitart ([place] 10-325 Mg) 2 tab Q4H PRN PO PAIN 6-10 WHEN TOLERATING PO Last administered on 05/14/17 09:34; Start 05/12/17 at 16:00 Morphine Sulfate (Morphine Inj) 2 mg Q2H PRN IV PUSH PAIN 1-6 IF NOT TOLERATING PO; Start 05/12/17 at 16:00 Morphine Sulfate (Morphine Inj) 4 mg Q2H PRN IV PUSH PAIN 7-10 IF NOT TOLERATING PO Last administered on 05/13/17 20:35; Start 05/12/17 at 16:00 Acetaminophen (Tylenol) 650 mg Q4H PRN PO TEMPERATURE > 101.5 F; Start 05/12/17 at 16:00 Miscellaneous Information SPECIFIC LAB TO BE DRAWN:VANCOMYCIN TROUGH DATE TO... ONCE ONCE .XX Last administered on 05/13/17 00:45; Start 05/13/17 at 00:45; Stop 05/13/17 at 00:46; Status DC Midazolam HCl (Versed Inj) 2 mg STK-MED ONCE .ROUTE ; Start 05/12/17 at 16:20; Stop 05/12/17 at 16:21; Status DC Fentanyl Citrate (fentaNYL INJ) 500 mcg STK-MED ONCE .ROUTE ; Start 05/12/17 at 16:20; Stop 05/12/17 at 16:21; Status DC Morphine Sulfate (*morphine INJ PERIprocedure ONLY) 8 mg STK-MED ONCE .ROUTE Last administered on 05/12/17 16:20; Start 05/12/17 at 16:20; Stop 05/12/17 at 16: 21; Status DC Miscellaneous Information ALL NURSING DEPARTME... UNSCH PRN .XX SEE LABEL COMMENTS; Start 05/12/17 at 16:12; Stop 05/13/17 at 16:11; Status DC Morphine Sulfate (*morphine INJ PERIprocedure ONLY) 8 mg STK-MED ONCE .ROUTE Last administered on 05/12/17 16:31; Start 05/12/17 at 16:31; Stop 05/12/17 at 16: 32; Status DC A/P Assessment and Plan A/P (1) Sepsis due to epidural abscess s/p L3-L5 laminectomy with evacuation of spinal epidural abscess continue Vanco and Cefepime- HIV/hepatitis panel negative. neurosurgery and ID following. continue with pain control. (2) MRSA Bacteremia continue Vancomycin echo with no vegetation repeated blood cultures from 05/13 negative so far. ID following. (3) Rhabdomyolysis-resolved. due to cocaine use versus musculoskeletal injury (4) Shoulder pain, right- improving. MRI with Moderate hypertrophic changes are seen in the AC joint indenting the subacromial fat plane to a slight degree with adjacent subcutaneous edema possibly inflammatory without evidence for abscess formation. continue with pain control- (5) Encephalopathy, toxic-resolved. (6) HTN (hypertension) Continue Coreg and clonidine as needed (7)- hypokalemia; replaced. DVT prophylaxis with SCD's. Toño Waterman MD May 14, 2017 14:05
--- NOTE | 2017-05-14 14:34 | HHI.IDPN ---
Subjective Subjective Remarks ID COVERAGE is a 51 y/o CF with PMHx of uncontrolled hypertension due to nonadherence, h/o drug abuse denies IVDA, chronic smoking. Patient comes in over the last 4 days to the emergency room several times weekly multiple things. Initially there is a leg laceration and there was some pain which was called sciatica and at that ER evaluation she was given baclofen and Ultram and Medrol Dosepak. Patient subsequently came in within 24 hours with an altered mental status per her fianc. She was confused and unable to provide a good history. She also presented with a fever of 102.1 with elevated cardiac isoenzymes CPK troponin were elevated and the patient was complaining of leg and shoulder cramping. Patient had a white cell count was elevated and evidence of acute renal failure. She has evidence of urinary tract infections been treated for sepsis and admitted to the hospital. Patient is also complaining of right shoulder pain which is 10 out of 10 and worse with movement of the shoulder and improved with keeping it still. Patient has never had this before and was very concerned. She never had sciatica before either and has had difficulty walking due to the pain. She was recommended for further imaging but has refused due to increased pain. She did have x-ray of the shoulder which was unremarkable for any fracture or bony injury. She does admit to cocaine and marijuana as well as excessive tobacco and alcohol use. She is tearful and requested to go home however she realizes she cannot move due to pain. Patient is admitted for sepsis workup. Blood cultures drawn on admission are positive for MRSA susceptibility pending. Patient additionally has had an MRI spine as well as MRI shoulder. MRI shoulder with some edema concerning for Infectious myositis. Notes reviewed Temps up at [place] Steffany henderson out No diarrhea No N/V CHRISTEN drai in place, bloody output OR C/S MRSA Repeat BC 05/13 negative Antibiotics Cefepime IV Vanco IV Lines Line sites with no e.o infection Past Medical History Hypertension COPD/asthma , dental extraction Allergies: Coded Allergies: Bee Sting (Verified Allergy, Severe, ANAPHYLAXIS, 05/08/17) Peanut (Verified Allergy, Severe, ANAPHYLAXIS, 05/08/17) *MDRO Multi-Drug Resistant Organism (Verified Adverse Reaction, Unknown, ) MRSA (blood) 05/08/17, 05/10/17, (back) 05/12/17 Objective . Vital Signs Date Time Temp Pulse Resp B/P Pulse Ox O2 Delivery O2 Flow Rate FiO2 05/14/17 12:15 95 05/14/17 12:00 98.7 70 18 154/81 96 05/14/17 08:00 99.3 69 20 149/78 95 05/14/17 04:00 100.2 72 18 146/86 96 05/14/17 00:00 102.4 79 18 141/65 95 05/13/17 22:04 21 05/13/17 20:00 100.8 80 18 170/81 94 05/13/17 19:00 71 05/13/17 16:00 99.7 72 16 148/79 96 05/13/17 05/13/17 05/14/17 15:00 23:00 07:00 Intake Total 300 ml 240 ml Output Total 645 ml 800 ml Balance 300 ml -405 ml -800 ml Intake Oral 240 ml IV Total 300 ml Output Urine Total 625 ml 800 ml Drainage Total 20 ml # Bowel Movements 0 . Laboratory Tests Test 05/13/17 07:50 White Blood Count 14.1 TH/MM3 Red Blood Count 2.98 MIL/MM3 Hemoglobin 9.6 GM/DL Hematocrit 28.6 % Mean Corpuscular Volume 96.0 FL Mean Corpuscular Hemoglobin 32.3 PG Mean Corpuscular Hemoglobin 33.6 % Concent Red Cell Distribution Width 13.8 % Platelet Count 187 TH/MM3 Mean Platelet Volume 8.6 FL Neutrophils (%) (Auto) 77.9 % Lymphocytes (%) (Auto) 10.4 % Monocytes (%) (Auto) 11.1 % Eosinophils (%) (Auto) 0.3 % Basophils (%) (Auto) 0.3 % Neutrophils # (Auto) 11.0 TH/MM3 Lymphocytes # (Auto) 1.5 TH/MM3 Monocytes # (Auto) 1.6 TH/MM3 Eosinophils # (Auto) 0.0 TH/MM3 Basophils # (Auto) 0.0 TH/MM3 CBC Comment AUTO DIFF Differential Total Cells 100 Counted Neutrophils % (Manual) 62 % Band Neutrophils % 21 % Lymphocytes % 9 % Monocytes % 7 % Neutrophils # (Manual) 11.7 TH/MM3 Nucleated Red Blood Cells 1 /100 WBC Differential Comment FINAL DIFF MANUAL Plasma Cells 1 % Platelet Estimate NORMAL Platelet Morphology Comment NORMAL Laboratory Tests Test 05/13/17 07:50 Sodium Level 136 MEQ/L Potassium Level 3.5 MEQ/L Chloride Level 103 MEQ/L Carbon Dioxide Level 24.1 MEQ/L Anion Gap 9 MEQ/L Blood Urea Nitrogen 12 MG/DL Creatinine 0.65 MG/DL Estimat Glomerular Filtration 117 ML/MIN Rate Random Glucose 102 MG/DL Calcium Level 8.3 MG/DL Microbiology Date/Time Procedure Status Source Growth 05/12/17 15:48 Gram Stain - Final Complete Wound Other 05/12/17 15:48 Wound Culture - Final Complete S. Aureus Mrsa 05/12/17 15:48 Acid Fast Stain - Final Resulted Wound Other NO ACID FAST BACILLI SEEN 05/12/17 15:48 Mycobacterial Culture Resulted Wound Other Pending 05/12/17 15:48 Fungal Smear - Final Resulted Wound Other NO FUNGAL ELEMENTS SEEN. 05/12/17 15:48 Fungal Culture Resulted Wound Other Pending 05/12/17 15:48 Gram Stain - Final Complete Wound Other 05/12/17 15:48 Wound Culture - Final Complete S. Aureus Mrsa 05/12/17 15:48 Acid Fast Stain - Final Resulted Wound Other NO ACID FAST BACILLI SEEN 05/12/17 15:48 Mycobacterial Culture Resulted Wound Other Pending 05/12/17 15:48 Fungal Smear - Final Resulted Wound Other NO FUNGAL ELEMENTS SEEN. 05/12/17 15:48 Fungal Culture Resulted Wound Other Pending 05/13/17 07:50 Aerobic Blood Culture - Preliminary Resulted Blood Peripheral NO GROWTH IN 1 DAY 05/13/17 07:50 Anaerobic Blood Culture - Preliminary Resulted Blood Peripheral NO GROWTH IN 1 DAY 05/13/17 08:05 Aerobic Blood Culture - Preliminary Resulted Blood Peripheral NO GROWTH IN 1 DAY 05/13/17 08:05 Anaerobic Blood Culture - Preliminary Resulted Blood Peripheral NO GROWTH IN 1 DAY Imaging Last Impressions Shoulder MRI 05/10/17 0000 Signed Impressions: Service Date/Time: Wednesday, May 10, 2017 12:48 - CONCLUSION: Moderate hypertrophic changes are seen in the AC joint indenting the subacromial fat plane to a slight degree with adjacent subcutaneous edema possibly inflammatory without evidence for abscess formation. Clement Valentin MD Lumbar Spine MRI 05/10/17 0000 Signed Impressions: Service Date/Time: Wednesday, May 10, 2017 12:48 - CONCLUSION: Interval development of epidural abscess dorsally extending from L3-[address] to mid body of L5 causing moderate thecal sac stenosis at L3-4 and L4-5 levels. Findings were discussed with Dr. Rogers on 05/10/2017 at the time of this dictation at 4:15 hours. Clement Valentin MD Chest CT 05/08/17 2331 Signed Impressions: Service Date/Time: Monday, May 08, 2017 23:29 - CONCLUSION: Normal examination. Edis Fox MD Shoulder X-Ray [id number]/08/[id number] Signed Impressions: Service Date/Time: Monday, May 08, 2017 21:05 - CONCLUSION: Negative two-view examination of the shoulder. Trevin Deleon MD Abdomen/Pelvis CT [id number]/08/[id number] Signed Impressions: Service Date/Time: Monday, May 08, 2017 22:08 - CONCLUSION: No acute findings in the abdomen and pelvis. Trevin Deleon MD Physical Exam GENERAL: Awake and alert, NAD SKIN: No rashes, ecchymoses or lesions. Cool and dry. HEAD: Atraumatic. Normocephalic. No temporal or scalp tenderness. EYES: Pupils equal round and reactive. Extraocular motions intact. No scleral icterus. No injection or drainage. ENT: Nose without bleeding, purulent drainage or septal hematoma. Throat without erythema, tonsillar hypertrophy or exudate. Uvula midline. Airway patent. NECK: Trachea midline. Supple, nontender, no meningeal signs. CARDIOVASCULAR: Regular rate and rhythm without murmurs, gallops, or rubs. RESPIRATORY: Clear to auscultation. Breath sounds equal bilaterally. No wheezes , rales, or rhonchi. GASTROINTESTINAL: Abdomen soft, non-tender, nondistended. BACK: Incision ok MUSCULOSKELETAL: Extremities without clubbing, cyanosis, or edema. No calf tenderness NEUROLOGICAL: Awake and alert. moves extremities. Psych: cooperative IV line sites with no e/o infection. Assessment & Plan Remarks Sepsis present on admission MRSA bacteremia Infective Myositis Possible spinal epidural abscess MRI spine pending. Post-op fever Recs Continue Cefepime IV (may be deescalated in next day or so) - since has fevers Continue Vanco IV target trough 15-20 Follow C/S UA and C/S Monitor Samra Atkinson MD May 14, 2017 14:34
[2017-05-15] VITALS (7 sets, daily range): BP systolic 128–172; BP diastolic 65–112; PULSE 66–78; RESP 16–20; TEMP 98.8–100.3; O2SAT 95–98
[2017-05-15] MEDS: VANCOMYCIN INJ 1,500 MG in SODIUM CHLORID 0.9% 500 ML INJ 500 ML IV SCH ×2 (01:04→15:09)
[2017-05-15] MEDS: ACETAMINOPHEN/HYDROcodone 325 MG/10 MG TAB PO PRN ×4 (03:18→20:24)
[2017-05-15] MEDS: BACLOFEN 10 MG TAB PO PRN ×3 (03:18→20:22)
[2017-05-15] MEDS: NS + KCL 20 MEQ INJ 1,000 ML IV SCH (03:21)
[2017-05-15] MEDS: SODIUM CHLORIDE 0.9% FLUSH 5 ML FLUSH IVF SCH ×2 (09:00→20:30)
[2017-05-15] MEDS: PANTOPRAZOLE SOD 40 MG DELAYED RELEASE TAB PO SCH (09:57)
[2017-05-15] MEDS: CARVEDILOL 12.5 MG TAB PO SCH ×2 (09:57→20:22)
[2017-05-15] MEDS: DOCUSATE SODIUM 100 MG CAP PO SCH ×2 (09:57→20:22)
[2017-05-15] MEDS: CEFEPIME INJ 1,000 MG in SODIUM CHLORIDE 0.9% INJ 100 ML IV SCH ×2 (09:57→20:23)
[2017-05-15] MEDS: HEPARIN SODIUM - SQ 10,000 UNITS/ML VIAL SQ SCH ×2 (09:59→20:22)
--- NOTE | 2017-05-15 11:29 | HHI.PR ---
Subjective Remarks in no distress. pain is controlled. no fever. no new complaints. Objective Vitals Vital Signs Date Time Temp Pulse Resp B/P Pulse Ox O2 Delivery O2 Flow Rate FiO2 05/15/17 08:00 100.3 68 16 168/112 97 05/15/17 04:00 99.0 69 18 138/72 95 05/15/17 00:00 98.8 70 18 128/74 96 05/14/17 20:00 99.0 72 18 136/72 97 05/14/17 19:00 74 05/14/17 16:00 99.7 71 18 139/73 97 05/14/17 12:15 95 05/14/17 12:00 98.7 70 18 154/81 96 I/O 05/14/17 05/14/17 05/14/17 05/15/17 05/15/17 05/15/17 07:00 15:00 23:00 07:00 15:00 23:00 Intake Total 1680 ml 1751 ml Output Total 800 ml 40 ml 30 ml Balance -800 ml 1640 ml 1721 ml Intake Oral 480 ml IV Total 1200 ml 1751 ml Output Urine Total 800 ml Drainage Total 40 ml 30 ml # Voids 5 Result Diagram: 05/13/17 0750 05/13/17 0750 Imaging Last Impressions Lumbar Spine X-Ray 05/12/17 0000 Signed Impressions: Service Date/Time: Friday, May 12, 2017 14:28 - CONCLUSION: Limited image as detailed above. Trevin Fuentes Jr., MD Shoulder MRI 05/10/17 0000 Signed Impressions: Service Date/Time: Wednesday, May 10, 2017 12:48 - CONCLUSION: Moderate hypertrophic changes are seen in the AC joint indenting the subacromial fat plane to a slight degree with adjacent subcutaneous edema possibly inflammatory without evidence for abscess formation. Clement Valentin MD Lumbar Spine MRI 05/10/17 0000 Signed Impressions: Service Date/Time: Wednesday, May 10, 2017 12:48 - CONCLUSION: Interval development of epidural abscess dorsally extending from L3-[address] to mid body of L5 causing moderate thecal sac stenosis at L3-4 and L4-5 levels. Findings were discussed with Dr. Rogers on 05/10/2017 at the time of this dictation at 4:15 hours. Clement Valentin MD Chest CT 05/08/17 2331 Signed Impressions: Service Date/Time: Monday, May 08, 2017 23:29 - CONCLUSION: Normal examination. Edis Fox MD Shoulder X-Ray 05/08/172046 Signed Impressions: Service Date/Time: Monday, May 08, 2017 21:05 - CONCLUSION: Negative two-view examination of the shoulder. Trevin Deleon MD Abdomen/Pelvis CT 05/08/172046 Signed Impressions: Service Date/Time: Monday, May 08, 2017 22:08 - CONCLUSION: No acute findings in the abdomen and pelvis. Trevin Deleon MD Objective Remarks GENERAL: This is a well-nourished, well-developed patient, in no apparent distress. CARDIOVASCULAR: Regular rate and regular rhythm without murmurs, gallops, or rubs. RESPIRATORY: Clear to auscultation. Breath sounds equal bilaterally. No wheezes , rales, or rhonchi. GASTROINTESTINAL: Abdomen soft, non-tender, nondistended. Normal, active bowel sounds MUSCULOSKELETAL: Extremities without clubbing, cyanosis, or edema. NEURO: Alert & Oriented x4 to person, place, time, situation. Moves all ext x4 Procedures L3-L5 laminectomy with evacuation of spinal epidural abscess Medications and IVs Current Medications IV Flush 2 ml 2 ml UNSCH PRN IV FLUSH FLUSH AFTER USING IV ACCESS; Start at 20:30; Stop 05/08/17 at 23:34; Status DC Sodium Chloride (NS 1000 ml Inj) 1,000 ml @ 1,000 mls/hr Q1H IV Last administered on 05/08/17 21:10; Start 05/08/17 at 20:30; Stop 05/08/17 at 21:29 ; Status DC Iohexol 96 ml 96 ml STK-MED ONCE IV Last administered on 05/08/17 22:06; Start 05/08/17 at 22:06; Stop 05/08/17 at 22:07; Status DC Sodium Chloride (NS 1000 ml Inj) 1,000 ml @ 2,000 mls/hr Q30M IV Last administered on 05/08/17 23:12; Start 05/08/17 at 23:00; Stop 05/08/17 at 23:29 ; Status DC Ketorolac Tromethamine 30 mg 30 mg ONCE ONCE IVP Last administered on 23:13; Start 05/08/17 at 23:00; Stop 05/08/17 at 23:01; Status DC Ceftriaxone Sodium 2000 mg/ Sodium Chloride 100 ml @ 200 mls/hr ONCE ONCE IV Last administered on 05/08/17 23:16; Start 05/08/17 at 23:00; Stop 05/08/17 at 23:29; Status DC Pharmacy Profile Note 0 ml @ 0 mls/hr UNSCH OTHER ; Start 05/08/17 at 23:15 Cefepime HCl 1000 mg/Sodium Chloride 100 ml @ 200 mls/hr Q12H IV Last administered on 05/15/17 09:57; Start 05/09/17 at 09:00 Sodium Chloride (NS 1000 ml Inj) 1,000 ml @ 100 mls/hr Q10H IV Last administered on 05/11/17 13:37; Start 05/08/17 at 23:14; Stop 05/12/17 at 16:10; Status DC Sodium Chloride (NS Flush) 2 ml UNSCH PRN IV FLUSH FLUSH AFTER USING IV ACCESS Last administered on 05/10/17 01:07; Start 05/08/17 at 23:15; Stop 05/12/17 at 16:11; Status DC Sodium Chloride (NS Flush) 2 ml BID IV FLUSH Last administered on 05/11/17 22: 11; Start 05/09/17 at 09:00; Stop 05/12/17 at 16:11; Status DC Ondansetron HCl (Zofran Inj) 4 mg Q6H PRN IVP NAUSEA OR VOMITING; Start at 23:15 Heparin Sodium (Porcine) (Heparin Inj) 5,000 units Q12HR SQ Last administered on 05/15/17 09:59; Start 05/09/17 at 09:00 Acetaminophen (Tylenol) 650 mg Q6H PRN PO FEVER Last administered on 05/12/17 05:54; Start 05/08/17 at 23:15; Stop 05/12/17 at 16:10; Status DC Senna/Docusate Sodium (Janice-Colace) 1 tab BID PO Last administered on 05/12/17 09:08; Start 05/09/17 at 09:00; Stop 05/12/17 at 16:11; Status DC Magnesium Hydroxide (Milk Of Magnesia Liq) 30 ml Q12H PRN PO MILD - MODERATE CONSTIPATION; Start 05/08/17 at 23:15; Stop 05/09/17 at 09:42; Status DC Sennosides (Senokot) 17.2 mg Q12H PRN PO MODERATE - SEVERE CONSTIPATION; Start 05/08/17 at 23:15 Bisacodyl (Dulcolax Supp) 10 mg DAILY PRN RECTAL SEVERE CONSITIPATION; Start at 23:15; Stop 05/09/17 at 09:42; Status DC Lactulose 30 ml 30 ml DAILY PRN PO SEVERE CONSITIPATION; Start 05/08/17 at 23: 15; Stop 05/09/17 at 09:42; Status DC Vancomycin HCl 1000 mg/Sodium Chloride 250 ml @ 250 mls/hr ONCE ONCE IV Last administered on 05/09/17 00:30; Start 05/09/17 at 00:00; Stop 05/09/17 at 00:59 ; Status DC Vancomycin HCl/ Sodium Chloride (Vancomycin Inj/ NS 250 ml Inj) 250 ml @ 250 mls/hr Q12H IV Last administered on 05/10/17 15:10; Start 05/09/17 at 13:00; Stop 05/10/17 at 19:31; Status DC Miscellaneous Information SPECIFIC LAB TO BE DRAWN:VANCO TROUGH DATE TO... ONCE ONCE .XX Last administered on 05/10/17 12:54; Start 05/10/17 at 12:45; Stop 05/10/17 at 12:46; Status DC Carvedilol (Coreg) 12.5 mg Q12HR PO Last administered on 05/15/17 09:57; Start 05/09/17 at 10:00 Albuterol Sulfate (Albuterol Neb) 2.5 mg Q4HR NEB PRN INH SHORTNESS OF BREATH; Start 05/09/17 at 14:45 Tramadol HCl (Ultram) 50 mg Q4H PRN PO PAIN 1-3 Last administered on 05/12/17 09:08; Start 05/09/17 at 09:45 Ketorolac Tromethamine (Toradol Inj) 30 mg Q6HR PRN IV PUSH PAIN SCALE 4 TO 10 Last administered on 05/10/17 12:14; Start 05/09/17 at 14:45; Stop 05/10/17 at 14:44; Status DC Hydromorphone HCl (Dilaudid Pf Inj) 2 mg Q4H PRN IV PUSH pain not better with toradol Last administered on 05/13/17 12:29; Start 05/09/17 at 14:45 Clonidine (Catapres) 0.1 mg Q6H PRN PO SBP>160, DBP>90 Last administered on 05/13 20:35; Start 05/09/17 at 16:00 Potassium Chloride (KCl Powder) 20 meq ONCE ONCE PO Last administered on 17:15; Start 05/09/17 at 16:15; Stop 05/09/17 at 16:19; Status DC Lorazepam (Ativan Inj) 2 mg ONCE ONCE IV PUSH Last administered on 05/10/17 13:00; Start 05/10/17 at 13:00; Stop 05/10/17 at 13:01; Status DC Gadodiamide 16 ml 16 ml STK-MED ONCE IV Last administered on 05/10/17 14:29; Start 05/10/17 at 14:29; Stop 05/10/17 at 14:30; Status DC Vancomycin HCl/ Sodium Chloride (Vancomycin Inj/ NS 250 ml Inj) 262 ml @ 250 mls/hr Q12H IV Last administered on 05/11/17 01:20; Start 05/11/17 at 01:00; Stop 05/11/17 at 11:26; Status DC Miscellaneous Information SPECIFIC LAB TO BE DRAWN:VANCOMY... ONCE ONCE .XX ; Start 05/12/17 at 12:45; Stop 05/12/17 at 12:46; Status DC Vancomycin HCl/ Sodium Chloride (Vancomycin Inj/ NS 500 ml Inj) 515 ml @ 250 mls/hr Q12H IV Last administered on 05/15/17 01:04; Start 05/11/17 at 13:00 Baclofen (Lioresal) 10 mg Q8HR PRN PO MUSCLE SPASM Last administered on 09:57; Start 05/11/17 at 12:00 Potassium Chloride (KCl) 30 meq ONCE ONCE PO Last administered on 05/11/17 13: 36; Start 05/11/17 at 12:00; Stop 05/11/17 at 13:16; Status DC Potassium Chloride (KCl) 30 meq ONCE ONCE PO Last administered on 05/11/17 18: 02; Start 05/11/17 at 16:00; Stop 05/11/17 at 16:01; Status DC Lorazepam (Ativan) 1 mg Q4H PRN PO CIWA 8-10 Last administered on 05/11/17 22: 12; Start 05/11/17 at 16:00 Lorazepam (Ativan Inj) 1 mg Q4H PRN IV PUSH CIWA 8-10; Start 05/11/17 at 16:00 Lorazepam (Ativan) 2 mg Q2H PRN PO CIWA 11-14; Start 05/11/17 at 16:00 Lorazepam (Ativan Inj) 2 mg Q2H PRN IV PUSH CIWA 11-14 Last administered on 05/11 17:54; Start 05/11/17 at 16:00 Lorazepam (Ativan Inj) 2 mg Q1H PRN IV PUSH CIWA 15-20; Start 05/11/17 at 16:00 Lorazepam (Ativan Inj) 2 mg Q15M PRN IV PUSH CIWA > 20; Start 05/11/17 at 16:00 Haloperidol Lactate (Haldol Inj) 2 mg Q15M PRN IM SEE LABEL COMMENTS; Start 05/11/17 at 16:00 Flumazenil (Romazicon Inj) 0.2 mg Q1M PRN IV PUSH SEE LABEL COMMENTS; Start 05/11/17 at 16:00 Thrombin 71325 units 10,000 units STK-MED ONCE .ROUTE Last administered on 14:56; Start 05/12/17 at 07:22; Stop 05/12/17 at 07:23; Status DC Cefazolin Sodium/ Dextrose (Ancef 2 Gm Premix) 50 ml @ As Directed STK-MED ONCE .ROUTE ; Start 05/12/17 at 07:22; Stop 05/12/17 at 07:23; Status DC Gelatin (Gelfoam 100 Top) 1 foam STK-MED ONCE .ROUTE Last administered on 14:56; Start 05/12/17 at 07:22; Stop 05/12/17 at 07:23; Status DC Gentamicin Sulfate (Gentamicin Inj) 240 mg STK-MED ONCE .ROUTE Last administered on 05/12/17 14:56; Start 05/12/17 at 07:22; Stop 05/12/17 at 07:23; Status DC Hydromorphone HCl (Dilaudid Pf Inj) 2 mg STK-MED ONCE .ROUTE ; Start 05/12/17 at 13:21; Stop 05/12/17 at 13:22; Status DC Acetaminophen (Ofirmev Inj) 1,000 mg STK-MED ONCE IV ; Start 05/12/17 at 13:21; Stop 05/12/17 at 13:22; Status DC Vancomycin HCl 1000 mg 1,000 mg STK-MED ONCE .ROUTE Last administered on 15:08; Start 05/12/17 at 15:07; Stop 05/12/17 at 15:08; Status DC Potassium Chloride/Sodium Chloride (NS + KCl 20 Meq Inj) 1,000 ml @ 100 mls/hr Q10H IV Last administered on 05/15/17 03:21; Start 05/12/17 at 15:59 IV Flush (NS Flush) 2 ml UNSCH PRN IVF FLUSH AFTER USING IV ACCESS; Start at 16:00 IV Flush (NS Flush) 2 ml BID IVF Last administered on 05/13/17 20:34; Start 05/12/17 at 21:00 Docusate Sodium (Colace) 100 mg BID PO Last administered on 05/15/17 09:57; Start 05/12/17 at 21:00 Pantoprazole Sodium (Protonix) 40 mg DAILY PO Last administered on 05/15/17 09: 57; Start 05/13/17 at 09:00 Acetaminophen/ Hydrocodone Bitart ([place] 10-325 Mg) 1 tab Q4H PRN PO PAIN 1-5 WHEN TOLERATING PO; Start 05/12/17 at 16:00 Acetaminophen/ Hydrocodone Bitart ([place] 10-325 Mg) 2 tab Q4H PRN PO PAIN 6-10 WHEN TOLERATING PO Last administered on 05/15/17 09:58; Start 05/12/17 at 16:00 Morphine Sulfate (Morphine Inj) 2 mg Q2H PRN IV PUSH PAIN 1-6 IF NOT TOLERATING PO; Start 05/12/17 at 16:00 Morphine Sulfate (Morphine Inj) 4 mg Q2H PRN IV PUSH PAIN 7-10 IF NOT TOLERATING PO Last administered on 05/13/17 20:35; Start 05/12/17 at 16:00 Acetaminophen (Tylenol) 650 mg Q4H PRN PO TEMPERATURE > 101.5 F; Start 05/12/17 at 16:00 Miscellaneous Information SPECIFIC LAB TO BE DRAWN:VANCOMYCIN TROUGH DATE TO... ONCE ONCE .XX Last administered on 05/13/17 00:45; Start 05/13/17 at 00:45; Stop 05/13/17 at 00:46; Status DC Midazolam HCl (Versed Inj) 2 mg STK-MED ONCE .ROUTE ; Start 05/12/17 at 16:20; Stop 05/12/17 at 16:21; Status DC Fentanyl Citrate (fentaNYL INJ) 500 mcg STK-MED ONCE .ROUTE ; Start 05/12/17 at 16:20; Stop 05/12/17 at 16:21; Status DC Morphine Sulfate (*morphine INJ PERIprocedure ONLY) 8 mg STK-MED ONCE .ROUTE Last administered on 05/12/17 16:20; Start 05/12/17 at 16:20; Stop 05/12/17 at 16: 21; Status DC Miscellaneous Information ALL NURSING DEPARTME... UNSCH PRN .XX SEE LABEL COMMENTS; Start 05/12/17 at 16:12; Stop 05/13/17 at 16:11; Status DC Morphine Sulfate (*morphine INJ PERIprocedure ONLY) 8 mg STK-MED ONCE .ROUTE Last administered on 05/12/17 16:31; Start 05/12/17 at 16:31; Stop 05/12/17 at 16: 32; Status DC Miscellaneous Information SPECIFIC LAB TO BE ARLENE... ONCE ONCE .XX ; Start at 00:45; Stop 05/16/17 at 00:46 A/P Assessment and Plan A/P (1) Sepsis due to epidural abscess s/p L3-L5 laminectomy with evacuation of spinal epidural abscess continue Vanco and Cefepime- HIV/hepatitis panel negative. neurosurgery and ID following. continue with pain control. (2) MRSA Bacteremia continue Vancomycin echo with no vegetation repeated blood cultures from 05/13 negative so far. ID following. (3) Rhabdomyolysis-resolved. due to cocaine use versus musculoskeletal injury (4) Shoulder pain, right- improving. MRI with Moderate hypertrophic changes are seen in the AC joint indenting the subacromial fat plane to a slight degree with adjacent subcutaneous edema possibly inflammatory without evidence for abscess formation. continue with pain control- (5) Encephalopathy, toxic-resolved. (6) HTN (hypertension) Continue Coreg and clonidine as needed (7)- hypokalemia; replaced. DVT prophylaxis with SCD's. Toño Waterman MD May 15, 2017 11:29
--- NOTE | 2017-05-15 12:42 | HHI.NSPN ---
(Rea Brunson) Note Status Status: Progress Note (Rea Brunson) Interval History Interval History Ms. Fang is a 51 y/o female was previously seen in the ED for lower extremity sciatic pain and was treated with muscle relaxants, Tramadol and a Medrol Dosepak and sent home. She returned with AMS and a fever of 102. She was found with a urinary tract infections and was admitted and treated for sepsis. She continues however to complain of lumbar and lower extremity sciatic pain. She also reports progressive weakness in her lower extremities. An MRI of the lumbar spine was obtained which showed epidural abscess from L3- 5. A neurosurgical evaluation was requested. 05/13: POD 1 s/p L3-5 laminectomy with evacuation of epidural abscess, she reports significant of her sciatic pain following surgery, she has mild to moderate lumbar pain. she denies any new complaint 05/14: POD 2, surgical pain controlled with pain medications. previous radicular pain improved. final cultures reports MRSA 05/15: POD 3, continues to do well, eager to go home soon. (Rea Brunson) Labs, Micro, & Vital Signs Results Date Time Temp Pulse Resp B/P Pulse Ox O2 Delivery O2 Flow Rate FiO2 05/15/17 08:00 100.3 68 16 168/112 97 05/15/17 04:00 99.0 69 18 138/72 95 05/15/17 00:00 98.8 70 18 128/74 96 05/14/17 20:00 99.0 72 18 136/72 97 05/14/17 19:00 74 05/14/17 16:00 99.7 71 18 139/73 97 05/15/17 07:00 Intake Total 3431 ml Output Total 70 ml Balance 3361 ml Constitutional Vital Signs Date Time Temp Pulse Resp B/P Pulse Ox O2 Delivery O2 Flow Rate FiO2 05/15/17 08:00 100.3 68 16 168/112 97 05/15/17 04:00 99.0 69 18 138/72 95 05/15/17 00:00 98.8 70 18 128/74 96 05/14/17 20:00 99.0 72 18 136/72 97 05/14/17 19:00 74 05/14/17 16:00 99.7 71 18 139/73 97 05/15/17 07:00 Intake Total 3431 ml Output Total 70 ml Balance 3361 ml (Rea Brunson) Review of Systems/Exam Exam Ms. Fang is alert, awake. Laying in bed comfortably without acute distress. Neck: soft, supple Wound is approximated, closed. Wound is healing well. New dressing placed. CHRISTEN drain secured in place Motor: moving all four extremities well with good strength (Rea Brunson) Medications Current Medications Current Medications Medications (Trade) Dose Ordered Sig/Lisbet Route PRN Reason Start Time Stop Time Status Last Admin Dose Admin Pharmacy Profile Note 0 ml @ 0 mls/hr UNSCH OTHER 05/08/17 23:15 Cefepime HCl/ Sodium Chloride (Maxipime Inj/NS Inj) 100 ml @ 200 mls/hr Q12H IV 05/09/17 09:00 05/15/17 09:57 Ondansetron HCl (Zofran Inj) 4 mg Q6H PRN IVP NAUSEA OR VOMITING 05/08/17 23:15 Heparin Sodium (Porcine) (Heparin Inj) 5,000 units Q12HR SQ 05/09/17 09:00 05/15/17 09:59 Sennosides (Senokot) 17.2 mg Q12H PRN PO MODERATE - SEVERE CONSTIPATION 05/08/17 23:15 Carvedilol (Coreg) 12.5 mg Q12HR PO 05/09/17 10:00 05/15/17 09:57 Tramadol HCl (Ultram) 50 mg Q4H PRN PO PAIN 1-3 05/09/17 09:45 05/12/17 09:08 Hydromorphone HCl (Dilaudid Pf Inj) 2 mg Q4H PRN IV PUSH pain not better with toradol 05/09/17 14:45 05/13/17 12:29 Clonidine 0.1 mg 0.1 mg Q6H PRN PO SBP>160, DBP>90 05/09/17 16:00 05/13/17 20:35 Vancomycin HCl/ Sodium Chloride (Vancomycin Inj/ NS 500 ml Inj) 515 ml @ 250 mls/hr Q12H IV 05/11/17 13:00 05/15/17 01:04 Baclofen (Lioresal) 10 mg Q8HR PRN PO MUSCLE SPASM 05/11/17 12:00 05/15/17 09:57 Lorazepam (Ativan) 1 mg Q4H PRN PO CIWA 8-10 05/11/17 16:00 05/11/17 22:12 Lorazepam (Ativan Inj) 1 mg Q4H PRN IV PUSH CIWA 8-10 05/11/17 16:00 Lorazepam (Ativan) 2 mg Q2H PRN PO CIWA 11-14 05/11/17 16:00 Lorazepam (Ativan Inj) 2 mg Q2H PRN IV PUSH CIWA 11-14 05/11/17 16:00 05/11/17 17:54 Lorazepam (Ativan Inj) 2 mg Q1H PRN IV PUSH CIWA 15-20 05/11/17 16:00 Lorazepam (Ativan Inj) 2 mg Q15M PRN IV PUSH CIWA > 20 05/11/17 16:00 Haloperidol Lactate (Haldol Inj) 2 mg Q15M PRN IM SEE LABEL COMMENTS 05/11/17 16:00 Flumazenil 0.2 mg 0.2 mg Q1M PRN IV PUSH SEE LABEL COMMENTS 05/11/17 16:00 Potassium Chloride/Sodium Chloride (NS + KCl 20 Meq Inj) 1,000 ml @ 100 mls/hr Q10H IV 05/12/17 15:59 Hold 05/15/17 03:21 IV Flush (NS Flush) 2 ml UNSCH PRN IVF FLUSH AFTER USING IV ACCESS 05/12/17 16:00 IV Flush (NS Flush) 2 ml BID IVF 05/12/17 21:00 05/13/17 20:34 Docusate Sodium (Colace) 100 mg BID PO 05/12/17 21:00 05/15/17 09:57 Pantoprazole Sodium (Protonix) 40 mg DAILY PO 05/13/17 09:00 05/15/17 09:57 Acetaminophen/ Hydrocodone Bitart ([place] 10-325 Mg) 1 tab Q4H PRN PO PAIN 1-5 WHEN TOLERATING PO 05/12/17 16:00 Acetaminophen/ Hydrocodone Bitart ([place] 10-325 Mg) 2 tab Q4H PRN PO PAIN 6-10 WHEN TOLERATING PO 05/12/17 16:00 05/15/17 09:58 Morphine Sulfate (Morphine Inj) 2 mg Q2H PRN IV PUSH PAIN 1-6 IF NOT TOLERATING PO 05/12/17 16:00 Morphine Sulfate (Morphine Inj) 4 mg Q2H PRN IV PUSH PAIN 7-10 IF NOT TOLERATING PO 05/12/17 16:00 05/13/17 20:35 Acetaminophen (Tylenol) 650 mg Q4H PRN PO TEMPERATURE > 101.5 F 05/12/17 16:00 Miscellaneous Information SPECIFIC LAB TO BE [facility]... ONCE ONCE .XX 05/16/17 00:45 05/16/17 00:46 (Rea Brunson) Medical Decision Making MDM Remarks 51 y/o female s/p L3-5 laminectomy with evacuation of epidural abscess 05/12/17, POD 3 with improved radicular pain epidural abscess cultures reports MRSA (Rea Brunson) Plan Plan Remarks cont IV antibiotics, defer antibiotic mgt per ID cont therapy, encourage mobilization OOB with corset brace cont change surgical dressings daily cont maintain CHRISTEN today to suction for another 1-2 days to aid in drainage of infection dc wound rhiannon 05/26/17 (Rea Brunson) Attending Statement The exam, history, and the medical decision-making described in the above note were completed with the assistance of the mid-level provider. I reviewed and agree with the findings presented. I attest that I had a [id number] encounter with the patient on the same day, and personally performed and documented my assessment and findings in the medical record. (Faizan Coppola MD) Rea Brunson May 15, 2017 12:42 Faizan Coppola MD May 18, 2017 18:59
[2017-05-15] MEDS: RESP: ALBUTEROL 2.5 MG/3 ML NEB (PRN) INH (21:12)
[2017-05-16] VITALS (8 sets, daily range): BP systolic 130–173; BP diastolic 71–83; PULSE 66–77; RESP 16–19; TEMP 98.6–99.6; O2SAT 96–98
[2017-05-16] MEDS ORDERED: PHARMACY ORDERED LAB ONE (00:45)
[2017-05-16] MEDS: ACETAMINOPHEN/HYDROcodone 325 MG/10 MG TAB PO PRN ×5 (01:23→21:07)
[2017-05-16] MEDS: VANCOMYCIN INJ 1,500 MG in SODIUM CHLORID 0.9% 500 ML INJ 500 ML IV SCH ×2 (01:23→13:11)
[2017-05-16] MEDS: DOCUSATE SODIUM 100 MG CAP PO SCH ×2 (08:09→21:07)
[2017-05-16] MEDS: CEFEPIME INJ 1,000 MG in SODIUM CHLORIDE 0.9% INJ 100 ML IV SCH ×2 (08:09→21:09)
[2017-05-16] MEDS: SODIUM CHLORIDE 0.9% FLUSH 5 ML FLUSH IVF SCH ×2 (08:09→21:00)
[2017-05-16] MEDS: PANTOPRAZOLE SOD 40 MG DELAYED RELEASE TAB PO SCH (08:09)
[2017-05-16] MEDS: BACLOFEN 10 MG TAB PO PRN ×2 (08:09→16:56)
[2017-05-16] MEDS: CARVEDILOL 12.5 MG TAB PO SCH ×2 (08:09→21:07)
[2017-05-16] MEDS: HEPARIN SODIUM - SQ 10,000 UNITS/ML VIAL SQ SCH ×2 (08:09→21:09)
--- NOTE | 2017-05-16 10:45 | HHI.PR ---
Subjective Remarks in no acute distress. pain is controlled. no fever. Objective Vitals Vital Signs Date Time Temp Pulse Resp B/P Pulse Ox O2 Delivery O2 Flow Rate FiO2 05/16/17 08:19 99.1 70 19 173/82 96 05/16/17 05:32 98.6 67 17 145/83 96 05/16/17 01:10 99.4 70 17 130/71 96 05/15/17 20:00 70 05/15/17 20:00 99.4 78 20 172/77 98 05/15/17 16:00 99.8 66 16 130/65 97 05/15/17 12:00 99.5 70 16 139/74 97 I/O 05/15/17 05/15/17 05/15/17 05/16/17 05/16/17 05/16/17 07:00 15:00 23:00 07:00 15:00 23:00 Intake Total 1751 ml 1061 ml 1526 ml 840 ml Output Total 30 ml 40 ml 10 ml 30 ml Balance 1721 ml 1021 ml 1516 ml 810 ml Intake Oral 720 ml 480 ml 320 ml IV Total 1751 ml 341 ml 1046 ml 520 ml Drainage Total 30 ml 40 ml 10 ml 30 ml # Voids 5 4 2 2 # Bowel Movements 2 0 Result Diagram: 05/13/17 0750 05/15/17 1129 Imaging Last Impressions Lumbar Spine X-Ray 05/12/17 0000 Signed Impressions: Service Date/Time: Friday, May 12, 2017 14:28 - CONCLUSION: Limited image as detailed above. Trevin Fuentes Jr., MD Shoulder MRI 05/10/17 0000 Signed Impressions: Service Date/Time: Wednesday, May 10, 2017 12:48 - CONCLUSION: Moderate hypertrophic changes are seen in the AC joint indenting the subacromial fat plane to a slight degree with adjacent subcutaneous edema possibly inflammatory without evidence for abscess formation. Clement Valentin MD Lumbar Spine MRI 05/10/17 0000 Signed Impressions: Service Date/Time: Wednesday, May 10, 2017 12:48 - CONCLUSION: Interval development of epidural abscess dorsally extending from L3-[address] to mid body of L5 causing moderate thecal sac stenosis at L3-4 and L4-5 levels. Findings were discussed with Dr. Rogers on 05/10/2017 at the time of this dictation at 4:15 hours. Clement Valentin MD Chest CT 05/08/17 2331 Signed Impressions: Service Date/Time: Monday, May 08, 2017 23:29 - CONCLUSION: Normal examination. Edis Fox MD Shoulder X-Ray [id number]/08/[id number] Signed Impressions: Service Date/Time: Monday, May 08, 2017 21:05 - CONCLUSION: Negative two-view examination of the shoulder. Trevin Deleon MD Abdomen/Pelvis CT [id number]/08/[id number] Signed Impressions: Service Date/Time: Monday, May 08, 2017 22:08 - CONCLUSION: No acute findings in the abdomen and pelvis. Trevin Deleon MD Objective Remarks GENERAL: This is a well-nourished, well-developed patient, in no apparent distress. CARDIOVASCULAR: Regular rate and regular rhythm without murmurs, gallops, or rubs. RESPIRATORY: Clear to auscultation. Breath sounds equal bilaterally. No wheezes , rales, or rhonchi. GASTROINTESTINAL: Abdomen soft, non-tender, nondistended. Normal, active bowel sounds MUSCULOSKELETAL: Extremities without clubbing, cyanosis, or edema. NEURO: Alert & Oriented x4 to person, place, time, situation. Moves all ext x4 Procedures L3-L5 laminectomy with evacuation of spinal epidural abscess Medications and IVs Current Medications IV Flush 2 ml 2 ml UNSCH PRN IV FLUSH FLUSH AFTER USING IV ACCESS; Start at 20:30; Stop 05/08/17 at 23:34; Status DC Sodium Chloride (NS 1000 ml Inj) 1,000 ml @ 1,000 mls/hr Q1H IV Last administered on 05/08/17 21:10; Start 05/08/17 at 20:30; Stop 05/08/17 at 21:29 ; Status DC Iohexol 96 ml 96 ml STK-MED ONCE IV Last administered on 05/08/17 22:06; Start 05/08/17 at 22:06; Stop 05/08/17 at 22:07; Status DC Sodium Chloride (NS 1000 ml Inj) 1,000 ml @ 2,000 mls/hr Q30M IV Last administered on 05/08/17 23:12; Start 05/08/17 at 23:00; Stop 05/08/17 at 23:29 ; Status DC Ketorolac Tromethamine 30 mg 30 mg ONCE ONCE IVP Last administered on 23:13; Start 05/08/17 at 23:00; Stop 05/08/17 at 23:01; Status DC Ceftriaxone Sodium 2000 mg/ Sodium Chloride 100 ml @ 200 mls/hr ONCE ONCE IV Last administered on 05/08/17 23:16; Start 05/08/17 at 23:00; Stop 05/08/17 at 23:29; Status DC Pharmacy Profile Note 0 ml @ 0 mls/hr UNSCH OTHER ; Start 05/08/17 at 23:15 Cefepime HCl 1000 mg/Sodium Chloride 100 ml @ 200 mls/hr Q12H IV Last administered on 05/16/17 08:09; Start 05/09/17 at 09:00 Sodium Chloride (NS 1000 ml Inj) 1,000 ml @ 100 mls/hr Q10H IV Last administered on 05/11/17 13:37; Start 05/08/17 at 23:14; Stop 05/12/17 at 16:10; Status DC Sodium Chloride (NS Flush) 2 ml UNSCH PRN IV FLUSH FLUSH AFTER USING IV ACCESS Last administered on 05/10/17 01:07; Start 05/08/17 at 23:15; Stop 05/12/17 at 16:11; Status DC Sodium Chloride (NS Flush) 2 ml BID IV FLUSH Last administered on 05/11/17 22: 11; Start 05/09/17 at 09:00; Stop 05/12/17 at 16:11; Status DC Ondansetron HCl (Zofran Inj) 4 mg Q6H PRN IVP NAUSEA OR VOMITING; Start at 23:15 Heparin Sodium (Porcine) (Heparin Inj) 5,000 units Q12HR SQ Last administered on 05/16/17 08:09; Start 05/09/17 at 09:00 Acetaminophen (Tylenol) 650 mg Q6H PRN PO FEVER Last administered on 05/12/17 05:54; Start 05/08/17 at 23:15; Stop 05/12/17 at 16:10; Status DC Senna/Docusate Sodium (Janice-Colace) 1 tab BID PO Last administered on 05/12/17 09:08; Start 05/09/17 at 09:00; Stop 05/12/17 at 16:11; Status DC Magnesium Hydroxide (Milk Of Magnmaxine Liq) 30 ml Q12H PRN PO MILD - MODERATE CONSTIPATION; Start 05/08/17 at 23:15; Stop 05/09/17 at 09:42; Status DC Sennosides (Senokot) 17.2 mg Q12H PRN PO MODERATE - SEVERE CONSTIPATION; Start 05/08/17 at 23:15 Bisacodyl (Dulcolax Supp) 10 mg DAILY PRN RECTAL SEVERE CONSITIPATION; Start at 23:15; Stop 05/09/17 at 09:42; Status DC Lactulose 30 ml 30 ml DAILY PRN PO SEVERE CONSITIPATION; Start 05/08/17 at 23: 15; Stop 05/09/17 at 09:42; Status DC Vancomycin HCl 1000 mg/Sodium Chloride 250 ml @ 250 mls/hr ONCE ONCE IV Last administered on 05/09/17 00:30; Start 05/09/17 at 00:00; Stop 05/09/17 at 00:59 ; Status DC Vancomycin HCl/ Sodium Chloride (Vancomycin Inj/ NS 250 ml Inj) 250 ml @ 250 mls/hr Q12H IV Last administered on 05/10/17 15:10; Start 05/09/17 at 13:00; Stop 05/10/17 at 19:31; Status DC Miscellaneous Information SPECIFIC LAB TO BE DRAWN:VANCO TROUGH DATE TO... ONCE ONCE .XX Last administered on 05/10/17 12:54; Start 05/10/17 at 12:45; Stop 05/10/17 at 12:46; Status DC Carvedilol (Coreg) 12.5 mg Q12HR PO Last administered on 05/16/17 08:09; Start 05/09/17 at 10:00 Albuterol Sulfate (Albuterol Neb) 2.5 mg Q4HR NEB PRN INH SHORTNESS OF BREATH Last administered on 05/15/17 21:12; Start 05/09/17 at 14:45 Tramadol HCl (Ultram) 50 mg Q4H PRN PO PAIN 1-3 Last administered on 05/12/17 09:08; Start 05/09/17 at 09:45 Ketorolac Tromethamine (Toradol Inj) 30 mg Q6HR PRN IV PUSH PAIN SCALE 4 TO 10 Last administered on 05/10/17 12:14; Start 05/09/17 at 14:45; Stop 05/10/17 at 14:44; Status DC Hydromorphone HCl (Dilaudid Pf Inj) 2 mg Q4H PRN IV PUSH pain not better with toradol Last administered on 05/13/17 12:29; Start 05/09/17 at 14:45 Clonidine (Catapres) 0.1 mg Q6H PRN PO SBP>160, DBP>90 Last administered on 05/13 20:35; Start 05/09/17 at 16:00 Potassium Chloride (KCl Powder) 20 meq ONCE ONCE PO Last administered on 17:15; Start 05/09/17 at 16:15; Stop 05/09/17 at 16:19; Status DC Lorazepam (Ativan Inj) 2 mg ONCE ONCE IV PUSH Last administered on 05/10/17 13:00; Start 05/10/17 at 13:00; Stop 05/10/17 at 13:01; Status DC Gadodiamide 16 ml 16 ml STK-MED ONCE IV Last administered on 05/10/17 14:29; Start 05/10/17 at 14:29; Stop 05/10/17 at 14:30; Status DC Vancomycin HCl/ Sodium Chloride (Vancomycin Inj/ NS 250 ml Inj) 262 ml @ 250 mls/hr Q12H IV Last administered on 05/11/17 01:20; Start 05/11/17 at 01:00; Stop 05/11/17 at 11:26; Status DC Miscellaneous Information SPECIFIC LAB TO BE DRAWN:VANCOMY... ONCE ONCE .XX ; Start 05/12/17 at 12:45; Stop 05/12/17 at 12:46; Status DC Vancomycin HCl/ Sodium Chloride (Vancomycin Inj/ NS 500 ml Inj) 515 ml @ 250 mls/hr Q12H IV Last administered on 05/16/17 01:23; Start 05/11/17 at 13:00 Baclofen (Lioresal) 10 mg Q8HR PRN PO MUSCLE SPASM Last administered on 08:09; Start 05/11/17 at 12:00 Potassium Chloride (KCl) 30 meq ONCE ONCE PO Last administered on 05/11/17 13: 36; Start 05/11/17 at 12:00; Stop 05/11/17 at 13:16; Status DC Potassium Chloride (KCl) 30 meq ONCE ONCE PO Last administered on 05/11/17 18: 02; Start 05/11/17 at 16:00; Stop 05/11/17 at 16:01; Status DC Lorazepam (Ativan) 1 mg Q4H PRN PO CIWA 8-10 Last administered on 05/11/17 22: 12; Start 05/11/17 at 16:00 Lorazepam (Ativan Inj) 1 mg Q4H PRN IV PUSH CIWA 8-10; Start 05/11/17 at 16:00 Lorazepam (Ativan) 2 mg Q2H PRN PO CIWA 11-14; Start 05/11/17 at 16:00 Lorazepam (Ativan Inj) 2 mg Q2H PRN IV PUSH CIWA 11-14 Last administered on 05/11 17:54; Start 05/11/17 at 16:00 Lorazepam (Ativan Inj) 2 mg Q1H PRN IV PUSH CIWA 15-20; Start 05/11/17 at 16:00 Lorazepam (Ativan Inj) 2 mg Q15M PRN IV PUSH CIWA > 20; Start 05/11/17 at 16:00 Haloperidol Lactate (Haldol Inj) 2 mg Q15M PRN IM SEE LABEL COMMENTS; Start 05/11/17 at 16:00 Flumazenil (Romazicon Inj) 0.2 mg Q1M PRN IV PUSH SEE LABEL COMMENTS; Start 05/11/17 at 16:00 Thrombin 93724 units 10,000 units STK-MED ONCE .ROUTE Last administered on 14:56; Start 05/12/17 at 07:22; Stop 05/12/17 at 07:23; Status DC Cefazolin Sodium/ Dextrose (Ancef 2 Gm Premix) 50 ml @ As Directed STK-MED ONCE .ROUTE ; Start 05/12/17 at 07:22; Stop 05/12/17 at 07:23; Status DC Gelatin (Gelfoam 100 Top) 1 foam STK-MED ONCE .ROUTE Last administered on 14:56; Start 05/12/17 at 07:22; Stop 05/12/17 at 07:23; Status DC Gentamicin Sulfate (Gentamicin Inj) 240 mg STK-MED ONCE .ROUTE Last administered on 05/12/17 14:56; Start 05/12/17 at 07:22; Stop 05/12/17 at 07:23; Status DC Hydromorphone HCl (Dilaudid Pf Inj) 2 mg STK-MED ONCE .ROUTE ; Start 05/12/17 at 13:21; Stop 05/12/17 at 13:22; Status DC Acetaminophen (Ofirmev Inj) 1,000 mg STK-MED ONCE IV ; Start 05/12/17 at 13:21; Stop 05/12/17 at 13:22; Status DC Vancomycin HCl 1000 mg 1,000 mg STK-MED ONCE .ROUTE Last administered on 15:08; Start 05/12/17 at 15:07; Stop 05/12/17 at 15:08; Status DC Potassium Chloride/Sodium Chloride (NS + KCl 20 Meq Inj) 1,000 ml @ 100 mls/hr Q10H IV Last administered on 05/15/17 03:21; Start 05/12/17 at 15:59; Status Hold IV Flush (NS Flush) 2 ml UNSCH PRN IVF FLUSH AFTER USING IV ACCESS; Start at 16:00 IV Flush (NS Flush) 2 ml BID IVF Last administered on 05/16/17 08:09; Start 05/12/17 at 21:00 Docusate Sodium (Colace) 100 mg BID PO Last administered on 05/16/17 08:09; Start 05/12/17 at 21:00 Pantoprazole Sodium (Protonix) 40 mg DAILY PO Last administered on 05/16/17 08: 09; Start 05/13/17 at 09:00 Acetaminophen/ Hydrocodone Bitart ([place] 10-325 Mg) 1 tab Q4H PRN PO PAIN 1-5 WHEN TOLERATING PO; Start 05/12/17 at 16:00 Acetaminophen/ Hydrocodone Bitart ([place] 10-325 Mg) 2 tab Q4H PRN PO PAIN 6-10 WHEN TOLERATING PO Last administered on 05/16/17 08:10; Start 05/12/17 at 16:00 Morphine Sulfate (Morphine Inj) 2 mg Q2H PRN IV PUSH PAIN 1-6 IF NOT TOLERATING PO; Start 05/12/17 at 16:00 Morphine Sulfate (Morphine Inj) 4 mg Q2H PRN IV PUSH PAIN 7-10 IF NOT TOLERATING PO Last administered on 05/13/17 20:35; Start 05/12/17 at 16:00 Acetaminophen (Tylenol) 650 mg Q4H PRN PO TEMPERATURE > 101.5 F; Start 05/12/17 at 16:00 Miscellaneous Information SPECIFIC LAB TO BE DRAWN:VANCOMYCIN TROUGH DATE TO... ONCE ONCE .XX Last administered on 05/13/17 00:45; Start 05/13/17 at 00:45; Stop 05/13/17 at 00:46; Status DC Midazolam HCl (Versed Inj) 2 mg STK-MED ONCE .ROUTE ; Start 05/12/17 at 16:20; Stop 05/12/17 at 16:21; Status DC Fentanyl Citrate (fentaNYL INJ) 500 mcg STK-MED ONCE .ROUTE ; Start 05/12/17 at 16:20; Stop 05/12/17 at 16:21; Status DC Morphine Sulfate (*morphine INJ PERIprocedure ONLY) 8 mg STK-MED ONCE .ROUTE Last administered on 05/12/17 16:20; Start 05/12/17 at 16:20; Stop 05/12/17 at 16: 21; Status DC Miscellaneous Information ALL NURSING DEPARTME... UNSCH PRN .XX SEE LABEL COMMENTS; Start 05/12/17 at 16:12; Stop 05/13/17 at 16:11; Status DC Morphine Sulfate (*morphine INJ PERIprocedure ONLY) 8 mg STK-MED ONCE .ROUTE Last administered on 05/12/17 16:31; Start 05/12/17 at 16:31; Stop 05/12/17 at 16: 32; Status DC Miscellaneous Information SPECIFIC LAB TO BE ARLENE... ONCE ONCE .XX Last administered on 05/16/17 00:45; Start 05/16/17 at 00:45; Stop 05/16/17 at 00:46; Status DC A/P Assessment and Plan A/P (1) Sepsis due to epidural abscess s/p L3-L5 laminectomy with evacuation of spinal epidural abscess continue Vanco and Cefepime- antibiotics per ID. HIV/hepatitis panel negative. neurosurgery and ID following. continue with pain control. (2) MRSA Bacteremia continue Vancomycin echo with no vegetation repeated blood cultures from 05/13 negative so far. ID following. (3) Rhabdomyolysis-resolved. due to cocaine use versus musculoskeletal injury (4) Shoulder pain, right- improving. MRI with Moderate hypertrophic changes are seen in the AC joint indenting the subacromial fat plane to a slight degree with adjacent subcutaneous edema possibly inflammatory without evidence for abscess formation. continue with pain control- (5) Encephalopathy, toxic-resolved. (6) HTN (hypertension) Continue Coreg and clonidine as needed (7)- hypokalemia; replaced. DVT prophylaxis with SCD's. Toño Waterman MD May 16, 2017 10:44
[2017-05-17 00:30] VITALS: BP 143/68; PULSE 80; RESP 17; TEMP 100.7; O2SAT 97
[2017-05-17] MEDS: VANCOMYCIN INJ 1,500 MG in SODIUM CHLORID 0.9% 500 ML INJ 500 ML IV SCH ×2 (00:50→17:51)
[2017-05-17] MEDS: ACETAMINOPHEN/HYDROcodone 325 MG/10 MG TAB PO PRN ×5 (00:51→21:01)
[2017-05-17 04:22] VITALS: BP 137/75; PULSE 66; RESP 17; TEMP 98.9; O2SAT 96
[2017-05-17] MEDS: BACLOFEN 10 MG TAB PO PRN ×3 (05:08→21:02)
[2017-05-17 08:00] VITALS: BP 130/77; PULSE 70; PULSE 81; RESP 18; TEMP 98.7; O2SAT 97
[2017-05-17] MEDS: SODIUM CHLORIDE 0.9% FLUSH 5 ML FLUSH IVF SCH ×2 (09:00→21:00)
--- NOTE | 2017-05-17 09:09 | HHI.PR ---
Subjective Remarks in no acute distress. Tmax 100.7. complaining of some pain to the right knee. no other complaints. Objective Vitals Vital Signs Date Time Temp Pulse Resp B/P Pulse Ox O2 Delivery O2 Flow Rate FiO2 05/17/17 08:00 98.7 70 18 130/77 97 05/17/17 04:22 98.9 66 17 137/75 96 05/17/17 00:30 100.7 80 17 143/68 97 05/16/17 20:30 99.6 70 17 161/72 98 05/16/17 20:00 68 05/16/17 16:00 99.0 67 16 132/74 97 05/16/17 12:50 99.3 66 19 139/83 96 05/16/17 10:33 77 I/O 05/16/17 05/16/17 05/16/17 05/17/17 05/17/17 05/17/17 07:00 15:00 23:00 07:00 15:00 23:00 Intake Total 840 ml 360 ml Output Total 30 ml 45 ml Balance 810 ml -45 ml 360 ml Intake Oral 320 ml 360 ml IV Total 520 ml Drainage Total 30 ml 45 ml # Voids 2 2 4 Result Diagram: 05/13/17 0750 05/15/17 1129 Imaging Last Impressions Lumbar Spine X-Ray 05/12/17 0000 Signed Impressions: Service Date/Time: Friday, May 12, 2017 14:28 - CONCLUSION: Limited image as detailed above. Trevin Fuentes Jr., MD Shoulder MRI 05/10/17 0000 Signed Impressions: Service Date/Time: Wednesday, May 10, 2017 12:48 - CONCLUSION: Moderate hypertrophic changes are seen in the AC joint indenting the subacromial fat plane to a slight degree with adjacent subcutaneous edema possibly inflammatory without evidence for abscess formation. Clement Valentin MD Lumbar Spine MRI 05/10/17 0000 Signed Impressions: Service Date/Time: Wednesday, May 10, 2017 12:48 - CONCLUSION: Interval development of epidural abscess dorsally extending from L3-[address] to mid body of L5 causing moderate thecal sac stenosis at L3-4 and L4-5 levels. Findings were discussed with Dr. Rogers on 05/10/2017 at the time of this dictation at 4:15 hours. Clement Valentin MD Chest CT 05/08/17 2331 Signed Impressions: Service Date/Time: Monday, May 08, 2017 23:29 - CONCLUSION: Normal examination. Edis Fox MD Shoulder X-Ray 05/08/172046 Signed Impressions: Service Date/Time: Monday, May 08, 2017 21:05 - CONCLUSION: Negative two-view examination of the shoulder. Trevin Deleon MD Abdomen/Pelvis CT 05/08/172046 Signed Impressions: Service Date/Time: Monday, May 08, 2017 22:08 - CONCLUSION: No acute findings in the abdomen and pelvis. Trevin Deleon MD Objective Remarks GENERAL: This is a well-nourished, well-developed patient, in no apparent distress. CARDIOVASCULAR: Regular rate and regular rhythm without murmurs, gallops, or rubs. RESPIRATORY: Clear to auscultation. Breath sounds equal bilaterally. No wheezes , rales, or rhonchi. GASTROINTESTINAL: Abdomen soft, non-tender, nondistended. Normal, active bowel sounds MUSCULOSKELETAL: mild swelling of the right knee with mild decrease in ROM NEURO: Alert & Oriented x4 to person, place, time, situation. Moves all ext x4 Procedures L3-L5 laminectomy with evacuation of spinal epidural abscess Medications and IVs Current Medications IV Flush 2 ml 2 ml UNSCH PRN IV FLUSH FLUSH AFTER USING IV ACCESS; Start at 20:30; Stop 05/08/17 at 23:34; Status DC Sodium Chloride (NS 1000 ml Inj) 1,000 ml @ 1,000 mls/hr Q1H IV Last administered on 05/08/17 21:10; Start 05/08/17 at 20:30; Stop 05/08/17 at 21:29 ; Status DC Iohexol 96 ml 96 ml STK-MED ONCE IV Last administered on 05/08/17 22:06; Start 05/08/17 at 22:06; Stop 05/08/17 at 22:07; Status DC Sodium Chloride (NS 1000 ml Inj) 1,000 ml @ 2,000 mls/hr Q30M IV Last administered on 05/08/17 23:12; Start 05/08/17 at 23:00; Stop 05/08/17 at 23:29 ; Status DC Ketorolac Tromethamine 30 mg 30 mg ONCE ONCE IVP Last administered on 23:13; Start 05/08/17 at 23:00; Stop 05/08/17 at 23:01; Status DC Ceftriaxone Sodium 2000 mg/ Sodium Chloride 100 ml @ 200 mls/hr ONCE ONCE IV Last administered on 05/08/17 23:16; Start 05/08/17 at 23:00; Stop 05/08/17 at 23:29; Status DC Pharmacy Profile Note 0 ml @ 0 mls/hr UNSCH OTHER ; Start 05/08/17 at 23:15 Cefepime HCl 1000 mg/Sodium Chloride 100 ml @ 200 mls/hr Q12H IV Last administered on 05/16/17 21:09; Start 05/09/17 at 09:00 Sodium Chloride (NS 1000 ml Inj) 1,000 ml @ 100 mls/hr Q10H IV Last administered on 05/11/17 13:37; Start 05/08/17 at 23:14; Stop 05/12/17 at 16:10; Status DC Sodium Chloride (NS Flush) 2 ml UNSCH PRN IV FLUSH FLUSH AFTER USING IV ACCESS Last administered on 05/10/17 01:07; Start 05/08/17 at 23:15; Stop 05/12/17 at 16:11; Status DC Sodium Chloride (NS Flush) 2 ml BID IV FLUSH Last administered on 05/11/17 22: 11; Start 05/09/17 at 09:00; Stop 05/12/17 at 16:11; Status DC Ondansetron HCl (Zofran Inj) 4 mg Q6H PRN IVP NAUSEA OR VOMITING; Start at 23:15 Heparin Sodium (Porcine) (Heparin Inj) 5,000 units Q12HR SQ Last administered on 05/16/17 21:09; Start 05/09/17 at 09:00 Acetaminophen (Tylenol) 650 mg Q6H PRN PO FEVER Last administered on 05/12/17 05:54; Start 05/08/17 at 23:15; Stop 05/12/17 at 16:10; Status DC Senna/Docusate Sodium (Janice-Colace) 1 tab BID PO Last administered on 05/12/17 09:08; Start 05/09/17 at 09:00; Stop 05/12/17 at 16:11; Status DC Magnesium Hydroxide (Milk Of Magnesia Liq) 30 ml Q12H PRN PO MILD - MODERATE CONSTIPATION; Start 05/08/17 at 23:15; Stop 05/09/17 at 09:42; Status DC Sennosides (Senokot) 17.2 mg Q12H PRN PO MODERATE - SEVERE CONSTIPATION; Start 05/08/17 at 23:15 Bisacodyl (Dulcolax Supp) 10 mg DAILY PRN RECTAL SEVERE CONSITIPATION; Start at 23:15; Stop 05/09/17 at 09:42; Status DC Lactulose 30 ml 30 ml DAILY PRN PO SEVERE CONSITIPATION; Start 05/08/17 at 23: 15; Stop 05/09/17 at 09:42; Status DC Vancomycin HCl 1000 mg/Sodium Chloride 250 ml @ 250 mls/hr ONCE ONCE IV Last administered on 05/09/17 00:30; Start 05/09/17 at 00:00; Stop 05/09/17 at 00:59 ; Status DC Vancomycin HCl/ Sodium Chloride (Vancomycin Inj/ NS 250 ml Inj) 250 ml @ 250 mls/hr Q12H IV Last administered on 05/10/17 15:10; Start 05/09/17 at 13:00; Stop 05/10/17 at 19:31; Status DC Miscellaneous Information SPECIFIC LAB TO BE DRAWN:VANCO TROUGH DATE TO... ONCE ONCE .XX Last administered on 05/10/17 12:54; Start 05/10/17 at 12:45; Stop 05/10/17 at 12:46; Status DC Carvedilol (Coreg) 12.5 mg Q12HR PO Last administered on 05/16/17 21:07; Start 05/09/17 at 10:00 Albuterol Sulfate (Albuterol Neb) 2.5 mg Q4HR NEB PRN INH SHORTNESS OF BREATH Last administered on 05/15/17 21:12; Start 05/09/17 at 14:45 Tramadol HCl (Ultram) 50 mg Q4H PRN PO PAIN 1-3 Last administered on 05/12/17 09:08; Start 05/09/17 at 09:45 Ketorolac Tromethamine (Toradol Inj) 30 mg Q6HR PRN IV PUSH PAIN SCALE 4 TO 10 Last administered on 05/10/17 12:14; Start 05/09/17 at 14:45; Stop 05/10/17 at 14:44; Status DC Hydromorphone HCl (Dilaudid Pf Inj) 2 mg Q4H PRN IV PUSH pain not better with toradol Last administered on 05/13/17 12:29; Start 05/09/17 at 14:45 Clonidine (Catapres) 0.1 mg Q6H PRN PO SBP>160, DBP>90 Last administered on 05/13 20:35; Start 05/09/17 at 16:00 Potassium Chloride (KCl Powder) 20 meq ONCE ONCE PO Last administered on 17:15; Start 05/09/17 at 16:15; Stop 05/09/17 at 16:19; Status DC Lorazepam (Ativan Inj) 2 mg ONCE ONCE IV PUSH Last administered on 05/10/17 13:00; Start 05/10/17 at 13:00; Stop 05/10/17 at 13:01; Status DC Gadodiamide 16 ml 16 ml STK-MED ONCE IV Last administered on 05/10/17 14:29; Start 05/10/17 at 14:29; Stop 05/10/17 at 14:30; Status DC Vancomycin HCl/ Sodium Chloride (Vancomycin Inj/ NS 250 ml Inj) 262 ml @ 250 mls/hr Q12H IV Last administered on 05/11/17 01:20; Start 05/11/17 at 01:00; Stop 05/11/17 at 11:26; Status DC Miscellaneous Information SPECIFIC LAB TO BE DRAWN:VANCOMY... ONCE ONCE .XX ; Start 05/12/17 at 12:45; Stop 05/12/17 at 12:46; Status DC Vancomycin HCl/ Sodium Chloride (Vancomycin Inj/ NS 500 ml Inj) 515 ml @ 250 mls/hr Q12H IV Last administered on 05/17/17 00:50; Start 05/11/17 at 13:00 Baclofen (Lioresal) 10 mg Q8HR PRN PO MUSCLE SPASM Last administered on 05:08; Start 05/11/17 at 12:00 Potassium Chloride (KCl) 30 meq ONCE ONCE PO Last administered on 05/11/17 13: 36; Start 05/11/17 at 12:00; Stop 05/11/17 at 13:16; Status DC Potassium Chloride (KCl) 30 meq ONCE ONCE PO Last administered on 05/11/17 18: 02; Start 05/11/17 at 16:00; Stop 05/11/17 at 16:01; Status DC Lorazepam (Ativan) 1 mg Q4H PRN PO CIWA 8-10 Last administered on 05/11/17 22: 12; Start 05/11/17 at 16:00 Lorazepam (Ativan Inj) 1 mg Q4H PRN IV PUSH CIWA 8-10; Start 05/11/17 at 16:00 Lorazepam (Ativan) 2 mg Q2H PRN PO CIWA 11-14; Start 05/11/17 at 16:00 Lorazepam (Ativan Inj) 2 mg Q2H PRN IV PUSH CIWA 11-14 Last administered on 05/11 17:54; Start 05/11/17 at 16:00 Lorazepam (Ativan Inj) 2 mg Q1H PRN IV PUSH CIWA 15-20; Start 05/11/17 at 16:00 Lorazepam (Ativan Inj) 2 mg Q15M PRN IV PUSH CIWA > 20; Start 05/11/17 at 16:00 Haloperidol Lactate (Haldol Inj) 2 mg Q15M PRN IM SEE LABEL COMMENTS; Start 05/11/17 at 16:00 Flumazenil (Romazicon Inj) 0.2 mg Q1M PRN IV PUSH SEE LABEL COMMENTS; Start 05/11/17 at 16:00 Thrombin 25128 units 10,000 units STK-MED ONCE .ROUTE Last administered on 14:56; Start 05/12/17 at 07:22; Stop 05/12/17 at 07:23; Status DC Cefazolin Sodium/ Dextrose (Ancef 2 Gm Premix) 50 ml @ As Directed STK-MED ONCE .ROUTE ; Start 05/12/17 at 07:22; Stop 05/12/17 at 07:23; Status DC Gelatin (Gelfoam 100 Top) 1 foam STK-MED ONCE .ROUTE Last administered on 14:56; Start 05/12/17 at 07:22; Stop 05/12/17 at 07:23; Status DC Gentamicin Sulfate (Gentamicin Inj) 240 mg STK-MED ONCE .ROUTE Last administered on 05/12/17 14:56; Start 05/12/17 at 07:22; Stop 05/12/17 at 07:23; Status DC Hydromorphone HCl (Dilaudid Pf Inj) 2 mg STK-MED ONCE .ROUTE ; Start 05/12/17 at 13:21; Stop 05/12/17 at 13:22; Status DC Acetaminophen (Ofirmev Inj) 1,000 mg STK-MED ONCE IV ; Start 05/12/17 at 13:21; Stop 05/12/17 at 13:22; Status DC Vancomycin HCl 1000 mg 1,000 mg STK-MED ONCE .ROUTE Last administered on 15:08; Start 05/12/17 at 15:07; Stop 05/12/17 at 15:08; Status DC Potassium Chloride/Sodium Chloride (NS + KCl 20 Meq Inj) 1,000 ml @ 100 mls/hr Q10H IV Last administered on 05/15/17 03:21; Start 05/12/17 at 15:59; Status Hold IV Flush (NS Flush) 2 ml UNSCH PRN IVF FLUSH AFTER USING IV ACCESS; Start at 16:00 IV Flush (NS Flush) 2 ml BID IVF Last administered on 05/16/17 21:00; Start 05/12/17 at 21:00 Docusate Sodium (Colace) 100 mg BID PO Last administered on 05/16/17 21:07; Start 05/12/17 at 21:00 Pantoprazole Sodium (Protonix) 40 mg DAILY PO Last administered on 05/16/17 08: 09; Start 05/13/17 at 09:00 Acetaminophen/ Hydrocodone Bitart ([place] 10-325 Mg) 1 tab Q4H PRN PO PAIN 1-5 WHEN TOLERATING PO; Start 05/12/17 at 16:00 Acetaminophen/ Hydrocodone Bitart ([place] 10-325 Mg) 2 tab Q4H PRN PO PAIN 6-10 WHEN TOLERATING PO Last administered on 05/17/17 05:08; Start 05/12/17 at 16:00 Morphine Sulfate (Morphine Inj) 2 mg Q2H PRN IV PUSH PAIN 1-6 IF NOT TOLERATING PO; Start 05/12/17 at 16:00 Morphine Sulfate (Morphine Inj) 4 mg Q2H PRN IV PUSH PAIN 7-10 IF NOT TOLERATING PO Last administered on 05/13/17 20:35; Start 05/12/17 at 16:00 Acetaminophen (Tylenol) 650 mg Q4H PRN PO TEMPERATURE > 101.5 F; Start 05/12/17 at 16:00 Miscellaneous Information SPECIFIC LAB TO BE DRAWN:VANCOMYCIN TROUGH DATE TO... ONCE ONCE .XX Last administered on 05/13/17 00:45; Start 05/13/17 at 00:45; Stop 05/13/17 at 00:46; Status DC Midazolam HCl (Versed Inj) 2 mg STK-MED ONCE .ROUTE ; Start 05/12/17 at 16:20; Stop 05/12/17 at 16:21; Status DC Fentanyl Citrate (fentaNYL INJ) 500 mcg STK-MED ONCE .ROUTE ; Start 05/12/17 at 16:20; Stop 05/12/17 at 16:21; Status DC Morphine Sulfate (*morphine INJ PERIprocedure ONLY) 8 mg STK-MED ONCE .ROUTE Last administered on 05/12/17 16:20; Start 05/12/17 at 16:20; Stop 05/12/17 at 16: 21; Status DC Miscellaneous Information ALL NURSING DEPARTME... UNSCH PRN .XX SEE LABEL COMMENTS; Start 05/12/17 at 16:12; Stop 05/13/17 at 16:11; Status DC Morphine Sulfate (*morphine INJ PERIprocedure ONLY) 8 mg STK-MED ONCE .ROUTE Last administered on 05/12/17 16:31; Start 05/12/17 at 16:31; Stop 05/12/17 at 16: 32; Status DC Miscellaneous Information SPECIFIC LAB TO BE ARLENE... ONCE ONCE .XX Last administered on 05/16/17 00:45; Start 05/16/17 at 00:45; Stop 05/16/17 at 00:46; Status DC A/P Assessment and Plan A/P (1) Sepsis due to epidural abscess s/p L3-L5 laminectomy with evacuation of spinal epidural abscess continue Vanco and Cefepime- antibiotics per ID. HIV/hepatitis panel negative. neurosurgery and ID following. continue with pain control. (2) MRSA Bacteremia continue Vancomycin echo with no vegetation repeated blood cultures from 05/13 negative so far. ID following. (3) Rhabdomyolysis-resolved. due to cocaine use versus musculoskeletal injury (4) Shoulder pain, right- improving. MRI with Moderate hypertrophic changes are seen in the AC joint indenting the subacromial fat plane to a slight degree with adjacent subcutaneous edema possibly inflammatory without evidence for abscess formation. continue with pain control- (5) Encephalopathy, toxic-resolved. (6) HTN (hypertension) Continue Coreg and clonidine as needed (7)- hypokalemia; replaced. (8)- right knee pain; obtain XR DVT prophylaxis with SCD's. Toño Waterman MD May 17, 2017 09:09
[2017-05-17 09:47] LABS: AUTOMATED NEUTROPHIL # 7.4 TH/MM3 (1.8-7.7); BASOPHIL % 0.5 % (0.0-2.0); EOSINOPHIL # 0.1 TH/MM3 (0-0.4); EOSINOPHIL % 1.3 % (0.0-4.0); HEMATOCRIT 26.8 % (35.0-46.0); HEMO FLAGS DIFF FINAL; LYMPH % 13.1 % (9.0-44.0); LYMPHOCYTE # 1.2 TH/MM3 (1.0-4.8); MEAN CELL VOLUME 95.9 FL (80.0-100.0); MEAN CORPUSCULAR HEMOGLOBIN 32.7 PG (27.0-34.0); MEAN CORPUSCULAR HGB CONC 34.1 % (32.0-36.0); MONO % 5.7 % (0.0-8.0); NEUT % 79.4 % (16.0-70.0); PLATELET COUNT 323 TH/MM3 (150-450); RED BLOOD COUNT 2.79 MIL/MM3 (4.00-5.30); RED CELL DISTRIBUTION WIDTH 13.8 % (11.6-17.2); WHITE BLOOD COUNT 9.3 TH/MM3 (4.0-11.0)
[2017-05-17] MEDS: CEFEPIME INJ 1,000 MG in SODIUM CHLORIDE 0.9% INJ 100 ML IV SCH (09:53)
[2017-05-17] MEDS: CARVEDILOL 12.5 MG TAB PO SCH ×2 (09:54→21:01)
[2017-05-17] MEDS: DOCUSATE SODIUM 100 MG CAP PO SCH ×2 (09:54→21:01)
[2017-05-17] MEDS: PANTOPRAZOLE SOD 40 MG DELAYED RELEASE TAB PO SCH (09:54)
[2017-05-17] MEDS: HEPARIN SODIUM - SQ 10,000 UNITS/ML VIAL SQ SCH ×2 (09:55→21:05)
[2017-05-17 10:17] LABS: ALT (GPT) 19 U/L (10-53); ANION GAP 9 MEQ/L (5-15); AST (GOT) 22 U/L (15-37); BLOOD UREA NITROGEN 6 MG/DL (7-18); CHLORIDE 101 MEQ/L (98-107); GLOMERULAR FILTRATION RATE 104 ML/MIN (>89); POTASSIUM 3.8 MEQ/L (3.5-5.1); SODIUM (NA) 138 MEQ/L (136-145)
[2017-05-17 10:20] LABS: ALKALINE PHOSPHATASE 101 U/L (45-117); TOTAL BILIRUBIN ADULT 0.4 MG/DL (0.2-1.0)
--- NOTE | 2017-05-17 11:24 | RADRPT ---
EXAM DATE/TIME: 05/17/2017 11:06 [facility] COMPARISON: No previous studies available for comparison. INDICATIONS : Right knee pain. MEDICAL HISTORY : injured right knee 6 years ago. SURGICAL HISTORY : None. ENCOUNTER: Initial ACUITY: 1 day PAIN SCORE: 7/10 LOCATION: Right knee FINDINGS: Four view examination of the right knee demonstrates no evidence of fracture or dislocation. Bony mi neralization is normal. The articular surfaces are intact. The suprapatellar soft tissues have a no rmal configuration. Soft tissue swelling is identified in the mid to lower thigh. CONCLUSION: Soft tissue swelling in the thigh. Intact knee joint without evidence of acute fracture or significant arthropathy. Cl Harris MD on May 17, 2017 at 11:22 Board Certified Radiologist. This report was verified electronically.
[2017-05-17 12:00] VITALS: BP 141/69; PULSE 65; RESP 17; TEMP 98.5; O2SAT 97
--- NOTE | 2017-05-17 15:29 | HHI.IDPN ---
Subjective Subjective Remarks ID COVERAGE is a 51 y/o CF with PMHx of uncontrolled hypertension due to nonadherence, h/o drug abuse denies IVDA, chronic smoking. Patient comes in over the last 4 days to the emergency room several times weekly multiple things. Initially there is a leg laceration and there was some pain which was called sciatica and at that ER evaluation she was given baclofen and Ultram and Medrol Dosepak. Patient subsequently came in within 24 hours with an altered mental status per her fianc. She was confused and unable to provide a good history. She also presented with a fever of 102.1 with elevated cardiac isoenzymes CPK troponin were elevated and the patient was complaining of leg and shoulder cramping. Patient had a white cell count was elevated and evidence of acute renal failure. She has evidence of urinary tract infections been treated for sepsis and admitted to the hospital. Patient is also complaining of right shoulder pain which is 10 out of 10 and worse with movement of the shoulder and improved with keeping it still. Patient has never had this before and was very concerned. She never had sciatica before either and has had difficulty walking due to the pain. She was recommended for further imaging but has refused due to increased pain. She did have x-ray of the shoulder which was unremarkable for any fracture or bony injury. She does admit to cocaine and marijuana as well as excessive tobacco and alcohol use. She is tearful and requested to go home however she realizes she cannot move due to pain. Patient is admitted for sepsis workup. Blood cultures drawn on admission are positive for MRSA susceptibility pending. Patient additionally has had an MRI spine as well as MRI shoulder. MRI shoulder with some edema concerning for Infectious myositis. Notes reviewed Has low grade temps Voiding ok No diarrhea CHRISTEN drain still in place No N/V OR C/S MRSA Repeat BC 05/13 negative Antibiotics Cefepime IV Vanco IV Lines Line sites with no e.o infection Past Medical History Hypertension COPD/asthma , dental extraction Allergies: Coded Allergies: Bee Sting (Verified Allergy, Severe, ANAPHYLAXIS, 05/08/17) Peanut (Verified Allergy, Severe, ANAPHYLAXIS, 05/08/17) *MDRO Multi-Drug Resistant Organism (Verified Adverse Reaction, Unknown, ) MRSA (blood) 05/08/17, 05/10/17, (back) 05/12/17 Objective . Vital Signs Date Time Temp Pulse Resp B/P Pulse Ox O2 Delivery O2 Flow Rate FiO2 05/17/17 12:00 98.5 65 17 141/69 97 05/17/17 08:00 98.7 70 18 130/77 97 05/17/17 04:22 98.9 66 17 137/75 96 05/17/17 00:30 100.7 80 17 143/68 97 05/16/17 20:30 99.6 70 17 161/72 98 05/16/17 20:00 68 05/16/17 16:00 99.0 67 16 132/74 97 05/16/17 05/16/17 05/17/17 14:59 22:59 06:59 Intake Total 360 ml Output Total 45 ml Balance -45 ml 360 ml Intake Oral 360 ml Drainage Total 45 ml # Voids 2 4 . Laboratory Tests Test 05/17/17 08:56 White Blood Count 9.3 TH/MM3 Red Blood Count 2.79 MIL/MM3 Hemoglobin 9.1 GM/DL Hematocrit 26.8 % Mean Corpuscular Volume 95.9 FL Mean Corpuscular Hemoglobin 32.7 PG Mean Corpuscular Hemoglobin 34.1 % Concent Red Cell Distribution Width 13.8 % Platelet Count 323 TH/MM3 Mean Platelet Volume 7.9 FL Neutrophils (%) (Auto) 79.4 % Lymphocytes (%) (Auto) 13.1 % Monocytes (%) (Auto) 5.7 % Eosinophils (%) (Auto) 1.3 % Basophils (%) (Auto) 0.5 % Neutrophils # (Auto) 7.4 TH/MM3 Lymphocytes # (Auto) 1.2 TH/MM3 Monocytes # (Auto) 0.5 TH/MM3 Eosinophils # (Auto) 0.1 TH/MM3 Basophils # (Auto) 0.0 TH/MM3 CBC Comment DIFF FINAL Differential Comment Laboratory Tests Test 05/17/17 08:56 Sodium Level 138 MEQ/L Potassium Level 3.8 MEQ/L Chloride Level 101 MEQ/L Carbon Dioxide Level 28.0 MEQ/L Anion Gap 9 MEQ/L Blood Urea Nitrogen 6 MG/DL Creatinine 0.72 MG/DL Estimat Glomerular Filtration 104 ML/MIN Rate Random Glucose 97 MG/DL Calcium Level 8.3 MG/DL Total Bilirubin 0.4 MG/DL Aspartate Amino Transf 22 U/L (AST/SGOT) Alanine Aminotransferase 19 U/L (ALT/SGPT) Alkaline Phosphatase 101 U/L Total Protein 6.3 GM/DL Albumin 1.8 GM/DL Imaging Last Impressions Shoulder MRI 05/10/17 0000 Signed Impressions: Service Date/Time: Wednesday, May 10, 2017 12:48 - CONCLUSION: Moderate hypertrophic changes are seen in the AC joint indenting the subacromial fat plane to a slight degree with adjacent subcutaneous edema possibly inflammatory without evidence for abscess formation. Clement Valentin MD Lumbar Spine MRI 05/10/17 0000 Signed Impressions: Service Date/Time: Wednesday, May 10, 2017 12:48 - CONCLUSION: Interval development of epidural abscess dorsally extending from L3-[address] to mid body of L5 causing moderate thecal sac stenosis at L3-4 and L4-5 levels. Findings were discussed with Dr. Rogers on 05/10/2017 at the time of this dictation at 4:15 hours. Clement Valentin MD Chest CT 05/08/17 2331 Signed Impressions: Service Date/Time: Monday, May 08, 2017 23:29 - CONCLUSION: Normal examination. Edis Fox MD Shoulder X-Ray 05/08/172046 Signed Impressions: Service Date/Time: Monday, May 08, 2017 21:05 - CONCLUSION: Negative two-view examination of the shoulder. Trevin Deleon MD Abdomen/Pelvis CT 05/08/172046 Signed Impressions: Service Date/Time: Monday, May 08, 2017 22:08 - CONCLUSION: No acute findings in the abdomen and pelvis. Trevin Deleon MD Physical Exam GENERAL: Awake and alert, NAD SKIN: No rashes, ecchymoses or lesions. Cool and dry. HEAD: Atraumatic. Normocephalic. No temporal or scalp tenderness. EYES: Pupils equal round and reactive. Extraocular motions intact. No scleral icterus. No injection or drainage. ENT: Nose without bleeding, purulent drainage or septal hematoma. Throat without erythema, NECK: Trachea midline. Supple, nontender, no meningeal signs. CARDIOVASCULAR: Regular rate and rhythm without murmurs, gallops, or rubs. RESPIRATORY: Clear to auscultation. Breath sounds equal bilaterally. No wheezes , rales, or rhonchi. GASTROINTESTINAL: Abdomen soft, non-tender, nondistended. BACK: Incision ok. Some staining in dressing MUSCULOSKELETAL: Extremities without clubbing, cyanosis, or edema. No calf tenderness NEUROLOGICAL: Awake and alert. moves extremities. Psych: cooperative IV line sites with no e/o infection. Assessment & Plan Remarks Sepsis present on admission MRSA bacteremia Infective Myositis Possible spinal epidural abscess MRI spine pending. Post-op fever Recs Stop Cefepime Continue Vanco IV target trough 15-20 Follow C/S UA and C/S Monitor temps Repeat BC with next fever Explained plan to the patient Samra Nolan MD May 17, 2017 15:29
[2017-05-17 16:00] VITALS: BP 169/80; PULSE 66; RESP 18; TEMP 100.1; O2SAT 96
[2017-05-17 20:00] VITALS: BP 149/77; PULSE 78; RESP 18; TEMP 99.8; O2SAT 94
[2017-05-17 20:36] LABS: BLOOD, URINE NEG (NEG); COMMENT (UR) CULT NOT INDICATED; CULTURE IF INDICATED CULT NOT INDICATED; GLUCOSE,URINE NEG (NEG); KETONE, URINE NEG (NEG); MUCUS URINE FEW /lpf (OCC); NITRITE,URINE NEG (NEG); PH, URINE 6.5 (5.0-8.5); SQUAMOUS EPITHELIAL CELL URINE <1 /hpf (0-5); URINE COLOR LIGHT-YELLOW (YELLW/STRAW)
[2017-05-18] VITALS (9 sets, daily range): BP systolic 132–192; BP diastolic 73–93; PULSE 65–72; RESP 17–18; TEMP 98.9–100; O2SAT 93–100
[2017-05-18] MEDS: ACETAMINOPHEN/HYDROcodone 325 MG/10 MG TAB PO PRN ×5 (00:59→20:35)
[2017-05-18] MEDS: VANCOMYCIN INJ 1,500 MG in SODIUM CHLORID 0.9% 500 ML INJ 500 ML IV SCH ×2 (00:59→13:34)
[2017-05-18] MEDS: BACLOFEN 10 MG TAB PO PRN ×2 (06:19→14:08)
--- NOTE | 2017-05-18 07:46 | HHI.PR ---
Subjective Remarks in no acute distress. right knee pain is better. back pain is mild. T max 100.1. no other new complaints. Objective Vitals Vital Signs Date Time Temp Pulse Resp B/P Pulse Ox O2 Delivery O2 Flow Rate FiO2 05/18/17 04:00 99.6 69 18 153/77 100 05/18/17 03:39 66 05/18/17 00:00 98.9 65 18 162/85 97 05/17/17 20:00 99.8 78 18 149/77 94 05/17/17 16:00 100.1 66 18 169/80 96 05/17/17 12:00 98.5 65 17 141/69 97 05/17/17 08:00 98.7 70 18 130/77 97 05/17/17 08:00 81 I/O 05/17/17 05/17/17 05/17/17 05/18/17 05/18/17 05/18/17 07:00 15:00 23:00 07:00 15:00 23:00 Intake Total 360 ml 480 ml Balance 360 ml 480 ml Intake Oral 360 ml 480 ml # Voids 4 4 6 # Bowel Movements 0 2 Result Diagram: 05/17/17 0856 05/17/17 0856 Imaging Last Impressions Knee X-Ray 05/17/17 0000 Signed Impressions: Service Date/Time: Wednesday, May 17, 2017 11:06 - CONCLUSION: Soft tissue swelling in the thigh. Intact knee joint without evidence of acute fracture or significant arthropathy. Cl Harris MD Lumbar Spine X-Ray 05/12/17 0000 Signed Impressions: Service Date/Time: Friday, May 12, 2017 14:28 - CONCLUSION: Limited image as detailed above. Trevin Fuentes Jr., MD Shoulder MRI 05/10/17 0000 Signed Impressions: Service Date/Time: Wednesday, May 10, 2017 12:48 - CONCLUSION: Moderate hypertrophic changes are seen in the AC joint indenting the subacromial fat plane to a slight degree with adjacent subcutaneous edema possibly inflammatory without evidence for abscess formation. Clement Valentin MD Lumbar Spine MRI 05/10/17 0000 Signed Impressions: Service Date/Time: Wednesday, May 10, 2017 12:48 - CONCLUSION: Interval development of epidural abscess dorsally extending from L3-[address] to mid body of L5 causing moderate thecal sac stenosis at L3-4 and L4-5 levels. Findings were discussed with Dr. Rogers on 05/10/2017 at the time of this dictation at 4:15 hours. Clement Valentin MD Chest CT 05/08/17 2331 Signed Impressions: Service Date/Time: Monday, May 08, 2017 23:29 - CONCLUSION: Normal examination. Edis Fox MD Shoulder X-Ray [id number] Signed Impressions: Service Date/Time: Monday, May 08, 2017 21:05 - CONCLUSION: Negative two-view examination of the shoulder. Trevin Deleon MD Abdomen/Pelvis CT [id number]/[id number] Signed Impressions: Service Date/Time: Monday, May 08, 2017 22:08 - CONCLUSION: No acute findings in the abdomen and pelvis. Trevin Deleon MD Objective Remarks GENERAL: This is a well-nourished, well-developed patient, in no apparent distress. CARDIOVASCULAR: Regular rate and regular rhythm without murmurs, gallops, or rubs. RESPIRATORY: Clear to auscultation. Breath sounds equal bilaterally. No wheezes , rales, or rhonchi. GASTROINTESTINAL: Abdomen soft, non-tender, nondistended. Normal, active bowel sounds MUSCULOSKELETAL: mild swelling of the right knee with mild decrease in ROM- seems better today. NEURO: Alert & Oriented x4 to person, place, time, situation. Moves all ext x4 Procedures L3-L5 laminectomy with evacuation of spinal epidural abscess Medications and IVs Current Medications IV Flush 2 ml 2 ml UNSCH PRN IV FLUSH FLUSH AFTER USING IV ACCESS; Start at 20:30; Stop 05/08/17 at 23:34; Status DC Sodium Chloride (NS 1000 ml Inj) 1,000 ml @ 1,000 mls/hr Q1H IV Last administered on 05/08/17 21:10; Start 05/08/17 at 20:30; Stop 05/08/17 at 21:29 ; Status DC Iohexol 96 ml 96 ml STK-MED ONCE IV Last administered on 05/08/17 22:06; Start 05/08/17 at 22:06; Stop 05/08/17 at 22:07; Status DC Sodium Chloride (NS 1000 ml Inj) 1,000 ml @ 2,000 mls/hr Q30M IV Last administered on 05/08/17 23:12; Start 05/08/17 at 23:00; Stop 05/08/17 at 23:29 ; Status DC Ketorolac Tromethamine 30 mg 30 mg ONCE ONCE IVP Last administered on 23:13; Start 05/08/17 at 23:00; Stop 05/08/17 at 23:01; Status DC Ceftriaxone Sodium 2000 mg/ Sodium Chloride 100 ml @ 200 mls/hr ONCE ONCE IV Last administered on 05/08/17 23:16; Start 05/08/17 at 23:00; Stop 05/08/17 at 23:29; Status DC Pharmacy Profile Note 0 ml @ 0 mls/hr UNSCH OTHER ; Start 05/08/17 at 23:15 Cefepime HCl 1000 mg/Sodium Chloride 100 ml @ 200 mls/hr Q12H IV Last administered on 05/17/17 09:53; Start 05/09/17 at 09:00; Stop 05/17/17 at 15:27; Status DC Sodium Chloride (NS 1000 ml Inj) 1,000 ml @ 100 mls/hr Q10H IV Last administered on 05/11/17 13:37; Start 05/08/17 at 23:14; Stop 05/12/17 at 16:10; Status DC Sodium Chloride (NS Flush) 2 ml UNSCH PRN IV FLUSH FLUSH AFTER USING IV ACCESS Last administered on 05/10/17 01:07; Start 05/08/17 at 23:15; Stop 05/12/17 at 16:11; Status DC Sodium Chloride (NS Flush) 2 ml BID IV FLUSH Last administered on 05/11/17 22: 11; Start 05/09/17 at 09:00; Stop 05/12/17 at 16:11; Status DC Ondansetron HCl (Zofran Inj) 4 mg Q6H PRN IVP NAUSEA OR VOMITING; Start at 23:15 Heparin Sodium (Porcine) (Heparin Inj) 5,000 units Q12HR SQ Last administered on 05/17/17 21:05; Start 05/09/17 at 09:00 Acetaminophen (Tylenol) 650 mg Q6H PRN PO FEVER Last administered on 05/12/17 05:54; Start 05/08/17 at 23:15; Stop 05/12/17 at 16:10; Status DC Senna/Docusate Sodium (Janice-Colace) 1 tab BID PO Last administered on 05/12/17 09:08; Start 05/09/17 at 09:00; Stop 05/12/17 at 16:11; Status DC Magnesium Hydroxide (Milk Of Magnesia Liq) 30 ml Q12H PRN PO MILD - MODERATE CONSTIPATION; Start 05/08/17 at 23:15; Stop 05/09/17 at 09:42; Status DC Sennosides (Senokot) 17.2 mg Q12H PRN PO MODERATE - SEVERE CONSTIPATION; Start 05/08/17 at 23:15 Bisacodyl (Dulcolax Supp) 10 mg DAILY PRN RECTAL SEVERE CONSITIPATION; Start at 23:15; Stop 05/09/17 at 09:42; Status DC Lactulose 30 ml 30 ml DAILY PRN PO SEVERE CONSITIPATION; Start 05/08/17 at 23: 15; Stop 05/09/17 at 09:42; Status DC Vancomycin HCl 1000 mg/Sodium Chloride 250 ml @ 250 mls/hr ONCE ONCE IV Last administered on 05/09/17 00:30; Start 05/09/17 at 00:00; Stop 05/09/17 at 00:59 ; Status DC Vancomycin HCl/ Sodium Chloride (Vancomycin Inj/ NS 250 ml Inj) 250 ml @ 250 mls/hr Q12H IV Last administered on 05/10/17 15:10; Start 05/09/17 at 13:00; Stop 05/10/17 at 19:31; Status DC Miscellaneous Information SPECIFIC LAB TO BE DRAWN:VANCO TROUGH DATE TO... ONCE ONCE .XX Last administered on 05/10/17 12:54; Start 05/10/17 at 12:45; Stop 05/10/17 at 12:46; Status DC Carvedilol (Coreg) 12.5 mg Q12HR PO Last administered on 05/17/17 21:01; Start 05/09/17 at 10:00 Albuterol Sulfate (Albuterol Neb) 2.5 mg Q4HR NEB PRN INH SHORTNESS OF BREATH Last administered on 05/15/17 21:12; Start 05/09/17 at 14:45 Tramadol HCl (Ultram) 50 mg Q4H PRN PO PAIN 1-3 Last administered on 05/12/17 09:08; Start 05/09/17 at 09:45 Ketorolac Tromethamine (Toradol Inj) 30 mg Q6HR PRN IV PUSH PAIN SCALE 4 TO 10 Last administered on 05/10/17 12:14; Start 05/09/17 at 14:45; Stop 05/10/17 at 14:44; Status DC Hydromorphone HCl (Dilaudid Pf Inj) 2 mg Q4H PRN IV PUSH pain not better with toradol Last administered on 05/13/17 12:29; Start 05/09/17 at 14:45 Clonidine (Catapres) 0.1 mg Q6H PRN PO SBP>160, DBP>90 Last administered on 05/13 20:35; Start 05/09/17 at 16:00 Potassium Chloride (KCl Powder) 20 meq ONCE ONCE PO Last administered on 17:15; Start 05/09/17 at 16:15; Stop 05/09/17 at 16:19; Status DC Lorazepam (Ativan Inj) 2 mg ONCE ONCE IV PUSH Last administered on 05/10/17 13:00; Start 05/10/17 at 13:00; Stop 05/10/17 at 13:01; Status DC Gadodiamide 16 ml 16 ml STK-MED ONCE IV Last administered on 05/10/17 14:29; Start 05/10/17 at 14:29; Stop 05/10/17 at 14:30; Status DC Vancomycin HCl/ Sodium Chloride (Vancomycin Inj/ NS 250 ml Inj) 262 ml @ 250 mls/hr Q12H IV Last administered on 05/11/17 01:20; Start 05/11/17 at 01:00; Stop 05/11/17 at 11:26; Status DC Miscellaneous Information SPECIFIC LAB TO BE DRAWN:VANCOMY... ONCE ONCE .XX ; Start 05/12/17 at 12:45; Stop 05/12/17 at 12:46; Status DC Vancomycin HCl/ Sodium Chloride (Vancomycin Inj/ NS 500 ml Inj) 515 ml @ 250 mls/hr Q12H IV Last administered on 05/18/17 00:59; Start 05/11/17 at 13:00 Baclofen (Lioresal) 10 mg Q8HR PRN PO MUSCLE SPASM Last administered on 06:19; Start 05/11/17 at 12:00 Potassium Chloride (KCl) 30 meq ONCE ONCE PO Last administered on 05/11/17 13: 36; Start 05/11/17 at 12:00; Stop 05/11/17 at 13:16; Status DC Potassium Chloride (KCl) 30 meq ONCE ONCE PO Last administered on 05/11/17 18: 02; Start 05/11/17 at 16:00; Stop 05/11/17 at 16:01; Status DC Lorazepam (Ativan) 1 mg Q4H PRN PO CIWA 8-10 Last administered on 05/11/17 22: 12; Start 05/11/17 at 16:00 Lorazepam (Ativan Inj) 1 mg Q4H PRN IV PUSH CIWA 8-10; Start 05/11/17 at 16:00 Lorazepam (Ativan) 2 mg Q2H PRN PO CIWA 11-14; Start 05/11/17 at 16:00 Lorazepam (Ativan Inj) 2 mg Q2H PRN IV PUSH CIWA 11-14 Last administered on 05/11 17:54; Start 05/11/17 at 16:00 Lorazepam (Ativan Inj) 2 mg Q1H PRN IV PUSH CIWA 15-20; Start 05/11/17 at 16:00 Lorazepam (Ativan Inj) 2 mg Q15M PRN IV PUSH CIWA > 20; Start 05/11/17 at 16:00 Haloperidol Lactate (Haldol Inj) 2 mg Q15M PRN IM SEE LABEL COMMENTS; Start 05/11/17 at 16:00 Flumazenil (Romazicon Inj) 0.2 mg Q1M PRN IV PUSH SEE LABEL COMMENTS; Start 05/11/17 at 16:00 Thrombin 64951 units 10,000 units STK-MED ONCE .ROUTE Last administered on 14:56; Start 05/12/17 at 07:22; Stop 05/12/17 at 07:23; Status DC Cefazolin Sodium/ Dextrose (Ancef 2 Gm Premix) 50 ml @ As Directed STK-MED ONCE .ROUTE ; Start 05/12/17 at 07:22; Stop 05/12/17 at 07:23; Status DC Gelatin (Gelfoam 100 Top) 1 foam STK-MED ONCE .ROUTE Last administered on 14:56; Start 05/12/17 at 07:22; Stop 05/12/17 at 07:23; Status DC Gentamicin Sulfate (Gentamicin Inj) 240 mg STK-MED ONCE .ROUTE Last administered on 05/12/17 14:56; Start 05/12/17 at 07:22; Stop 05/12/17 at 07:23; Status DC Hydromorphone HCl (Dilaudid Pf Inj) 2 mg STK-MED ONCE .ROUTE ; Start 05/12/17 at 13:21; Stop 05/12/17 at 13:22; Status DC Acetaminophen (Ofirmev Inj) 1,000 mg STK-MED ONCE IV ; Start 05/12/17 at 13:21; Stop 05/12/17 at 13:22; Status DC Vancomycin HCl 1000 mg 1,000 mg STK-MED ONCE .ROUTE Last administered on 15:08; Start 05/12/17 at 15:07; Stop 05/12/17 at 15:08; Status DC Potassium Chloride/Sodium Chloride (NS + KCl 20 Meq Inj) 1,000 ml @ 100 mls/hr Q10H IV Last administered on 05/15/17 03:21; Start 05/12/17 at 15:59; Status Hold IV Flush (NS Flush) 2 ml UNSCH PRN IVF FLUSH AFTER USING IV ACCESS; Start at 16:00 IV Flush (NS Flush) 2 ml BID IVF Last administered on 05/17/17 21:00; Start 05/12/17 at 21:00 Docusate Sodium (Colace) 100 mg BID PO Last administered on 05/17/17 21:01; Start 05/12/17 at 21:00 Pantoprazole Sodium (Protonix) 40 mg DAILY PO Last administered on 05/17/17 09: 54; Start 05/13/17 at 09:00 Acetaminophen/ Hydrocodone Bitart ([place] 10-325 Mg) 1 tab Q4H PRN PO PAIN 1-5 WHEN TOLERATING PO Last administered on 05/17/17 17:50; Start 05/12/17 at 16:00 Acetaminophen/ Hydrocodone Bitart ([place] 10-325 Mg) 2 tab Q4H PRN PO PAIN 6-10 WHEN TOLERATING PO Last administered on 05/18/17 06:21; Start 05/12/17 at 16:00 Morphine Sulfate (Morphine Inj) 2 mg Q2H PRN IV PUSH PAIN 1-6 IF NOT TOLERATING PO; Start 05/12/17 at 16:00 Morphine Sulfate (Morphine Inj) 4 mg Q2H PRN IV PUSH PAIN 7-10 IF NOT TOLERATING PO Last administered on 05/13/17 20:35; Start 05/12/17 at 16:00 Acetaminophen (Tylenol) 650 mg Q4H PRN PO TEMPERATURE > 101.5 F; Start 05/12/17 at 16:00 Miscellaneous Information SPECIFIC LAB TO BE DRAWN:VANCOMYCIN TROUGH DATE TO... ONCE ONCE .XX Last administered on 05/13/17 00:45; Start 05/13/17 at 00:45; Stop 05/13/17 at 00:46; Status DC Midazolam HCl (Versed Inj) 2 mg STK-MED ONCE .ROUTE ; Start 05/12/17 at 16:20; Stop 05/12/17 at 16:21; Status DC Fentanyl Citrate (fentaNYL INJ) 500 mcg STK-MED ONCE .ROUTE ; Start 05/12/17 at 16:20; Stop 05/12/17 at 16:21; Status DC Morphine Sulfate (*morphine INJ PERIprocedure ONLY) 8 mg STK-MED ONCE .ROUTE Last administered on 05/12/17 16:20; Start 05/12/17 at 16:20; Stop 05/12/17 at 16: 21; Status DC Miscellaneous Information ALL NURSING DEPARTME... UNSCH PRN .XX SEE LABEL COMMENTS; Start 05/12/17 at 16:12; Stop 05/13/17 at 16:11; Status DC Morphine Sulfate (*morphine INJ PERIprocedure ONLY) 8 mg STK-MED ONCE .ROUTE Last administered on 05/12/17 16:31; Start 05/12/17 at 16:31; Stop 05/12/17 at 16: 32; Status DC Miscellaneous Information SPECIFIC LAB TO BE ARLENE... ONCE ONCE .XX Last administered on 05/16/17t 00:45; Start 05/16/17 at 00:45; Stop 05/16/17 at 00:46; Status DC Miscellaneous Information SPECIFIC LAB TO BE ... ONCE ONCE .XX ; Start at 12:45; Stop 05/19/17 at 12:46 A/P Assessment and Plan A/P (1) Sepsis due to epidural abscess s/p L3-L5 laminectomy with evacuation of spinal epidural abscess continue Vanco - antibiotics per ID. HIV/hepatitis panel negative. neurosurgery and ID following. continue with pain control. (2) MRSA Bacteremia continue Vancomycin echo with no vegetation repeated blood cultures from 05/13 negative so far. ID following. (3) Rhabdomyolysis-resolved. due to cocaine use versus musculoskeletal injury (4) Shoulder pain, right- improving. MRI with Moderate hypertrophic changes are seen in the AC joint indenting the subacromial fat plane to a slight degree with adjacent subcutaneous edema possibly inflammatory without evidence for abscess formation. continue with pain control- (5) Encephalopathy, toxic-resolved. (6) HTN (hypertension) Continue Coreg and clonidine as needed (7)- hypokalemia; replaced. (8)- right knee pain; XR with no fracture or significant arthropathy- continue pain control. DVT prophylaxis with SCD's. Toño Waterman MD May 18, 2017 07:46
[2017-05-18] MEDS: HEPARIN SODIUM - SQ 10,000 UNITS/ML VIAL SQ SCH ×2 (08:31→20:35)
[2017-05-18] MEDS: SODIUM CHLORIDE 0.9% FLUSH 5 ML FLUSH IVF SCH ×2 (08:31→20:36)
[2017-05-18] MEDS: PANTOPRAZOLE SOD 40 MG DELAYED RELEASE TAB PO SCH (08:31)
[2017-05-18] MEDS: DOCUSATE SODIUM 100 MG CAP PO SCH ×2 (08:31→20:35)
[2017-05-18] MEDS: CARVEDILOL 12.5 MG TAB PO SCH ×2 (08:58→20:35)
[2017-05-18] MEDS: cloNIDine HCL 0.1 MG TAB PO PRN (17:02)
[2017-05-18] MEDS: RESP: ALBUTEROL 2.5 MG/3 ML NEB (PRN) INH (21:14)
[2017-05-19] VITALS (7 sets, daily range): BP systolic 119–158; BP diastolic 60–78; PULSE 62–73; RESP 17–20; TEMP 98–100.3; O2SAT 96–98
[2017-05-19] MEDS: BACLOFEN 10 MG TAB PO PRN ×3 (00:11→22:05)
[2017-05-19] MEDS: VANCOMYCIN INJ 1,500 MG in SODIUM CHLORID 0.9% 500 ML INJ 500 ML IV SCH ×2 (00:11→14:08)
[2017-05-19] MEDS: ACETAMINOPHEN/HYDROcodone 325 MG/10 MG TAB PO PRN ×6 (00:59→22:05)
--- NOTE | 2017-05-19 09:29 | HHI.PR ---
Subjective Remarks resting comfortably with no distress. pain is better. no fever this morning. no new complaints. Objective Vitals Vital Signs Date Time Temp Pulse Resp B/P Pulse Ox O2 Delivery O2 Flow Rate FiO2 05/19/17 08:00 98.8 68 18 132/64 96 05/19/17 04:00 98.9 62 18 150/74 97 05/19/17 00:00 98.0 68 18 130/69 97 05/18/17 22:00 65 05/18/17 21:45 99.7 66 17 137/73 96 05/18/17 16:27 99.3 72 18 192/93 98 05/18/17 12:42 100.0 65 18 132/76 95 I/O 05/18/17 05/18/17 05/18/17 05/19/17 05/19/17 05/19/17 07:00 15:00 23:00 07:00 15:00 23:00 Intake Total 480 ml 850 ml 1325 ml Balance 480 ml 850 ml 1325 ml Intake Oral 480 ml 850 ml 825 ml IV Total 500 ml # Voids 6 3 1 4 # Bowel Movements 2 0 0 Result Diagram: 05/17/17 0856 05/17/17 0856 Imaging Last Impressions Knee X-Ray 05/17/17 0000 Signed Impressions: Service Date/Time: Wednesday, May 17, 2017 11:06 - CONCLUSION: Soft tissue swelling in the thigh. Intact knee joint without evidence of acute fracture or significant arthropathy. Cl Harris MD Lumbar Spine X-Ray 05/12/17 0000 Signed Impressions: Service Date/Time: Friday, May 12, 2017 14:28 - CONCLUSION: Limited image as detailed above. Trevin Fuentes Jr., MD Shoulder MRI 05/10/17 0000 Signed Impressions: Service Date/Time: Wednesday, May 10, 2017 12:48 - CONCLUSION: Moderate hypertrophic changes are seen in the AC joint indenting the subacromial fat plane to a slight degree with adjacent subcutaneous edema possibly inflammatory without evidence for abscess formation. Clement Valentin MD Lumbar Spine MRI 05/10/17 0000 Signed Impressions: Service Date/Time: Wednesday, May 10, 2017 12:48 - CONCLUSION: Interval development of epidural abscess dorsally extending from L3-[address] to mid body of L5 causing moderate thecal sac stenosis at L3-4 and L4-5 levels. Findings were discussed with Dr. Rogers on 05/10/2017 at the time of this dictation at 4:15 hours. Clement Valentin MD Chest CT 05/08/17 [id number] Signed Impressions: Service Date/Time: Monday, May 08, 2017 23:29 - CONCLUSION: Normal examination. Edis Fox MD Shoulder X-Ray [id number]/08/[id number] Signed Impressions: Service Date/Time: Monday, May 08, 2017 21:05 - CONCLUSION: Negative two-view examination of the shoulder. Trevin Deleon MD Abdomen/Pelvis CT [id number]/08/172046 Signed Impressions: Service Date/Time: Monday, May 08, 2017 22:08 - CONCLUSION: No acute findings in the abdomen and pelvis. Trevin Deleon MD Objective Remarks GENERAL: This is a well-nourished, well-developed patient, in no apparent distress. CARDIOVASCULAR: Regular rate and regular rhythm without murmurs, gallops, or rubs. RESPIRATORY: Clear to auscultation. Breath sounds equal bilaterally. No wheezes , rales, or rhonchi. GASTROINTESTINAL: Abdomen soft, non-tender, nondistended. Normal, active bowel sounds MUSCULOSKELETAL: mild swelling of the right knee with mild decrease in ROM- seems better today. NEURO: Alert & Oriented x4 to person, place, time, situation. Moves all ext x4 Procedures L3-L5 laminectomy with evacuation of spinal epidural abscess Medications and IVs Current Medications IV Flush 2 ml 2 ml UNSCH PRN IV FLUSH FLUSH AFTER USING IV ACCESS; Start at 20:30; Stop 05/08/17 at 23:34; Status DC Sodium Chloride (NS 1000 ml Inj) 1,000 ml @ 1,000 mls/hr Q1H IV Last administered on 05/08/17 21:10; Start 05/08/17 at 20:30; Stop 05/08/17 at 21:29 ; Status DC Iohexol 96 ml 96 ml STK-MED ONCE IV Last administered on 05/08/17 22:06; Start 05/08/17 at 22:06; Stop 05/08/17 at 22:07; Status DC Sodium Chloride (NS 1000 ml Inj) 1,000 ml @ 2,000 mls/hr Q30M IV Last administered on 05/08/17 23:12; Start 05/08/17 at 23:00; Stop 05/08/17 at 23:29 ; Status DC Ketorolac Tromethamine 30 mg 30 mg ONCE ONCE IVP Last administered on 23:13; Start 05/08/17 at 23:00; Stop 05/08/17 at 23:01; Status DC Ceftriaxone Sodium 2000 mg/ Sodium Chloride 100 ml @ 200 mls/hr ONCE ONCE IV Last administered on 05/08/17 23:16; Start 05/08/17 at 23:00; Stop 05/08/17 at 23:29; Status DC Pharmacy Profile Note 0 ml @ 0 mls/hr UNSCH OTHER ; Start 05/08/17 at 23:15 Cefepime HCl 1000 mg/Sodium Chloride 100 ml @ 200 mls/hr Q12H IV Last administered on 05/17/17 09:53; Start 05/09/17 at 09:00; Stop 05/17/17 at 15:27; Status DC Sodium Chloride (NS 1000 ml Inj) 1,000 ml @ 100 mls/hr Q10H IV Last administered on 05/11/17 13:37; Start 05/08/17 at 23:14; Stop 05/12/17 at 16:10; Status DC Sodium Chloride (NS Flush) 2 ml UNSCH PRN IV FLUSH FLUSH AFTER USING IV ACCESS Last administered on 05/10/17 01:07; Start 05/08/17 at 23:15; Stop 05/12/17 at 16:11; Status DC Sodium Chloride (NS Flush) 2 ml BID IV FLUSH Last administered on 05/11/17 22: 11; Start 05/09/17 at 09:00; Stop 05/12/17 at 16:11; Status DC Ondansetron HCl (Zofran Inj) 4 mg Q6H PRN IVP NAUSEA OR VOMITING; Start at 23:15 Heparin Sodium (Porcine) (Heparin Inj) 5,000 units Q12HR SQ Last administered on 05/18/17 20:35; Start 05/09/17 at 09:00 Acetaminophen (Tylenol) 650 mg Q6H PRN PO FEVER Last administered on 05/12/17 05:54; Start 05/08/17 at 23:15; Stop 05/12/17 at 16:10; Status DC Senna/Docusate Sodium (Janice-Colace) 1 tab BID PO Last administered on 05/12/17 09:08; Start 05/09/17 at 09:00; Stop 05/12/17 at 16:11; Status DC Magnesium Hydroxide (Milk Of Magnesia Liq) 30 ml Q12H PRN PO MILD - MODERATE CONSTIPATION; Start 05/08/17 at 23:15; Stop 05/09/17 at 09:42; Status DC Sennosides (Senokot) 17.2 mg Q12H PRN PO MODERATE - SEVERE CONSTIPATION; Start 05/08/17 at 23:15 Bisacodyl (Dulcolax Supp) 10 mg DAILY PRN RECTAL SEVERE CONSITIPATION; Start at 23:15; Stop 05/09/17 at 09:42; Status DC Lactulose 30 ml 30 ml DAILY PRN PO SEVERE CONSITIPATION; Start 05/08/17 at 23: 15; Stop 05/09/17 at 09:42; Status DC Vancomycin HCl 1000 mg/Sodium Chloride 250 ml @ 250 mls/hr ONCE ONCE IV Last administered on 05/09/17 00:30; Start 05/09/17 at 00:00; Stop 05/09/17 at 00:59 ; Status DC Vancomycin HCl/ Sodium Chloride (Vancomycin Inj/ NS 250 ml Inj) 250 ml @ 250 mls/hr Q12H IV Last administered on 05/10/17 15:10; Start 05/09/17 at 13:00; Stop 05/10/17 at 19:31; Status DC Miscellaneous Information SPECIFIC LAB TO BE DRAWN:VANCO TROUGH DATE TO... ONCE ONCE .XX Last administered on 05/10/17 12:54; Start 05/10/17 at 12:45; Stop 05/10/17 at 12:46; Status DC Carvedilol (Coreg) 12.5 mg Q12HR PO Last administered on 05/18/17 20:35; Start 05/09/17 at 10:00 Albuterol Sulfate (Albuterol Neb) 2.5 mg Q4HR NEB PRN INH SHORTNESS OF BREATH Last administered on 05/18/17 21:14; Start 05/09/17 at 14:45 Tramadol HCl (Ultram) 50 mg Q4H PRN PO PAIN 1-3 Last administered on 05/12/17 09:08; Start 05/09/17 at 09:45 Ketorolac Tromethamine (Toradol Inj) 30 mg Q6HR PRN IV PUSH PAIN SCALE 4 TO 10 Last administered on 05/10/17 12:14; Start 05/09/17 at 14:45; Stop 05/10/17 at 14:44; Status DC Hydromorphone HCl (Dilaudid Pf Inj) 2 mg Q4H PRN IV PUSH pain not better with toradol Last administered on 05/13/17 12:29; Start 05/09/17 at 14:45 Clonidine (Catapres) 0.1 mg Q6H PRN PO SBP>160, DBP>90 Last administered on 05/18 17:02; Start 05/09/17 at 16:00 Potassium Chloride (KCl Powder) 20 meq ONCE ONCE PO Last administered on 17:15; Start 05/09/17 at 16:15; Stop 05/09/17 at 16:19; Status DC Lorazepam (Ativan Inj) 2 mg ONCE ONCE IV PUSH Last administered on 05/10/17 13:00; Start 05/10/17 at 13:00; Stop 05/10/17 at 13:01; Status DC Gadodiamide 16 ml 16 ml STK-MED ONCE IV Last administered on 05/10/17 14:29; Start 05/10/17 at 14:29; Stop 05/10/17 at 14:30; Status DC Vancomycin HCl/ Sodium Chloride (Vancomycin Inj/ NS 250 ml Inj) 262 ml @ 250 mls/hr Q12H IV Last administered on 05/11/17 01:20; Start 05/11/17 at 01:00; Stop 05/11/17 at 11:26; Status DC Miscellaneous Information SPECIFIC LAB TO BE DRAWN:VANCOMY... ONCE ONCE .XX ; Start 05/12/17 at 12:45; Stop 05/12/17 at 12:46; Status DC Vancomycin HCl/ Sodium Chloride (Vancomycin Inj/ NS 500 ml Inj) 515 ml @ 250 mls/hr Q12H IV Last administered on 05/19/17 00:11; Start 05/11/17 at 13:00 Baclofen (Lioresal) 10 mg Q8HR PRN PO MUSCLE SPASM Last administered on 00:11; Start 05/11/17 at 12:00 Potassium Chloride (KCl) 30 meq ONCE ONCE PO Last administered on 05/11/17 13: 36; Start 05/11/17 at 12:00; Stop 05/11/17 at 13:16; Status DC Potassium Chloride (KCl) 30 meq ONCE ONCE PO Last administered on 05/11/17 18: 02; Start 05/11/17 at 16:00; Stop 05/11/17 at 16:01; Status DC Lorazepam (Ativan) 1 mg Q4H PRN PO CIWA 8-10 Last administered on 05/11/17 22: 12; Start 05/11/17 at 16:00 Lorazepam (Ativan Inj) 1 mg Q4H PRN IV PUSH CIWA 8-10; Start 05/11/17 at 16:00 Lorazepam (Ativan) 2 mg Q2H PRN PO CIWA 11-14; Start 05/11/17 at 16:00 Lorazepam (Ativan Inj) 2 mg Q2H PRN IV PUSH CIWA 11-14 Last administered on 05/11 17:54; Start 05/11/17 at 16:00 Lorazepam (Ativan Inj) 2 mg Q1H PRN IV PUSH CIWA 15-20; Start 05/11/17 at 16:00 Lorazepam (Ativan Inj) 2 mg Q15M PRN IV PUSH CIWA > 20; Start 05/11/17 at 16:00 Haloperidol Lactate (Haldol Inj) 2 mg Q15M PRN IM SEE LABEL COMMENTS; Start 05/11/17 at 16:00 Flumazenil (Romazicon Inj) 0.2 mg Q1M PRN IV PUSH SEE LABEL COMMENTS; Start 05/11/17 at 16:00 Thrombin 06776 units 10,000 units STK-MED ONCE .ROUTE Last administered on 14:56; Start 05/12/17 at 07:22; Stop 05/12/17 at 07:23; Status DC Cefazolin Sodium/ Dextrose (Ancef 2 Gm Premix) 50 ml @ As Directed STK-MED ONCE .ROUTE ; Start 05/12/17 at 07:22; Stop 05/12/17 at 07:23; Status DC Gelatin (Gelfoam 100 Top) 1 foam STK-MED ONCE .ROUTE Last administered on 14:56; Start 05/12/17 at 07:22; Stop 05/12/17 at 07:23; Status DC Gentamicin Sulfate (Gentamicin Inj) 240 mg STK-MED ONCE .ROUTE Last administered on 05/12/17 14:56; Start 05/12/17 at 07:22; Stop 05/12/17 at 07:23; Status DC Hydromorphone HCl (Dilaudid Pf Inj) 2 mg STK-MED ONCE .ROUTE ; Start 05/12/17 at 13:21; Stop 05/12/17 at 13:22; Status DC Acetaminophen (Ofirmev Inj) 1,000 mg STK-MED ONCE IV ; Start 05/12/17 at 13:21; Stop 05/12/17 at 13:22; Status DC Vancomycin HCl 1000 mg 1,000 mg STK-MED ONCE .ROUTE Last administered on 15:08; Start 05/12/17 at 15:07; Stop 05/12/17 at 15:08; Status DC Potassium Chloride/Sodium Chloride (NS + KCl 20 Meq Inj) 1,000 ml @ 100 mls/hr Q10H IV Last administered on 05/15/17 03:21; Start 05/12/17 at 15:59; Status Hold IV Flush (NS Flush) 2 ml UNSCH PRN IVF FLUSH AFTER USING IV ACCESS; Start at 16:00 IV Flush (NS Flush) 2 ml BID IVF Last administered on 05/18/17 20:36; Start 05/12/17 at 21:00 Docusate Sodium (Colace) 100 mg BID PO Last administered on 05/18/17 20:35; Start 05/12/17 at 21:00 Pantoprazole Sodium (Protonix) 40 mg DAILY PO Last administered on 05/18/17 08: 31; Start 05/13/17 at 09:00 Acetaminophen/ Hydrocodone Bitart (Barlow 10-325 Mg) 1 tab Q4H PRN PO PAIN 1-5 WHEN TOLERATING PO Last administered on 05/17/17 17:50; Start 05/12/17 at 16:00 Acetaminophen/ Hydrocodone Bitart (Barlow 10-325 Mg) 2 tab Q4H PRN PO PAIN 6-10 WHEN TOLERATING PO Last administered on 05/19/17 05:52; Start 05/12/17 at 16:00 Morphine Sulfate (Morphine Inj) 2 mg Q2H PRN IV PUSH PAIN 1-6 IF NOT TOLERATING PO; Start 05/12/17 at 16:00 Morphine Sulfate (Morphine Inj) 4 mg Q2H PRN IV PUSH PAIN 7-10 IF NOT TOLERATING PO Last administered on 05/13/17 20:35; Start 05/12/17 at 16:00 Acetaminophen (Tylenol) 650 mg Q4H PRN PO TEMPERATURE > 101.5 F; Start 05/12/17 at 16:00 Miscellaneous Information SPECIFIC LAB TO BE DRAWN:VANCOMYCIN TROUGH DATE TO... ONCE ONCE .XX Last administered on 05/13/17 00:45; Start 05/13/17 at 00:45; Stop 05/13/17 at 00:46; Status DC Midazolam HCl (Versed Inj) 2 mg STK-MED ONCE .ROUTE ; Start 05/12/17 at 16:20; Stop 05/12/17 at 16:21; Status DC Fentanyl Citrate (fentaNYL INJ) 500 mcg STK-MED ONCE .ROUTE ; Start 05/12/17 at 16:20; Stop 05/12/17 at 16:21; Status DC Morphine Sulfate (*morphine INJ PERIprocedure ONLY) 8 mg STK-MED ONCE .ROUTE Last administered on 05/12/17 16:20; Start 05/12/17 at 16:20; Stop 05/12/17 at 16: 21; Status DC Miscellaneous Information ALL NURSING DEPARTME... UNSCH PRN .XX SEE LABEL COMMENTS; Start 05/12/17 at 16:12; Stop 05/13/17 at 16:11; Status DC Morphine Sulfate (*morphine INJ PERIprocedure ONLY) 8 mg STK-MED ONCE .ROUTE Last administered on 05/12/17 16:31; Start 05/12/17 at 16:31; Stop 05/12/17 at 16: 32; Status DC Miscellaneous Information SPECIFIC LAB TO BE ARLENE... ONCE ONCE .XX Last administered on 05/16/17t 00:45; Start 05/16/17 at 00:45; Stop 05/16/17 at 00:46; Status DC Miscellaneous Information SPECIFIC LAB TO BE ... ONCE ONCE .XX ; Start at 12:45; Stop 05/19/17 at 12:46 A/P Assessment and Plan A/P (1) Sepsis due to epidural abscess s/p L3-L5 laminectomy with evacuation of spinal epidural abscess continue Vanco - antibiotics per ID. HIV/hepatitis panel negative. neurosurgery and ID following. continue with pain control. (2) MRSA Bacteremia continue Vancomycin echo with no vegetation repeated blood cultures from 05/13 negative so far. ID following. (3) Rhabdomyolysis-resolved. due to cocaine use versus musculoskeletal injury (4) Shoulder pain, right- improving. MRI with Moderate hypertrophic changes are seen in the AC joint indenting the subacromial fat plane to a slight degree with adjacent subcutaneous edema possibly inflammatory without evidence for abscess formation. continue with pain control- (5) Encephalopathy, toxic-resolved. (6) HTN (hypertension) Continue Coreg and clonidine as needed (7)- hypokalemia; replaced. (8)- right knee pain; improved- XR with no fracture or significant arthropathy- continue pain control. DVT prophylaxis with SCD's. Discharge Planning dc home when cleared by ID. Toño Waterman MD May 19, 2017 09:29
[2017-05-19] MEDS: DOCUSATE SODIUM 100 MG CAP PO SCH ×2 (10:09→22:05)
[2017-05-19] MEDS: HEPARIN SODIUM - SQ 10,000 UNITS/ML VIAL SQ SCH ×2 (10:09→22:05)
[2017-05-19] MEDS: SODIUM CHLORIDE 0.9% FLUSH 5 ML FLUSH IVF SCH ×2 (10:09→22:06)
[2017-05-19] MEDS: PANTOPRAZOLE SOD 40 MG DELAYED RELEASE TAB PO SCH (10:09)
[2017-05-19] MEDS: CARVEDILOL 12.5 MG TAB PO SCH ×2 (10:09→22:05)
--- NOTE | 2017-05-19 12:34 | HHI.IDPN ---
Subjective Subjective Remarks ID COVERAGE is a 51 y/o CF with PMHx of uncontrolled hypertension due to nonadherence, h/o drug abuse denies IVDA, chronic smoking. Patient comes in over the last 4 days to the emergency room several times weekly multiple things. Initially there is a leg laceration and there was some pain which was called sciatica and at that ER evaluation she was given baclofen and Ultram and Medrol Dosepak. Patient subsequently came in within 24 hours with an altered mental status per her fianc. She was confused and unable to provide a good history. She also presented with a fever of 102.1 with elevated cardiac isoenzymes CPK troponin were elevated and the patient was complaining of leg and shoulder cramping. Patient had a white cell count was elevated and evidence of acute renal failure. She has evidence of urinary tract infections been treated for sepsis and admitted to the hospital. Patient is also complaining of right shoulder pain which is 10 out of 10 and worse with movement of the shoulder and improved with keeping it still. Patient has never had this before and was very concerned. She never had sciatica before either and has had difficulty walking due to the pain. She was recommended for further imaging but has refused due to increased pain. She did have x-ray of the shoulder which was unremarkable for any fracture or bony injury. She does admit to cocaine and marijuana as well as excessive tobacco and alcohol use. She is tearful and requested to go home however she realizes she cannot move due to pain. Patient is admitted for sepsis workup. Blood cultures drawn on admission are positive for MRSA susceptibility pending. Patient additionally has had an MRI spine as well as MRI shoulder. MRI shoulder with some edema concerning for Infectious myositis. Notes reviewed Has intermittent low grade temps No new compliant Voiding ok No diarrhea No N/V OR C/S MRSA Repeat BC 05/13 negative Antibiotics Vanco IV Lines Line sites with no e.o infection Past Medical History Hypertension COPD/asthma , dental extraction Allergies: Coded Allergies: Bee Sting (Verified Allergy, Severe, ANAPHYLAXIS, 05/08/17) Peanut (Verified Allergy, Severe, ANAPHYLAXIS, 05/08/17) *MDRO Multi-Drug Resistant Organism (Verified Adverse Reaction, Unknown, ) MRSA (blood) 05/08/17, 05/10/17, (back) 05/12/17 Objective . Vital Signs Date Time Temp Pulse Resp B/P Pulse Ox O2 Delivery O2 Flow Rate FiO2 05/19/17 12:00 100.2 73 18 135/68 98 05/19/17 08:00 98.8 68 18 132/64 96 05/19/17 04:00 98.9 62 18 150/74 97 05/19/17 00:00 98.0 68 18 130/69 97 05/18/17 22:00 65 05/18/17 21:45 99.7 66 17 137/73 96 05/18/17 16:27 99.3 72 18 192/93 98 05/18/17 12:42 100.0 65 18 132/76 95 05/18/17 05/18/17 05/19/17 15:00 23:00 07:00 Intake Total 480 ml 850 ml 1325 ml Balance 480 ml 850 ml 1325 ml Intake Oral 480 ml 850 ml 825 ml IV Total 500 ml # Voids 3 1 4 # Bowel Movements 0 0 . Laboratory Tests Test 05/19/17 09:30 Creatinine 0.72 MG/DL Estimat Glomerular Filtration 104 ML/MIN Rate Imaging Knee X-Ray 05/17/17 0000 Signed Impressions: Service Date/Time: Wednesday, May 17, 2017 11:06 - CONCLUSION: Soft tissue swelling in the thigh. Intact knee joint without evidence of acute fracture or significant arthropathy. Cl Harris MD Lumbar Spine X-Ray 05/12/17 0000 Signed Impressions: Service Date/Time: Friday, May 12, 2017 14:28 - CONCLUSION: Limited image as detailed above. Trevin Fuentes Jr., MD Shoulder MRI 05/10/17 0000 Signed Impressions: Service Date/Time: Wednesday, May 10, 2017 12:48 - CONCLUSION: Moderate hypertrophic changes are seen in the AC joint indenting the subacromial fat plane to a slight degree with adjacent subcutaneous edema possibly inflammatory without evidence for abscess formation. Clement Valentin MD Lumbar Spine MRI 05/10/17 0000 Signed Impressions: Service Date/Time: Wednesday, May 10, 2017 12:48 - CONCLUSION: Interval development of epidural abscess dorsally extending from L3-[address] to mid body of L5 causing moderate thecal sac stenosis at L3-4 and L4-5 levels. Findings were discussed with Dr. Rogers on 05/10/2017 at the time of this dictation at 4:15 hours. Clement Valentin MD Chest CT 05/08/17 [id number] Signed Impressions: Service Date/Time: Monday, May 08, 2017 23:29 - CONCLUSION: Normal examination. Edis Fox MD Shoulder X-Ray 05/08/172046 Signed Impressions: Service Date/Time: Monday, May 08, 2017 21:05 - CONCLUSION: Negative two-view examination of the shoulder. Trevin Deleon MD Abdomen/Pelvis CT 05/08/172046 Signed Impressions: Service Date/Time: Monday, May 08, 2017 22:08 - CONCLUSION: No acute findings in the abdomen and pelvis. Trevin Deleon MD Physical Exam GENERAL: Awake and alert, NAD SKIN: No rashes, ecchymoses or lesions. Cool and dry. HEAD: Atraumatic. Normocephalic. No temporal or scalp tenderness. EYES: Pupils equal round and reactive. Extraocular motions intact. No scleral icterus. ENT: Nose without bleeding, purulent drainage or septal hematoma. Throat without erythema, NECK: Trachea midline. Supple, nontender, no meningeal signs. CARDIOVASCULAR: Regular rate and rhythm without murmurs, gallops, or rubs. RESPIRATORY: Clear to auscultation. Breath sounds equal bilaterally. No wheezes , rales, or rhonchi. GASTROINTESTINAL: Abdomen soft, non-tender, nondistended. MUSCULOSKELETAL: Extremities without clubbing, cyanosis, or edema. No calf tenderness NEUROLOGICAL: Awake and alert. moves extremities. Psych: cooperative IV line sites with no e/o infection. Assessment & Plan Remarks Sepsis present on admission MRSA bacteremia Infective Myositis Possible spinal epidural abscess MRI spine pending. Post-op fever, still with intermittent temps Recs Continue Vanco IV target trough 15-20 Monitor temps CXR Repeat BC with next fever Monitor progress Explained plan to the patient Samra Nolan MD May 19, 2017 12:34 Samra Nolan MD May 19, 2017 12:34
[2017-05-19] MEDS ORDERED: PHARMACY ORDERED LAB ONE (12:45)
--- NOTE | 2017-05-19 13:50 | RADRPT ---
EXAM DATE/TIME: 05/19/2017 13:40 [facility] COMPARISON: No previous studies available for comparison. INDICATIONS : Fever. MEDICAL HISTORY : None. SURGICAL HISTORY : Back surgery. ENCOUNTER: Subsequent ACUITY: 1 week PAIN SCORE: 0/10 LOCATION: Bilateral chest FINDINGS: Minimal blunting of the left costophrenic sulcus is noted. The lungs are otherwise clear. Heart is minimally enlarged. Pulmonary vascularity is normal. The portion of the bony skeleton visualized is unremarkable. CONCLUSION: Minimal blunting of the left costophrenic sulcus. Nahun Frances MD FACR on May 19, 2017 at 13:48 Board Certified Radiologist. This report was verified electronically.
[2017-05-20] VITALS: BP 144/67; PULSE 79; RESP 20; O2SAT 95
[2017-05-20] MEDS: VANCOMYCIN INJ 1,500 MG in SODIUM CHLORID 0.9% 500 ML INJ 500 ML IV SCH ×2 (02:21→11:28)
[2017-05-20] MEDS: ACETAMINOPHEN/HYDROcodone 325 MG/10 MG TAB PO PRN ×4 (02:22→20:39)
[2017-05-20 04:00] VITALS: BP 137/74; PULSE 66; RESP 20; TEMP 98; O2SAT 93
[2017-05-20] MEDS: BACLOFEN 10 MG TAB PO PRN ×2 (06:11→20:39)
[2017-05-20 08:00] VITALS: BP 136/64; PULSE 63; PULSE 67; RESP 16; TEMP 99.8; O2SAT 94
[2017-05-20] MEDS: SODIUM CHLORIDE 0.9% FLUSH 5 ML FLUSH IVF SCH ×2 (09:00→21:00)
[2017-05-20] MEDS: CARVEDILOL 12.5 MG TAB PO SCH ×2 (09:26→20:38)
[2017-05-20] MEDS: DOCUSATE SODIUM 100 MG CAP PO SCH ×2 (09:26→20:39)
[2017-05-20] MEDS: PANTOPRAZOLE SOD 40 MG DELAYED RELEASE TAB PO SCH (09:26)
[2017-05-20] MEDS: HEPARIN SODIUM - SQ 10,000 UNITS/ML VIAL SQ SCH ×2 (09:27→20:39)
--- NOTE | 2017-05-20 11:40 | HHI.PR ---
Subjective Remarks in no acute distress. pain is controlled. on and off low grade fever; Tmax 100.3. Objective Vitals Vital Signs Date Time Temp Pulse Resp B/P Pulse Ox O2 Delivery O2 Flow Rate FiO2 05/20/17 08:00 63 05/20/17 08:00 99.8 67 16 136/64 94 05/20/17 04:00 98.0 66 20 137/74 93 05/20/17 00:00 79 20 144/67 95 05/19/17 20:00 100.3 65 20 158/78 97 05/19/17 16:00 99.4 64 17 119/60 98 05/19/17 12:00 100.2 73 18 135/68 98 I/O 05/19/17 05/19/17 05/19/17 05/20/17 05/20/17 05/20/17 07:00 15:00 23:00 07:00 15:00 23:00 Intake Total 1325 ml 240 ml Balance 1325 ml 240 ml Intake Oral 825 ml 240 ml IV Total 500 ml # Voids 4 1 1 # Bowel Movements 0 Result Diagram: 05/17/17 0856 05/19/17 0930 Imaging Last Impressions Chest X-Ray 05/19/17 0000 Signed Impressions: Service Date/Time: Friday, May 19, 2017 13:40 - CONCLUSION: Minimal blunting of the left costophrenic sulcus. Nahun Frances MD FACR Knee X-Ray 05/17/17 0000 Signed Impressions: Service Date/Time: Wednesday, May 17, 2017 11:06 - CONCLUSION: Soft tissue swelling in the thigh. Intact knee joint without evidence of acute fracture or significant arthropathy. Cl Harris MD Lumbar Spine X-Ray 05/12/17 0000 Signed Impressions: Service Date/Time: Friday, May 12, 2017 14:28 - CONCLUSION: Limited image as detailed above. Trevin Fuentes Jr., MD Shoulder MRI 05/10/17 0000 Signed Impressions: Service Date/Time: Wednesday, May 10, 2017 12:48 - CONCLUSION: Moderate hypertrophic changes are seen in the AC joint indenting the subacromial fat plane to a slight degree with adjacent subcutaneous edema possibly inflammatory without evidence for abscess formation. Clement Valentin MD Lumbar Spine MRI 05/10/17 0000 Signed Impressions: Service Date/Time: Wednesday, May 10, 2017 12:48 - CONCLUSION: Interval development of epidural abscess dorsally extending from L3-[address] to mid body of L5 causing moderate thecal sac stenosis at L3-4 and L4-5 levels. Findings were discussed with Dr. Rogers on 05/10/2017 at the time of this dictation at 4:15 hours. Clement Valentin MD Chest CT 05/08/17 2331 Signed Impressions: Service Date/Time: Monday, May 08, 2017 23:29 - CONCLUSION: Normal examination. Edis Fox MD Shoulder X-Ray 05/08/172046 Signed Impressions: Service Date/Time: Monday, May 08, 2017 21:05 - CONCLUSION: Negative two-view examination of the shoulder. Trevin Deleon MD Abdomen/Pelvis CT 05/08/172046 Signed Impressions: Service Date/Time: Monday, May 08, 2017 22:08 - CONCLUSION: No acute findings in the abdomen and pelvis. Trevin Deleon MD Objective Remarks GENERAL: This is a well-nourished, well-developed patient, in no apparent distress. CARDIOVASCULAR: Regular rate and regular rhythm without murmurs, gallops, or rubs. RESPIRATORY: Clear to auscultation. Breath sounds equal bilaterally. No wheezes , rales, or rhonchi. GASTROINTESTINAL: Abdomen soft, non-tender, nondistended. Normal, active bowel sounds MUSCULOSKELETAL: mild swelling of the right knee with mild decrease in ROM- seems better today. NEURO: Alert & Oriented x4 to person, place, time, situation. Moves all ext x4 Procedures L3-L5 laminectomy with evacuation of spinal epidural abscess Medications and IVs Current Medications IV Flush 2 ml 2 ml UNSCH PRN IV FLUSH FLUSH AFTER USING IV ACCESS; Start at 20:30; Stop 05/08/17 at 23:34; Status DC Sodium Chloride (NS 1000 ml Inj) 1,000 ml @ 1,000 mls/hr Q1H IV Last administered on 05/08/17 21:10; Start 05/08/17 at 20:30; Stop 05/08/17 at 21:29 ; Status DC Iohexol 96 ml 96 ml STK-MED ONCE IV Last administered on 05/08/17 22:06; Start 05/08/17 at 22:06; Stop 05/08/17 at 22:07; Status DC Sodium Chloride (NS 1000 ml Inj) 1,000 ml @ 2,000 mls/hr Q30M IV Last administered on 05/08/17 23:12; Start 05/08/17 at 23:00; Stop 05/08/17 at 23:29 ; Status DC Ketorolac Tromethamine 30 mg 30 mg ONCE ONCE IVP Last administered on 23:13; Start 05/08/17 at 23:00; Stop 05/08/17 at 23:01; Status DC Ceftriaxone Sodium 2000 mg/ Sodium Chloride 100 ml @ 200 mls/hr ONCE ONCE IV Last administered on 05/08/17 23:16; Start 05/08/17 at 23:00; Stop 05/08/17 at 23:29; Status DC Pharmacy Profile Note 0 ml @ 0 mls/hr UNSCH OTHER ; Start 05/08/17 at 23:15 Cefepime HCl 1000 mg/Sodium Chloride 100 ml @ 200 mls/hr Q12H IV Last administered on 05/17/17 09:53; Start 05/09/17 at 09:00; Stop 05/17/17 at 15:27; Status DC Sodium Chloride (NS 1000 ml Inj) 1,000 ml @ 100 mls/hr Q10H IV Last administered on 05/11/17 13:37; Start 05/08/17 at 23:14; Stop 05/12/17 at 16:10; Status DC Sodium Chloride (NS Flush) 2 ml UNSCH PRN IV FLUSH FLUSH AFTER USING IV ACCESS Last administered on 05/10/17 01:07; Start 05/08/17 at 23:15; Stop 05/12/17 at 16:11; Status DC Sodium Chloride (NS Flush) 2 ml BID IV FLUSH Last administered on 05/11/17 22: 11; Start 05/09/17 at 09:00; Stop 05/12/17 at 16:11; Status DC Ondansetron HCl (Zofran Inj) 4 mg Q6H PRN IVP NAUSEA OR VOMITING; Start at 23:15 Heparin Sodium (Porcine) (Heparin Inj) 5,000 units Q12HR SQ Last administered on 05/20/17 09:27; Start 05/09/17 at 09:00 Acetaminophen (Tylenol) 650 mg Q6H PRN PO FEVER Last administered on 05/12/17 05:54; Start 05/08/17 at 23:15; Stop 05/12/17 at 16:10; Status DC Senna/Docusate Sodium (Janice-Colace) 1 tab BID PO Last administered on 05/12/17 09:08; Start 05/09/17 at 09:00; Stop 05/12/17 at 16:11; Status DC Magnesium Hydroxide (Milk Of Magnesia Liq) 30 ml Q12H PRN PO MILD - MODERATE CONSTIPATION; Start 05/08/17 at 23:15; Stop 05/09/17 at 09:42; Status DC Sennosides (Senokot) 17.2 mg Q12H PRN PO MODERATE - SEVERE CONSTIPATION; Start 05/08/17 at 23:15 Bisacodyl (Dulcolax Supp) 10 mg DAILY PRN RECTAL SEVERE CONSITIPATION; Start at 23:15; Stop 05/09/17 at 09:42; Status DC Lactulose 30 ml 30 ml DAILY PRN PO SEVERE CONSITIPATION; Start 05/08/17 at 23: 15; Stop 05/09/17 at 09:42; Status DC Vancomycin HCl 1000 mg/Sodium Chloride 250 ml @ 250 mls/hr ONCE ONCE IV Last administered on 05/09/17 00:30; Start 05/09/17 at 00:00; Stop 05/09/17 at 00:59 ; Status DC Vancomycin HCl/ Sodium Chloride (Vancomycin Inj/ NS 250 ml Inj) 250 ml @ 250 mls/hr Q12H IV Last administered on 05/10/17 15:10; Start 05/09/17 at 13:00; Stop 05/10/17 at 19:31; Status DC Miscellaneous Information SPECIFIC LAB TO BE DRAWN:VANCO TROUGH DATE TO... ONCE ONCE .XX Last administered on 05/10/17 12:54; Start 05/10/17 at 12:45; Stop 05/10/17 at 12:46; Status DC Carvedilol (Coreg) 12.5 mg Q12HR PO Last administered on 05/20/17 09:26; Start 05/09/17 at 10:00 Albuterol Sulfate (Albuterol Neb) 2.5 mg Q4HR NEB PRN INH SHORTNESS OF BREATH Last administered on 05/18/17 21:14; Start 05/09/17 at 14:45 Tramadol HCl (Ultram) 50 mg Q4H PRN PO PAIN 1-3 Last administered on 05/12/17 09:08; Start 05/09/17 at 09:45 Ketorolac Tromethamine (Toradol Inj) 30 mg Q6HR PRN IV PUSH PAIN SCALE 4 TO 10 Last administered on 05/10/17 12:14; Start 05/09/17 at 14:45; Stop 05/10/17 at 14:44; Status DC Hydromorphone HCl (Dilaudid Pf Inj) 2 mg Q4H PRN IV PUSH pain not better with toradol Last administered on 05/13/17 12:29; Start 05/09/17 at 14:45 Clonidine (Catapres) 0.1 mg Q6H PRN PO SBP>160, DBP>90 Last administered on 05/18 17:02; Start 05/09/17 at 16:00 Potassium Chloride (KCl Powder) 20 meq ONCE ONCE PO Last administered on 17:15; Start 05/09/17 at 16:15; Stop 05/09/17 at 16:19; Status DC Lorazepam (Ativan Inj) 2 mg ONCE ONCE IV PUSH Last administered on 05/10/17 13:00; Start 05/10/17 at 13:00; Stop 05/10/17 at 13:01; Status DC Gadodiamide 16 ml 16 ml STK-MED ONCE IV Last administered on 05/10/17 14:29; Start 05/10/17 at 14:29; Stop 05/10/17 at 14:30; Status DC Vancomycin HCl/ Sodium Chloride (Vancomycin Inj/ NS 250 ml Inj) 262 ml @ 250 mls/hr Q12H IV Last administered on 05/11/17 01:20; Start 05/11/17 at 01:00; Stop 05/11/17 at 11:26; Status DC Miscellaneous Information SPECIFIC LAB TO BE DRAWN:VANCOMY... ONCE ONCE .XX ; Start 05/12/17 at 12:45; Stop 05/12/17 at 12:46; Status DC Vancomycin HCl/ Sodium Chloride (Vancomycin Inj/ NS 500 ml Inj) 515 ml @ 250 mls/hr Q12H IV Last administered on 05/20/17 11:28; Start 05/11/17 at 13:00 Baclofen (Lioresal) 10 mg Q8HR PRN PO MUSCLE SPASM Last administered on 06:11; Start 05/11/17 at 12:00 Potassium Chloride (KCl) 30 meq ONCE ONCE PO Last administered on 05/11/17 13: 36; Start 05/11/17 at 12:00; Stop 05/11/17 at 13:16; Status DC Potassium Chloride (KCl) 30 meq ONCE ONCE PO Last administered on 05/11/17 18: 02; Start 05/11/17 at 16:00; Stop 05/11/17 at 16:01; Status DC Lorazepam (Ativan) 1 mg Q4H PRN PO CIWA 8-10 Last administered on 05/11/17 22: 12; Start 05/11/17 at 16:00 Lorazepam (Ativan Inj) 1 mg Q4H PRN IV PUSH CIWA 8-10; Start 05/11/17 at 16:00 Lorazepam (Ativan) 2 mg Q2H PRN PO CIWA 11-14; Start 05/11/17 at 16:00 Lorazepam (Ativan Inj) 2 mg Q2H PRN IV PUSH CIWA 11-14 Last administered on 05/11 17:54; Start 05/11/17 at 16:00 Lorazepam (Ativan Inj) 2 mg Q1H PRN IV PUSH CIWA 15-20; Start 05/11/17 at 16:00 Lorazepam (Ativan Inj) 2 mg Q15M PRN IV PUSH CIWA > 20; Start 05/11/17 at 16:00 Haloperidol Lactate (Haldol Inj) 2 mg Q15M PRN IM SEE LABEL COMMENTS; Start 05/11/17 at 16:00 Flumazenil (Romazicon Inj) 0.2 mg Q1M PRN IV PUSH SEE LABEL COMMENTS; Start 05/11/17 at 16:00 Thrombin 01427 units 10,000 units STK-MED ONCE .ROUTE Last administered on 8/2/ 17at 14:56; Start 05/12/17 at 07:22; Stop 05/12/17 at 07:23; Status DC Cefazolin Sodium/ Dextrose (Ancef 2 Gm Premix) 50 ml @ As Directed STK-MED ONCE .ROUTE ; Start 05/12/17 at 07:22; Stop 05/12/17 at 07:23; Status DC Gelatin (Gelfoam 100 Top) 1 foam STK-MED ONCE .ROUTE Last administered on 14:56; Start 05/12/17 at 07:22; Stop 05/12/17 at 07:23; Status DC Gentamicin Sulfate (Gentamicin Inj) 240 mg STK-MED ONCE .ROUTE Last administered on 05/12/17 14:56; Start 05/12/17 at 07:22; Stop 05/12/17 at 07:23; Status DC Hydromorphone HCl (Dilaudid Pf Inj) 2 mg STK-MED ONCE .ROUTE ; Start 05/12/17 at 13:21; Stop 05/12/17 at 13:22; Status DC Acetaminophen (Ofirmev Inj) 1,000 mg STK-MED ONCE IV ; Start 05/12/17 at 13:21; Stop 05/12/17 at 13:22; Status DC Vancomycin HCl 1000 mg 1,000 mg STK-MED ONCE .ROUTE Last administered on 15:08; Start 05/12/17 at 15:07; Stop 05/12/17 at 15:08; Status DC Potassium Chloride/Sodium Chloride (NS + KCl 20 Meq Inj) 1,000 ml @ 100 mls/hr Q10H IV Last administered on 05/15/17 03:21; Start 05/12/17 at 15:59; Status Hold IV Flush (NS Flush) 2 ml UNSCH PRN IVF FLUSH AFTER USING IV ACCESS; Start at 16:00 IV Flush (NS Flush) 2 ml BID IVF Last administered on 05/20/17 09:00; Start at 21:00 Docusate Sodium (Colace) 100 mg BID PO Last administered on 05/20/17 09:26; Start 05/12/17 at 21:00 Pantoprazole Sodium (Protonix) 40 mg DAILY PO Last administered on 05/20/17 09 :26; Start 05/13/17 at 09:00 Acetaminophen/ Hydrocodone Bitart (Gladstone 10-325 Mg) 1 tab Q4H PRN PO PAIN 1-5 WHEN TOLERATING PO Last administered on 05/17/17 17:50; Start 05/12/17 at 16:00 Acetaminophen/ Hydrocodone Bitart ([place]stone 10-325 Mg) 2 tab Q4H PRN PO PAIN 6-10 WHEN TOLERATING PO Last administered on 05/20/17 11:28; Start 05/12/17 at 16:00 Morphine Sulfate (Morphine Inj) 2 mg Q2H PRN IV PUSH PAIN 1-6 IF NOT TOLERATING PO; Start 05/12/17 at 16:00 Morphine Sulfate (Morphine Inj) 4 mg Q2H PRN IV PUSH PAIN 7-10 IF NOT TOLERATING PO Last administered on 05/13/17 20:35; Start 05/12/17 at 16:00 Acetaminophen (Tylenol) 650 mg Q4H PRN PO TEMPERATURE > 101.5 F; Start 05/12/17 at 16:00 Miscellaneous Information SPECIFIC LAB TO BE DRAWN:VANCOMYCIN TROUGH DATE TO... ONCE ONCE .XX Last administered on 05/13/17 00:45; Start 05/13/17 at 00:45; Stop 05/13/17 at 00:46; Status DC Midazolam HCl (Versed Inj) 2 mg STK-MED ONCE .ROUTE ; Start 05/12/17 at 16:20; Stop 05/12/17 at 16:21; Status DC Fentanyl Citrate (fentaNYL INJ) 500 mcg STK-MED ONCE .ROUTE ; Start 05/12/17 at 16:20; Stop 05/12/17 at 16:21; Status DC Morphine Sulfate (*morphine INJ PERIprocedure ONLY) 8 mg STK-MED ONCE .ROUTE Last administered on 05/12/17 16:20; Start 05/12/17 at 16:20; Stop 05/12/17 at 16: 21; Status DC Miscellaneous Information ALL NURSING DEPARTME... UNSCH PRN .XX SEE LABEL COMMENTS; Start 05/12/17 at 16:12; Stop 05/13/17 at 16:11; Status DC Morphine Sulfate (*morphine INJ PERIprocedure ONLY) 8 mg STK-MED ONCE .ROUTE Last administered on 05/12/17 16:31; Start 05/12/17 at 16:31; Stop 05/12/17 at 16: 32; Status DC Miscellaneous Information SPECIFIC LAB TO BE ARLENE... ONCE ONCE .XX Last administered on 05/16/17 00:45; Start 05/16/17 at 00:45; Stop 05/16/17 at 00:46; Status DC Miscellaneous Information SPECIFIC LAB TO BE ARLENE... ONCE ONCE .XX Last administered on 05/19/17 13:00; Start 05/19/17 at 12:45; Stop 05/19/17 at 12:46; Status DC A/P Assessment and Plan A/P (1) Sepsis due to epidural abscess s/p L3-L5 laminectomy with evacuation of spinal epidural abscess continue Vanco - antibiotics per ID. HIV/hepatitis panel negative. neurosurgery and ID following. continue with pain control. (2) MRSA Bacteremia continue Vancomycin echo with no vegetation repeated blood cultures from 05/13 negative so far. ID following. (3) Rhabdomyolysis-resolved. due to cocaine use versus musculoskeletal injury (4) Shoulder pain, right- improving. MRI with Moderate hypertrophic changes are seen in the AC joint indenting the subacromial fat plane to a slight degree with adjacent subcutaneous edema possibly inflammatory without evidence for abscess formation. continue with pain control- (5) Encephalopathy, toxic-resolved. (6) HTN (hypertension) Continue Coreg and clonidine as needed (7)- hypokalemia; replaced. (8)- right knee pain; improved- XR with no fracture or significant arthropathy- continue pain control. DVT prophylaxis with SCD's. Discharge Planning dc home when cleared by ID. Toño Waterman MD May 20, 2017 11:40
[2017-05-20 12:00] VITALS: BP 181/86; PULSE 75; RESP 17; TEMP 101.3; O2SAT 96
--- NOTE | 2017-05-20 13:32 | HHI.IDPN ---
Subjective Subjective Remarks ID COVERAGE is a 51 y/o CF with PMHx of uncontrolled hypertension due to nonadherence, h/o drug abuse denies IVDA, chronic smoking. Patient comes in over the last 4 days to the emergency room several times weekly multiple things. Initially there is a leg laceration and there was some pain which was called sciatica and at that ER evaluation she was given baclofen and Ultram and Medrol Dosepak. Patient subsequently came in within 24 hours with an altered mental status per her fianc. She was confused and unable to provide a good history. She also presented with a fever of 102.1 with elevated cardiac isoenzymes CPK troponin were elevated and the patient was complaining of leg and shoulder cramping. Patient had a white cell count was elevated and evidence of acute renal failure. She has evidence of urinary tract infections been treated for sepsis and admitted to the hospital. Patient is also complaining of right shoulder pain which is 10 out of 10 and worse with movement of the shoulder and improved with keeping it still. Patient has never had this before and was very concerned. She never had sciatica before either and has had difficulty walking due to the pain. She was recommended for further imaging but has refused due to increased pain. She did have x-ray of the shoulder which was unremarkable for any fracture or bony injury. She does admit to cocaine and marijuana as well as excessive tobacco and alcohol use. She is tearful and requested to go home however she realizes she cannot move due to pain. Patient is admitted for sepsis workup. Blood cultures drawn on admission are positive for MRSA susceptibility pending. Patient additionally has had an MRI spine as well as MRI shoulder. MRI shoulder with some edema concerning for Infectious myositis. Notes reviewed Continues to have intermittent low grade temps No new compliant feels good and wants to know when she can go home Voiding ok No diarrhea No N/V OR C/S MRSA Repeat BC 05/13 negative CXR ok UA ok No new (+) BC Antibiotics Vanco IV Lines Line sites with no e.o infection Past Medical History Hypertension COPD/asthma , dental extraction Allergies: Coded Allergies: Bee Sting (Verified Allergy, Severe, ANAPHYLAXIS, 05/08/17) Peanut (Verified Allergy, Severe, ANAPHYLAXIS, 05/08/17) *MDRO Multi-Drug Resistant Organism (Verified Adverse Reaction, Unknown, ) MRSA (blood) 05/08/17, 05/10/17, (back) 05/12/17 Objective . Vital Signs Date Time Temp Pulse Resp B/P Pulse Ox O2 Delivery O2 Flow Rate FiO2 05/20/17 08:00 63 05/20/17 08:00 99.8 67 16 136/64 94 05/20/17 04:00 98.0 66 20 137/74 93 05/20/17 00:00 79 20 144/67 95 05/19/17 20:00 100.3 65 20 158/78 97 05/19/17 16:00 99.4 64 17 119/60 98 05/19/17 05/19/17 05/20/17 15:00 23:00 07:00 Intake Total 240 ml Balance 240 ml Intake Oral 240 ml # Voids 1 1 . Laboratory Tests Test 05/19/17 09:30 Creatinine 0.72 MG/DL Estimat Glomerular Filtration 104 ML/MIN Rate Imaging Knee X-Ray 05/17/17 0000 Signed Impressions: Service Date/Time: Wednesday, May 17, 2017 11:06 - CONCLUSION: Soft tissue swelling in the thigh. Intact knee joint without evidence of acute fracture or significant arthropathy. Cl Harris MD Lumbar Spine X-Ray 05/12/17 0000 Signed Impressions: Service Date/Time: Friday, May 12, 2017 14:28 - CONCLUSION: Limited image as detailed above. Trevin Fuentes Jr., MD Shoulder MRI 05/10/17 0000 Signed Impressions: Service Date/Time: Wednesday, May 10, 2017 12:48 - CONCLUSION: Moderate hypertrophic changes are seen in the AC joint indenting the subacromial fat plane to a slight degree with adjacent subcutaneous edema possibly inflammatory without evidence for abscess formation. Clement Valentin MD Lumbar Spine MRI 05/10/17 0000 Signed Impressions: Service Date/Time: Wednesday, May 10, 2017 12:48 - CONCLUSION: Interval development of epidural abscess dorsally extending from L3-[address] to mid body of L5 causing moderate thecal sac stenosis at L3-4 and L4-5 levels. Findings were discussed with Dr. Rogers on 05/10/2017 at the time of this dictation at 4:15 hours. Clement Valentin MD Chest CT 05/08/17 1421 Signed Impressions: Service Date/Time: Monday, May 08, 2017 23:29 - CONCLUSION: Normal examination. Edis Fox MD Shoulder X-Ray 05/08/172046 Signed Impressions: Service Date/Time: Monday, May 08, 2017 21:05 - CONCLUSION: Negative two-view examination of the shoulder. Trevin Deleon MD Abdomen/Pelvis CT 05/08/172046 Signed Impressions: Service Date/Time: Monday, May 08, 2017 22:08 - CONCLUSION: No acute findings in the abdomen and pelvis. Trevin Deleon MD Physical Exam GENERAL: Awake and alert, NAD SKIN: No rashes, ecchymoses or lesions. Cool and dry. HEAD: Atraumatic. Normocephalic. No temporal or scalp tenderness. EYES: Pupils equal round and reactive. Extraocular motions intact. No scleral icterus. ENT: Nose without bleeding, purulent drainage or septal hematoma. Throat without erythema, NECK: Trachea midline. Supple, nontender, no meningeal signs. CARDIOVASCULAR: Regular rate and rhythm without murmurs, gallops, or rubs. RESPIRATORY: Clear to auscultation. Breath sounds equal bilaterally. No wheezes , rales, or rhonchi. GASTROINTESTINAL: Abdomen soft, non-tender, nondistended. BACK: Incision with bloody drainage, seems more MUSCULOSKELETAL: Extremities without clubbing, cyanosis, or edema. No calf tenderness NEUROLOGICAL: Awake and alert. moves extremities. Psych: cooperative IV line sites with no e/o infection. Assessment & Plan Remarks Sepsis present on admission MRSA bacteremia Infective Myositis Possible spinal epidural abscess MRI spine pending. Post-op fever, still with intermittent temps Recs Continue Vanco IV target trough 15-20 Monitor temps Repeat BC Monitor progress Repeat MRI spine Explained plan to the patient Samra Nolan MD May 20, 2017 13:31
[2017-05-20 16:00] VITALS: BP 184/85; PULSE 66; RESP 17; TEMP 101; O2SAT 95
[2017-05-20] MEDS: ACETAMINOPHEN 325 MG TAB PO PRN (20:47)
[2017-05-21 00:30] VITALS: BP 122/66; PULSE 61; RESP 17; TEMP 98.4; O2SAT 97
[2017-05-21] MEDS: VANCOMYCIN INJ 1,500 MG in SODIUM CHLORID 0.9% 500 ML INJ 500 ML IV SCH ×2 (00:51→11:33)
[2017-05-21] MEDS: ACETAMINOPHEN/HYDROcodone 325 MG/10 MG TAB PO PRN ×5 (00:52→23:39)
[2017-05-21 04:30] VITALS: BP 155/68; PULSE 57; RESP 16; TEMP 98.3; O2SAT 96
[2017-05-21] MEDS: BACLOFEN 10 MG TAB PO PRN ×2 (05:02→23:39)
[2017-05-21 08:00] VITALS: BP_SYST 131; BP_SYST 142; BP_DIAS 68; BP_DIAS 76; PULSE 59; PULSE 70; PULSE 71; RESP 17; RESP 19; TEMP 98.2; O2SAT 93; O2SAT 96
[2017-05-21] MEDS: HEPARIN SODIUM - SQ 10,000 UNITS/ML VIAL SQ SCH ×2 (08:31→23:40)
[2017-05-21] MEDS: CARVEDILOL 12.5 MG TAB PO SCH ×2 (08:31→23:39)
[2017-05-21] MEDS: SODIUM CHLORIDE 0.9% FLUSH 5 ML FLUSH IVF SCH (08:31)
[2017-05-21] MEDS: PANTOPRAZOLE SOD 40 MG DELAYED RELEASE TAB PO SCH (08:31)
[2017-05-21] MEDS: DOCUSATE SODIUM 100 MG CAP PO SCH ×2 (08:32→23:39)
--- NOTE | 2017-05-21 09:38 | HHI.PR ---
Subjective Remarks complaining of some pain to the right hip. Tmax 101.3. d/w the RN at the bedside. Objective Vitals Vital Signs Date Time Temp Pulse Resp B/P Pulse Ox O2 Delivery O2 Flow Rate FiO2 05/21/17 08:00 98.2 59 17 142/76 96 05/21/17 04:30 98.3 57 16 155/68 96 05/21/17 00:30 98.4 61 17 122/66 97 05/20/17 16:00 101.0 66 17 184/85 95 05/20/17 12:00 101.3 75 17 181/86 96 I/O 05/20/17 05/20/17 05/20/17 05/21/17 05/21/17 05/21/17 07:00 15:00 23:00 07:00 15:00 23:00 Intake Total 300 ml 240 ml Balance 300 ml 240 ml Intake Oral 300 ml 240 ml # Voids 1 3 2 Result Diagram: 05/17/17 0856 05/19/17 0930 Imaging Last Impressions Chest X-Ray 05/19/17 0000 Signed Impressions: Service Date/Time: Friday, May 19, 2017 13:40 - CONCLUSION: Minimal blunting of the left costophrenic sulcus. Nahun Frances MD FACR Knee X-Ray 05/17/17 0000 Signed Impressions: Service Date/Time: Wednesday, May 17, 2017 11:06 - CONCLUSION: Soft tissue swelling in the thigh. Intact knee joint without evidence of acute fracture or significant arthropathy. Cl Harris MD Lumbar Spine X-Ray 05/12/17 0000 Signed Impressions: Service Date/Time: Friday, May 12, 2017 14:28 - CONCLUSION: Limited image as detailed above. Trevin Fuentes Jr., MD Shoulder MRI 05/10/17 0000 Signed Impressions: Service Date/Time: Wednesday, May 10, 2017 12:48 - CONCLUSION: Moderate hypertrophic changes are seen in the AC joint indenting the subacromial fat plane to a slight degree with adjacent subcutaneous edema possibly inflammatory without evidence for abscess formation. Clement Valentin MD Lumbar Spine MRI 05/10/17 0000 Signed Impressions: Service Date/Time: Wednesday, May 10, 2017 12:48 - CONCLUSION: Interval development of epidural abscess dorsally extending from L3-[address] to mid body of L5 causing moderate thecal sac stenosis at L3-4 and L4-5 levels. Findings were discussed with Dr. Rogers on 05/10/2017 at the time of this dictation at 4:15 hours. Clement Valentin MD Chest CT 05/08/17 [id number] Signed Impressions: Service Date/Time: Monday, May 08, 2017 23:29 - CONCLUSION: Normal examination. Edis Fox MD Shoulder X-Ray [id number] Signed Impressions: Service Date/Time: Monday, May 08, 2017 21:05 - CONCLUSION: Negative two-view examination of the shoulder. Trevin Deleon MD Abdomen/Pelvis CT [id number] Signed Impressions: Service Date/Time: Monday, May 08, 2017 22:08 - CONCLUSION: No acute findings in the abdomen and pelvis. Trevin Deleon MD Objective Remarks GENERAL: This is a well-nourished, well-developed patient, in no apparent distress. CARDIOVASCULAR: Regular rate and regular rhythm without murmurs, gallops, or rubs. RESPIRATORY: Clear to auscultation. Breath sounds equal bilaterally. No wheezes , rales, or rhonchi. GASTROINTESTINAL: Abdomen soft, non-tender, nondistended. Normal, active bowel sounds MUSCULOSKELETAL: some focal swelling and tenderness over the right hip. NEURO: Alert & Oriented x4 to person, place, time, situation. Moves all ext x4 Procedures L3-L5 laminectomy with evacuation of spinal epidural abscess Medications and IVs Current Medications IV Flush 2 ml 2 ml UNSCH PRN IV FLUSH FLUSH AFTER USING IV ACCESS; Start at 20:30; Stop 05/08/17 at 23:34; Status DC Sodium Chloride (NS 1000 ml Inj) 1,000 ml @ 1,000 mls/hr Q1H IV Last administered on 05/08/17 21:10; Start 05/08/17 at 20:30; Stop 05/08/17 at 21:29 ; Status DC Iohexol 96 ml 96 ml STK-MED ONCE IV Last administered on 05/08/17 22:06; Start 05/08/17 at 22:06; Stop 05/08/17 at 22:07; Status DC Sodium Chloride (NS 1000 ml Inj) 1,000 ml @ 2,000 mls/hr Q30M IV Last administered on 05/08/17 23:12; Start 05/08/17 at 23:00; Stop 05/08/17 at 23:29 ; Status DC Ketorolac Tromethamine 30 mg 30 mg ONCE ONCE IVP Last administered on 23:13; Start 05/08/17 at 23:00; Stop 05/08/17 at 23:01; Status DC Ceftriaxone Sodium 2000 mg/ Sodium Chloride 100 ml @ 200 mls/hr ONCE ONCE IV Last administered on 05/08/17 23:16; Start 05/08/17 at 23:00; Stop 05/08/17 at 23:29; Status DC Pharmacy Profile Note 0 ml @ 0 mls/hr UNSCH OTHER ; Start 05/08/17 at 23:15 Cefepime HCl 1000 mg/Sodium Chloride 100 ml @ 200 mls/hr Q12H IV Last administered on 05/17/17 09:53; Start 05/09/17 at 09:00; Stop 05/17/17 at 15:27; Status DC Sodium Chloride (NS 1000 ml Inj) 1,000 ml @ 100 mls/hr Q10H IV Last administered on 05/11/17 13:37; Start 05/08/17 at 23:14; Stop 05/12/17 at 16:10; Status DC Sodium Chloride (NS Flush) 2 ml UNSCH PRN IV FLUSH FLUSH AFTER USING IV ACCESS Last administered on 05/10/17 01:07; Start 05/08/17 at 23:15; Stop 05/12/17 at 16:11; Status DC Sodium Chloride (NS Flush) 2 ml BID IV FLUSH Last administered on 05/11/17 22: 11; Start 05/09/17 at 09:00; Stop 05/12/17 at 16:11; Status DC Ondansetron HCl (Zofran Inj) 4 mg Q6H PRN IVP NAUSEA OR VOMITING; Start at 23:15 Heparin Sodium (Porcine) (Heparin Inj) 5,000 units Q12HR SQ Last administered on 05/21/17 08:31; Start 05/09/17 at 09:00 Acetaminophen (Tylenol) 650 mg Q6H PRN PO FEVER Last administered on 05/12/17 05:54; Start 05/08/17 at 23:15; Stop 05/12/17 at 16:10; Status DC Senna/Docusate Sodium (Janice-Colace) 1 tab BID PO Last administered on 05/12/17 09:08; Start 05/09/17 at 09:00; Stop 05/12/17 at 16:11; Status DC Magnesium Hydroxide (Milk Of Magnesia Liq) 30 ml Q12H PRN PO MILD - MODERATE CONSTIPATION; Start 05/08/17 at 23:15; Stop 05/09/17 at 09:42; Status DC Sennosides (Senokot) 17.2 mg Q12H PRN PO MODERATE - SEVERE CONSTIPATION; Start 05/08/17 at 23:15 Bisacodyl (Dulcolax Supp) 10 mg DAILY PRN RECTAL SEVERE CONSITIPATION; Start at 23:15; Stop 05/09/17 at 09:42; Status DC Lactulose 30 ml 30 ml DAILY PRN PO SEVERE CONSITIPATION; Start 05/08/17 at 23: 15; Stop 05/09/17 at 09:42; Status DC Vancomycin HCl 1000 mg/Sodium Chloride 250 ml @ 250 mls/hr ONCE ONCE IV Last administered on 05/09/17 00:30; Start 05/09/17 at 00:00; Stop 05/09/17 at 00:59 ; Status DC Vancomycin HCl/ Sodium Chloride (Vancomycin Inj/ NS 250 ml Inj) 250 ml @ 250 mls/hr Q12H IV Last administered on 05/10/17 15:10; Start 05/09/17 at 13:00; Stop 05/10/17 at 19:31; Status DC Miscellaneous Information SPECIFIC LAB TO BE DRAWN:VANCO TROUGH DATE TO... ONCE ONCE .XX Last administered on 05/10/17 12:54; Start 05/10/17 at 12:45; Stop 05/10/17 at 12:46; Status DC Carvedilol (Coreg) 12.5 mg Q12HR PO Last administered on 05/21/17 08:31; Start 05/09/17 at 10:00 Albuterol Sulfate (Albuterol Neb) 2.5 mg Q4HR NEB PRN INH SHORTNESS OF BREATH Last administered on 05/18/17 21:14; Start 05/09/17 at 14:45 Tramadol HCl (Ultram) 50 mg Q4H PRN PO PAIN 1-3 Last administered on 05/12/17 09:08; Start 05/09/17 at 09:45 Ketorolac Tromethamine (Toradol Inj) 30 mg Q6HR PRN IV PUSH PAIN SCALE 4 TO 10 Last administered on 05/10/17 12:14; Start 05/09/17 at 14:45; Stop 05/10/17 at 14:44; Status DC Hydromorphone HCl (Dilaudid Pf Inj) 2 mg Q4H PRN IV PUSH pain not better with toradol Last administered on 05/13/17 12:29; Start 05/09/17 at 14:45 Clonidine (Catapres) 0.1 mg Q6H PRN PO SBP>160, DBP>90 Last administered on 05/18 17:02; Start 05/09/17 at 16:00 Potassium Chloride (KCl Powder) 20 meq ONCE ONCE PO Last administered on 17:15; Start 05/09/17 at 16:15; Stop 05/09/17 at 16:19; Status DC Lorazepam (Ativan Inj) 2 mg ONCE ONCE IV PUSH Last administered on 05/10/17 13:00; Start 05/10/17 at 13:00; Stop 05/10/17 at 13:01; Status DC Gadodiamide 16 ml 16 ml STK-MED ONCE IV Last administered on 05/10/17 14:29; Start 05/10/17 at 14:29; Stop 05/10/17 at 14:30; Status DC Vancomycin HCl/ Sodium Chloride (Vancomycin Inj/ NS 250 ml Inj) 262 ml @ 250 mls/hr Q12H IV Last administered on 05/11/17 01:20; Start 05/11/17 at 01:00; Stop 05/11/17 at 11:26; Status DC Miscellaneous Information SPECIFIC LAB TO BE DRAWN:VANCOMY... ONCE ONCE .XX ; Start 05/12/17 at 12:45; Stop 05/12/17 at 12:46; Status DC Vancomycin HCl/ Sodium Chloride (Vancomycin Inj/ NS 500 ml Inj) 515 ml @ 250 mls/hr Q12H IV Last administered on 05/21/17 00:51; Start 05/11/17 at 13:00 Baclofen (Lioresal) 10 mg Q8HR PRN PO MUSCLE SPASM Last administered on 05:02; Start 05/11/17 at 12:00 Potassium Chloride (KCl) 30 meq ONCE ONCE PO Last administered on 05/11/17 13: 36; Start 05/11/17 at 12:00; Stop 05/11/17 at 13:16; Status DC Potassium Chloride (KCl) 30 meq ONCE ONCE PO Last administered on 05/11/17 18: 02; Start 05/11/17 at 16:00; Stop 05/11/17 at 16:01; Status DC Lorazepam (Ativan) 1 mg Q4H PRN PO CIWA 8-10 Last administered on 05/11/17 22: 12; Start 05/11/17 at 16:00 Lorazepam (Ativan Inj) 1 mg Q4H PRN IV PUSH CIWA 8-10; Start 05/11/17 at 16:00 Lorazepam (Ativan) 2 mg Q2H PRN PO CIWA 11-14; Start 05/11/17 at 16:00 Lorazepam (Ativan Inj) 2 mg Q2H PRN IV PUSH CIWA 11-14 Last administered on 05/11 17:54; Start 05/11/17 at 16:00 Lorazepam (Ativan Inj) 2 mg Q1H PRN IV PUSH CIWA 15-20; Start 05/11/17 at 16:00 Lorazepam (Ativan Inj) 2 mg Q15M PRN IV PUSH CIWA > 20; Start 05/11/17 at 16:00 Haloperidol Lactate (Haldol Inj) 2 mg Q15M PRN IM SEE LABEL COMMENTS; Start 05/11/17 at 16:00 Flumazenil (Romazicon Inj) 0.2 mg Q1M PRN IV PUSH SEE LABEL COMMENTS; Start 05/11/17 at 16:00 Thrombin 77967 units 10,000 units STK-MED ONCE .ROUTE Last administered on 14:56; Start 05/12/17 at 07:22; Stop 05/12/17 at 07:23; Status DC Cefazolin Sodium/ Dextrose (Ancef 2 Gm Premix) 50 ml @ As Directed STK-MED ONCE .ROUTE ; Start 05/12/17 at 07:22; Stop 05/12/17 at 07:23; Status DC Gelatin (Gelfoam 100 Top) 1 foam STK-MED ONCE .ROUTE Last administered on 14:56; Start 05/12/17 at 07:22; Stop 05/12/17 at 07:23; Status DC Gentamicin Sulfate (Gentamicin Inj) 240 mg STK-MED ONCE .ROUTE Last administered on 05/12/17 14:56; Start 05/12/17 at 07:22; Stop 05/12/17 at 07:23; Status DC Hydromorphone HCl (Dilaudid Pf Inj) 2 mg STK-MED ONCE .ROUTE ; Start 05/12/17 at 13:21; Stop 05/12/17 at 13:22; Status DC Acetaminophen (Ofirmev Inj) 1,000 mg STK-MED ONCE IV ; Start 05/12/17 at 13:21; Stop 05/12/17 at 13:22; Status DC Vancomycin HCl 1000 mg 1,000 mg STK-MED ONCE .ROUTE Last administered on 15:08; Start 05/12/17 at 15:07; Stop 05/12/17 at 15:08; Status DC Potassium Chloride/Sodium Chloride (NS + KCl 20 Meq Inj) 1,000 ml @ 100 mls/hr Q10H IV Last administered on 05/15/17 03:21; Start 05/12/17 at 15:59; Status Hold IV Flush (NS Flush) 2 ml UNSCH PRN IVF FLUSH AFTER USING IV ACCESS Last administered on 05/21/17 00:53; Start 05/12/17 at 16:00 IV Flush (NS Flush) 2 ml BID IVF Last administered on 05/21/17 08:31; Start at 21:00 Docusate Sodium (Colace) 100 mg BID PO Last administered on 05/20/17 20:39; Start 05/12/17 at 21:00 Pantoprazole Sodium (Protonix) 40 mg DAILY PO Last administered on 05/21/17 08 :31; Start 05/13/17 at 09:00 Acetaminophen/ Hydrocodone Bitart ([place] 10-325 Mg) 1 tab Q4H PRN PO PAIN 1-5 WHEN TOLERATING PO Last administered on 05/17/17 17:50; Start 05/12/17 at 16:00 Acetaminophen/ Hydrocodone Bitart ([place] 10-325 Mg) 2 tab Q4H PRN PO PAIN 6-10 WHEN TOLERATING PO Last administered on 05/21/17 08:31; Start 05/12/17 at 16:00 Morphine Sulfate (Morphine Inj) 2 mg Q2H PRN IV PUSH PAIN 1-6 IF NOT TOLERATING PO; Start 05/12/17 at 16:00 Morphine Sulfate (Morphine Inj) 4 mg Q2H PRN IV PUSH PAIN 7-10 IF NOT TOLERATING PO Last administered on 05/13/17 20:35; Start 05/12/17 at 16:00 Acetaminophen (Tylenol) 650 mg Q4H PRN PO TEMPERATURE > 101.5 F Last administered on 05/20/17 20:47; Start 05/12/17 at 16:00 Miscellaneous Information SPECIFIC LAB TO BE DRAWN:VANCOMYCIN TROUGH DATE TO... ONCE ONCE .XX Last administered on 05/13/17 00:45; Start 05/13/17 at 00:45; Stop 05/13/17 at 00:46; Status DC Midazolam HCl (Versed Inj) 2 mg STK-MED ONCE .ROUTE ; Start 05/12/17 at 16:20; Stop 05/12/17 at 16:21; Status DC Fentanyl Citrate (fentaNYL INJ) 500 mcg STK-MED ONCE .ROUTE ; Start 05/12/17 at 16:20; Stop 05/12/17 at 16:21; Status DC Morphine Sulfate (*morphine INJ PERIprocedure ONLY) 8 mg STK-MED ONCE .ROUTE Last administered on 05/12/17 16:20; Start 05/12/17 at 16:20; Stop 05/12/17 at 16: 21; Status DC Miscellaneous Information ALL NURSING DEPARTME... UNSCH PRN .XX SEE LABEL COMMENTS; Start 05/12/17 at 16:12; Stop 05/13/17 at 16:11; Status DC Morphine Sulfate (*morphine INJ PERIprocedure ONLY) 8 mg STK-MED ONCE .ROUTE Last administered on 05/12/17 16:31; Start 05/12/17 at 16:31; Stop 05/12/17 at 16: 32; Status DC Miscellaneous Information SPECIFIC LAB TO BE ARLENE... ONCE ONCE .XX Last administered on 05/16/17 00:45; Start 05/16/17 at 00:45; Stop 05/16/17 at 00:46; Status DC Miscellaneous Information SPECIFIC LAB TO BE ARLENE... ONCE ONCE .XX Last administered on 05/19/17 13:00; Start 05/19/17 at 12:45; Stop 05/19/17 at 12:46; Status DC A/P Assessment and Plan A/P (1) Sepsis due to epidural abscess s/p L3-L5 laminectomy with evacuation of spinal epidural abscess continue Vanco - antibiotics per ID. MRI of lumbar spine to be repeated. HIV/hepatitis panel negative. neurosurgery and ID following. continue with pain control. (2) MRSA Bacteremia continue Vancomycin echo with no vegetation repeated blood cultures from 05/13 negative so far. ID following. (3) Rhabdomyolysis-resolved. due to cocaine use versus musculoskeletal injury (4) Shoulder pain, right- improving. MRI with Moderate hypertrophic changes are seen in the AC joint indenting the subacromial fat plane to a slight degree with adjacent subcutaneous edema possibly inflammatory without evidence for abscess formation. continue with pain control- (5) Encephalopathy, toxic-resolved. (6) HTN (hypertension) Continue Coreg and clonidine as needed (7)- hypokalemia; replaced. (8)- right knee pain; improved- XR with no fracture or significant arthropathy- continue pain control. (9); swelling/ tenderness over the right hip- will check soft tissues sonogram DVT prophylaxis with SCD's. Discharge Planning not ready for discharge. Toño Waterman MD May 21, 2017 09:38
[2017-05-21] MEDS ORDERED: GADODIAMIDE PF 287 MG/ML 20 ML VIAL (for RAD MRI) IV ONE (12:50)
--- NOTE | 2017-05-21 13:16 | HHI.PR ---
Addendum to Inpatient Note Addendum Reason: Additional Documentation Additional Information Attempted to see pt not in room x 2. Chart reviewed. Fevers 101 F Normal WBC today. MRI Spine planned for today No diarrhea Recs DC Vanco IV Start Dapto IV 8 mg/kg IV q24 hrs (ASP: Vanco induced drug fever) Follow cultures Follow clinically. Follow MRI L spine. covering for me this weekend. If any persistent fevers, abnormal MRI findings or change in clinical condition please call ID prevocational/rehabilitation counselor . Gwen King MD May 21, 2017 13:16
[2017-05-21] MEDS: DAPTOMYCIN IV SCH (15:45)
[2017-05-21] MEDS: SODIUM CHLORIDE 0.9% IV SCH (15:45)
[2017-05-21] MEDS: ACETAMINOPHEN 325 MG TAB PO PRN (15:52)
[2017-05-21 16:00] VITALS: BP 131/70; PULSE 74; RESP 17; TEMP 101.8; O2SAT 98
--- NOTE | 2017-05-21 16:55 | RADRPT ---
EXAM DATE/TIME: 05/21/2017 12:23 [facility] COMPARISON: MRI LUMBAR SPINE W & W/O CONTRAST, May 10, 2017, 12:48. INDICATIONS : Abscess. Lumbar surgery on Wednesday. CONTRAST: 17 cc Omniscan (gadodiamide) IV MEDICAL HISTORY : Chronic obstructive pulmonary disease. Hypertension. SURGICAL HISTORY : Discectomy, lumbar. section. ENCOUNTER: Subsequent ACUITY: 4-6 days PAIN SCORE: 3/10 LOCATION: [facility] TECHNIQUE: Multiplanar multisequence MRI of the lumbar spine was performed with and without contrast. FINDINGS: There has been interval surgery with evacuation of lumbar epidural abscess. The epidural space is now free of focal collection. There is a fluid containing operative tract extending from the skin surfac e down to the level of a right laminotomy at the L3-4 level. Disc disease changes at other levels are stable. No new acute findings are identified. CONCLUSION: Interval surgery with no new acute findings. Sebastián Morales MD on May 21, 2017 at 16:46 Board Certified Radiologist. This report was verified electronically.
[2017-05-21 17:05] LABS: BLOOD, URINE NEG (NEG); COMMENT (UR) CULT NOT INDICATED; CULTURE IF INDICATED CULT NOT INDICATED; GLUCOSE,URINE NEG (NEG); KETONE, URINE NEG (NEG); NITRITE,URINE NEG (NEG); PH, URINE 7.5 (5.0-8.5); SQUAMOUS EPITHELIAL CELL URINE <1 /hpf (0-5); URINE COLOR LIGHT-YELLOW (YELLW/STRAW)
--- NOTE | 2017-05-21 17:43 | RADRPT ---
EXAM DATE/TIME: 05/21/2017 17:02 [facility] COMPARISON: No previous studies available for comparison. INDICATIONS : Right hip swelling. MEDICAL HISTORY : Hypercholesterolemia. Chronic obstructive pulmonary disease. Hypertension. Asthma. . Paresth esia. Anxiety. Herniated lumbar disc. Substance abuse. MRSA. SURGICAL HISTORY : Tubal ligation. section. ENCOUNTER: Initial ACUITY: 1 week PAIN SCORE: 3/10 LOCATION: Right hip. AREA EVALUATED: Right lateral hip FINDINGS: The tissues lateral to the right hip are edematous diffusely. There is a small irregularly-shaped foc us of mostly fluid echogenicity in the deep subcutaneous tissues which does not appear loculated or a ssociated with hypervascularity. CONCLUSION: Edematous tissues in the lateral right hip Sebastián Morales MD on May 21, 2017 at 17:39 Board Certified Radiologist. This report was verified electronically.
[2017-05-21 20:00] VITALS: BP 153/72; PULSE 58; RESP 20; TEMP 98.5; O2SAT 100
[2017-05-22] VITALS (8 sets, daily range): BP systolic 118–132; BP diastolic 60–75; PULSE 55–70; RESP 10–20; TEMP 97.9–101.9; O2SAT 95–100
[2017-05-22] MEDS: ACETAMINOPHEN 325 MG TAB PO PRN (02:12)
[2017-05-22] MEDS: SODIUM CHLORIDE 0.9% FLUSH 5 ML FLUSH IVF SCH ×3 (02:17→21:00)
[2017-05-22] MEDS: ACETAMINOPHEN/HYDROcodone 325 MG/10 MG TAB PO PRN ×4 (06:06→21:21)
[2017-05-22] MEDS: DOCUSATE SODIUM 100 MG CAP PO SCH ×2 (10:24→21:20)
[2017-05-22] MEDS: CARVEDILOL 12.5 MG TAB PO SCH ×2 (10:24→21:21)
[2017-05-22] MEDS: PANTOPRAZOLE SOD 40 MG DELAYED RELEASE TAB PO SCH (10:24)
[2017-05-22] MEDS: HEPARIN SODIUM - SQ 10,000 UNITS/ML VIAL SQ SCH ×2 (10:25→21:00)
[2017-05-22] MEDS: BACLOFEN 10 MG TAB PO PRN ×2 (10:30→21:21)
--- NOTE | 2017-05-22 10:36 | HHI.PR ---
Subjective Remarks in no acute distress. Still febrile; T max 101.9. pain to the right hip is better. no other new complaints. Objective Vitals Vital Signs Date Time Temp Pulse Resp B/P Pulse Ox O2 Delivery O2 Flow Rate FiO2 05/22/17 08:00 98.4 55 17 130/61 95 05/22/17 04:00 98.8 62 20 128/75 95 05/22/17 00:00 101.9 70 20 118/60 95 05/21/17 20:00 98.5 58 20 153/72 100 05/21/17 16:00 101.8 74 17 131/70 98 I/O 05/21/17 05/21/17 05/21/17 05/22/17 05/22/17 05/22/17 07:00 15:00 23:00 07:00 15:00 23:00 Intake Total 240 ml Balance 240 ml Intake Oral 240 ml # Voids 2 4 7 # Bowel Movements 0 Result Diagram: 05/21/17 0904 Imaging Last Impressions Lumbar Spine MRI 05/21/17 0000 Signed Impressions: Service Date/Time: Sunday, May 21, 2017 12:23 - CONCLUSION: Interval surgery with no new acute findings. Sebastián Morales MD Lower Extremity Ultrasound 05/21/17 0000 Signed Impressions: Service Date/Time: Sunday, May 21, 2017 17:02 - CONCLUSION: Edematous tissues in the lateral right hip Sebastián Morales MD Chest X-Ray 05/19/17 0000 Signed Impressions: Service Date/Time: Friday, May 19, 2017 13:40 - CONCLUSION: Minimal blunting of the left costophrenic sulcus. Nahun Frances MD FACR Knee X-Ray 05/17/17 0000 Signed Impressions: Service Date/Time: Wednesday, May 17, 2017 11:06 - CONCLUSION: Soft tissue swelling in the thigh. Intact knee joint without evidence of acute fracture or significant arthropathy. Cl Harris MD Lumbar Spine X-Ray 05/12/17 0000 Signed Impressions: Service Date/Time: Friday, May 12, 2017 14:28 - CONCLUSION: Limited image as detailed above. Trevin Fuentes Jr., MD Shoulder MRI 05/10/17 0000 Signed Impressions: Service Date/Time: Wednesday, May 10, 2017 12:48 - CONCLUSION: Moderate hypertrophic changes are seen in the AC joint indenting the subacromial fat plane to a slight degree with adjacent subcutaneous edema possibly inflammatory without evidence for abscess formation. Clement Valentin MD Chest CT 05/08/17 2331 Signed Impressions: Service Date/Time: Monday, May 08, 2017 23:29 - CONCLUSION: Normal examination. Edis oFx MD Shoulder X-Ray [id number] Signed Impressions: Service Date/Time: Monday, May 08, 2017 21:05 - CONCLUSION: Negative two-view examination of the shoulder. Trevin Deleon MD Abdomen/Pelvis CT [id number] Signed Impressions: Service Date/Time: Monday, May 08, 2017 22:08 - CONCLUSION: No acute findings in the abdomen and pelvis. Trevin Deleon MD Objective Remarks GENERAL: This is a well-nourished, well-developed patient, in no apparent distress. CARDIOVASCULAR: Regular rate and regular rhythm without murmurs, gallops, or rubs. RESPIRATORY: Clear to auscultation. Breath sounds equal bilaterally. No wheezes , rales, or rhonchi. GASTROINTESTINAL: Abdomen soft, non-tender, nondistended. Normal, active bowel sounds MUSCULOSKELETAL: some focal swelling and tenderness over the right hip. NEURO: Alert & Oriented x4 to person, place, time, situation. Moves all ext x4 Procedures L3-L5 laminectomy with evacuation of spinal epidural abscess Medications and IVs Current Medications IV Flush 2 ml 2 ml UNSCH PRN IV FLUSH FLUSH AFTER USING IV ACCESS; Start at 20:30; Stop 05/08/17 at 23:34; Status DC Sodium Chloride (NS 1000 ml Inj) 1,000 ml @ 1,000 mls/hr Q1H IV Last administered on 05/08/17 21:10; Start 05/08/17 at 20:30; Stop 05/08/17 at 21:29 ; Status DC Iohexol 96 ml 96 ml STK-MED ONCE IV Last administered on 05/08/17 22:06; Start 05/08/17 at 22:06; Stop 05/08/17 at 22:07; Status DC Sodium Chloride (NS 1000 ml Inj) 1,000 ml @ 2,000 mls/hr Q30M IV Last administered on 05/08/17 23:12; Start 05/08/17 at 23:00; Stop 05/08/17 at 23:29 ; Status DC Ketorolac Tromethamine 30 mg 30 mg ONCE ONCE IVP Last administered on 23:13; Start 05/08/17 at 23:00; Stop 05/08/17 at 23:01; Status DC Ceftriaxone Sodium 2000 mg/ Sodium Chloride 100 ml @ 200 mls/hr ONCE ONCE IV Last administered on 05/08/17 23:16; Start 05/08/17 at 23:00; Stop 05/08/17 at 23:29; Status DC Pharmacy Profile Note 0 ml @ 0 mls/hr UNSCH OTHER ; Start 05/08/17 at 23:15; Stop 05/21/17 at 12:49; Status DC Cefepime HCl 1000 mg/Sodium Chloride 100 ml @ 200 mls/hr Q12H IV Last administered on 05/17/17 09:53; Start 05/09/17 at 09:00; Stop 05/17/17 at 15:27; Status DC Sodium Chloride (NS 1000 ml Inj) 1,000 ml @ 100 mls/hr Q10H IV Last administered on 05/11/17 13:37; Start 05/08/17 at 23:14; Stop 05/12/17 at 16:10; Status DC Sodium Chloride (NS Flush) 2 ml UNSCH PRN IV FLUSH FLUSH AFTER USING IV ACCESS Last administered on 05/10/17 01:07; Start 05/08/17 at 23:15; Stop 05/12/17 at 16:11; Status DC Sodium Chloride (NS Flush) 2 ml BID IV FLUSH Last administered on 05/11/17 22: 11; Start 05/09/17 at 09:00; Stop 05/12/17 at 16:11; Status DC Ondansetron HCl (Zofran Inj) 4 mg Q6H PRN IVP NAUSEA OR VOMITING; Start at 23:15 Heparin Sodium (Porcine) (Heparin Inj) 5,000 units Q12HR SQ Last administered on 05/22/17 10:25; Start 05/09/17 at 09:00 Acetaminophen (Tylenol) 650 mg Q6H PRN PO FEVER Last administered on 05/12/17 05:54; Start 05/08/17 at 23:15; Stop 05/12/17 at 16:10; Status DC Senna/Docusate Sodium (Janice-Colace) 1 tab BID PO Last administered on 05/12/17 09:08; Start 05/09/17 at 09:00; Stop 05/12/17 at 16:11; Status DC Magnesium Hydroxide (Milk Of Magnesia Liq) 30 ml Q12H PRN PO MILD - MODERATE CONSTIPATION; Start 05/08/17 at 23:15; Stop 05/09/17 at 09:42; Status DC Sennosides (Senokot) 17.2 mg Q12H PRN PO MODERATE - SEVERE CONSTIPATION; Start 05/08/17 at 23:15 Bisacodyl (Dulcolax Supp) 10 mg DAILY PRN RECTAL SEVERE CONSITIPATION; Start at 23:15; Stop 05/09/17 at 09:42; Status DC Lactulose 30 ml 30 ml DAILY PRN PO SEVERE CONSITIPATION; Start 05/08/17 at 23: 15; Stop 05/09/17 at 09:42; Status DC Vancomycin HCl 1000 mg/Sodium Chloride 250 ml @ 250 mls/hr ONCE ONCE IV Last administered on 05/09/17 00:30; Start 05/09/17 at 00:00; Stop 05/09/17 at 00:59 ; Status DC Vancomycin HCl/ Sodium Chloride (Vancomycin Inj/ NS 250 ml Inj) 250 ml @ 250 mls/hr Q12H IV Last administered on 05/10/17 15:10; Start 05/09/17 at 13:00; Stop 05/10/17 at 19:31; Status DC Miscellaneous Information SPECIFIC LAB TO BE DRAWN:VANCO TROUGH DATE TO... ONCE ONCE .XX Last administered on 05/10/17 12:54; Start 05/10/17 at 12:45; Stop 05/10/17 at 12:46; Status DC Carvedilol (Coreg) 12.5 mg Q12HR PO Last administered on 05/22/17 10:24; Start 05/09/17 at 10:00 Albuterol Sulfate (Albuterol Neb) 2.5 mg Q4HR NEB PRN INH SHORTNESS OF BREATH Last administered on 05/18/17 21:14; Start 05/09/17 at 14:45 Tramadol HCl (Ultram) 50 mg Q4H PRN PO PAIN 1-3 Last administered on 05/12/17 09:08; Start 05/09/17 at 09:45 Ketorolac Tromethamine (Toradol Inj) 30 mg Q6HR PRN IV PUSH PAIN SCALE 4 TO 10 Last administered on 05/10/17 12:14; Start 05/09/17 at 14:45; Stop 05/10/17 at 14:44; Status DC Hydromorphone HCl (Dilaudid Pf Inj) 2 mg Q4H PRN IV PUSH pain not better with toradol Last administered on 05/13/17 12:29; Start 05/09/17 at 14:45 Clonidine (Catapres) 0.1 mg Q6H PRN PO SBP>160, DBP>90 Last administered on 05/18 17:02; Start 05/09/17 at 16:00 Potassium Chloride (KCl Powder) 20 meq ONCE ONCE PO Last administered on 17:15; Start 05/09/17 at 16:15; Stop 05/09/17 at 16:19; Status DC Lorazepam (Ativan Inj) 2 mg ONCE ONCE IV PUSH Last administered on 05/10/17 13:00; Start 05/10/17 at 13:00; Stop 05/10/17 at 13:01; Status DC Gadodiamide 16 ml 16 ml STK-MED ONCE IV Last administered on 05/10/17 14:29; Start 05/10/17 at 14:29; Stop 05/10/17 at 14:30; Status DC Vancomycin HCl/ Sodium Chloride (Vancomycin Inj/ NS 250 ml Inj) 262 ml @ 250 mls/hr Q12H IV Last administered on 05/11/17 01:20; Start 05/11/17 at 01:00; Stop 05/11/17 at 11:26; Status DC Miscellaneous Information SPECIFIC LAB TO BE DRAWN:VANCOMY... ONCE ONCE .XX ; Start 05/12/17 at 12:45; Stop 05/12/17 at 12:46; Status DC Vancomycin HCl/ Sodium Chloride (Vancomycin Inj/ NS 500 ml Inj) 515 ml @ 250 mls/hr Q12H IV Last administered on 05/21/17 11:33; Start 05/11/17 at 13:00; Stop 05/21/17 at 12:50; Status DC Baclofen (Lioresal) 10 mg Q8HR PRN PO MUSCLE SPASM Last administered on 23:39; Start 05/11/17 at 12:00 Potassium Chloride (KCl) 30 meq ONCE ONCE PO Last administered on 05/11/17 13: 36; Start 05/11/17 at 12:00; Stop 05/11/17 at 13:16; Status DC Potassium Chloride (KCl) 30 meq ONCE ONCE PO Last administered on 05/11/17 18: 02; Start 05/11/17 at 16:00; Stop 05/11/17 at 16:01; Status DC Lorazepam (Ativan) 1 mg Q4H PRN PO CIWA 8-10 Last administered on 05/11/17 22: 12; Start 05/11/17 at 16:00 Lorazepam (Ativan Inj) 1 mg Q4H PRN IV PUSH CIWA 8-10; Start 05/11/17 at 16:00 Lorazepam (Ativan) 2 mg Q2H PRN PO CIWA 11-14; Start 05/11/17 at 16:00 Lorazepam (Ativan Inj) 2 mg Q2H PRN IV PUSH CIWA 11-14 Last administered on 05/11 17:54; Start 05/11/17 at 16:00 Lorazepam (Ativan Inj) 2 mg Q1H PRN IV PUSH CIWA 15-20; Start 05/11/17 at 16:00 Lorazepam (Ativan Inj) 2 mg Q15M PRN IV PUSH CIWA > 20; Start 05/11/17 at 16:00 Haloperidol Lactate (Haldol Inj) 2 mg Q15M PRN IM SEE LABEL COMMENTS; Start 05/11/17 at 16:00 Flumazenil (Romazicon Inj) 0.2 mg Q1M PRN IV PUSH SEE LABEL COMMENTS; Start 05/11/17 at 16:00 Thrombin 05023 units 10,000 units STK-MED ONCE .ROUTE Last administered on 14:56; Start 05/12/17 at 07:22; Stop 05/12/17 at 07:23; Status DC Cefazolin Sodium/ Dextrose (Ancef 2 Gm Premix) 50 ml @ As Directed STK-MED ONCE .ROUTE ; Start 05/12/17 at 07:22; Stop 05/12/17 at 07:23; Status DC Gelatin (Gelfoam 100 Top) 1 foam STK-MED ONCE .ROUTE Last administered on 14:56; Start 05/12/17 at 07:22; Stop 05/12/17 at 07:23; Status DC Gentamicin Sulfate (Gentamicin Inj) 240 mg STK-MED ONCE .ROUTE Last administered on 05/12/17 14:56; Start 05/12/17 at 07:22; Stop 05/12/17 at 07:23; Status DC Hydromorphone HCl (Dilaudid Pf Inj) 2 mg STK-MED ONCE .ROUTE ; Start 05/12/17 at 13:21; Stop 05/12/17 at 13:22; Status DC Acetaminophen (Ofirmev Inj) 1,000 mg STK-MED ONCE IV ; Start 05/12/17 at 13:21; Stop 05/12/17 at 13:22; Status DC Vancomycin HCl 1000 mg 1,000 mg STK-MED ONCE .ROUTE Last administered on 15:08; Start 05/12/17 at 15:07; Stop 05/12/17 at 15:08; Status DC Potassium Chloride/Sodium Chloride (NS + KCl 20 Meq Inj) 1,000 ml @ 100 mls/hr Q10H IV Last administered on 05/15/17 03:21; Start 05/12/17 at 15:59; Status Hold IV Flush (NS Flush) 2 ml UNSCH PRN IVF FLUSH AFTER USING IV ACCESS Last administered on 05/21/17 00:53; Start 05/12/17 at 16:00 IV Flush (NS Flush) 2 ml BID IVF Last administered on 05/22/17 09:00; Start at 21:00 Docusate Sodium (Colace) 100 mg BID PO Last administered on 05/22/17 10:24; Start 05/12/17 at 21:00 Pantoprazole Sodium (Protonix) 40 mg DAILY PO Last administered on 05/22/17 10 :24; Start 05/13/17 at 09:00 Acetaminophen/ Hydrocodone Bitart (Mobile 10-325 Mg) 1 tab Q4H PRN PO PAIN 1-5 WHEN TOLERATING PO Last administered on 05/21/17 23:39; Start 05/12/17 at 16:00 Acetaminophen/ Hydrocodone Bitart (Mobile 10-325 Mg) 2 tab Q4H PRN PO PAIN 6-10 WHEN TOLERATING PO Last administered on 05/22/17 06:06; Start 05/12/17 at 16:00 Morphine Sulfate (Morphine Inj) 2 mg Q2H PRN IV PUSH PAIN 1-6 IF NOT TOLERATING PO; Start 05/12/17 at 16:00 Morphine Sulfate (Morphine Inj) 4 mg Q2H PRN IV PUSH PAIN 7-10 IF NOT TOLERATING PO Last administered on 05/13/17 20:35; Start 05/12/17 at 16:00 Acetaminophen (Tylenol) 650 mg Q4H PRN PO TEMPERATURE > 101.5 F Last administered on 05/22/17 02:12; Start 05/12/17 at 16:00 Miscellaneous Information SPECIFIC LAB TO BE DRAWN:VANCOMYCIN TROUGH DATE TO... ONCE ONCE .XX Last administered on 05/13/17 00:45; Start 05/13/17 at 00:45; Stop 05/13/17 at 00:46; Status DC Midazolam HCl (Versed Inj) 2 mg STK-MED ONCE .ROUTE ; Start 05/12/17 at 16:20; Stop 05/12/17 at 16:21; Status DC Fentanyl Citrate (fentaNYL INJ) 500 mcg STK-MED ONCE .ROUTE ; Start 05/12/17 at 16:20; Stop 05/12/17 at 16:21; Status DC Morphine Sulfate (*morphine INJ PERIprocedure ONLY) 8 mg STK-MED ONCE .ROUTE Last administered on 05/12/17 16:20; Start 05/12/17 at 16:20; Stop 05/12/17 at 16: 21; Status DC Miscellaneous Information ALL NURSING DEPARTME... UNSCH PRN .XX SEE LABEL COMMENTS; Start 05/12/17 at 16:12; Stop 05/13/17 at 16:11; Status DC Morphine Sulfate (*morphine INJ PERIprocedure ONLY) 8 mg STK-MED ONCE .ROUTE Last administered on 05/12/17 16:31; Start 05/12/17 at 16:31; Stop 05/12/17 at 16: 32; Status DC Miscellaneous Information SPECIFIC LAB TO BE ARLENE... ONCE ONCE .XX Last administered on 05/16/17 00:45; Start 05/16/17 at 00:45; Stop 05/16/17 at 00:46; Status DC Miscellaneous Information SPECIFIC LAB TO BE ARLENE... ONCE ONCE .XX Last administered on 05/19/17 13:00; Start 05/19/17 at 12:45; Stop 05/19/17 at 12:46; Status DC Gadodiamide 17 ml 17 ml STK-MED ONCE IV Last administered on 05/21/17 12:50; Start 05/21/17 at 12:50; Stop 05/21/17 at 12:51; Status DC Daptomycin/Sodium Chloride (Cubicin Inj/NS Inj) 100 ml @ 200 mls/hr Q24H IV Last administered on 05/21/17 15:45; Start 05/21/17 at 15:00 A/P Assessment and Plan A/P (1) Sepsis due to epidural abscess/ with recurrent fever s/p L3-L5 laminectomy with evacuation of spinal epidural abscess started on Daptomycin - antibiotics per ID. MRI of lumbar spine repeated with no acute finding. will repeat the blood cultures. HIV/hepatitis panel negative. neurosurgery and ID following. continue with pain control. (2) MRSA Bacteremia continue Vancomycin echo with no vegetation repeated blood cultures from 05/13 negative so far. ID following. (3) Rhabdomyolysis-resolved. due to cocaine use versus musculoskeletal injury (4) Shoulder pain, right- improving. MRI with Moderate hypertrophic changes are seen in the AC joint indenting the subacromial fat plane to a slight degree with adjacent subcutaneous edema possibly inflammatory without evidence for abscess formation. continue with pain control- (5) Encephalopathy, toxic-resolved. (6) HTN (hypertension) Continue Coreg and clonidine as needed (7)- hypokalemia; replaced. (8)- right knee pain; improved- XR with no fracture or significant arthropathy- continue pain control. (9); swelling/ tenderness over the right hip- soft tissue sonogram with edematous tissue. DVT prophylaxis with SCD's. d/w . Discharge Planning not ready for discharge. Toño Waterman MD May 22, 2017 10:36
[2017-05-22] MEDS: SODIUM CHLORIDE 0.9% IV SCH (15:00)
[2017-05-22] MEDS: DAPTOMYCIN IV SCH (15:00)
[2017-05-22 17:01] LABS: AUTOMATED NEUTROPHIL # 3.6 TH/MM3 (1.8-7.7); BASOPHIL % 0.2 % (0.0-2.0); EOSINOPHIL % 0.8 % (0.0-4.0); HEMATOCRIT 24.9 % (35.0-46.0); HEMO FLAGS DIFF FINAL; LYMPH % 20.6 % (9.0-44.0); MEAN CELL VOLUME 94.4 FL (80.0-100.0); MEAN CORPUSCULAR HEMOGLOBIN 33.8 PG (27.0-34.0); MEAN CORPUSCULAR HGB CONC 35.8 % (32.0-36.0); NEUT % 70.4 % (16.0-70.0); PLATELET COUNT 300 TH/MM3 (150-450); RED BLOOD COUNT 2.64 MIL/MM3 (4.00-5.30); WHITE BLOOD COUNT 5.1 TH/MM3 (4.0-11.0)
[2017-05-22 17:20] LABS: ALT (GPT) 39 U/L (10-53); ANION GAP 8 MEQ/L (5-15); AST (GOT) 27 U/L (15-37); BLOOD UREA NITROGEN 7 MG/DL (7-18); CHLORIDE 100 MEQ/L (98-107); GLOMERULAR FILTRATION RATE 89 ML/MIN (>89); POTASSIUM 3.2 MEQ/L (3.5-5.1); SODIUM (NA) 137 MEQ/L (136-145)
[2017-05-22 17:22] LABS: ALKALINE PHOSPHATASE 72 U/L (45-117); TOTAL BILIRUBIN ADULT 0.3 MG/DL (0.2-1.0)
[2017-05-23] VITALS (8 sets, daily range): BP systolic 124–172; BP diastolic 66–93; PULSE 55–66; RESP 18; TEMP 98.2–98.9; O2SAT 94–100
[2017-05-23] MEDS: ACETAMINOPHEN/HYDROcodone 325 MG/10 MG TAB PO PRN ×3 (08:38→21:29)
[2017-05-23] MEDS: PANTOPRAZOLE SOD 40 MG DELAYED RELEASE TAB PO SCH (08:38)
[2017-05-23] MEDS: DOCUSATE SODIUM 100 MG CAP PO SCH ×2 (08:38→21:27)
[2017-05-23] MEDS: HEPARIN SODIUM - SQ 10,000 UNITS/ML VIAL SQ SCH ×2 (08:39→21:00)
[2017-05-23] MEDS: CARVEDILOL 12.5 MG TAB PO SCH ×2 (08:39→21:27)
--- NOTE | 2017-05-23 08:55 | HHI.PR ---
Subjective Remarks in no acute distress. pain is fairly controlled. remains afebrile. d/w the RN and no acute issues over night. Objective Vitals Vital Signs Date Time Temp Pulse Resp B/P Pulse Ox O2 Delivery O2 Flow Rate FiO2 05/23/17 08:00 98.9 65 18 159/79 95 05/23/17 03:48 98.7 62 18 136/74 100 05/23/17 01:51 98.4 62 18 148/73 100 05/22/17 20:36 98.6 62 18 125/74 100 05/22/17 19:00 63 05/22/17 16:00 98.4 58 12 120/66 97 05/22/17 12:00 97.9 59 10 132/61 96 I/O 05/22/17 05/22/17 05/22/17 05/23/17 05/23/17 05/23/17 07:00 15:00 23:00 07:00 15:00 23:00 Intake Total 720 ml Balance 720 ml Intake Oral 720 ml # Voids 7 3 1 8 # Bowel Movements 1 Result Diagram: 05/22/17 1627 05/22/17 1627 Imaging Last Impressions Lumbar Spine MRI 05/21/17 0000 Signed Impressions: Service Date/Time: Sunday, May 21, 2017 12:23 - CONCLUSION: Interval surgery with no new acute findings. Sebastián Morales MD Lower Extremity Ultrasound 05/21/17 0000 Signed Impressions: Service Date/Time: Sunday, May 21, 2017 17:02 - CONCLUSION: Edematous tissues in the lateral right hip Sebastián Morales MD Chest X-Ray 05/19/17 0000 Signed Impressions: Service Date/Time: Friday, May 19, 2017 13:40 - CONCLUSION: Minimal blunting of the left costophrenic sulcus. Nahun Frances MD FACR Knee X-Ray 05/17/17 0000 Signed Impressions: Service Date/Time: Wednesday, May 17, 2017 11:06 - CONCLUSION: Soft tissue swelling in the thigh. Intact knee joint without evidence of acute fracture or significant arthropathy. Cl Harris MD Lumbar Spine X-Ray 05/12/17 0000 Signed Impressions: Service Date/Time: Friday, May 12, 2017 14:28 - CONCLUSION: Limited image as detailed above. Trevin Fuentes Jr., MD Shoulder MRI 05/10/17 0000 Signed Impressions: Service Date/Time: Wednesday, May 10, 2017 12:48 - CONCLUSION: Moderate hypertrophic changes are seen in the AC joint indenting the subacromial fat plane to a slight degree with adjacent subcutaneous edema possibly inflammatory without evidence for abscess formation. Clement Valentin MD Chest CT 05/08/17 2331 Signed Impressions: Service Date/Time: Monday, May 08, 2017 23:29 - CONCLUSION: Normal examination. Edis Fox MD Shoulder X-Ray 05/08/172046 Signed Impressions: Service Date/Time: Monday, May 08, 2017 21:05 - CONCLUSION: Negative two-view examination of the shoulder. Trevin Deleon MD Abdomen/Pelvis CT [id number]/08/172046 Signed Impressions: Service Date/Time: Monday, May 08, 2017 22:08 - CONCLUSION: No acute findings in the abdomen and pelvis. Trevin Deleon MD Objective Remarks GENERAL: This is a well-nourished, well-developed patient, in no apparent distress. CARDIOVASCULAR: Regular rate and regular rhythm without murmurs, gallops, or rubs. RESPIRATORY: Clear to auscultation. Breath sounds equal bilaterally. No wheezes , rales, or rhonchi. GASTROINTESTINAL: Abdomen soft, non-tender, nondistended. Normal, active bowel sounds MUSCULOSKELETAL: some focal swelling and tenderness over the right hip. NEURO: Alert & Oriented x4 to person, place, time, situation. Moves all ext x4 Procedures L3-L5 laminectomy with evacuation of spinal epidural abscess Medications and IVs Current Medications IV Flush 2 ml 2 ml UNSCH PRN IV FLUSH FLUSH AFTER USING IV ACCESS; Start at 20:30; Stop 05/08/17 at 23:34; Status DC Sodium Chloride (NS 1000 ml Inj) 1,000 ml @ 1,000 mls/hr Q1H IV Last administered on 05/08/17 21:10; Start 05/08/17 at 20:30; Stop 05/08/17 at 21:29 ; Status DC Iohexol 96 ml 96 ml STK-MED ONCE IV Last administered on 05/08/17 22:06; Start 05/08/17 at 22:06; Stop 05/08/17 at 22:07; Status DC Sodium Chloride (NS 1000 ml Inj) 1,000 ml @ 2,000 mls/hr Q30M IV Last administered on 05/08/17 23:12; Start 05/08/17 at 23:00; Stop 05/08/17 at 23:29 ; Status DC Ketorolac Tromethamine 30 mg 30 mg ONCE ONCE IVP Last administered on 23:13; Start 05/08/17 at 23:00; Stop 05/08/17 at 23:01; Status DC Ceftriaxone Sodium 2000 mg/ Sodium Chloride 100 ml @ 200 mls/hr ONCE ONCE IV Last administered on 05/08/17 23:16; Start 05/08/17 at 23:00; Stop 05/08/17 at 23:29; Status DC Pharmacy Profile Note 0 ml @ 0 mls/hr UNSCH OTHER ; Start 05/08/17 at 23:15; Stop 05/21/17 at 12:49; Status DC Cefepime HCl 1000 mg/Sodium Chloride 100 ml @ 200 mls/hr Q12H IV Last administered on 05/17/17 09:53; Start 05/09/17 at 09:00; Stop 05/17/17 at 15:27; Status DC Sodium Chloride (NS 1000 ml Inj) 1,000 ml @ 100 mls/hr Q10H IV Last administered on 05/11/17 13:37; Start 05/08/17 at 23:14; Stop 05/12/17 at 16:10; Status DC Sodium Chloride (NS Flush) 2 ml UNSCH PRN IV FLUSH FLUSH AFTER USING IV ACCESS Last administered on 05/10/17 01:07; Start 05/08/17 at 23:15; Stop 05/12/17 at 16:11; Status DC Sodium Chloride (NS Flush) 2 ml BID IV FLUSH Last administered on 05/11/17 22: 11; Start 05/09/17 at 09:00; Stop 05/12/17 at 16:11; Status DC Ondansetron HCl (Zofran Inj) 4 mg Q6H PRN IVP NAUSEA OR VOMITING; Start at 23:15 Heparin Sodium (Porcine) (Heparin Inj) 5,000 units Q12HR SQ Last administered on 05/23/17 08:39; Start 05/09/17 at 09:00 Acetaminophen (Tylenol) 650 mg Q6H PRN PO FEVER Last administered on 05/12/17 05:54; Start 05/08/17 at 23:15; Stop 05/12/17 at 16:10; Status DC Senna/Docusate Sodium (Janice-Colace) 1 tab BID PO Last administered on 05/12/17 09:08; Start 05/09/17 at 09:00; Stop 05/12/17 at 16:11; Status DC Magnesium Hydroxide (Milk Of Magnesia Liq) 30 ml Q12H PRN PO MILD - MODERATE CONSTIPATION; Start 05/08/17 at 23:15; Stop 05/09/17 at 09:42; Status DC Sennosides (Senokot) 17.2 mg Q12H PRN PO MODERATE - SEVERE CONSTIPATION; Start 05/08/17 at 23:15 Bisacodyl (Dulcolax Supp) 10 mg DAILY PRN RECTAL SEVERE CONSITIPATION; Start at 23:15; Stop 05/09/17 at 09:42; Status DC Lactulose 30 ml 30 ml DAILY PRN PO SEVERE CONSITIPATION; Start 05/08/17 at 23: 15; Stop 05/09/17 at 09:42; Status DC Vancomycin HCl 1000 mg/Sodium Chloride 250 ml @ 250 mls/hr ONCE ONCE IV Last administered on 05/09/17 00:30; Start 05/09/17 at 00:00; Stop 05/09/17 at 00:59 ; Status DC Vancomycin HCl/ Sodium Chloride (Vancomycin Inj/ NS 250 ml Inj) 250 ml @ 250 mls/hr Q12H IV Last administered on 05/10/17 15:10; Start 05/09/17 at 13:00; Stop 05/10/17 at 19:31; Status DC Miscellaneous Information SPECIFIC LAB TO BE DRAWN:VANCO TROUGH DATE TO... ONCE ONCE .XX Last administered on 05/10/17 12:54; Start 05/10/17 at 12:45; Stop 05/10/17 at 12:46; Status DC Carvedilol (Coreg) 12.5 mg Q12HR PO Last administered on 05/23/17 08:39; Start 05/09/17 at 10:00 Albuterol Sulfate (Albuterol Neb) 2.5 mg Q4HR NEB PRN INH SHORTNESS OF BREATH Last administered on 05/18/17 21:14; Start 05/09/17 at 14:45 Tramadol HCl (Ultram) 50 mg Q4H PRN PO PAIN 1-3 Last administered on 05/12/17 09:08; Start 05/09/17 at 09:45 Ketorolac Tromethamine (Toradol Inj) 30 mg Q6HR PRN IV PUSH PAIN SCALE 4 TO 10 Last administered on 05/10/17 12:14; Start 05/09/17 at 14:45; Stop 05/10/17 at 14:44; Status DC Hydromorphone HCl (Dilaudid Pf Inj) 2 mg Q4H PRN IV PUSH pain not better with toradol Last administered on 05/13/17 12:29; Start 05/09/17 at 14:45 Clonidine (Catapres) 0.1 mg Q6H PRN PO SBP>160, DBP>90 Last administered on 05/18 17:02; Start 05/09/17 at 16:00 Potassium Chloride (KCl Powder) 20 meq ONCE ONCE PO Last administered on 17:15; Start 05/09/17 at 16:15; Stop 05/09/17 at 16:19; Status DC Lorazepam (Ativan Inj) 2 mg ONCE ONCE IV PUSH Last administered on 05/10/17 13:00; Start 05/10/17 at 13:00; Stop 05/10/17 at 13:01; Status DC Gadodiamide 16 ml 16 ml STK-MED ONCE IV Last administered on 05/10/17 14:29; Start 05/10/17 at 14:29; Stop 05/10/17 at 14:30; Status DC Vancomycin HCl/ Sodium Chloride (Vancomycin Inj/ NS 250 ml Inj) 262 ml @ 250 mls/hr Q12H IV Last administered on 05/11/17 01:20; Start 05/11/17 at 01:00; Stop 05/11/17 at 11:26; Status DC Miscellaneous Information SPECIFIC LAB TO BE DRAWN:VANCOMY... ONCE ONCE .XX ; Start 05/12/17 at 12:45; Stop 05/12/17 at 12:46; Status DC Vancomycin HCl/ Sodium Chloride (Vancomycin Inj/ NS 500 ml Inj) 515 ml @ 250 mls/hr Q12H IV Last administered on 05/21/17 11:33; Start 05/11/17 at 13:00; Stop 05/21/17 at 12:50; Status DC Baclofen (Lioresal) 10 mg Q8HR PRN PO MUSCLE SPASM Last administered on 21:21; Start 05/11/17 at 12:00 Potassium Chloride (KCl) 30 meq ONCE ONCE PO Last administered on 05/11/17 13: 36; Start 05/11/17 at 12:00; Stop 05/11/17 at 13:16; Status DC Potassium Chloride (KCl) 30 meq ONCE ONCE PO Last administered on 05/11/17 18: 02; Start 05/11/17 at 16:00; Stop 05/11/17 at 16:01; Status DC Lorazepam (Ativan) 1 mg Q4H PRN PO CIWA 8-10 Last administered on 05/11/17 22: 12; Start 05/11/17 at 16:00 Lorazepam (Ativan Inj) 1 mg Q4H PRN IV PUSH CIWA 8-10; Start 05/11/17 at 16:00 Lorazepam (Ativan) 2 mg Q2H PRN PO CIWA 11-14; Start 05/11/17 at 16:00 Lorazepam (Ativan Inj) 2 mg Q2H PRN IV PUSH CIWA 11-14 Last administered on 05/11 17:54; Start 05/11/17 at 16:00 Lorazepam (Ativan Inj) 2 mg Q1H PRN IV PUSH CIWA 15-20; Start 05/11/17 at 16:00 Lorazepam (Ativan Inj) 2 mg Q15M PRN IV PUSH CIWA > 20; Start 05/11/17 at 16:00 Haloperidol Lactate (Haldol Inj) 2 mg Q15M PRN IM SEE LABEL COMMENTS; Start 05/11/17 at 16:00 Flumazenil (Romazicon Inj) 0.2 mg Q1M PRN IV PUSH SEE LABEL COMMENTS; Start 05/11/17 at 16:00 Thrombin 47919 units 10,000 units STK-MED ONCE .ROUTE Last administered on 14:56; Start 05/12/17 at 07:22; Stop 05/12/17 at 07:23; Status DC Cefazolin Sodium/ Dextrose (Ancef 2 Gm Premix) 50 ml @ As Directed STK-MED ONCE .ROUTE ; Start 05/12/17 at 07:22; Stop 05/12/17 at 07:23; Status DC Gelatin (Gelfoam 100 Top) 1 foam STK-MED ONCE .ROUTE Last administered on 14:56; Start 05/12/17 at 07:22; Stop 05/12/17 at 07:23; Status DC Gentamicin Sulfate (Gentamicin Inj) 240 mg STK-MED ONCE .ROUTE Last administered on 05/12/17 14:56; Start 05/12/17 at 07:22; Stop 05/12/17 at 07:23; Status DC Hydromorphone HCl (Dilaudid Pf Inj) 2 mg STK-MED ONCE .ROUTE ; Start 05/12/17 at 13:21; Stop 05/12/17 at 13:22; Status DC Acetaminophen (Ofirmev Inj) 1,000 mg STK-MED ONCE IV ; Start 05/12/17 at 13:21; Stop 05/12/17 at 13:22; Status DC Vancomycin HCl 1000 mg 1,000 mg STK-MED ONCE .ROUTE Last administered on 15:08; Start 05/12/17 at 15:07; Stop 05/12/17 at 15:08; Status DC Potassium Chloride/Sodium Chloride (NS + KCl 20 Meq Inj) 1,000 ml @ 100 mls/hr Q10H IV Last administered on 05/15/17 03:21; Start 05/12/17 at 15:59; Status Hold IV Flush (NS Flush) 2 ml UNSCH PRN IVF FLUSH AFTER USING IV ACCESS Last administered on 05/21/17 00:53; Start 05/12/17 at 16:00 IV Flush (NS Flush) 2 ml BID IVF Last administered on 05/22/17 21:00; Start at 21:00 Docusate Sodium (Colace) 100 mg BID PO Last administered on 05/23/17 08:38; Start 05/12/17 at 21:00 Pantoprazole Sodium (Protonix) 40 mg DAILY PO Last administered on 05/23/17 08 :38; Start 05/13/17 at 09:00 Acetaminophen/ Hydrocodone Bitart (Yancey 10-325 Mg) 1 tab Q4H PRN PO PAIN 1-5 WHEN TOLERATING PO Last administered on 05/21/17 23:39; Start 05/12/17 at 16:00 Acetaminophen/ Hydrocodone Bitart (Yancey 10-325 Mg) 2 tab Q4H PRN PO PAIN 6-10 WHEN TOLERATING PO Last administered on 05/23/17 08:38; Start 05/12/17 at 16:00 Morphine Sulfate (Morphine Inj) 2 mg Q2H PRN IV PUSH PAIN 1-6 IF NOT TOLERATING PO; Start 05/12/17 at 16:00 Morphine Sulfate (Morphine Inj) 4 mg Q2H PRN IV PUSH PAIN 7-10 IF NOT TOLERATING PO Last administered on 05/13/17 20:35; Start 05/12/17 at 16:00 Acetaminophen (Tylenol) 650 mg Q4H PRN PO TEMPERATURE > 101.5 F Last administered on 05/22/17 02:12; Start 05/12/17 at 16:00 Miscellaneous Information SPECIFIC LAB TO BE DRAWN:VANCOMYCIN TROUGH DATE TO... ONCE ONCE .XX Last administered on 05/13/17 00:45; Start 05/13/17 at 00:45; Stop 05/13/17 at 00:46; Status DC Midazolam HCl (Versed Inj) 2 mg STK-MED ONCE .ROUTE ; Start 05/12/17 at 16:20; Stop 05/12/17 at 16:21; Status DC Fentanyl Citrate (fentaNYL INJ) 500 mcg STK-MED ONCE .ROUTE ; Start 05/12/17 at 16:20; Stop 05/12/17 at 16:21; Status DC Morphine Sulfate (*morphine INJ PERIprocedure ONLY) 8 mg STK-MED ONCE .ROUTE Last administered on 05/12/17 16:20; Start 05/12/17 at 16:20; Stop 05/12/17 at 16: 21; Status DC Miscellaneous Information ALL NURSING DEPARTME... UNSCH PRN .XX SEE LABEL COMMENTS; Start 05/12/17 at 16:12; Stop 05/13/17 at 16:11; Status DC Morphine Sulfate (*morphine INJ PERIprocedure ONLY) 8 mg STK-MED ONCE .ROUTE Last administered on 05/12/17 16:31; Start 05/12/17 at 16:31; Stop 05/12/17 at 16: 32; Status DC Miscellaneous Information SPECIFIC LAB TO BE ARLENE... ONCE ONCE .XX Last administered on 05/16/17 00:45; Start 05/16/17 at 00:45; Stop 05/16/17 at 00:46; Status DC Miscellaneous Information SPECIFIC LAB TO BE ARLENE... ONCE ONCE .XX Last administered on 05/19/17 13:00; Start 05/19/17 at 12:45; Stop 05/19/17 at 12:46; Status DC Gadodiamide 17 ml 17 ml STK-MED ONCE IV Last administered on 05/21/17 12:50; Start 05/21/17 at 12:50; Stop 05/21/17 at 12:51; Status DC Daptomycin/Sodium Chloride (Cubicin Inj/NS Inj) 100 ml @ 200 mls/hr Q24H IV Last administered on 05/22/17 15:00; Start 05/21/17 at 15:00 A/P Assessment and Plan A/P (1) Sepsis due to epidural abscess/ with recurrent fever s/p L3-L5 laminectomy with evacuation of spinal epidural abscess started on Daptomycin - antibiotics per ID. MRI of lumbar spine repeated with no acute finding. repeated blood cultures pending. HIV/hepatitis panel negative. neurosurgery and ID following. continue with pain control. (2) MRSA Bacteremia continue Daptomycin echo with no vegetation repeated blood cultures from 05/13 negative so far. ID following. (3) Rhabdomyolysis-resolved. due to cocaine use versus musculoskeletal injury (4) Shoulder pain, right- improving. MRI with Moderate hypertrophic changes are seen in the AC joint indenting the subacromial fat plane to a slight degree with adjacent subcutaneous edema possibly inflammatory without evidence for abscess formation. continue with pain control- (5) Encephalopathy, toxic-resolved. (6) HTN (hypertension) Continue Coreg and clonidine as needed (7)- hypokalemia; replaced. (8)- right knee pain; improved- XR with no fracture or significant arthropathy- continue pain control. (9); swelling/ tenderness over the right hip- soft tissue sonogram with edematous tissue. DVT prophylaxis with SCD's. Toño Waterman MD May 23, 2017 08:55
[2017-05-23] MEDS: SODIUM CHLORIDE 0.9% FLUSH 5 ML FLUSH IVF SCH ×2 (09:00→21:00)
--- NOTE | 2017-05-23 16:07 | HHI.IDPN ---
Subjective Subjective Remarks I was contacted by Dr Guillaume to see pt 2/2 ongoing fevers chart was reviewed 51 yo F with MRSA bacteremia R shoulder Infective Myositis Spinal epidural abscess sp evacuation she cont to have fever untill her vancomycin was stopped and daptomycin was started 2 days ago. last temp of 101.9 yday around 9 am She tells me she is doing much better She also co of R hip pain and it improved today She has US done shoed no fluid collection Repeat MRI w/o acute finding Antibiotics Dapto IV Lines Line sites with no e.o infection Past Medical History Hypertension COPD/asthma , dental extraction Allergies: Coded Allergies: Bee Sting (Verified Allergy, Severe, ANAPHYLAXIS, 05/08/17) Peanut (Verified Allergy, Severe, ANAPHYLAXIS, 05/08/17) *MDRO Multi-Drug Resistant Organism (Verified Adverse Reaction, Unknown, ) MRSA (blood) 05/08/17, 05/10/17, (back) 05/12/17 Objective . Vital Signs Date Time Temp Pulse Resp B/P Pulse Ox O2 Delivery O2 Flow Rate FiO2 05/23/17 12:02 98.4 58 18 124/66 94 05/23/17 08:00 98.9 65 18 159/79 95 05/23/17 03:48 98.7 62 18 136/74 100 05/23/17 01:51 98.4 62 18 148/73 100 05/22/17 20:36 98.6 62 18 125/74 100 05/22/17 19:00 63 05/22/17 16:00 98.4 58 12 120/66 97 05/22/17 05/22/17 05/23/17 15:00 23:00 07:00 Intake Total 720 ml Balance 720 ml Intake Oral 720 ml # Voids 3 1 8 # Bowel Movements 1 . Laboratory Tests Test 05/22/17 16:27 White Blood Count 5.1 TH/MM3 Red Blood Count 2.64 MIL/MM3 Hemoglobin 8.9 GM/DL Hematocrit 24.9 % Mean Corpuscular Volume 94.4 FL Mean Corpuscular Hemoglobin 33.8 PG Mean Corpuscular Hemoglobin 35.8 % Concent Red Cell Distribution Width 14.0 % Platelet Count 300 TH/MM3 Mean Platelet Volume 7.4 FL Neutrophils (%) (Auto) 70.4 % Lymphocytes (%) (Auto) 20.6 % Monocytes (%) (Auto) 8.0 % Eosinophils (%) (Auto) 0.8 % Basophils (%) (Auto) 0.2 % Neutrophils # (Auto) 3.6 TH/MM3 Lymphocytes # (Auto) 1.0 TH/MM3 Monocytes # (Auto) 0.4 TH/MM3 Eosinophils # (Auto) 0.0 TH/MM3 Basophils # (Auto) 0.0 TH/MM3 CBC Comment DIFF FINAL Differential Comment Laboratory Tests Test 05/22/17 05/23/17 16:27 08:30 Sodium Level 137 MEQ/L Potassium Level 3.2 MEQ/L Chloride Level 100 MEQ/L Carbon Dioxide Level 29.0 MEQ/L Anion Gap 8 MEQ/L Blood Urea Nitrogen 7 MG/DL Creatinine 0.82 MG/DL 0.68 MG/DL Estimat Glomerular Filtration 89 ML/MIN 111 ML/MIN Rate Random Glucose 120 MG/DL Calcium Level 8.5 MG/DL Total Bilirubin 0.3 MG/DL Aspartate Amino Transf 27 U/L (AST/SGOT) Alanine Aminotransferase 39 U/L (ALT/SGPT) Alkaline Phosphatase 72 U/L Total Protein 7.0 GM/DL Albumin 2.1 GM/DL Microbiology Date/Time Procedure Status Source Growth 05/20/17 21:05 Aerobic Blood Culture - Preliminary Resulted Blood Peripheral NO GROWTH IN 3 DAYS 05/20/17 21:05 Anaerobic Blood Culture - Preliminary Resulted Blood Peripheral NO GROWTH IN 3 DAYS 05/20/17 21:10 Aerobic Blood Culture - Preliminary Resulted Blood Peripheral NO GROWTH IN 3 DAYS 05/20/17 21:10 Anaerobic Blood Culture - Preliminary Resulted Blood Peripheral NO GROWTH IN 3 DAYS 05/22/17 16:21 Aerobic Blood Culture - Preliminary Resulted Blood Peripheral NO GROWTH IN 1 DAY 05/22/17 16:21 Anaerobic Blood Culture - Preliminary Resulted Blood Peripheral NO GROWTH IN 1 DAY 05/22/17 16:40 Aerobic Blood Culture - Preliminary Resulted Blood Peripheral NO GROWTH IN 1 DAY 05/22/17 16:40 Anaerobic Blood Culture - Preliminary Resulted Blood Peripheral NO GROWTH IN 1 DAY Imaging Last Impressions Lumbar Spine MRI 05/21/17 0000 Signed Impressions: Service Date/Time: Sunday, May 21, 2017 12:23 - CONCLUSION: Interval surgery with no new acute findings. Sebastián Morales MD Lower Extremity Ultrasound 05/21/17 0000 Signed Impressions: Service Date/Time: Sunday, May 21, 2017 17:02 - CONCLUSION: Edematous tissues in the lateral right hip Sebastián Morales MD Chest X-Ray 05/19/17 0000 Signed Impressions: Service Date/Time: Friday, May 19, 2017 13:40 - CONCLUSION: Minimal blunting of the left costophrenic sulcus. Nahun Frances MD FACR Knee X-Ray 05/17/17 0000 Signed Impressions: Service Date/Time: Wednesday, May 17, 2017 11:06 - CONCLUSION: Soft tissue swelling in the thigh. Intact knee joint without evidence of acute fracture or significant arthropathy. Cl Harris MD Lumbar Spine X-Ray 05/12/17 0000 Signed Impressions: Service Date/Time: Friday, May 12, 2017 14:28 - CONCLUSION: Limited image as detailed above. Trevin Fuentes Jr., MD Shoulder MRI 05/10/17 0000 Signed Impressions: Service Date/Time: Wednesday, May 10, 2017 12:48 - CONCLUSION: Moderate hypertrophic changes are seen in the AC joint indenting the subacromial fat plane to a slight degree with adjacent subcutaneous edema possibly inflammatory without evidence for abscess formation. Clemnet Valentin MD Chest CT 05/08/17 2331 Signed Impressions: Service Date/Time: Monday, May 08, 2017 23:29 - CONCLUSION: Normal examination. Edis Fox MD Shoulder X-Ray 05/08/172046 Signed Impressions: Service Date/Time: Monday, May 08, 2017 21:05 - CONCLUSION: Negative two-view examination of the shoulder. Trevin Deleon MD Abdomen/Pelvis CT 05/08/172046 Signed Impressions: Service Date/Time: Monday, May 08, 2017 22:08 - CONCLUSION: No acute findings in the abdomen and pelvis. Trevin Deleon MD Physical Exam GENERAL: Awake and alert, NAD SKIN: No rashes, ecchymoses or lesions. Cool and dry. HEAD: Atraumatic. Normocephalic. No temporal or scalp tenderness. EYES: Pupils equal round and reactive. Extraocular motions intact. No scleral icterus. ENT: Nose without bleeding, purulent drainage or septal hematoma. Throat without erythema, NECK: Trachea midline. Supple, nontender, no meningeal signs. CARDIOVASCULAR: Regular rate and rhythm without murmurs, gallops, or rubs. RESPIRATORY: Clear to auscultation. Breath sounds equal bilaterally. No wheezes , rales, or rhonchi. GASTROINTESTINAL: Abdomen soft, non-tender, nondistended. BACK: brace in place MUSCULOSKELETAL: Extremities without clubbing, cyanosis, or edema. No calf tenderness Mild brusing over R hip NEUROLOGICAL: Awake and alert. moves extremities. Psych: tearful IV line sites with no e/o infection. Assessment & Plan Remarks Sepsis present on admission MRSA bacteremia Infective Myositis Lumbar spinal epidural abscess - sp L3-L5 laminectomy with evacuation of abscess 05/12 Persistent fever, resolved after transition to daptomycin Recs cont daptomycin Fu CKs weekly while on dapto fu P clx dw Geraldine Ernandez MD May 23, 2017 16:07
[2017-05-23] MEDS: DAPTOMYCIN IV SCH (16:53)
[2017-05-23] MEDS: SODIUM CHLORIDE 0.9% IV SCH (16:53)
[2017-05-24] VITALS: BP 156/76; PULSE 67; RESP 18; TEMP 98.1; O2SAT 99
[2017-05-24 04:00] VITALS: BP 157/72; PULSE 69; RESP 18; TEMP 98.6; O2SAT 93
[2017-05-24] MEDS: ACETAMINOPHEN/HYDROcodone 325 MG/10 MG TAB PO PRN ×2 (05:52→18:25)
[2017-05-24 08:00] VITALS: BP 150/78; PULSE 57; PULSE 72; RESP 16; TEMP 98.1; O2SAT 96
[2017-05-24] MEDS: SODIUM CHLORIDE 0.9% FLUSH 5 ML FLUSH IVF SCH (09:00)
--- NOTE | 2017-05-24 09:06 | HHI.PR ---
Subjective Remarks in no acute distress. remains afebrile. pain is controlled. no new complaints. Objective Vitals Vital Signs Date Time Temp Pulse Resp B/P Pulse Ox O2 Delivery O2 Flow Rate FiO2 05/24/17 08:00 98.1 57 16 150/78 96 05/24/17 04:00 98.6 69 18 157/72 93 05/24/17 00:00 98.1 67 18 156/76 99 05/23/17 20:20 98.3 65 18 161/76 99 05/23/17 19:00 55 05/23/17 16:17 98.2 60 18 172/93 99 05/23/17 12:02 98.4 58 18 124/66 94 I/O 05/23/17 05/23/17 05/23/17 05/24/17 05/24/17 05/24/17 07:00 15:00 23:00 07:00 15:00 23:00 Intake Total 240 ml Balance 240 ml Intake Oral 240 ml # Voids 8 4 3 Result Diagram: 05/22/17 1627 05/23/17 0830 Imaging Last Impressions Lumbar Spine MRI 05/21/17 0000 Signed Impressions: Service Date/Time: Sunday, May 21, 2017 12:23 - CONCLUSION: Interval surgery with no new acute findings. Sebastián Morales MD Lower Extremity Ultrasound 05/21/17 0000 Signed Impressions: Service Date/Time: Sunday, May 21, 2017 17:02 - CONCLUSION: Edematous tissues in the lateral right hip Sebastián Morales MD Chest X-Ray 05/19/17 0000 Signed Impressions: Service Date/Time: Friday, May 19, 2017 13:40 - CONCLUSION: Minimal blunting of the left costophrenic sulcus. Nahun Frances MD FACR Knee X-Ray 05/17/17 0000 Signed Impressions: Service Date/Time: Wednesday, May 17, 2017 11:06 - CONCLUSION: Soft tissue swelling in the thigh. Intact knee joint without evidence of acute fracture or significant arthropathy. Cl Harris MD Lumbar Spine X-Ray 05/12/17 0000 Signed Impressions: Service Date/Time: Friday, May 12, 2017 14:28 - CONCLUSION: Limited image as detailed above. Trevin Fuentes Jr., MD Shoulder MRI 05/10/17 0000 Signed Impressions: Service Date/Time: Wednesday, May 10, 2017 12:48 - CONCLUSION: Moderate hypertrophic changes are seen in the AC joint indenting the subacromial fat plane to a slight degree with adjacent subcutaneous edema possibly inflammatory without evidence for abscess formation. Clement Valentin MD Chest CT 05/08/17 2331 Signed Impressions: Service Date/Time: Monday, May 08, 2017 23:29 - CONCLUSION: Normal examination. Edis Fox MD Shoulder X-Ray [id number] Signed Impressions: Service Date/Time: Monday, May 08, 2017 21:05 - CONCLUSION: Negative two-view examination of the shoulder. Trevin Deleon MD Abdomen/Pelvis CT [id number] Signed Impressions: Service Date/Time: Monday, May 08, 2017 22:08 - CONCLUSION: No acute findings in the abdomen and pelvis. Trevin Deleon MD Objective Remarks GENERAL: This is a well-nourished, well-developed patient, in no apparent distress. CARDIOVASCULAR: Regular rate and regular rhythm without murmurs, gallops, or rubs. RESPIRATORY: Clear to auscultation. Breath sounds equal bilaterally. No wheezes , rales, or rhonchi. GASTROINTESTINAL: Abdomen soft, non-tender, nondistended. Normal, active bowel sounds MUSCULOSKELETAL: some focal swelling and tenderness over the right hip. NEURO: Alert & Oriented x4 to person, place, time, situation. Moves all ext x4 Procedures L3-L5 laminectomy with evacuation of spinal epidural abscess Medications and IVs Current Medications IV Flush 2 ml 2 ml UNSCH PRN IV FLUSH FLUSH AFTER USING IV ACCESS; Start at 20:30; Stop 05/08/17 at 23:34; Status DC Sodium Chloride (NS 1000 ml Inj) 1,000 ml @ 1,000 mls/hr Q1H IV Last administered on 05/08/17 21:10; Start 05/08/17 at 20:30; Stop 05/08/17 at 21:29 ; Status DC Iohexol 96 ml 96 ml STK-MED ONCE IV Last administered on 05/08/17 22:06; Start 05/08/17 at 22:06; Stop 05/08/17 at 22:07; Status DC Sodium Chloride (NS 1000 ml Inj) 1,000 ml @ 2,000 mls/hr Q30M IV Last administered on 05/08/17 23:12; Start 05/08/17 at 23:00; Stop 05/08/17 at 23:29 ; Status DC Ketorolac Tromethamine 30 mg 30 mg ONCE ONCE IVP Last administered on 23:13; Start 05/08/17 at 23:00; Stop 05/08/17 at 23:01; Status DC Ceftriaxone Sodium 2000 mg/ Sodium Chloride 100 ml @ 200 mls/hr ONCE ONCE IV Last administered on 05/08/17 23:16; Start 05/08/17 at 23:00; Stop 05/08/17 at 23:29; Status DC Pharmacy Profile Note 0 ml @ 0 mls/hr UNSCH OTHER ; Start 05/08/17 at 23:15; Stop 05/21/17 at 12:49; Status DC Cefepime HCl 1000 mg/Sodium Chloride 100 ml @ 200 mls/hr Q12H IV Last administered on 05/17/17 09:53; Start 05/09/17 at 09:00; Stop 05/17/17 at 15:27; Status DC Sodium Chloride (NS 1000 ml Inj) 1,000 ml @ 100 mls/hr Q10H IV Last administered on 05/11/17 13:37; Start 05/08/17 at 23:14; Stop 05/12/17 at 16:10; Status DC Sodium Chloride (NS Flush) 2 ml UNSCH PRN IV FLUSH FLUSH AFTER USING IV ACCESS Last administered on 05/10/17 01:07; Start 05/08/17 at 23:15; Stop 05/12/17 at 16:11; Status DC Sodium Chloride (NS Flush) 2 ml BID IV FLUSH Last administered on 05/11/17 22: 11; Start 05/09/17 at 09:00; Stop 05/12/17 at 16:11; Status DC Ondansetron HCl (Zofran Inj) 4 mg Q6H PRN IVP NAUSEA OR VOMITING; Start at 23:15 Heparin Sodium (Porcine) (Heparin Inj) 5,000 units Q12HR SQ Last administered on 05/23/17 08:39; Start 05/09/17 at 09:00 Acetaminophen (Tylenol) 650 mg Q6H PRN PO FEVER Last administered on 05/12/17 05:54; Start 05/08/17 at 23:15; Stop 05/12/17 at 16:10; Status DC Senna/Docusate Sodium (Janice-Colace) 1 tab BID PO Last administered on 05/12/17 09:08; Start 05/09/17 at 09:00; Stop 05/12/17 at 16:11; Status DC Magnesium Hydroxide (Milk Of Magnesia Liq) 30 ml Q12H PRN PO MILD - MODERATE CONSTIPATION; Start 05/08/17 at 23:15; Stop 05/09/17 at 09:42; Status DC Sennosides (Senokot) 17.2 mg Q12H PRN PO MODERATE - SEVERE CONSTIPATION; Start 05/08/17 at 23:15 Bisacodyl (Dulcolax Supp) 10 mg DAILY PRN RECTAL SEVERE CONSITIPATION; Start at 23:15; Stop 05/09/17 at 09:42; Status DC Lactulose 30 ml 30 ml DAILY PRN PO SEVERE CONSITIPATION; Start 05/08/17 at 23: 15; Stop 05/09/17 at 09:42; Status DC Vancomycin HCl 1000 mg/Sodium Chloride 250 ml @ 250 mls/hr ONCE ONCE IV Last administered on 05/09/17 00:30; Start 05/09/17 at 00:00; Stop 05/09/17 at 00:59 ; Status DC Vancomycin HCl/ Sodium Chloride (Vancomycin Inj/ NS 250 ml Inj) 250 ml @ 250 mls/hr Q12H IV Last administered on 05/10/17 15:10; Start 05/09/17 at 13:00; Stop 05/10/17 at 19:31; Status DC Miscellaneous Information SPECIFIC LAB TO BE DRAWN:VANCO TROUGH DATE TO... ONCE ONCE .XX Last administered on 05/10/17 12:54; Start 05/10/17 at 12:45; Stop 05/10/17 at 12:46; Status DC Carvedilol (Coreg) 12.5 mg Q12HR PO Last administered on 05/23/17 21:27; Start 05/09/17 at 10:00 Albuterol Sulfate (Albuterol Neb) 2.5 mg Q4HR NEB PRN INH SHORTNESS OF BREATH Last administered on 05/18/17 21:14; Start 05/09/17 at 14:45 Tramadol HCl (Ultram) 50 mg Q4H PRN PO PAIN 1-3 Last administered on 05/12/17 09:08; Start 05/09/17 at 09:45 Ketorolac Tromethamine (Toradol Inj) 30 mg Q6HR PRN IV PUSH PAIN SCALE 4 TO 10 Last administered on 05/10/17 12:14; Start 05/09/17 at 14:45; Stop 05/10/17 at 14:44; Status DC Hydromorphone HCl (Dilaudid Pf Inj) 2 mg Q4H PRN IV PUSH pain not better with toradol Last administered on 05/13/17 12:29; Start 05/09/17 at 14:45 Clonidine (Catapres) 0.1 mg Q6H PRN PO SBP>160, DBP>90 Last administered on 05/18 17:02; Start 05/09/17 at 16:00 Potassium Chloride (KCl Powder) 20 meq ONCE ONCE PO Last administered on 17:15; Start 05/09/17 at 16:15; Stop 05/09/17 at 16:19; Status DC Lorazepam (Ativan Inj) 2 mg ONCE ONCE IV PUSH Last administered on 05/10/17 13:00; Start 05/10/17 at 13:00; Stop 05/10/17 at 13:01; Status DC Gadodiamide 16 ml 16 ml STK-MED ONCE IV Last administered on 05/10/17 14:29; Start 05/10/17 at 14:29; Stop 05/10/17 at 14:30; Status DC Vancomycin HCl/ Sodium Chloride (Vancomycin Inj/ NS 250 ml Inj) 262 ml @ 250 mls/hr Q12H IV Last administered on 05/11/17 01:20; Start 05/11/17 at 01:00; Stop 05/11/17 at 11:26; Status DC Miscellaneous Information SPECIFIC LAB TO BE DRAWN:VANCOMY... ONCE ONCE .XX ; Start 05/12/17 at 12:45; Stop 05/12/17 at 12:46; Status DC Vancomycin HCl/ Sodium Chloride (Vancomycin Inj/ NS 500 ml Inj) 515 ml @ 250 mls/hr Q12H IV Last administered on 05/21/17 11:33; Start 05/11/17 at 13:00; Stop 05/21/17 at 12:50; Status DC Baclofen (Lioresal) 10 mg Q8HR PRN PO MUSCLE SPASM Last administered on 21:21; Start 05/11/17 at 12:00 Potassium Chloride (KCl) 30 meq ONCE ONCE PO Last administered on 05/11/17 13: 36; Start 05/11/17 at 12:00; Stop 05/11/17 at 13:16; Status DC Potassium Chloride (KCl) 30 meq ONCE ONCE PO Last administered on 05/11/17 18: 02; Start 05/11/17 at 16:00; Stop 05/11/17 at 16:01; Status DC Lorazepam (Ativan) 1 mg Q4H PRN PO CIWA 8-10 Last administered on 05/11/17 22: 12; Start 05/11/17 at 16:00 Lorazepam (Ativan Inj) 1 mg Q4H PRN IV PUSH CIWA 8-10; Start 05/11/17 at 16:00 Lorazepam (Ativan) 2 mg Q2H PRN PO CIWA 11-14; Start 05/11/17 at 16:00 Lorazepam (Ativan Inj) 2 mg Q2H PRN IV PUSH CIWA 11-14 Last administered on 05/11 17:54; Start 05/11/17 at 16:00 Lorazepam (Ativan Inj) 2 mg Q1H PRN IV PUSH CIWA 15-20; Start 05/11/17 at 16:00 Lorazepam (Ativan Inj) 2 mg Q15M PRN IV PUSH CIWA > 20; Start 05/11/17 at 16:00 Haloperidol Lactate (Haldol Inj) 2 mg Q15M PRN IM SEE LABEL COMMENTS; Start 05/11/17 at 16:00 Flumazenil (Romazicon Inj) 0.2 mg Q1M PRN IV PUSH SEE LABEL COMMENTS; Start 05/11/17 at 16:00 Thrombin 01836 units 10,000 units STK-MED ONCE .ROUTE Last administered on 14:56; Start 05/12/17 at 07:22; Stop 05/12/17 at 07:23; Status DC Cefazolin Sodium/ Dextrose (Ancef 2 Gm Premix) 50 ml @ As Directed STK-MED ONCE .ROUTE ; Start 05/12/17 at 07:22; Stop 05/12/17 at 07:23; Status DC Gelatin (Gelfoam 100 Top) 1 foam STK-MED ONCE .ROUTE Last administered on 14:56; Start 05/12/17 at 07:22; Stop 05/12/17 at 07:23; Status DC Gentamicin Sulfate (Gentamicin Inj) 240 mg STK-MED ONCE .ROUTE Last administered on 05/12/17 14:56; Start 05/12/17 at 07:22; Stop 05/12/17 at 07:23; Status DC Hydromorphone HCl (Dilaudid Pf Inj) 2 mg STK-MED ONCE .ROUTE ; Start 05/12/17 at 13:21; Stop 05/12/17 at 13:22; Status DC Acetaminophen (Ofirmev Inj) 1,000 mg STK-MED ONCE IV ; Start 05/12/17 at 13:21; Stop 05/12/17 at 13:22; Status DC Vancomycin HCl 1000 mg 1,000 mg STK-MED ONCE .ROUTE Last administered on 15:08; Start 05/12/17 at 15:07; Stop 05/12/17 at 15:08; Status DC Potassium Chloride/Sodium Chloride (NS + KCl 20 Meq Inj) 1,000 ml @ 100 mls/hr Q10H IV Last administered on 05/15/17 03:21; Start 05/12/17 at 15:59; Status Hold IV Flush (NS Flush) 2 ml UNSCH PRN IVF FLUSH AFTER USING IV ACCESS Last administered on 05/21/17 00:53; Start 05/12/17 at 16:00 IV Flush (NS Flush) 2 ml BID IVF Last administered on 05/23/17 21:00; Start at 21:00 Docusate Sodium (Colace) 100 mg BID PO Last administered on 05/23/17 21:27; Start 05/12/17 at 21:00 Pantoprazole Sodium (Protonix) 40 mg DAILY PO Last administered on 05/23/17 08 :38; Start 05/13/17 at 09:00 Acetaminophen/ Hydrocodone Bitart (Beecher 10-325 Mg) 1 tab Q4H PRN PO PAIN 1-5 WHEN TOLERATING PO Last administered on 05/21/17 23:39; Start 05/12/17 at 16:00 Acetaminophen/ Hydrocodone Bitart (Beecher 10-325 Mg) 2 tab Q4H PRN PO PAIN 6-10 WHEN TOLERATING PO Last administered on 05/24/17 05:52; Start 05/12/17 at 16:00 Morphine Sulfate (Morphine Inj) 2 mg Q2H PRN IV PUSH PAIN 1-6 IF NOT TOLERATING PO; Start 05/12/17 at 16:00 Morphine Sulfate (Morphine Inj) 4 mg Q2H PRN IV PUSH PAIN 7-10 IF NOT TOLERATING PO Last administered on 05/13/17 20:35; Start 05/12/17 at 16:00 Acetaminophen (Tylenol) 650 mg Q4H PRN PO TEMPERATURE > 101.5 F Last administered on 05/22/17 02:12; Start 05/12/17 at 16:00 Miscellaneous Information SPECIFIC LAB TO BE DRAWN:VANCOMYCIN TROUGH DATE TO... ONCE ONCE .XX Last administered on 05/13/17 00:45; Start 05/13/17 at 00:45; Stop 05/13/17 at 00:46; Status DC Midazolam HCl (Versed Inj) 2 mg STK-MED ONCE .ROUTE ; Start 05/12/17 at 16:20; Stop 05/12/17 at 16:21; Status DC Fentanyl Citrate (fentaNYL INJ) 500 mcg STK-MED ONCE .ROUTE ; Start 05/12/17 at 16:20; Stop 05/12/17 at 16:21; Status DC Morphine Sulfate (*morphine INJ PERIprocedure ONLY) 8 mg STK-MED ONCE .ROUTE Last administered on 05/12/17 16:20; Start 05/12/17 at 16:20; Stop 05/12/17 at 16: 21; Status DC Miscellaneous Information ALL NURSING DEPARTME... UNSCH PRN .XX SEE LABEL COMMENTS; Start 05/12/17 at 16:12; Stop 05/13/17 at 16:11; Status DC Morphine Sulfate (*morphine INJ PERIprocedure ONLY) 8 mg STK-MED ONCE .ROUTE Last administered on 05/12/17 16:31; Start 05/12/17 at 16:31; Stop 05/12/17 at 16: 32; Status DC Miscellaneous Information SPECIFIC LAB TO BE ARLENE... ONCE ONCE .XX Last administered on 05/16/17 00:45; Start 05/16/17 at 00:45; Stop 05/16/17 at 00:46; Status DC Miscellaneous Information SPECIFIC LAB TO BE ARLENE... ONCE ONCE .XX Last administered on 05/19/17 13:00; Start 05/19/17 at 12:45; Stop 05/19/17 at 12:46; Status DC Gadodiamide 17 ml 17 ml STK-MED ONCE IV Last administered on 05/21/17 12:50; Start 05/21/17 at 12:50; Stop 05/21/17 at 12:51; Status DC Daptomycin/Sodium Chloride (Cubicin Inj/NS Inj) 100 ml @ 200 mls/hr Q24H IV Last administered on 05/23/17 16:53; Start 05/21/17 at 15:00 A/P Assessment and Plan A/P (1) Sepsis due to epidural abscess/ with recurrent fever s/p L3-L5 laminectomy with evacuation of spinal epidural abscess started on Daptomycin - antibiotics per ID. MRI of lumbar spine repeated with no acute finding. repeated blood cultures negative so far. HIV/hepatitis panel negative. neurosurgery and ID following. continue with pain control. (2) MRSA Bacteremia continue Daptomycin echo with no vegetation repeated blood cultures from 05/20 negative so far. ID following. (3) Rhabdomyolysis-resolved. due to cocaine use versus musculoskeletal injury (4) Shoulder pain, right- improving. MRI with Moderate hypertrophic changes are seen in the AC joint indenting the subacromial fat plane to a slight degree with adjacent subcutaneous edema possibly inflammatory without evidence for abscess formation. continue with pain control- (5) Encephalopathy, toxic-resolved. (6) HTN (hypertension) Continue Coreg and clonidine as needed (7)- hypokalemia; replaced. (8)- right knee pain; improved- XR with no fracture or significant arthropathy- continue pain control. (9); swelling/ tenderness over the right hip- soft tissue sonogram with edematous tissue. DVT prophylaxis with SCD's. Discharge Planning possible dc home later today. see med list. f/u; pcp and neurosurgery. d/w the patient, , case management and RN. time spent 38 min. Toño Waterman MD May 24, 2017 09:06
[2017-05-24] MEDS: PANTOPRAZOLE SOD 40 MG DELAYED RELEASE TAB PO SCH (09:49)
[2017-05-24] MEDS: CARVEDILOL 12.5 MG TAB PO SCH (09:49)
[2017-05-24] MEDS: DOCUSATE SODIUM 100 MG CAP PO SCH (09:49)
[2017-05-24] MEDS: BACLOFEN 10 MG TAB PO PRN (09:49)
[2017-05-24] MEDS: HEPARIN SODIUM - SQ 10,000 UNITS/ML VIAL SQ SCH (09:50)
[2017-05-24 12:00] VITALS: BP 140/70; PULSE 54; RESP 18; TEMP 98.1; O2SAT 98
[2017-05-24] MEDS ORDERED: BACL10TA PO (13:17)
--- NOTE | 2017-05-24 13:20 | HHI.DCPOC ---
Discharge Care Plan Diagnosis: (1) Epidural abscess Your Health Problems Are: Inflammation Chronic Pain Goals to Promote Your Health * To prevent worsening of your condition and complications * To maintain your health at the optimal level Directions to Meet Your Goals Take your medications as prescribed Follow your dietary instruction Follow activity as directed Keep your appointments as scheduled Take your immunizations and boosters as scheduled If your symptoms worsen call your PCP, if no PCP go to Urgent Care Center or Emergency Room Smoking is Dangerous to Your Health. Avoid second hand smoke Call the 24-hour hour crisis hotline for domestic abuse at Toño Waterman MD May 24, 2017 13:20
--- NOTE | 2017-05-24 13:21 | HHI.FF ---
Infusion Therapy Location of Infusion Therapy: Ambulatory Infusion Therapy Order Patient Information Appointment Date: May 24, 2017 Patient Weight 83 kg Diagnosis: Diagnosis MRSA epidural abscess MRSA osteomyelitis Coded Allergies: Bee Sting (Verified Allergy, Severe, ANAPHYLAXIS, 05/08/17) Peanut (Verified Allergy, Severe, ANAPHYLAXIS, 05/08/17) *MDRO Multi-Drug Resistant Organism (Verified Adverse Reaction, Unknown, ) MRSA (blood) 05/08/17, 05/10/17, (back) 05/12/17 Administer Medication Daptomycin 660 mg IV every 24 hours Start Treatment: May 24, 2017 Stop Treatment: Jul 20, 2017 Additional Information Venous access: PICC Line Additional Instructions [x] Peripheral flush and dressing changes per protocol [x] Implanted port and central back feeder plywood layup line: * Implanted port: 10 ml Normal Saline followed by 5 ml Heparin 100 units/ml Heparin flush after each use and monthly to maintain. [] May leave port accessed during therapy. [] May leave peripheral site accessed for duration of therapy. [x] If patient has SOB or respiratory distress, check oxygen saturation. If less than 90% or clinical signs of respiratory distress, administer oxygen at 2 L/min. via nasal cannula and notify physician. [x] Anaphylaxis/Reaction orders: * Stop infusion. * Keep IV line open with saline flush. * Notify physician. * Monitor vital signs every 15 minutes until symptoms resolve. * Check Oxygen saturation; Oxygen at 2 L/min. via nasal cannula if less than 90% or clinical signs of respiratory distress. * Administer diphenhydramine (Benadryl) 25 mg IV STAT, (unless patient has received as pre-med). May repeat once, if necessary. * Solu-Cortef 250 mg IVP over 30-60 seconds, use 100 mg vials for each dissolution. * Epinephrine (1mg/1 ml) 0.3 mg subcutaneously or IVP now with any signs of respiratory distress. * Check with physician for new additional pre-med orders if patient is re- challenged or re-treated. [x] May remove PICC line when treatment complete, after confirming with Physician. [x] If the patient is admitted to the hospital, the ED, or transferred via [facility] , complete transfer form including medication reconciliation order sheet. Laboratory Tests Weekly Labs: CBC w/diff, Creatinine, CRP, LFT's (Hepatic function test), Serum CK Levels Additional Information Please draw weekly labs, fax labs, call with abnormals, change in clinical condition or problems to: Dr.T. King or covering ID Physician Follow up appt: Patient to schedule follow up appt with Dr.Reba Randolph within 2 weeks post discharge. Follow up with PCP Follow up with other MD's as planned. Counseling: Counseled about medication side effects Counseled about PICC line care and hand hygiene. Counseled about medication compliance and follow up compliance. Gwen King MD May 24, 2017 13:21
--- NOTE | 2017-05-24 13:21 | HHI.DS ---
Discharge Summary Admission Date May 08, 2017 at 23:28 Discharge Date: May 24, 2017 Admitting Diagnosis sepsis, elevated troponin I, altered mental status (1) Sepsis ICD Code: A41.9 Diagnosis: Principal (2) Rhabdomyolysis ICD Code: M62.82 Diagnosis: Secondary (3) Shoulder pain, right ICD Code: M25.511 Diagnosis: Secondary (4) Encephalopathy, toxic ICD Code: G92 Diagnosis: Secondary (5) HTN (hypertension) ICD Code: I10 Diagnosis: Secondary (6) Epidural abscess ICD Code: G06.2 Diagnosis: Principal Procedures L3-L5 laminectomy with evacuation of spinal epidural abscess Brief History - From Admission Patient is a 51-year-old female with a history of uncontrolled hypertension due to nonadherence. Patient comes in over the last 4 days to the emergency room several times weekly multiple things. Initially there is a leg laceration and there was some pain which was called sciatica and at that ER evaluation she was given baclofen and Ultram and Medrol Dosepak. Patient subsequently came in within 24 hours with an altered mental status per her fianc. She was confused and unable to provide a good history. She also presented with a fever of 102.1 with elevated cardiac isoenzymes CPK troponin were elevated and the patient was complaining of leg and shoulder cramping. Patient had a white cell count was elevated and evidence of acute renal failure. She has evidence of urinary tract infections been treated for sepsis and admitted to the hospital. Patient is also complaining of right shoulder pain which is 10 out of 10 and worse with movement of the shoulder and improved with keeping it still. Patient has never had this before and was very concerned. She never had sciatica before either and has had difficulty walking due to the pain. She was recommended for further imaging but has refused due to increased pain. She did have x-ray of the shoulder which was unremarkable for any fracture or bony injury. She does admit to cocaine and marijuana as well as excessive tobacco and alcohol use. She is tearful and requested to go home however she realizes she cannot move due to pain. CBC/BMP: 05/22/17 1627 05/24/17 1010 Significant Findings Laboratory Tests Test 05/22/17 16:27 Red Blood Count 2.64 MIL/MM3 (4.00-5.30) Hemoglobin 8.9 GM/DL (11.6-15.3) Hematocrit 24.9 % (35.0-46.0) Neutrophils (%) (Auto) 70.4 % (16.0-70.0) Potassium Level 3.2 MEQ/L (3.5-5.1) Random Glucose 120 MG/DL (74-106) Albumin 2.1 GM/DL (3.4-5.0) Imaging Last Impressions Lumbar Spine MRI 05/21/17 0000 Signed Impressions: Service Date/Time: Sunday, May 21, 2017 12:23 - CONCLUSION: Interval surgery with no new acute findings. Sebastáin Morales MD Lower Extremity Ultrasound 05/21/17 0000 Signed Impressions: Service Date/Time: Sunday, May 21, 2017 17:02 - CONCLUSION: Edematous tissues in the lateral right hip Sebastián Morales MD Chest X-Ray 05/19/17 0000 Signed Impressions: Service Date/Time: Friday, May 19, 2017 13:40 - CONCLUSION: Minimal blunting of the left costophrenic sulcus. Nahun Frances MD FACR Knee X-Ray 05/17/17 0000 Signed Impressions: Service Date/Time: Wednesday, May 17, 2017 11:06 - CONCLUSION: Soft tissue swelling in the thigh. Intact knee joint without evidence of acute fracture or significant arthropathy. Cl Harris MD Lumbar Spine X-Ray 05/12/17 0000 Signed Impressions: Service Date/Time: Friday, May 12, 2017 14:28 - CONCLUSION: Limited image as detailed above. Trevin Fuentes Jr., MD Shoulder MRI 05/10/17 0000 Signed Impressions: Service Date/Time: Wednesday, May 10, 2017 12:48 - CONCLUSION: Moderate hypertrophic changes are seen in the AC joint indenting the subacromial fat plane to a slight degree with adjacent subcutaneous edema possibly inflammatory without evidence for abscess formation. Clement Valentin MD Chest CT 05/08/17 [id number] Signed Impressions: Service Date/Time: Monday, May 08, 2017 23:29 - CONCLUSION: Normal examination. Edis Fox MD Shoulder X-Ray [id number]/08/[id number] Signed Impressions: Service Date/Time: Monday, May 08, 2017 21:05 - CONCLUSION: Negative two-view examination of the shoulder. Trevin Deleon MD Abdomen/Pelvis CT [id number]/08/172046 Signed Impressions: Service Date/Time: Monday, May 08, 2017 22:08 - CONCLUSION: No acute findings in the abdomen and pelvis. Trevin Deleon MD PE at Discharge GENERAL: This is a well-nourished, well-developed patient, in no apparent distress. CARDIOVASCULAR: Regular rate and regular rhythm without murmurs, gallops, or rubs. RESPIRATORY: Clear to auscultation. Breath sounds equal bilaterally. No wheezes , rales, or rhonchi. GASTROINTESTINAL: Abdomen soft, non-tender, nondistended. Normal, active bowel sounds MUSCULOSKELETAL: some focal swelling and tenderness over the right hip. NEURO: Alert & Oriented x4 to person, place, time, situation. Moves all ext x4 Hospital Course (1) Sepsis due to epidural abscess/ with recurrent fever s/p L3-L5 laminectomy with evacuation of spinal epidural abscess started on Daptomycin - antibiotics per ID. MRI of lumbar spine repeated with no acute finding. repeated blood cultures negative so far. HIV/hepatitis panel negative. neurosurgery and ID following. continue with pain control. (2) MRSA Bacteremia continue Daptomycin echo with no vegetation repeated blood cultures from 05/20 negative so far. ID following. (3) Rhabdomyolysis-resolved. due to cocaine use versus musculoskeletal injury (4) Shoulder pain, right- improving. MRI with Moderate hypertrophic changes are seen in the AC joint indenting the subacromial fat plane to a slight degree with adjacent subcutaneous edema possibly inflammatory without evidence for abscess formation. continue with pain control- (5) Encephalopathy, toxic-resolved. (6) HTN (hypertension) Continue Coreg and clonidine as needed (7)- hypokalemia; replaced. (8)- right knee pain; improved- XR with no fracture or significant arthropathy- continue pain control. (9); swelling/ tenderness over the right hip- soft tissue sonogram with edematous tissue. Pt Condition on Discharge: Fair Discharge Disposition: Discharge Home Discharge Time: > 30 minutes Discharge Instructions DIET: Follow Instructions for: Heart Healthy Diet Activities you can perform: Regular-No Restrictions Follow up Referrals: Neurosurgery PCP Follow-up New Medications: Baclofen (Baclofen) 10 Mg Tab 10 MG PO Q8HR PRN MUSCLE SPASM Days 30 Ref 0 TAB Continued Medications: Albuterol Neb (Albuterol Neb) 2.5 Mg/0.5 Ml Neb 2.5 MG NEB Q4HR NEB Note: The Albuterol Sulfate Inhalation Solution is concentrated and must be diluted. Read complete instructions carefully before using. PRN SHORTNESS OF BREATH EA Baclofen (Baclofen) 20 Mg Tab 20 MG PO TID Muscle Spasm #21 Ref 0 TAB Tramadol (Ultram) 50 Mg Tab 50 MG PO Q4H PRN PAIN #28 TAB Discontinued Medications: Methylprednisolone Dosepak (Medrol Dosepak) 4 Mg Dspk 4 MG PO DIRECTED Per Pharmacist direction #1 Toño Lombardo MD May 24, 2017 13:21
[2017-05-24] MEDS ORDERED: CARV12.5 PO (13:35)
--- NOTE | 2017-05-24 13:47 | HHI.IDPN ---
Subjective Subjective Remarks is a 51 yo F with MRSA bacteremia R shoulder Infective Myositis Spinal epidural abscess sp evacuation no fevers. No rash No diarrhea She tells me she is doing much better and want to go home. She reports to me that her apartment has to be emptied out or she will lose her home. She also co of R hip pain and it improved today She has US done showed no fluid collection Repeat MRI w/o acute finding Antibiotics Dapto IV Lines Line sites with no e.o infection Past Medical History Hypertension COPD/asthma , dental extraction Allergies: Coded Allergies: Bee Sting (Verified Allergy, Severe, ANAPHYLAXIS, 05/08/17) Peanut (Verified Allergy, Severe, ANAPHYLAXIS, 05/08/17) *MDRO Multi-Drug Resistant Organism (Verified Adverse Reaction, Unknown, ) MRSA (blood) 05/08/17, 05/10/17, (back) 05/12/17 Objective . Vital Signs Date Time Temp Pulse Resp B/P Pulse Ox O2 Delivery O2 Flow Rate FiO2 05/24/17 12:00 98.1 54 18 140/70 98 05/24/17 08:00 98.1 57 16 150/78 96 05/24/17 04:00 98.6 69 18 157/72 93 05/24/17 00:00 98.1 67 18 156/76 99 05/23/17 20:20 98.3 65 18 161/76 99 05/23/17 19:00 55 05/23/17 16:17 98.2 60 18 172/93 99 05/23/17 05/23/17 05/24/17 15:00 23:00 07:00 Intake Total 240 ml Balance 240 ml Intake Oral 240 ml # Voids 4 3 . Laboratory Tests Test 05/22/17 16:27 White Blood Count 5.1 TH/MM3 Red Blood Count 2.64 MIL/MM3 Hemoglobin 8.9 GM/DL Hematocrit 24.9 % Mean Corpuscular Volume 94.4 FL Mean Corpuscular Hemoglobin 33.8 PG Mean Corpuscular Hemoglobin 35.8 % Concent Red Cell Distribution Width 14.0 % Platelet Count 300 TH/MM3 Mean Platelet Volume 7.4 FL Neutrophils (%) (Auto) 70.4 % Lymphocytes (%) (Auto) 20.6 % Monocytes (%) (Auto) 8.0 % Eosinophils (%) (Auto) 0.8 % Basophils (%) (Auto) 0.2 % Neutrophils # (Auto) 3.6 TH/MM3 Lymphocytes # (Auto) 1.0 TH/MM3 Monocytes # (Auto) 0.4 TH/MM3 Eosinophils # (Auto) 0.0 TH/MM3 Basophils # (Auto) 0.0 TH/MM3 CBC Comment DIFF FINAL Differential Comment Laboratory Tests Test 05/22/17 05/23/17 05/24/17 16:27 08:30 10:10 Sodium Level 137 MEQ/L Potassium Level 3.2 MEQ/L 3.5 MEQ/L Chloride Level 100 MEQ/L Carbon Dioxide Level 29.0 MEQ/L Anion Gap 8 MEQ/L Blood Urea Nitrogen 7 MG/DL Creatinine 0.82 MG/DL 0.68 MG/DL Estimat Glomerular Filtration 89 ML/MIN 111 ML/MIN Rate Random Glucose 120 MG/DL Calcium Level 8.5 MG/DL Total Bilirubin 0.3 MG/DL Aspartate Amino Transf 27 U/L (AST/SGOT) Alanine Aminotransferase 39 U/L (ALT/SGPT) Alkaline Phosphatase 72 U/L Total Protein 7.0 GM/DL Albumin 2.1 GM/DL Microbiology Date/Time Procedure Status Source Growth 05/22/17 16:21 Aerobic Blood Culture - Preliminary Resulted Blood Peripheral NO GROWTH IN 2 DAYS 05/22/17 16:21 Anaerobic Blood Culture - Preliminary Resulted Blood Peripheral NO GROWTH IN 2 DAYS 05/22/17 16:40 Aerobic Blood Culture - Preliminary Resulted Blood Peripheral NO GROWTH IN 2 DAYS 05/22/17 16:40 Anaerobic Blood Culture - Preliminary Resulted Blood Peripheral NO GROWTH IN 2 DAYS Imaging Last Impressions Lumbar Spine MRI 05/21/17 0000 Signed Impressions: Service Date/Time: Sunday, May 21, 2017 12:23 - CONCLUSION: Interval surgery with no new acute findings. Sebastián Morales MD Lower Extremity Ultrasound 05/21/17 0000 Signed Impressions: Service Date/Time: Sunday, May 21, 2017 17:02 - CONCLUSION: Edematous tissues in the lateral right hip Sebastián Morales MD Chest X-Ray 05/19/17 0000 Signed Impressions: Service Date/Time: Friday, May 19, 2017 13:40 - CONCLUSION: Minimal blunting of the left costophrenic sulcus. Nahun Frances MD FACR Knee X-Ray 05/17/17 0000 Signed Impressions: Service Date/Time: Wednesday, May 17, 2017 11:06 - CONCLUSION: Soft tissue swelling in the thigh. Intact knee joint without evidence of acute fracture or significant arthropathy. Cl Harris MD Lumbar Spine X-Ray 05/12/17 0000 Signed Impressions: Service Date/Time: Friday, May 12, 2017 14:28 - CONCLUSION: Limited image as detailed above. Trevin Fuentes Jr., MD Shoulder MRI 05/10/17 0000 Signed Impressions: Service Date/Time: Wednesday, May 10, 2017 12:48 - CONCLUSION: Moderate hypertrophic changes are seen in the AC joint indenting the subacromial fat plane to a slight degree with adjacent subcutaneous edema possibly inflammatory without evidence for abscess formation. Clement Valentin MD Chest CT 05/08/172330 Signed Impressions: Service Date/Time: Monday, May 08, 2017 23:29 - CONCLUSION: Normal examination. Edis Fox MD Shoulder X-Ray 05/08/172046 Signed Impressions: Service Date/Time: Monday, May 08, 2017 21:05 - CONCLUSION: Negative two-view examination of the shoulder. Trevin Deleon MD Abdomen/Pelvis CT 05/08/172046 Signed Impressions: Service Date/Time: Monday, May 08, 2017 22:08 - CONCLUSION: No acute findings in the abdomen and pelvis. Trevin Deleon MD Physical Exam GENERAL: Awake and alert, NAD SKIN: No rashes, ecchymoses or lesions. Cool and dry. HEAD: Atraumatic. Normocephalic. No temporal or scalp tenderness. EYES: Pupils equal round and reactive. Extraocular motions intact. No scleral icterus. ENT: Nose without bleeding, purulent drainage or septal hematoma. Throat without erythema, NECK: Trachea midline. Supple, nontender, no meningeal signs. CARDIOVASCULAR: Regular rate and rhythm without murmurs, gallops, or rubs. RESPIRATORY: Clear to auscultation. Breath sounds equal bilaterally. No wheezes , rales, or rhonchi. GASTROINTESTINAL: Abdomen soft, non-tender, nondistended. BACK: brace in place MUSCULOSKELETAL: Extremities without clubbing, cyanosis, or edema. No calf tenderness Mild bruising over R hip NEUROLOGICAL: Awake and alert. moves extremities. Psych: tearful IV line sites with no e/o infection. Assessment & Plan Remarks Sepsis present on admission MRSA bacteremia Infective Myositis Lumbar spinal epidural abscess - sp L3-L5 laminectomy with evacuation of abscess 05/12. MRSA bacteremia possible endocarditis. Persistent fever, resolved after transition to daptomycin: ? Drug fever. Recs cont daptomycin (stop date: 07/20/2017) Post hospital infusion orders in chart. D/w pt in presence of and cda teacher Gisell. Pt was threatening to leave AMA and was tearful. Explained to patient, consoled patient and convinced her to stay till PICC line placed and Daptomycin infusion in clinic can be arranged. d/w patient that compliance is important. Also explained to patient that if treatment is interrupted she could get paralyzed from worsening infection or worsening sepsis and . After much deliberation she finally calmed down and agreed to stay for the daptomycin infusion and PICC line arrangements. Time spent in excess of 40 mins for above and d.w account manager [employer], post hospital infusion therapy orders etc for discharge planning. Ok to place PICC line today as fevers resolved after antibiotic switched. Suspect fevers were drug fever. Will sign off please call back if any change in clinical condition, questions or change in plan. Gwen King MD May 24, 2017 13:47
[2017-05-24] MEDS: DAPTOMYCIN IV SCH (15:00)
[2017-05-24] MEDS ORDERED: SODIUM CHLORIDE 0.9% FLUSH 10 ML FLUSH IV FLUSH PRN (15:00)
[2017-05-24] MEDS: SODIUM CHLORIDE 0.9% IV SCH (15:00)
--- NOTE | 2017-05-24 15:41 | RADRPT ---
EXAM DATE/TIME: 05/24/2017 15:09 [facility] COMPARISON: CHEST PA & LAT, May 19, 2017, 13:40. INDICATIONS : Post PICC line placement. MEDICAL HISTORY : None. SURGICAL HISTORY : Back surgery. ENCOUNTER: Initial ACUITY: 1 day PAIN SCORE: 3/10 LOCATION: Bilateral chest FINDINGS: Portable AP view of the chest demonstrates a normal-sized cardiac silhouette. Right upper extremity P ICC distal tip is in the SVC. There is stable linear scar in the left midlung zone. CONCLUSION: Right upper extremity PICC distal tip in appropriate position in the SVC. Sebastián Phelps MD on May 24, 2017 at 15:38 Board Certified Radiologist. This report was verified electronically.
[2017-05-24 16:00] VITALS: BP 186/91; PULSE 58; RESP 16; TEMP 98.6; O2SAT 96
[2017-05-25] MEDS ORDERED: SODIUM CHLORIDE 0.9% FLUSH 10 ML FLUSH IV FLUSH SCH (09:00)
[2017-05-25] MEDS ORDERED: MEDR4TAB PO (13:41)
[2017-05-25] MEDS ORDERED: DAPT250I IV (13:41)
[2017-05-25] MEDS ORDERED: BACL20TA PO (13:41)
== END 2017-05-24 19:00 | disposition home or self-care (01) | DRG 853 ==
LOC: PHED 20:22 → PHEDA 23:28 → PHEDH 05-09 02:28 → PH3B 05-09 11:27 → N05B 05-10 20:08
PROVIDERS: ADMIT Internal Medicine; ATTEND Internal Medicine
PROC: 00C30ZZ Extirpation of Matter from Intracranial Epidural Space, Open Approach (ICD-10-PCS; 2017-05-12)
PROC: 01NB0ZZ Release Lumbar Nerve, Open Approach (ICD-10-PCS; principal; 2017-05-12 13:29)
PROC: 02HV33Z Insertion of Infusion Device into Superior Vena Cava, Percutaneous Approach (ICD-10-PCS; 2017-05-24)
DX: A41.02 Sepsis due to Methicillin resistant Staphylococcus aureus (principal); G92 Toxic encephalopathy; G06.1 Intraspinal abscess and granuloma; N17.9 Acute kidney failure, unspecified; M62.82 Rhabdomyolysis; N39.0 Urinary tract infection, site not specified; M60.011 Infective myositis, right shoulder; I10 Essential (primary) hypertension; J44.9 Chronic obstructive pulmonary disease, unspecified; F17.210 Nicotine dependence, cigarettes, uncomplicated; T46.5X6A Underdosing of other antihypertensive drugs, initial encounter; E87.6 Hypokalemia; M62.838 Other muscle spasm; R50.82 Postprocedural fever; M25.561 Pain in right knee; R50.2 Drug induced fever; T36.8X5A Adverse effect of other systemic antibiotics, initial encounter; M25.451 Effusion, right hip; F10.10 Alcohol abuse, uncomplicated; F12.90 Cannabis use, unspecified, uncomplicated; F14.10 Cocaine abuse, uncomplicated; Y90.9 Presence of alcohol in blood, level not specified; Z86.14 Personal history of Methicillin resistant Staphylococcus aureus infection; Z91.010 Allergy to peanuts; Z91.030 Bee allergy status
CPT/HCPCS: 36569; 71010; 71020; 71250; 72020; 72158; 73030; 73223; 73564; 74177; 76000; 76882; 76937; 80048; 80053; 80074; 80202; 80307; 81001; 82140; 82550; 82552; 82565; 83605; 84132; 84443; 84484; 84703; 85007; 85025; 85027; 86403; 86703; 87015; 87040; 87070; 87086; 87102; 87116; 87147; 87176; 87186; 87205; 87206; 88305; 93005; 93306; 94150; 94640; 94664; 96361; 96374; 96375; A6010; A9579; J0131; J0690; J0692; J0696; J0878; J1170; J1580; J1644; J1885; J2060; J2250; J2270; J2405; J2710; J3010; J3370; J3480; J7030; J7040; J7050; J7120; J7613; L0627; P9612; Q9967

== ENCOUNTER 2017-06-03 08:37 | Emergency (ER) | payer SELFPAY ==
[~2017-06-03 08:37] MED LIST changes: -HYDR-3533 PO; -VIBA750I IV
[2017-06-03 08:38] VITALS: BP 174/89; PULSE 65; RESP 17; TEMP 98.4; O2SAT 100
[2017-06-03 09:16] VITALS: BP 169/84; PULSE 62; RESP 18; TEMP 98.5; O2SAT 99
[2017-06-03] MEDS ORDERED: oxyCODONE/ACETAMINOPHEN 5 MG/325 MG TAB PO ONE (10:00)
--- NOTE | 2017-06-03 10:06 | PD ---
HPI Chief Complaint: Pain: Acute or Chronic Time Seen by Provider: 09:43 Travel History International Travel<30 days: No Contact w/Intl Traveler<30days: No Traveled to known affect area: No History of Present Illness HPI The patient is 51 years old. She arrives complaining of bilateral shoulder pain. The pain has been constant. She is currently taking baclofen for the pain. She states she would like to have a PICC line removed as she is currently receiving daptomycin following admission for sepsis secondary to MRSA cellulitis. The shoulder pain is in the region of the bilateral trapezius muscular distribution. It's worse with range of motion. No fever. This pain is chronic in nature. Baclofen seems to confirm minimal of any benefit. The patient, bilateral leg, has undergone surgery for epidural abscess. Today she has no fever or suggestion of septic state or an epidural abscess or complication related to the surgery. Last night she could not sleep due to shoulder pain. She has tried in times previously to apply a warm compress with good effect. PFSH Past Medical History Hx Anticoagulant Therapy: No Arthritis: No Asthma: Yes Autoimmune Disease: No Heart Rhythm Problems: No Cancer: No Cardiovascular Problems: Yes Chest Pain: No Congestive Heart Failure: No COPD: Yes Diabetes: No Diminished Hearing: No Endocrine: No Genitourinary: Yes Hypertension: Yes Immune Disorder: No Kidney Stones: No Musculoskeletal: Yes (HERNIATED DISC, low back) Neurologic: No Psychiatric: No Reproductive: No Respiratory: Yes (asthma, COPD) Immunizations Current: Yes Renal Failure: No Sleep Apnea: No Thyroid Disease: No Influenza Vaccination: No ?: Not Menopausal: No Tubal Ligation: Yes (1990) Past Surgical History Abdominal Surgery: Yes (C section in 1982) Cardiac Surgery: No Section: Yes (1982) Ear Surgery: No Endocrine Surgery: No Eye Surgery: No Genitourinary Surgery: No Gynecologic Surgery: No Oral Surgery: Yes (wisdom teeth removed at 17) Thoracic Surgery: No Social History Alcohol Use: Yes (on occasion) Tobacco Use: Yes (3-4 cigs a day) Substance Use: No Allergies-Medications (Allergen,Severity, Reaction): Coded Allergies: bee venom protein (honey bee) (Verified Allergy, Severe, ANAPHYLAXIS, HIVES, ITCHING, 06/02/17) ipratropium (Verified Allergy, Severe, ANAPHYLAXIS, 06/02/17) peanut (Verified Allergy, Severe, Itching, hives, 06/02/17) *MDRO Multi-Drug Resistant Organism (Verified Adverse Reaction, Unknown, ) MRSA (blood) 05/08/17, 05/10/17, (back) 05/12/17 Reported Meds & Prescriptions Reported Meds & Active Scripts Active Nicotine Patch (Nicotine) 14 Mg/24 Hr Patch 14 Mg T-DERMAL DAILY Coreg (Carvedilol) 12.5 Mg Tab 12.5 Mg PO Q12HR 30 Days Ultram (Tramadol HCl) 50 Mg Tab 50 Mg PO Q4H PRN Reported Hydrocodone-Acetaminophen 5-325 mg Tab Diphenhydramine (Diphenhydramine HCl) 25 Mg Cap 25 Mg PO Q4H PRN Daptomycin Inj (Daptomycin) 500 Mg Vial 660 Mg IV DAILY Medrol (Methylprednisolone) 4 Mg Tab 4 Mg PO DIRECTED Baclofen 20 Mg Tab 10 Mg PO TID Albuterol Neb (Albuterol Sulfate) 2.5 Mg/0.5 Ml Neb 2.5 Mg NEB Q4HR NEB PRN Note: The Albuterol Sulfate Inhalation Solution is concentrated and must be diluted. Read complete instructions carefully before using. Review of Systems Except as stated in HPI: all other systems reviewed are Neg Physical Exam Narrative GENERAL: The patient is 51 years old. Well-nourished well-developed SKIN: Warm and dry. HEAD: Atraumatic. Normocephalic. EYES: Pupils equal and round. No scleral icterus. No injection or drainage. ENT: No nasal bleeding or discharge. Mucous membranes pink and moist. NECK: Trachea midline. No JVD. CARDIOVASCULAR: Regular rate and rhythm. RESPIRATORY: No accessory muscle use. Clear to auscultation. Breath sounds equal bilaterally. GASTROINTESTINAL: Abdomen soft, non-tender, nondistended. Hepatic and splenic margins not palpable. MUSCULOSKELETAL: Extremities without clubbing, cyanosis, or edema. No obvious deformities. Right upper extremity PICC line site of insertion is nontender and erythematous. There is no swelling or induration. There is no discharge. NEUROLOGICAL: Awake and alert. No obvious cranial nerve deficits. Motor grossly within normal limits. Five out of 5 muscle strength in the arms and legs. Normal speech. PSYCHIATRIC: Appropriate mood and affect; insight and judgment normal. Data Data Last Documented VS Vital Signs Date Time Temp Pulse Resp B/P (MAP) Pulse Ox O2 Delivery O2 Flow Rate FiO2 06/03/17 09:17 61 18 06/03/17 09:16 98.5 169/84 (112) 99 Room Air Vital signs reviewed Orders Orders Oxycodone-Acetamin 5-325 Mg (Percocet (06/03/17 10:00) MDM Medical Decision Making Medical Screen Exam Complete: Yes Emergency Medical Condition: Yes Medical Record Reviewed: Yes Differential Diagnosis Radiculopathy, muscle spasm, myofascial strain Narrative Course The patient has bilateral trapezius muscle spasms. There is no upper extremity weakness or numbness. Pain is most significant at night preventing her from sleeping. We will cover pain here in the short Lortab prescription, 10 tabs. We discussed interventions to help treat the chronic pain patient verbalizes understanding and is ready for discharge. Diagnosis Primary Impression: Chronic musculoskeletal pain Referrals: Primary Care Physician 2 days Additional Instructions: You have a choice when it comes to health care, and we are glad that you chose [facility]. Hopefully, we have met your expectations on today's visit. You are welcome to return to [facility] at any time, as we are committed to meeting the health care needs of our community. Med/Other Pt SpecificInfo: Prescription(s) given Scripts Hydrocodone-Acetaminophen (Lortab) 5-325 Mg Tab 1-2 TAB PO Q6H Y for PAIN SCALE 6 TO 10, #10 TAB 0 Refills Prov: Cody Méndez MD 06/03/17 Disposition: 01 DISCHARGE HOME Condition: Stable Cody Méndez MD Jun 03, 2017 10:06
[2017-06-03] MEDS ORDERED: HYDR-3533 PO (10:16)
[2017-06-03] MEDS ORDERED: VIBA750I IV (15:40)
== END 2017-06-03 10:31 | disposition home or self-care (01) ==
LOC: NEPD 08:37
DX: M25.512 Pain in left shoulder (principal); M25.511 Pain in right shoulder; M62.838 Other muscle spasm; J44.9 Chronic obstructive pulmonary disease, unspecified; J45.909 Unspecified asthma, uncomplicated; I10 Essential (primary) hypertension
CPT/HCPCS: 99283

== ENCOUNTER → 2017-06-03 | Outpatient (CLI) | payer SELFPAY ==
[~2017-06-03] MED LIST changes: +CARV12.5 PO; +DAPT250I IV; +DIPH25CA PO; +HYDR-3516; +HYDR-3533 PO; -MEDR4PAK PO; +MEDR4TAB PO; +NICO14DI T-DERMAL; +VIBA750I IV
--- NOTE | 2017-06-03 14:06 | RADRPT ---
EXAM DATE/TIME: 06/03/2017 13:18 [facility] COMPARISON: CHEST SINGLE AP, May 24, 2017, 15:09. INDICATIONS : Right shoulder pain. Evaluate for myositis. RADIATION DOSE: 30.81 CTDIvol (mGy) MEDICAL HISTORY : Hypertension. SURGICAL HISTORY : Tubal ligation. L3 to L5 laminectomy ENCOUNTER: Initial ACUITY: 1 day PAIN SCALE: 3/10 LOCATION: Right shoulder TECHNIQUE: Volumetric scanning of the shoulder was performed. Using automated exposure control and adjustment o f the mA and/or kV according to patient size, radiation dose was kept as low as reasonably achievable to obtain optimal diagnostic quality images. DICOM format image data is available electronically f or review and comparison. FINDINGS: No definite fractures, or dislocations are identified. No definite lytic or sclerotic lesion is seen . The glenohumeral joint space is well maintained. Slight hypertrophic changes are seen in the AC dinora int indenting the subacromial fat plane to a slight degree. No significant joint effusion is seen. Th ere is no evidence for any mass or fluid collections within the muscular structures. CONCLUSION: Unremarkable study. Clement Valentin MD on June 03, 2017 at 14:02 Board Certified Radiologist. This report was verified electronically.
--- NOTE | 2017-06-03 15:24 | RADRPT ---
EXAM DATE/TIME: 06/03/2017 13:22 [facility] COMPARISON: MRI LUMBAR SPINE W & W/O CONTRAST, May 21, 2017, 12:23. INDICATIONS : Evaluate for epidural abscess. RADIATION DOSE: 23.54 CTDIvol (mGy) MEDICAL HISTORY : Hypertension. SURGICAL HISTORY : Tubal ligation. L3 to L5 laminectomy ENCOUNTER: Initial ACUITY: 1 day PAIN SCALE: 0/10 LOCATION: back TECHNIQUE: Volumetric scanning of the lumbar spine was performed. Multiplanar reconstructions in the sagittal, coronal and oblique axial planes were performed. Using automated exposure control and adjustment of the mA and/or kV according to patient size, radiation dose was kept as low as reasonably achievable t o obtain optimal diagnostic quality images. DICOM format image data is available electronically for review and comparison. FINDINGS: No significant compression deformities, spondylolysis, or spondylolisthesis is seen. There is a tiny 2 mm stone in the right kidney. L1-L2: No appreciable compromise to the thecal sac, or the exiting nerve roots is seen. The neural foramina and lateral recesses are patent bilaterally. L2-L3: Slight bulging disc and hypertrophic changes are seen with indentation on the thecal sac and no significant compromise to the thecal sac or the exiting nerve roots. L3-L4: There is irregularity of the facet on the right side with lytic lucencies involving the cortex could be due to a fairly aggressive facet arthrosis, however inflammatory process and/or infectious etiologies are not excluded. Comparison is difficult to the patient's prior MRI lumbar spine dated due to differences in technique, however these areas of cortical destruction involving the fa cet on the right side most likely were not present previously. There is also moderate facet arthrosis on the left. There is slight neural foramina compromise bilaterally due to bulging disc and hypertro phic changes. There is bulging disc and hypertrophic change protruding into bilateral lateral recess without any significant compromise to the exiting nerve roots. Slight bulging disc and hypertrophic c hanges are seen with indentation on the thecal sac and no significant compromise to the thecal sac. T here is evidence for prior laminectomy on the right side with soft tissue density extending to the sk in surface probably postsurgical change, however abscess is difficult to exclude. L4-L5: There is bulging disc and hypertrophic change protruding into bilateral lateral recess with out any significant compromise to the exiting nerve roots. There is also extensive facet arthrosis on the right side and to a slight degree on the left. There is symmetrical bulging disc with extension into the bilateral neural foramen impinging the exiting nerve roots to a slight degree. Slight bulgin g disc and hypertrophic changes are seen with indentation on the thecal sac and no significant compro mise to the thecal sac. L5-S1: No appreciable compromise to the thecal sac, or the exiting nerve roots is seen. The neura l foramina and lateral recesses are patent bilaterally CONCLUSION: 1. Slight neural foramina compromise bilaterally L3-L4 without any significant thecal sac stenosis. 2. Significant facet arthrosis on the right at L3-4 and L4-5 levels, however L3-4 level demonstrates lucencies and irregularity of the cortex and possibility of superimposed inflammatory/infectious proc ess should be entertained since these findings were not present on the prior MRI from 05/21/2017. No e vidence for epidural abscess based on this technique, however this possibility is difficult to exclud e based on this technique. Clement Valentin MD on June 03, 2017 at 14:53 Board Certified Radiologist. This report was verified electronically.
== END ==
LOC: HRAD 11:54
PROVIDERS: ATTEND Internal Medicine Infectious Disease
DX: M60.9 Myositis, unspecified (principal); G06.2 Extradural and subdural abscess, unspecified
CPT/HCPCS: 72131; 73200

== ENCOUNTER 2018-03-25 06:15 | Emergency (ER) | payer SELFPAY ==
[~2018-03-25] VITALS: Ht 170.2 cm; Wt 83.0 kg
[~2018-03-25 06:15] MED LIST changes: -DAPT250I IV; +HYDR-3533 PO; +TRAM50 PO; -ULTR50TA5 PO
[2018-03-25 06:25] VITALS: BP 221/101; PULSE 88; RESP 20; TEMP 98; O2SAT 98
[2018-03-25 07:03] VITALS: BP 200/87; PULSE 60; RESP 16; O2SAT 95
--- NOTE | 2018-03-25 07:17 | PD ---
HPI Chief Complaint: Injury Time Seen by Provider: 07:03 Travel History International Travel<30 days: No Contact w/Intl Traveler<30days: No Traveled to known affect area: No History of Present Illness HPI Patient presents to the emergency department complaining of right hand pain that started yesterday. She denies any trauma. She is right-handed and does not work outside the home. States that she has been using a drill secondary to remodeling her home. New onset of symptoms never happened before. Dates then March 2017 she was taking antibiotics and was told that it may cause joint pain. She denies fever, chills, nausea, vomiting, numbness, tingling, shortness of breath, chest pain, rash or skin lesions, vision changes, urinary symptoms, or any other joint pain. Reports swelling of the second and third PIP. Patient states that she has been out of her blood pressure medication for 1 year and only takes albuterol as needed for asthma. Requesting prescription for clonidine. PFSH Past Medical History Hx Anticoagulant Therapy: No Arthritis: No Asthma: Yes Autoimmune Disease: No Heart Rhythm Problems: No Cancer: No Cardiovascular Problems: Yes Chest Pain: No Congestive Heart Failure: No COPD: Yes Diabetes: No Diminished Hearing: No Endocrine: No Genitourinary: Yes Hypertension: Yes Immune Disorder: No Implanted Vascular Access Dvce: Yes Kidney Stones: No Musculoskeletal: Yes (HERNIATED DISC, low back) Neurologic: No Psychiatric: No Reproductive: No Respiratory: Yes (asthma, COPD) Immunizations Current: Yes Renal Failure: No Sleep Apnea: No Thyroid Disease: No Tetanus Vaccination: < 5 Years Influenza Vaccination: No ?: Not Menopausal: No Tubal Ligation: Yes (1990) Past Surgical History Abdominal Surgery: Yes (C section in 1982) Cardiac Surgery: No Section: Yes (1982) Ear Surgery: No Endocrine Surgery: No Eye Surgery: No Genitourinary Surgery: No Gynecologic Surgery: No Oral Surgery: Yes (wisdom teeth removed at 17) Thoracic Surgery: No Other Surgery: Yes Social History Alcohol Use: Yes (on occasion) Tobacco Use: Yes (3-4 cigs a day) Substance Use: No Allergies-Medications (Allergen,Severity, Reaction): Coded Allergies: bee venom protein (honey bee) (Verified Allergy, Severe, ANAPHYLAXIS, HIVES, ITCHING, 03/25/18) ipratropium (Verified Allergy, Severe, ANAPHYLAXIS, 03/25/18) peanut (Verified Allergy, Severe, Itching, hives, 03/25/18) doxycycline (Verified Allergy, Unknown, Rash, 03/25/18) *MDRO Multi-Drug Resistant Organism (Verified Adverse Reaction, Unknown, ) 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 Read complete instructions carefully before using. Review of Systems Except as stated in HPI: all other systems reviewed are Neg Physical Exam Narrative GENERAL: No acute distress. SKIN: Focused skin assessment warm/dry. HEAD: Atraumatic. Normocephalic. EYES: Pupils equal and round. No scleral icterus. No injection or drainage. ENT: No nasal bleeding or discharge. Mucous membranes pink and moist. NECK: Trachea midline. No JVD. CARDIOVASCULAR: Regular rate and rhythm. No murmur appreciated. RESPIRATORY: No accessory muscle use. Clear to auscultation. Breath sounds equal bilaterally. GASTROINTESTINAL: Abdomen soft, non-tender, nondistended. Hepatic and splenic margins not palpable. MUSCULOSKELETAL: No obvious deformities. No clubbing. No cyanosis. No edema. Right hand: 2+ radial pulse, sensation intact, M/U/R/nerves intact, tenderness to palpation second and third MCP joint, cannot refill less than 3-second, no red, hot, or swollen joints. NEUROLOGICAL: Awake and alert. No obvious cranial nerve deficits. Motor grossly within normal limits. Normal speech. PSYCHIATRIC: Appropriate mood and affect; insight and judgment normal. Data Data Last Documented VS Vital Signs Date Time Temp Pulse Resp B/P (MAP) Pulse Ox O2 Delivery O2 Flow Rate FiO2 03/25/18 08:07 58 18 185/88 (120) 96 Room Air 03/25/18 06:25 98.0 Orders Orders Complete Blood Count With Diff (03/25/18 07:11) Basic Metabolic Panel (Bmp) (03/25/18 07:11) C-Reactive Protein (Crp) (03/25/18 07:11) Westergren Sedimentation Rate (03/25/18 07:11) Uric Acid (03/25/18 07:11) Hand, Complete ([id number]) (03/25/18 07:18) Clonidine (Catapres) (03/25/18 07:30) Labs Laboratory Tests Test 03/25/18 07:20 White Blood Count 8.4 TH/MM3 Red Blood Count 4.19 MIL/MM3 Hemoglobin 13.1 GM/DL Hematocrit 39.3 % Mean Corpuscular Volume 93.8 FL Mean Corpuscular Hemoglobin 31.2 PG Mean Corpuscular Hemoglobin Concent 33.3 % Red Cell Distribution Width 13.4 % Platelet Count 214 TH/MM3 Mean Platelet Volume 8.0 FL Neutrophils (%) (Auto) 63.1 % Lymphocytes (%) (Auto) 27.9 % Monocytes (%) (Auto) 7.1 % Eosinophils (%) (Auto) 1.5 % Basophils (%) (Auto) 0.4 % Neutrophils # (Auto) 5.3 TH/MM3 Lymphocytes # (Auto) 2.3 TH/MM3 Monocytes # (Auto) 0.6 TH/MM3 Eosinophils # (Auto) 0.1 TH/MM3 Basophils # (Auto) 0.0 TH/MM3 CBC Comment DIFF FINAL Differential Comment Erythrocyte Sedimentation Rate 24 mm/hr Blood Urea Nitrogen 11 MG/DL Creatinine 0.85 MG/DL Random Glucose 94 MG/DL Calcium Level 8.9 MG/DL Uric Acid 6.3 MG/DL Sodium Level 143 MEQ/L Potassium Level 3.6 MEQ/L Chloride Level 110 MEQ/L Carbon Dioxide Level 22.9 MEQ/L Anion Gap 10 MEQ/L Estimat Glomerular Filtration Rate 85 ML/MIN C-Reactive Protein 1.04 MG/DL [facility] Medical Decision Making Medical Screen Exam Complete: Yes Emergency Medical Condition: Yes Interpretation(s) Labs: Normal CBC, uric acid and CRP elevated, sed rate within normal limit Last Impressions Hand X-Ray 03/25/18717 Signed Impressions: CONCLUSION: Osteoarthritis Differential Diagnosis Arthritis, gout, fracture, dislocation Narrative Course Patient presents to the emergency department with right hand pain. Right hand x- ray, CBC, basic chemistry, CRP, sed rate, and uric acid ordered. Patient also given 0.1 mg p.o. of clonidine. Diagnosis Primary Impression: Hand pain, right Additional Impression: HTN (hypertension) Qualified Codes: I10 - Essential (primary) hypertension Referrals: [facility] Patient Instructions: General Instructions Additional Instructions: 1. Meds as directed. 2. Return to the emergency department for fever, increased pain/swelling/redness in hand, inability to urinate, chest pain, shortness of breath, or for any new/worrisome/worsening symptoms. 3. No heavy lifting or machinery usage with right hand until repeat evaluation. Scripts Naproxen (Naproxen) 500 Mg Tab 500 MG PO BID Y for pain for 5 Days, #10 TAB 0 Refills Prov: Lilliana Holly MD 03/25/18 Clonidine (Catapres) 0.1 Mg Tab 0.1 MG PO BID for Blood Pressure Management for 7 Days, #14 TAB 0 Refills Prov: Lilliana Holly MD 03/25/18 Disposition: 01 DISCHARGE HOME Condition: Stable Lilliana Holly MD Mar 25, 2018 07:17
[2018-03-25] MEDS ORDERED: cloNIDine HCL 0.1 MG TAB PO ONE (07:30)
[2018-03-25 07:38] LABS: AUTOMATED NEUTROPHIL # 5.3 TH/MM3 (1.8-7.7); BASOPHIL % 0.4 % (0.0-2.0); EOSINOPHIL # 0.1 TH/MM3 (0-0.4); EOSINOPHIL % 1.5 % (0.0-4.0); HEMATOCRIT 39.3 % (35.0-46.0); HEMOGLOBIN 13.1 GM/DL (11.6-15.3); LYMPH % 27.9 % (9.0-44.0); LYMPHOCYTE # 2.3 TH/MM3 (1.0-4.8); MEAN CELL VOLUME 93.8 FL (80.0-100.0); MEAN CORPUSCULAR HEMOGLOBIN 31.2 PG (27.0-34.0); MEAN CORPUSCULAR HGB CONC 33.3 % (32.0-36.0); MONO % 7.1 % (0.0-8.0); MONOCYTE # 0.6 TH/MM3 (0-0.9); NEUT % 63.1 % (16.0-70.0); PLATELET COUNT 214 TH/MM3 (150-450); RED BLOOD COUNT 4.19 MIL/MM3 (4.00-5.30); RED CELL DISTRIBUTION WIDTH 13.4 % (11.6-17.2); WHITE BLOOD COUNT 8.4 TH/MM3 (4.0-11.0)
[2018-03-25 08:07] VITALS: BP 185/88; PULSE 58; RESP 18; O2SAT 96
--- NOTE | 2018-03-25 08:17 | RADRPT ---
EXAM DATE: 03/25/2018 7:39 AM EDT AGE/SEX: 52 years / Female INDICATIONS: Right hand pain, no injury. CLINICAL DATA: This is the patient's initial encounter. Patient reports that signs and symptoms have been present for 3 days and indicates a pain score of 9/10. MEDICAL/SURGICAL HISTORY: Hypertension. None. COMPARISON: No prior exams available for comparison. FINDINGS: There are distal predominant arthritic changes. No evidence of fracture, dislocation or bony destruct ion. Mineralization is normal. Soft tissues are unremarkable. CONCLUSION: Osteoarthritis Electronically signed by: Sebastián Morales MD 03/25/2018 8:15 AM EDT
[2018-03-25 08:40] LABS: BICARBONATE 22.9 MEQ/L (21.0-32.0); C-REACTIVE PROTEIN 1.04 MG/DL (0.00-0.30); CALCIUM 8.9 MG/DL (8.5-10.1); CREATININE 0.85 MG/DL (0.50-1.00)
[2018-03-25] MEDS ORDERED: NAPR500T2 PO (09:03)
[2018-03-25] MEDS ORDERED: CLON.1 PO (09:03)
[2018-03-25 09:13] VITALS: BP 176/86
== END 2018-03-25 09:14 | disposition home or self-care (01) ==
LOC: NEPC 06:15
DX: M79.641 Pain in right hand (principal); I10 Essential (primary) hypertension; F17.210 Nicotine dependence, cigarettes, uncomplicated; J44.9 Chronic obstructive pulmonary disease, unspecified; Z79.899 Other long term (current) drug therapy
CPT/HCPCS: 73130; 80048; 84550; 85025; 85652; 86140; 99284